=== PATIENT | female | born 1980 | race African-American/Black ===

== ENCOUNTER 2017-08-21 13:41 | Emergency (ER) | payer OTHER ==
[2017-08-21] MEDS ORDERED: METOCLOPRAMIDE 10 MG/2mL INJ ONE (14:37)
[2017-08-21] MEDS ORDERED: DIPHENHYDRAMINE 50 MG/ML VIAL ONE (14:38)
[2017-08-21] MEDS ORDERED: KETOROLAC 30 MG/ML INJ ONE (14:38)
[2017-08-21] MEDS ORDERED: NA CHLORIDE 0.9% 1,000 ML ONE (14:38)
--- NOTE | 2017-08-21 15:48 | EDPHYS ---
Physician Documentation [facility] Name: Rama Ruiz Age: 37 yrs Sex: Female : 1980 Arrival Date: 08/21/2017 Time: 13:44 Bed 13 Private MD: ED Physician Shantanu Mcnulty HPI: 08/21 15:17 This 37 yrs old Black Female presents to ER via EMS with complaints of Nausea. kb 15:17 The patient complains of pain to the top of head. The patient describes the headache as kb constant. Onset: The symptoms/episode began/occurred 2 hour(s) ago. Associated signs and symptoms: Pertinent positives: nausea, Photophobia vomiting. Severity of symptoms: At its worst the pain was moderate, in the emergency department the pain is unchanged. Headache History: The patient has had previous headaches and this one is similar to previous episodes. The symptoms are alleviated by nothing. the symptoms are aggravated by lights. The patient has experienced similar episodes in the past. The patient has not recently seen a physician. 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 - Social history:: Smoking status: Patient uses tobacco products, smokes one-half pack cigarettes per day. ROS: 15:17 Constitutional: Negative for fever, chills, and weight loss, ENT: Negative for injury, kb pain, and discharge, Neck: Negative for injury, pain, and swelling, Cardiovascular: Negative for chest pain, palpitations, and edema, Respiratory: Negative for shortness of breath, cough, wheezing, and pleuritic chest pain, Back: Negative for injury and pain, : Negative for injury, bleeding, discharge, and swelling, MS/Extremity: Negative for injury and deformity, Skin: Negative for injury, rash, and discoloration. 15:17 Abdomen/GI: Positive for nausea and vomiting. 15:17 Neuro: Positive for headache. Exam: 15:21 Constitutional: This is a well developed, well nourished patient who is awake, alert, kb and in no acute distress. Head/Face: Normocephalic, atraumatic. Chest/axilla: Normal chest wall appearance and motion. Nontender with no deformity. No lesions are appreciated. Cardiovascular: Regular rate and rhythm with a normal S1 and S2. No gallops, murmurs, or rubs. Normal PMI, no JVD. No pulse deficits. Respiratory: Lungs have equal breath sounds bilaterally, clear to auscultation and percussion. No rales, rhonchi or wheezes noted. No increased work of breathing, no retractions or nasal flaring. Abdomen/GI: Soft, non-tender, with normal bowel sounds. No distension or tympany. No guarding or rebound. No evidence of tenderness throughout. Back: No spinal tenderness. No costovertebral tenderness. Full range of motion. Skin: Warm, dry with normal turgor. Normal color with no rashes, no lesions, and no evidence of cellulitis. MS/ Extremity: Pulses equal, no cyanosis. Neurovascular intact. Full, normal range of motion. Neuro: Awake and alert, GCS 15, oriented to person, place, time, and situation. Cranial nerves II-XII grossly intact. Motor strength 5/5 in all extremities. Sensory grossly intact. Cerebellar exam normal. Normal gait. Vital Signs: 13:47 BP 156 / 110; Pulse 100; Resp 22 S; Pulse Ox 100% on R/A; Weight 97.52 kg (R); Height 5 jl7 ft. 5 in. (165.10 cm) (R); Pain 10/10; 14:50 BP 142 / 88; Pulse 90; Resp 16 S; Pulse Ox 98% on R/A; Pain 8/10; jtb 15:40 BP 116 / 76; Pulse 95; Resp 16 S; Pulse Ox 98% on R/A; Pain 5/10; jtb 13:47 Body Mass Index 35.78 (97.52 kg, 165.10 cm) jl7 Bharath Coma Score: 15:20 Eye Response: spontaneous(4). Verbal Response: oriented(5). Motor Response: obeys kb commands(6). Total: 15. MDM: 13:55 Patient medically screened. kb 15:20 Data reviewed: vital signs, nurses notes. Data interpreted: Pulse oximetry: on room air kb is 98 %. Interpretation: normal. 15:21 Counseling: I had a detailed discussion with the patient and/or guardian regarding: the kb historical points, exam findings, and any diagnostic results supporting the discharge/admit diagnosis, the need for outpatient follow up, a family practitioner, to return to the emergency department if symptoms worsen or persist or if there are any questions or concerns that arise at home. 15:21 Response to treatment: the patient's symptoms have markedly improved after treatment. kb 08/21 15:06 Order name: Urine Dipstick--Ancillary (enter results) 08/21 15:06 Order name: Urine --Ancillary (enter results) 08/21 13:59 Order name: IV Start; Complete Time: 14:16 kb 08/21 15:20 Order name: PO challenge; Complete Time: 15:44 kb Administered Medications: 14:30 Drug: NS 0.9% 1000 ml Route: IV; Rate: 1000 ml; Site: right antecubital; jl7 15:30 Follow up: IV Status: Completed infusion jl7 14:31 Drug: Benadryl 12.5 mg Route: IVP; Site: right antecubital; jl7 15:15 Follow up: Response: No adverse reaction; Pain is decreased jl7 14:33 Drug: Reglan 10 mg Route: IVP; Site: right antecubital; jl7 15:15 Follow up: Response: No adverse reaction; Pain is decreased jl7 14:35 Drug: TORadol 30 mg Route: IVP; Site: right antecubital; jl7 15:15 Follow up: Response: No adverse reaction; Pain is decreased jl7 Disposition: 08/22 10:47 Co-signature as Attending Physician, Shantanu Mcnulty MD I agree with the assessment and laura plan of care. Disposition: 08/21/17 15:47 Discharged to Home. Impression: Migraine. - Condition is Stable. - Discharge Instructions: Migraine Headache, [id number]. - Medication Reconciliation Form, Thank You Letter, Antibiotic Education, Prescription Opioid Use form. - Follow up: Emergency Department; When: As needed; Reason: Worsening of condition. Follow up: Private Physician; When: 2 - 3 days; Reason: Recheck today's complaints, Continuance of care, Re-evaluation by your physician. Signatures: Dispatcher [employer] Babita Aguirre, LENS CEMENTER-C FREDO-Shantanu Dudley MD MD cha Leal, Jahala, KRISTINA RN jl7
--- NOTE | 2017-08-21 15:48 | ER ---
Nurse's Notes [facility] Name: Rama Ruiz Age: 37 yrs Sex: Female : 1980 Arrival Date: 08/21/2017 Time: 13:44 Bed 13 Private MD: Diagnosis: Migraine Presentation: 08/21 13:44 Presenting complaint: EMS states: Pt c/o severe N/V and a headache since 2 hours ago. jl7 Transition of care: patient was not received from another setting of care. Onset of symptoms was August 21, 2017. Care prior to arrival: None. 13:44 Method Of Arrival: EMS: [facility] jl7 13:44 Acuity: GIORGIO 3 jl7 Triage Assessment: 13:51 General: Appears distressed, Behavior is cooperative, crying, Pt states "The headache jl7 started before the N/V.". Pain: Complains of pain in top of head Pain radiates to occipital area Pain currently is 10 out of 10 on a pain scale. Quality of pain is described as "Like someone's hammering my head." Pain began 2-3 days ago. Is intermittent. Neuro: Level of Consciousness is awake, alert, obeys commands. Cardiovascular: Patient's skin is warm and dry. Respiratory: Airway is patent Respiratory effort is even, unlabored, Respiratory pattern is symmetrical, tachypnea. GI: Reports nausea, vomiting, since 2 hours. 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 - Social history:: Smoking status: Patient uses tobacco products, smokes one-half pack cigarettes per day. Screenin:49 Abuse screen: Denies threats or abuse. Denies injuries from another. Nutritional jtb screening: No deficits noted. Tuberculosis screening: No symptoms or risk factors identified. Fall Risk None identified. Assessment: 13:49 General: Appears in no apparent distress. uncomfortable, Behavior is cooperative, jtb crying. Pain: Complains of pain in headache Pain does not radiate. Pain currently is 10 out of 10 on a pain scale. at worst was 10 out of 10 on a pain scale. Quality of pain is described as "It feels like somebody is punching me in my head." Pain began This morning Is continuous. Neuro: Level of Consciousness is awake, alert, obeys commands, Oriented to person, place, time, situation, Passementerie Worker are weak bilaterally Weakness in bilateral arm(s) foot/feet Speech is normal, Facial symmetry appears normal, Pupils are PERRLA. Cardiovascular: Heart tones S1 S2 present Patient's skin is warm and dry. Pulses are 3+ in right radial artery and left radial artery. Respiratory: Airway is patent Respiratory effort is even, unlabored, Respiratory pattern is regular, symmetrical, Breath sounds are clear bilaterally. GI: Abdomen is flat, Bowel sounds present X 4 quads. Abdomen is tender to palpation X 4 quads. Reports nausea. : No signs and/or symptoms were reported regarding the genitourinary system. EENT: No signs and/or symptoms were reported regarding the EENT system. Derm: Skin is intact, Skin is dry, Skin is normal, Skin temperature is warm. Musculoskeletal: Reports weakness in right hand, left hand, right foot, left foot, right arm, left arm, right leg and left leg since This morning.. 14:55 Reassessment: Patient is alert, oriented x 3, equal unlabored respirations, skin jtb warm/dry/pink. Pt is resting in bed with family at the bedside. reports decrease in pain to 8/10. Appears to be more comfortable and is no longer crying. Patient states feeling better. 15:40 Reassessment: Pt resting in bed w/ eyes closed. Respirations even and unlabored. No jtb signs of discomfort. Family is at the bedside. Reports decrease in pain to 5/10. Vital Signs: 13:47 BP 156 / 110; Pulse 100; Resp 22 S; Pulse Ox 100% on R/A; Weight 97.52 kg (R); Height 5 jl7 ft. 5 in. (165.10 cm) (R); Pain 10/10; 14:50 BP 142 / 88; Pulse 90; Resp 16 S; Pulse Ox 98% on R/A; Pain 8/10; jtb 15:40 BP 116 / 76; Pulse 95; Resp 16 S; Pulse Ox 98% on R/A; Pain 5/10; jtb 13:47 Body Mass Index 35.78 (97.52 kg, 165.10 cm) jl7 Savannah Coma Score: 15:20 Eye Response: spontaneous(4). Verbal Response: oriented(5). Motor Response: obeys kb commands(6). Total: 15. ED Course: 13:44 Patient arrived in ED. jl7 13:46 Triage completed. jl7 13:47 Arm band placed on right wrist. jl7 13:49 Patient has correct armband on for positive identification. Placed in gown. Bed in low jtb position. Call light in reach. Side rails up X2. Pulse ox on. NIBP on. 13:55 Babita Theodore FNP-C is PHCP. kb 13:55 Shantanu Mcnulty MD is Attending Physician. kb 14:00 Inserted saline lock: 22 gauge in right antecubital area, using aseptic technique. jl7 14:50 Adis Johns, RN is Primary Nurse. jl7 16:01 No provider procedures requiring assistance completed. IV discontinued, intact, jl7 bleeding controlled, No redness/swelling at site. Pressure dressing applied. Administered Medications: 14:30 Drug: NS 0.9% 1000 ml Route: IV; Rate: 1000 ml; Site: right antecubital; jl7 15:30 Follow up: IV Status: Completed infusion jl7 14:31 Drug: Benadryl 12.5 mg Route: IVP; Site: right antecubital; jl7 15:15 Follow up: Response: No adverse reaction; Pain is decreased jl7 14:33 Drug: Reglan 10 mg Route: IVP; Site: right antecubital; jl7 15:15 Follow up: Response: No adverse reaction; Pain is decreased jl7 14:35 Drug: TORadol 30 mg Route: IVP; Site: right antecubital; jl7 15:15 Follow up: Response: No adverse reaction; Pain is decreased jl7 Outcome: 15:47 Discharge ordered by . kb 16:00 Discharged to home ambulatory. jl7 16:00 Condition: stable 16:00 Discharge instructions given to patient, Instructed on discharge instructions, follow up and referral plans. Demonstrated understanding of instructions, follow-up care. 16:00 Attestation : I agree with everything documented by Cornel Mancilla, Student Nurse. jl7 16:08 Patient left the ED. jl7 Signatures: Babita Theodore, FREDO-C HARVEST WORKER FRUIT-Adis Hightower, RN RN jl7 Cornel Mancilla jtb Corrections: (The following items were deleted from the chart) 13:49 GI: Abdomen is flat, Reports nausea, jtb jtb
[2017-08-21 16:17] VITALS: O2SAT 98
[2017-08-21 16:18] VITALS: BP 116/76
[2017-08-21 17:11] LABS: Urine Blood TRACE (NEG); Urine Glucose NEGATIVE (NEG); Urine Protein 3+ (NEG); Urine pH 8.5 (5.0-7.0)
== END 2017-08-21 16:08 | disposition home or self-care (01) ==
LOC: ER 13:41
DX: G43.909 Migraine, unspecified, not intractable, without status migrainosus (principal); I10 Essential (primary) hypertension; F17.210 Nicotine dependence, cigarettes, uncomplicated
CPT/HCPCS: 81003; 81025; 96361; 96374; 96375; 99284; J2765; J7030

== ENCOUNTER 2017-10-02 09:57 | Emergency (ER) | payer OTHER ==
--- NOTE | 2017-10-02 12:33 | EDPHYS ---
Physician Documentation [facility] Name: Rama Ruiz Age: 37 yrs Sex: Female : 1980 Arrival Date: 10/02/2017 Time: 10:00 Bed 20 Private MD: None, None ED Physician Mohan Momin HPI: 10/02 10:32 This 37 yrs old Black Female presents to ER via Ambulatory with complaints of Cough. pm1 10:32 The patient or guardian reports cough, flu symptoms. Onset: The symptoms/episode pm1 began/occurred 3 day(s) ago. Severity of symptoms: in the emergency department the symptoms are actually worse. Modifying factors: The symptoms are alleviated by nothing, the symptoms are aggravated by nothing. Associated signs and symptoms: Pertinent positives: sore throat, Subjective fever, Pertinent negatives: chest pain, diarrhea, ear ache, vomiting. The patient has not recently seen a physician, and does not have an established primary care provider. 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 - Social history:: Smoking status: Patient uses tobacco products, smokes one-half pack cigarettes per day. ROS: 10:32 Constitutional: Negative for fever, chills, and weight loss, Eyes: Negative for injury, pm1 pain, redness, and discharge, Neck: Negative for injury, pain, and swelling, Cardiovascular: Negative for chest pain, palpitations, and edema, Abdomen/GI: Negative for abdominal pain, nausea, vomiting, diarrhea, and constipation. 10:32 Back: Negative for injury and pain, MS/Extremity: Negative for injury and deformity, Skin: Negative for injury, rash, and discoloration, Neuro: Negative for headache, weakness, numbness, tingling, and seizure. 10:32 ENT: Positive for rhinorrhea, sinus congestion, sore throat, Negative for drainage from ear(s), ear pain. 10:32 Respiratory: Positive for cough, Negative for shortness of breath, wheezing. Exam: 10:32 Constitutional: This is a well developed, well nourished patient who is awake, alert, pm1 and in no acute distress. Head/Face: Normocephalic, atraumatic. Eyes: Pupils equal round and reactive to light, extra-ocular motions intact. Lids and lashes normal. Conjunctiva and sclera are non-icteric and not injected. Cornea within normal limits. Periorbital areas with no swelling, redness, or edema. 10:32 Neck: Trachea midline, no thyromegaly or masses palpated, and no cervical lymphadenopathy. Supple, full range of motion without nuchal rigidity, or vertebral point tenderness. No Meningismus. Chest/axilla: Normal chest wall appearance and motion. Nontender with no deformity. No lesions are appreciated. Cardiovascular: Regular rate and rhythm with a normal S1 and S2. No gallops, murmurs, or rubs. Normal PMI, no JVD. No pulse deficits. Respiratory: Lungs have equal breath sounds bilaterally, clear to auscultation and percussion. No rales, rhonchi or wheezes noted. No increased work of breathing, no retractions or nasal flaring. Abdomen/GI: Soft, non-tender, with normal bowel sounds. No distension or tympany. No guarding or rebound. No evidence of tenderness throughout. Back: No spinal tenderness. No costovertebral tenderness. Full range of motion. Skin: Warm, dry with normal turgor. Normal color with no rashes, no lesions, and no evidence of cellulitis. MS/ Extremity: Pulses equal, no cyanosis. Neurovascular intact. Full, normal range of motion. 10:32 ENT: External ear(s): are unremarkable, Ear canal(s): are normal, TM's: are normal, Nose: is normal, no acute changes, Mouth: is normal, no acute changes, Posterior pharynx: Airway: normal, no evidence of obstruction, patent, Tonsils: are normal in appearance, no enlargement, no erythema, no exudate, no ulcerations, swelling, is not appreciated, erythema, that is mild, peritonsillar mass, is not appreciated, pooling of secretions, is not appreciated. 10:32 Neuro: Orientation: is normal, Motor: is normal, moves all fours, Gait: is steady, at a normal pace, without difficulty. Vital Signs: 10:10 BP 153 / 95; Pulse 101; Resp 19; Temp 97.8(TE); Pulse Ox 98% on R/A; Weight 97.52 kg; la1 Height 5 ft. 4 in. (162.56 cm); 11:55 BP 132 / 89; Pulse 83; Resp 16; Pulse Ox 98% on R/A; Pain 8/10; iw 10:10 Body Mass Index 36.90 (97.52 kg, 162.56 cm) la1 MDM: 10:13 Patient medically screened. pm1 10:37 Data reviewed: vital signs. Data interpreted: Pulse oximetry: on room air is 98 %. pm1 Interpretation: normal. 12:19 Counseling: I had a detailed discussion with the patient and/or guardian regarding: the pm1 historical points, exam findings, and any diagnostic results supporting the discharge/admit diagnosis, lab results, radiology results, the need for outpatient follow up, to return to the emergency department if symptoms worsen or persist or if there are any questions or concerns that arise at home. 10/02 10:18 Order name: Flu; Complete Time: 12:19 pm1 10/02 10:18 Order name: Strep; Complete Time: 12:19 pm1 10/02 10:18 Order name: Chest Pa And Lat (2 Views) XRAY pm1 10/02 10:50 Order name: Throat Culture EDMS Administered Medications: No medications were administered Disposition: 18:57 Co-signature as Attending Physician, Mohan Momin MD. Disposition: 10/02/17 12:32 Discharged to Home. Impression: Acute upper respiratory infection, unspecified. - Condition is Stable. - Discharge Instructions: Upper Respiratory Infection, Adult, Viral Infections. - Prescriptions for Guaifenesin AC 10- 100 mg/5 mL Oral Liquid - take 10 milliliter by ORAL route every 4 hours As needed; 240 milliliter. - Medication Reconciliation Form, Thank You Letter, Antibiotic Education, Prescription Opioid Use form. - Follow up: Emergency Department; When: As needed; Reason: Worsening of condition. Follow up: Private Physician; When: 2 - 3 days; Reason: Recheck today's complaints, Continuance of care, Re-evaluation by your physician. - Problem is new. - Symptoms have improved. Signatures: Dispatcher [employer] EDMS Marcel Mercado, COORDINATOR CARDIOPULMONARY SERVICES COORDINATOR CARDIOPULMONARY SERVICES Joseph Verma RN RN la1 Favio Greenberg NP BIOLOGY ADJUNCT INSTRUCTOR pm1 Mohan Momin, MD gs
--- NOTE | 2017-10-02 12:33 | ER ---
Nurse's Notes [facility] Name: Rama Ruiz Age: 37 yrs Sex: Female : 1980 Arrival Date: 10/02/2017 Time: 10:00 Bed 20 Private MD: None, None Diagnosis: Acute upper respiratory infection, unspecified Presentation: 10/02 10:09 Presenting complaint: Patient states: Body aches, productive cough, chills for 3-4 la1 days. Transition of care: patient was not received from another setting of care. Onset of symptoms was October 02, 2017. Initial Sepsis Screen: Does the patient meet any 2 criteria? No. Patient's initial sepsis screen is negative. Does the patient have a suspected source of infection? No. Patient's initial sepsis screen is negative. Care prior to arrival: None. 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 - Social history:: Smoking status: Patient uses tobacco products, smokes one-half pack cigarettes per day. Screenin:03 Abuse screen: Denies threats or abuse. Nutritional screening: No deficits noted. em Tuberculosis screening: No symptoms or risk factors identified. Fall Risk None identified. Assessment: 10:32 General: Appears in no apparent distress. uncomfortable, Behavior is calm, cooperative. em Pain: Pain currently is 10 out of 10 on a pain scale. Neuro: Level of Consciousness is awake, alert, obeys commands, Oriented to person, place, time, situation. 10:33 Cardiovascular: Capillary refill < 3 seconds Patient's skin is warm and dry. em Respiratory: Airway is patent Respiratory effort is even, unlabored, Respiratory pattern is regular, symmetrical. Respiratory: Reports shortness of breath at rest cough that is dry, pain with cough since 4 days ago Breath sounds are clear bilaterally. GI: Abdomen is round. : No signs and/or symptoms were reported regarding the genitourinary system. EENT: Throat is clear is reddened has enlarged tonsils bilaterally. Derm: Skin is intact, Skin is pink, warm \T\ dry. Musculoskeletal: Range of motion: intact in all extremities. 11:39 Reassessment: Patient appears in no apparent distress at this time. Patient and/or iw family updated on plan of care and expected duration. Pain level reassessed. Patient is alert, oriented x 3, equal unlabored respirations, skin warm/dry/pink. I agree with above assessment by Marcel Mercado LVN. 12:35 Reassessment: Patient appears in no apparent distress at this time. Patient and/or em family updated on plan of care and expected duration. Pain level reassessed. Patient is alert, oriented x 3, equal unlabored respirations, skin warm/dry/pink. Vital Signs: 10:10 BP 153 / 95; Pulse 101; Resp 19; Temp 97.8(TE); Pulse Ox 98% on R/A; Weight 97.52 kg; la1 Height 5 ft. 4 in. (162.56 cm); 11:55 BP 132 / 89; Pulse 83; Resp 16; Pulse Ox 98% on R/A; Pain 8/10; iw 10:10 Body Mass Index 36.90 (97.52 kg, 162.56 cm) la1 ED Course: 10:00 Patient arrived in ED. mr 10:00 None, None is Private Physician. mr 10:09 Triage completed. la1 10:10 Arm band placed on left wrist. la1 10:11 Favio Greenberg NP is PHCP. pm1 10:11 Mohan Momin MD is Attending Physician. pm1 10:23 Marcel Mercado LVN is Primary Nurse. em 10:51 Chest Pa And Lat (2 Views) XRAY In Process Unspecified. EDMS 11:03 No provider procedures requiring assistance completed. Patient did not have IV access em during this emergency room visit. 11:04 Patient has correct armband on for positive identification. Bed in low position. Call em light in reach. Side rails up X 1. Administered Medications: No medications were administered Outcome: 12:32 Discharge ordered by . pm1 12:43 Discharged to home ambulatory. em 12:43 Condition: good 12:43 Discharge instructions given to patient, Instructed on discharge instructions, follow up and referral plans. Demonstrated understanding of instructions, follow-up care, medications, Prescriptions given X 1. 12:44 Patient left the ED. em Signatures: Dispatcher [employer] Patria Rodriguez mr Rogelio, Marcel, THERMOSTATIC CONTROLS SUPERVISOR THERMOSTATIC CONTROLS SUPERVISOR Arelis Mc, Joseph Pettit RN, RN RN la1 Favio Greenberg, ELDA RECONDITIONER pm1
[2017-10-02 12:48] VITALS: TEMP 97.8; O2SAT 98
[2017-10-02 12:49] VITALS: BP 132/89
--- NOTE | 2017-10-02 15:28 | RAD REPORT ---
EXAM DESCRIPTION: RAD - Chest Pa And Lat (2 Views) - 10/02/2017 10:52 am CLINICAL HISTORY: Body aches, chills, productive cough Driller'S Assistant system malfunction precluded earlier written report. COMPARISON: Portable April 2015 TECHNIQUE: PA and lateral views of the chest were obtained. FINDINGS: The lungs are normal volume. No large mass or consolidation. There does appear to be some early interstitial and patchy alveolar opacification in the left base. The lateral margin of the left hemidiaphragm is partially obscured. Heart size is normal and central vasculature is within normal limits. No pleural effusion or pneumothorax seen. No acute bony finding noted. No aortic abnormal ity. IMPRESSION: Small left lung base pneumonia.
== END 2017-10-02 12:44 | disposition home or self-care (01) ==
LOC: ER 09:57
DX: J06.9 Acute upper respiratory infection, unspecified (principal); I10 Essential (primary) hypertension; F17.210 Nicotine dependence, cigarettes, uncomplicated
CPT/HCPCS: 71046; 87070; 87081; 87804; 99283

== ENCOUNTER 2018-04-03 11:56 | Emergency (ER) | payer OTHER ==
--- NOTE | 2018-04-03 14:40 | ER ---
Nurse's Notes [facility] Name: Rama Ruiz Age: 37 yrs Sex: Female : 1980 Arrival Date: 04/03/2018 Time: 11:56 Bed Waiting Private MD: Diagnosis: Presentation: 04/03 12:19 Presenting complaint: Patient states: " I got stung by a bee 2 days ago and it's really ph swollen and hurting. It's making me sick to my stomach." Area of swelling and redness noted to L mid back area, pt denies SOB. Transition of care: patient was not received from another setting of care. Onset: The symptoms/episode began/occurred acutely. Anaphylaxis evaluation, no signs or symptoms of anaphylaxis were noted. Onset of symptoms was April 03, 2018. Risk Assessment: Do you want to hurt yourself or someone else? Patient reports no desire to harm self or others. Care prior to arrival: None. 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 Assessment: 13:43 Reassessment: called from juwan, no answer. 14:38 Reassessment: Pt called again from ER juwan, no answer. Vital Signs: 12:22 BP 128 / 91; Pulse 91; Resp 18; Temp 97.2; Pulse Ox 98% on R/A; Weight 97.98 kg; Height ph 5 ft. 4 in. (162.56 cm); Pain 9/10; 12:22 Body Mass Index 37.08 (97.98 kg, 162.56 cm) ph ED Course: 11:56 Patient arrived in ED. as 12:22 Triage completed. ph 12:23 Arm band placed on Patient placed in waiting room, Patient notified of wait time. ph Administered Medications: No medications were administered Outcome: 14:38 Eloped from waiting room. ss 14:39 Patient left the ED. ss Signatures: Pushpa Bhatti Shelby, RN RN ss Bonita Cruz RN RN ph
[2018-04-03 15:15] VITALS: BP 128/91; TEMP 97.2; O2SAT 98
== END 2018-04-03 14:39 | disposition left against medical advice (07) ==
LOC: ER 11:56
DX: Z53.21 Procedure and treatment not carried out due to patient leaving prior to being seen by health care provider (principal)
CPT/HCPCS: 99281

== ENCOUNTER 2018-09-11 11:07 | Emergency (ER) | payer OTHER ==
--- OUTSIDE RECORDS SUMMARY | 2018-09-11 11:18 | XMS REPORT ---
:1980 [facility] Address [address] [place] [address] Dr. Asencio [address] [place] [id number] Care Team Providers Name Role Phone Unavailable Unavailable Unavailable Problems This patient has no known problems. Allergies, Adverse Reactions, Alerts This patient has no known allergies or adverse reactions. Medications This patient has no known medications.
[2018-09-11] MEDS ORDERED: DEXAMETHASONE 10 MG/ML VIAL ONE (11:54)
[2018-09-11] MEDS ORDERED: DIPHENHYDRAMINE 50 MG/ML VIAL ONE (11:55)
[2018-09-11] MEDS ORDERED: METOCLOPRAMIDE 10 MG/2mL INJ ONE (11:55)
[2018-09-11] MEDS ORDERED: KETOROLAC 30 MG/ML INJ ONE (13:43)
[2018-09-11 13:55] LABS: Urine Blood TRACE (NEG); Urine Glucose NEGATIVE (NEG); Urine Protein 1+ (NEG); Urine pH 5.5 (5.0-7.0)
--- NOTE | 2018-09-11 14:13 | ER ---
Nurse's Notes [facility] Name: Rama Ruiz Age: 38 yrs Sex: Female : 1980 Arrival Date: 09/11/2018 Time: 11:11 Bed 17 Private MD: None, None Diagnosis: Migraine Presentation: 09/11 11:18 Presenting complaint: Patient states: Woke up this morning with headache and nausea at ss approximately 0830 this morning. Pt reports she has had similar headaches in the past. Transition of care: patient was not received from another setting of care. Onset of symptoms was September 11, 2018. Risk Assessment: Do you want to hurt yourself or someone else? Patient reports no desire to harm self or others. Initial Sepsis Screen: Does the patient meet any 2 criteria? No. Patient's initial sepsis screen is negative. Does the patient have a suspected source of infection? No. Patient's initial sepsis screen is negative. Care prior to arrival: None. 11:18 Method Of Arrival: Ambulatory ss 11:18 Acuity: GIORGIO 3 ss Triage Assessment: 11:26 Headache History: The patient has had previous headaches and this one is similar to hj previous episodes. General: Appears in no apparent distress. uncomfortable, Behavior is calm, cooperative, appropriate for age. Pain: Complains of pain in head Pain currently is 10 out of 10 on a pain scale. Pain began 4 hours ago. Also complains of no other associated symptoms. Neuro: Level of Consciousness is awake, alert, obeys commands, Oriented to person, place, time, situation, Appropriate for age. 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 - Social history:: Smoking status: Patient/guardian denies using tobacco, the patient reports quitting approximately 1 years ago. - Ebola Screening: : Patient denies exposure to infectious person Patient denies travel to an Ebola-affected area in the 21 days before illness onset. Screenin:25 Abuse screen: Denies threats or abuse. Denies injuries from another. Nutritional hj screening: No deficits noted. Tuberculosis screening: No symptoms or risk factors identified. Fall Risk None identified. Assessment: 11:40 Reassessment: see triage for assessment;. hj Vital Signs: 11:20 BP 142 / 102; Pulse 88; Resp 15; Temp 97.4(TE); Pulse Ox 99% on R/A; Weight 88.9 kg; ss Height 5 ft. 3 in. (160.02 cm); Pain 10/10; 11:36 BP 124 / 72; Pulse 82; Resp 18; Pulse Ox 100% on R/A; hj 12:41 BP 140 / 73; Pulse 85; Resp 18; Pulse Ox 99% on R/A; hj 13:50 BP 132 / 68; Pulse 77; Resp 18; Pulse Ox 100% on R/A; hj 11:20 Body Mass Index 34.72 (88.90 kg, 160.02 cm) ED Course: 11:11 Patient arrived in ED. mr 11:12 None, None is Private Physician. mr 11:20 Triage completed. ss 11:20 Arm band placed on right wrist. ss 11:21 Aidan Jamison, KRISTINA is Primary Nurse. hj 11:26 Patient has correct armband on for positive identification. Placed in gown. Bed in low hj position. Call light in reach. Side rails up X 1. 11:33 Rod[facility] Baner[facility]. jr8 11:33 Shantanu Mcnulty MD is Attending Physician. jr8 11:38 Inserted saline lock: 22 gauge in right antecubital area, using aseptic technique. hj 14:41 No provider procedures requiring assistance completed. IV discontinued, intact, hj bleeding controlled, No redness/swelling at site. Pressure dressing applied. Administered Medications: 11:40 Drug: Reglan 10 mg Route: IVP; Site: right antecubital; hj 11:47 Follow up: Response: No adverse reaction; Nausea is decreased hj 11:40 Drug: Benadryl 25 mg Route: IVP; Site: right antecubital; hj 11:47 Follow up: Response: No adverse reaction hj 11:40 Drug: Decadron - Dexamethasone 10 mg Route: IVP; Site: right antecubital; hj 11:47 Follow up: Response: No adverse reaction 13:30 Drug: TORadol 30 mg Route: IVP; Site: right antecubital; 13:45 Follow up: Response: Pain is decreased Outcome: 14:12 Discharge ordered by MD. canales 14:41 Discharged to home ambulatory. 14:41 Condition: stable 14:41 Discharge instructions given to patient, Instructed on discharge instructions, follow up and referral plans. Demonstrated understanding of instructions, follow-up care. 14:42 Patient left the ED. Signatures: Nicky Constantino Shelby, RN RN Rodger Banerjee PA PA jr8 Joaquin, Henry, RN RN
--- NOTE | 2018-09-11 14:13 | EDPHYS ---
Physician Documentation [facility] Name: Rama Ruiz Age: 38 yrs Sex: Female : 1980 Arrival Date: 09/11/2018 Time: 11:11 Bed 17 Private MD: None, None ED Physician Shantanu Mcnulty HPI: 09/11 12:46 This 38 yrs old Black Female presents to ER via Ambulatory with complaints of Headache, jr8 Nausea. 12:46 The patient complains of pain to the top of head, forehead, right mandaeism and left jr8 mandaeism. The patient describes the headache as constant, throbbing. Onset: The symptoms/episode began/occurred gradually, 1 day(s) ago. Associated signs and symptoms: Pertinent positives: nausea, Photophobia. Severity of symptoms: At its worst the pain was moderate, in the emergency department the pain is unchanged. Headache History: The patient has had previous headaches and this one is similar to previous episodes. The symptoms are alleviated by nothing. the symptoms are aggravated by lights, movement, noise. The patient has experienced similar episodes in the past, a few times. The patient has not recently seen a physician. came to ED today because she normally can take OTC medications which relieve symptoms. Has not been able to get rid of it this time . 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 - Social history:: Smoking status: Patient/guardian denies using tobacco, the patient reports quitting approximately 1 years ago. - Ebola Screening: : Patient denies exposure to infectious person Patient denies travel to an Ebola-affected area in the 21 days before illness onset. ROS: 12:46 Eyes: Negative for injury, pain, redness, and discharge, ENT: Negative for injury, jr8 pain, and discharge, Neck: Negative for injury, pain, and swelling, Cardiovascular: Negative for chest pain, palpitations, and edema, Respiratory: Negative for shortness of breath, cough, wheezing, and pleuritic chest pain, Abdomen/GI: Negative for abdominal pain, nausea, vomiting, diarrhea, and constipation, Back: Negative for injury and pain, MS/Extremity: Negative for injury and deformity, Skin: Negative for injury, rash, and discoloration. 12:46 Neuro: Positive for headache, Negative for altered mental status, dizziness, gait disturbance, hearing loss, loss of consciousness, numbness, seizure activity, speech changes, syncope, near syncope, tingling, tinnitus, tremor, visual changes, weakness. Exam: 12:46 Eyes: Pupils equal round and reactive to light, extra-ocular motions intact. Lids and jr8 lashes normal. Conjunctiva and sclera are non-icteric and not injected. Cornea within normal limits. Periorbital areas with no swelling, redness, or edema. ENT: Nares patent. No nasal discharge, no septal abnormalities noted. Tympanic membranes are normal and external auditory canals are clear. Oropharynx with no redness, swelling, or masses, exudates, or evidence of obstruction, uvula midline. Mucous membranes moist. Neck: Trachea midline, no thyromegaly or masses palpated, and no cervical lymphadenopathy. Supple, full range of motion without nuchal rigidity, or vertebral point tenderness. No Meningismus. Cardiovascular: Regular rate and rhythm with a normal S1 and S2. No gallops, murmurs, or rubs. Normal PMI, no JVD. No pulse deficits. Respiratory: Lungs have equal breath sounds bilaterally, clear to auscultation and percussion. No rales, rhonchi or wheezes noted. No increased work of breathing, no retractions or nasal flaring. Abdomen/GI: Soft, non-tender, with normal bowel sounds. No distension or tympany. No guarding or rebound. No evidence of tenderness throughout. Back: No spinal tenderness. No costovertebral tenderness. Full range of motion. Skin: Warm, dry with normal turgor. Normal color with no rashes, no lesions, and no evidence of cellulitis. MS/ Extremity: Pulses equal, no cyanosis. Neurovascular intact. Full, normal range of motion. Neuro: Awake and alert, GCS 15, oriented to person, place, time, and situation. Cranial nerves II-XII grossly intact. Motor strength 5/5 in all extremities. Sensory grossly intact. Cerebellar exam normal. Normal gait. Vital Signs: 11:20 BP 142 / 102; Pulse 88; Resp 15; Temp 97.4(TE); Pulse Ox 99% on R/A; Weight 88.9 kg; ss Height 5 ft. 3 in. (160.02 cm); Pain 10/10; 11:36 BP 124 / 72; Pulse 82; Resp 18; Pulse Ox 100% on R/A; hj 12:41 BP 140 / 73; Pulse 85; Resp 18; Pulse Ox 99% on R/A; hj 13:50 BP 132 / 68; Pulse 77; Resp 18; Pulse Ox 100% on R/A; hj 11:20 Body Mass Index 34.72 (88.90 kg, 160.02 cm) ss MDM: 11:33 Patient medically screened. jr8 14:11 Data reviewed: vital signs, nurses notes, and as a result, I will discharge patient. jr8 Data interpreted: Pulse oximetry: on room air is 100 %. Interpretation: normal. Counseling: I had a detailed discussion with the patient and/or guardian regarding: the historical points, exam findings, and any diagnostic results supporting the discharge/admit diagnosis, the need for outpatient follow up, a family practitioner, to return to the emergency department if symptoms worsen or persist or if there are any questions or concerns that arise at home. Response to treatment: the patient's symptoms have markedly improved after treatment. ED course: Headache much better. No focal neurologic deficits noted before or after treatment. Will send home to f/u with PCP . 09/11 12:07 Order name: Urine Dipstick--Ancillary (enter results); Complete Time: 14:10 bd 09/11 12:07 Order name: Urine --Ancillary (enter results); Complete Time: 14:10 bd 09/11 11:37 Order name: IV; Complete Time: 11:46 jr8 Administered Medications: 11:40 Drug: Reglan 10 mg Route: IVP; Site: right antecubital; hj 11:47 Follow up: Response: No adverse reaction; Nausea is decreased hj 11:40 Drug: Benadryl 25 mg Route: IVP; Site: right antecubital; hj 11:47 Follow up: Response: No adverse reaction hj 11:40 Drug: Decadron - Dexamethasone 10 mg Route: IVP; Site: right antecubital; hj 11:47 Follow up: Response: No adverse reaction hj 13:30 Drug: TORadol 30 mg Route: IVP; Site: right antecubital; hj 13:45 Follow up: Response: Pain is decreased hj Disposition: 17:35 Co-signature as Attending Physician, Shantanu Mcnulty MD I agree with the assessment and laura plan of care. Disposition: 09/11/18 14:12 Discharged to Home. Impression: Migraine. - Condition is Stable. - Discharge Instructions: Migraine Headache. - Medication Reconciliation Form, Thank You Letter, Antibiotic Education, Prescription Opioid Use form. - Follow up: Private Physician; When: 2 - 3 days; Reason: Recheck today's complaints, Continuance of care, Re-evaluation by your physician. - Problem is new. - Symptoms have improved. Signatures: Dispatcher [employer] EDND Shantanu Mcnulty MD MD cha Smirch, Shelby, RN RN Rodger Banerjee PA PA jr8 Aidan Jamison RN RN Corrections: (The following items were deleted from the chart) 14:42 14:12 09/11/2018 14:12 Discharged to Home. Impression: Migraine. Condition is Stable. hj Forms are Medication Reconciliation Form, Thank You Letter, Antibiotic Education, Prescription Opioid Use. Follow up: Private Physician; When: 2 - 3 days; Reason: Recheck today's complaints, Continuance of care, Re-evaluation by your physician. Problem is new. Symptoms have improved. jr8
[2018-09-11 14:56] VITALS: TEMP 97.4
[2018-09-11 14:58] VITALS: BP 132/68; O2SAT 100
== END 2018-09-11 14:42 | disposition home or self-care (01) ==
LOC: ER 11:07
DX: G43.909 Migraine, unspecified, not intractable, without status migrainosus (principal); I10 Essential (primary) hypertension; F32.9 Major depressive disorder, single episode, unspecified
CPT/HCPCS: 81003; 81025; 96374; 96375; 99283; J1100; J2765

== ENCOUNTER 2018-12-14 14:18 | Emergency (ER) | payer OTHER ==
--- OUTSIDE RECORDS SUMMARY | 2018-12-14 14:21 | XMS REPORT ---
:1980 [facility] Address [address] [place] [address] Dr. Asencio [address] [place] [id number] Care Team Providers Name Role Phone Unavailable Unavailable Unavailable Problems This patient has no known problems. Allergies, Adverse Reactions, Alerts This patient has no known allergies or adverse reactions. Medications This patient has no known medications.
[2018-12-14] MEDS ORDERED: TETRACAINE HCL 0.5% 4ML OPTH ONE (16:20)
[2018-12-14] MEDS ORDERED: FLUORESCEIN SODIUM 1 MG/WRAP ONE (16:20)
--- NOTE | 2018-12-14 16:26 | ER ---
Nurse's Notes [facility] Name: Rama Ruiz Age: 38 yrs Sex: Female : 1980 Arrival Date: 12/14/2018 Time: 14:20 Bed 13 Private MD: Diagnosis: Other acute conjunctivitis Presentation: 12/14 15:12 Presenting complaint: Patient states: L eye pain, swelling and drainage x 1 day, also ph reports headache, denies fever, N/V. Transition of care: patient was not received from another setting of care. Onset of symptoms was December 14, 2018. Risk Assessment: Do you want to hurt yourself or someone else? Patient reports no desire to harm self or others. Initial Sepsis Screen:. Care prior to arrival: None. 15:12 Method Of Arrival: Ambulatory 15:12 Acuity: GIORGIO 4 ph 16:51 Initial Sepsis Screen: Does the patient meet any 2 criteria? No. Patient's initial iw sepsis screen is negative. Does the patient have a suspected source of infection? No. Patient's initial sepsis screen is negative. Historical: - Allergies: 15:13 No Known Allergies; ph - PMHx: 15:13 Asthma; Depression; Hypertension; Migraines; ph - PSHx: 15:13 Appendectomy; ; Cholecystectomy; ph - Immunization history:: Adult Immunizations up to date. - Social history:: Smoking status: Patient/guardian denies using tobacco. - Ebola Screening: : Patient negative for fever greater than or equal to 101.5 degrees Fahrenheit, and additional compatible Ebola Virus Disease symptoms Patient denies exposure to infectious person Patient denies travel to an Ebola-affected area in the 21 days before illness onset No symptoms or risks identified at this time. Screenin:10 Abuse screen: Denies threats or abuse. Denies injuries from another. Nutritional aj screening: No deficits noted. Tuberculosis screening: No symptoms or risk factors identified. Fall Risk None identified. Assessment: 16:09 General: Appears in no apparent distress. comfortable, Behavior is calm, cooperative, aj appropriate for age. Pain: Complains of pain in left eye. Neuro: Level of Consciousness is awake, alert, obeys commands, Oriented to person, place, time, situation, Appropriate for age. Respiratory: Airway is patent Respiratory effort is even, unlabored, Respiratory pattern is regular, symmetrical. EENT: Reports pain in left eye. Derm: Skin is intact, is healthy with good turgor, Skin is pink, warm \T\ dry. normal. 16:50 Reassessment: Patient appears in no apparent distress at this time. Patient and/or iw family updated on plan of care and expected duration. Pain level reassessed. Patient is alert, oriented x 3, equal unlabored respirations, skin warm/dry/pink. Vital Signs: 15:13 BP 113 / 73; Pulse 84; Resp 18; Temp 98.7; Pulse Ox 99% on R/A; Weight 88.45 kg; ph 16:50 BP 109 / 75; Pulse 74; Resp 16; Pulse Ox 100% on R/A; Pain 5/10; iw ED Course: 14:20 Patient arrived in ED. mr 15:13 Triage completed. ph 15:30 Tita Brown, KRISTINA is Primary Nurse. nelly 15:43 Ray Jones PA is PHCP. [facility] 15:43 Balwinder Trent MD is Attending Physician. [facility] 16:10 Patient has correct armband on for positive identification. aj 16:24 Chadd Damon MD is Referral Physician. [facility] 16:50 No provider procedures requiring assistance completed. Patient did not have IV access iw during this emergency room visit. 16:51 Arm band placed on. iw Administered Medications: 16:08 Drug: Tetracaine Drops 0.5 % 1 drops Route: Ophthalmic; Site: left eye; Outcome: 16:25 Discharge ordered by MD. [facility] 16:50 Discharged to home ambulatory. 16:50 Condition: good 16:50 Discharge instructions given to patient, Instructed on discharge instructions, follow up and referral plans. medication usage, Demonstrated understanding of instructions, follow-up care, medications, Prescriptions given X 1. 16:51 Patient left the ED. Signatures: Tita Brown RN RN aj Mickail, Joel, PA PA jmm Rivera, Mary Arelis Jurado RN RN iw Hall, Patricia, RN RN ph
--- NOTE | 2018-12-14 16:26 | EDPHYS ---
Physician Documentation [facility] Name: Rama Ruiz Age: 38 yrs Sex: Female : 1980 Arrival Date: 12/14/2018 Time: 14:20 Bed 13 Private MD: ED Physician Balwinder Trent HPI: 12/14 15:54 This 38 yrs old Black Female presents to ER via Ambulatory with complaints of Eye jmm Problem. 15:54 The patient is experiencing pain, redness. Onset: The symptoms/episode began/occurred jmm gradually, 1 day(s) ago. Duration: the symptoms are continuous. Aggravated by nothing. Alleviated by nothing. Associated signs and symptoms: Pertinent negatives: fever. This is a 38 year old with a history of asthma, depression, htn, migraines that presents to the ED with complaints of left eye redness with clear drainage. Denies fever, denies cough, denies blurred vision. . Historical: - Allergies: 15:13 No Known Allergies; ph - PMHx: 15:13 Asthma; Depression; Hypertension; Migraines; ph - PSHx: 15:13 Appendectomy; ; Cholecystectomy; ph - Immunization history:: Adult Immunizations up to date. - Social history:: Smoking status: Patient/guardian denies using tobacco. - Ebola Screening: : Patient negative for fever greater than or equal to 101.5 degrees Fahrenheit, and additional compatible Ebola Virus Disease symptoms Patient denies exposure to infectious person Patient denies travel to an Ebola-affected area in the 21 days before illness onset No symptoms or risks identified at this time. ROS: 15:54 Constitutional: Negative for fever, chills, and weight loss. jmm 15:54 ENT: Negative for injury, pain, and discharge, Cardiovascular: Negative for chest pain, palpitations, and edema, Respiratory: Negative for shortness of breath, cough, wheezing, and pleuritic chest pain, Abdomen/GI: Negative for abdominal pain, nausea, vomiting, diarrhea, and constipation, Neuro: Negative for headache, weakness, numbness, tingling, and seizure. 15:54 Eyes: Positive for discharge, pain, redness. 15:54 All other systems are negative. Exam: 15:54 Constitutional: This is a well developed, well nourished patient who is awake, alert, jmm and in no acute distress. Head/Face: atraumatic. 15:54 Chest/axilla: Normal chest wall appearance and motion. Cardiovascular: Regular rate and rhythm. No edema appreciated Respiratory: Normal respirations, no respiratory distress appreciated Abdomen/GI: Non distended, soft Back: Normal ROM Skin: General appearance color normal MS/ Extremity: Moves all extremities, no obvious deformities appreciated, no edema noted to the lower extremities Neuro: Awake and alert, normal gait Psych: Behavior is normal, Mood is normal, Patient is cooperative and pleasant 15:54 Eyes: Conjunctiva: injected, in the left eye, Corneas: no acute changes, abrasion, is not appreciated, foreign body, is not appreciated, a fluorescein strip employed to appreciate the findings, Intraocular pressure: right eye = 14mmHg. Vital Signs: 15:13 BP 113 / 73; Pulse 84; Resp 18; Temp 98.7; Pulse Ox 99% on R/A; Weight 88.45 kg; ph 16:50 BP 109 / 75; Pulse 74; Resp 16; Pulse Ox 100% on R/A; Pain 5/10; iw MDM: 15:54 Patient medically screened. [facility] 15:54 ED course: PE exam findings consistent with acute conjunctivitis. . [facility] 16:24 Data reviewed: vital signs, nurses notes. Counseling: I had a detailed discussion with [facility] the patient and/or guardian regarding: the historical points, exam findings, and any diagnostic results supporting the discharge/admit diagnosis, the need for outpatient follow up, to return to the emergency department if symptoms worsen or persist or if there are any questions or concerns that arise at home. 12/14 15:54 Order name: Eye Tray; Complete Time: 16:09 [facility] 12/14 15:54 Order name: Fluoresene Opth strip; Complete Time: 16:09 [facility] Administered Medications: 16:08 Drug: Tetracaine Drops 0.5 % 1 drops Route: Ophthalmic; Site: left eye; aj Disposition: 18:53 Co-signature as Attending Physician, Balwinder Trent MD I agree with the assessment and kdr plan of care. Disposition: 12/14/18 16:25 Discharged to Home. Impression: Other acute conjunctivitis. - Condition is Stable. - Discharge Instructions: Bacterial Conjunctivitis, Viral Conjunctivitis. - Prescriptions for Erythromycin 5 mg/gram (0.5 %) Ophthalmic Ointment - apply 1 ribbon by OPHTHALMIC route every 8 hours; 1 tube. - Medication Reconciliation Form, Thank You Letter, Antibiotic Education, Prescription Opioid Use form. - Follow up: Chadd Damon MD; When: 2 - 3 days; Reason: Recheck today's complaints, Continuance of care, Re-evaluation by your physician. Signatures: Tita Brown RN RN Balwinder Fisher MD MD kdr Mickail, Joel, PA PA jmm Williams, Irene, RN RN iw Hall, Patricia, RN RN ph Corrections: (The following items were deleted from the chart) 16:51 16:25 12/14/2018 16:25 Discharged to Home. Impression: Other acute conjunctivitis. iw Condition is Stable. Forms are Medication Reconciliation Form, Thank You Letter, Antibiotic Education, Prescription Opioid Use. Follow up: Chadd Damon; When: 2 - 3 days; Reason: Recheck today's complaints, Continuance of care, Re-evaluation by your physician. irving
[2018-12-14 16:56] VITALS: TEMP 98.7
[2018-12-14 16:57] VITALS: BP 109/75; O2SAT 100
== END 2018-12-14 16:51 | disposition home or self-care (01) ==
LOC: ER 14:18
DX: H10.32 Unspecified acute conjunctivitis, left eye (principal); I10 Essential (primary) hypertension; F32.9 Major depressive disorder, single episode, unspecified; J45.909 Unspecified asthma, uncomplicated
CPT/HCPCS: 99283

== ENCOUNTER 2019-11-01 08:46 | Emergency (ER) | payer OTHER ==
[2019-11-01] MEDS ORDERED: MORPHINE 4 MG/ML SYR ONE (09:47)
[2019-11-01] MEDS ORDERED: ONDANSETRON 4 MG/2 ML VIAL ONE (09:47)
--- OUTSIDE RECORDS SUMMARY | 2019-11-01 09:55 | XMS REPORT ---
:1980 Author Organization [facility] t Address [address] [place] [address] Care Team Providers Name Role Phone Mirna Álvarez Attending Clinician Problems This patient has no known problems. Allergies, Adverse Reactions, Alerts This patient has no known allergies or adverse reactions. Medications This patient has no known medications. Procedures This patient has no known procedures. Encounters Start End Encounter Admission Attending Care Care Encounter Source Date/Time Date/Time Type Type Clinicians Facility Department ID 2019-10-26 2019-10-26 Office KALEB Melton [id number] 08:44:44 15:39:55 Visit Loan rBadley DIRECTOR OF BUSINESS SERVICES [id number] [facility] [id number] MATERNAL [id number] & CHILD [address] [place] [address] Results This patient has no known results.
--- OUTSIDE RECORDS SUMMARY | 2019-11-01 09:56 | XMS REPORT | Summary of Care ---
:1980 Author Organization [facility] Address [address] [place] [id number] Care Team Providers Name Role Phone Roldan Cooper [facility] Insurance Hmo MD Conchita Primary Care Provider Reason for Referral (Routine) Status Reason Specialty Diagnoses / Referred By Referred To Procedures Contact Contact Pending Review Referring Psychiatry Diagnoses Current mild episode of major depressive disorder, unspecified whether recurrent Conchita, Provider Procedures CONSULT/REFERRAL PSYCHOLOGY MD Troy Request [address] [place] [address] Reason for Visit Reason Comments Hypertension Depression WEIGHT CHECK Refill Request Referral/consult Encounter Details Date Type Department Care Team Description 08/31/2019 Telemedicine Visit [facility] Conchita, Essential hypertension (Primary Dx); Pediatric and Adult MD Troy Current mild episode of major depressive disorder, unspecified whether recurrent; Primary Care- [address] Obesity (BM I 30.0-34.9); Yordy Harvey Tobacco use disorder [address] [place], [place] [id number] Allergies No Known Allergiesdocumented as of this encounter (statuses as of 09/12/2019) Medications Medication Sig Dispensed Refills Start Date End Date Status triamcinolone Apply to 30 g 1 03/07/2019 Activ e acetonide 0.1 % affected creamIndications: area(s) 2 Seborrheic (two) times dermatitis, daily. unspecified Miscellaneous I10 - 1 Kit 0 05/22/2019 Activ [employer] Dispense KitIndications: blood Essential pressure cuff hypertension (any brand), take BP at home BID FLUoxetine 10 mg Take 1 tablet 30 tablet 1 08/31/2019 Active tabletIndications: by mouth Current mild daily. episode of major depressive disorder, unspecified whether recurrent lisinopril-hydroch Take 1 tablet 90 tablet 3 08/31/2019 Active lorothiazide 20-25 by mouth mg per daily. tabletIndications: Essential hypertension lisinopril-hydroch Take 1 tablet 90 tablet 3 05/22/2019 Discontinued lorothiazide 20-25 by mouth 0 ( Reorder) mg per daily. tabletIndications: Essential hypertension Hospital, Clinic, or Other Ordered Dose Route Frequency Start Date End Date Status Facility Administered Medication medroxyPROGESTERone 150 mg IM [id number] 05/10/2019 0 Active (DEPO-PROVERA) injection 150 mgIndications: Dysmenorrhea, Initiation of Depo Provera documented as of this encounter (statuses as of 09/12/2019) Active Problems Problem Noted Date Obesity (BMI 30.0-34.9) 05/22/2019 BMI 37.0-37.9, adult 07/08/2017 Dysmenorrhea 07/08/2017 Contraceptive management 07/22/2015 Obese 07/22/2015 Well woman exam 07/22/2015 History of tubal ligation 07/09/2014 Depression 07/08/2014 Essential hypertension 08/14/2013 Overview: ICD10 Diagnosis Term Team Guide Utility Tobacco use disorder 08/14/2013 Asthma 08/15/2012 Overview: ICD10 Diagnosis Term Team Guide Utility documented as of this encounter (statuses as of 09/12/2019) Resolved Problems Problem Noted Date Resolved Date Screening examination for STD (sexually transmitted disease) 07/08/2017 08/17/2018 Acute pain of right shoulder 01/08/2016 07/07/2016 Acute foot pain, right 09/25/2014 07/22/2015 UTI (Urinary tract infection, site not specified) 07/09/2014 07/22/2014 Surveillance of previously prescribed contraceptive method 0 07/09/2014 07/22/2015 Overview: ICD10 Diagnosis Term Team Guide Utility Abdominal pain 07/08/2014 07/22/2014 Overview: ICD10 Diagnosis Term Team Guide Utility Yeast infection of the vagina 07/08/2014 07/22/2014 Screening for STD (sexually transmitted disease) 07/08/2014 07/22/2014 Encounter for routine gynecological examination 08/14/2013 09/25/2014 Overview: ICD10 Diagnosis Term Team Guide Utility Tubal ligation status 08/14/2013 07/08/2014 Morbid obesity 08/14/2013 07/08/2014 FHx: breast cancer 08/14/2013 07/08/2014 FHx: ovarian cancer 08/14/2013 07/08/2014 Lump or mass in breast 08/14/2013 07/08/2014 Overview: Medical records from [facility] 08/27/2013. Im pression: negative study. No mass or cyst is identified. Essential hypertension, benign 08/15/2012 4 documented as of this encounter (statuses as of 09/12/2019) Immunizations Name Administration Dates Next Due Influenza Virus Vaccine Quad IM 3+ YRS 04/12/2018, 6 TDAP (ADACEL) VACCINE 05/10/2019 Td 11/08/2007 documented as of this encounter Social History Tobacco Use Types Packs/Day Years Used Date Current Every Day Smoker Cigarettes 0.1 17 - 10/04/2017 Smokeless Tobacco: Never Used Tobacco Cessation: Ready to Quit: No; Co unseling Given: Yes Comments: 1-2 cigarettes Alcohol Use Drinks/Week oz/Week Comments Yes 0 Standard drinks or equivalent 0.0 Socially, 3-4 beers Sex Assigned at Date Recorded Not on file Job Start Date Occupation Industry Not on file Not on file Not on file Travel History Travel Start Travel End No recent travel history available. documented as of this encounter Last Filed Vital Signs Not on filedocumented in this encounter Patient Instructions Patient InstructionsTroy Arango MD - 08/31/2019 12:40 PM CDT Patient Education Prevention Guidelines,Women Ages 18 to 39 Screening tests and vaccines are an important part of managing your health. A screening test is doneto find possible disorders or diseases in people who don't have any symptoms. The goal is to find a disease early so lifestyle changes can be made and you can be watched more closely to reduce the riskof disease, or to detect it early enough to treat it most effectively. Screening tests are not considered diagnostic, but are used to determine if more testing is needed. Health counseling is essential, too. Below are guidelines for these, for women ages 18 to 39. Talk with your healthcare provider tomake sure youre up-to-date on what you need. Screening Who needs it How often Alcohol misuse All women in this age group At routine exams Blood pressure All women in this age group Yearly checkup if your blood pressure is normal Normal blood pressure is less than 120/80 mm Hg If your blood pressure reading is higher than normal, follow the advice of your healthcare provider Breast cancer All women in this age group should talk with their healthcare providers about the needfor clinical breast exams (CBE)1 Clinical breast exam every 3 years1 Cervical cancer Women ages 21 and older Women between ages 21 and 29 should have a Pap test every 3 years; women between ages 30 and 65 are advised to have a Pap test plus an HPV test every 5 years Chlamydia Sexually active women ages 25 and younger, and women at increased risk for infection (suchas having multiple sex partners) Every year if you're at risk or have symptoms Depression All women in this age group At routine exams Type 2 diabetes, prediabetes All women with no symptoms who are overweight or obese and have 1 or more other risk factors for diabetes At least every 3 years. Also, testing for diabetes during after the 24th week. Type 2 diabetes, prediabetes All women diagnosed with gestational diabetes Lifelong testing every 3 years Type 2 diabetes All women with prediabetes Every year Gonorrhea Sexually active women at increased risk for infection At routine exams Hepatitis C Anyone at increased risk At routine exams HIV All women should be tested at least once for HIV between the ages of 13 and 64 At routine exams.Those with risk factors for HIV should be tested at least annually. Obesity All women in this age group At routine exams Syphilis Women at increased risk for infection should talk with their healthcare provider At routineexams Tuberculosis Women at increased risk for infection should talk with their healthcare provider Ask your healthcare provider Vision All women in this age group At least 1 complete exam in your 20s, and 2 in your 30s Vaccine2 Who needs it How often Chickenpox (varicella) All women in this age group who have no record of this infection or vaccine 2doses; the second dose should be given 4 to 8 weeks after the first dose Hepatitis A Women at increased risk for infection should talk with their healthcare provider 2 dosesgiven at least 6 months apart Hepatitis B Women at increased risk for infection should talk with their healthcare provider 3 dosesover 6 months; second dose should be given 1 month after the first dose; the third dose should be given at least 2 months after the second dose and at least 4 months after the first dose Haemophilus influenzaeType B (HIB) Women at increased risk for infection should talk with their healthcare provider 1 to 3 doses Human papillomavirus (HPV) All women in this age group up to age 26 3 doses; the second dose should be given 1 to 2 months after the first dose and the third dose given 6 months after the first dose Influenza (flu) All women in this age group Once a year Measles, mumps, rubella (MMR) All women in this age group who have no record of these infections or vaccines 1 or 2 doses Meningococcal Women at increased risk for infection should talk with their healthcare provider 1 or more doses Pneumococcal conjugate vaccine (PCV13)and pneumococcal polysaccharidevaccine(PPSV23) Women at increased risk for infection should talk with their healthcare provider PCV13: 1 dose ages 19 to 65 (protects against 13 types of pneumococcal bacteria) PPSV23: 1 to2 doses through age 64, or 1 dose at 65 or older (protects against 23 types of pneumococcal bacteria) Tetanus/diphtheria/pertussis (Td/Tdap) booster All women in this age group Td every 10 years, or a one-time dose of Tdap instead of a Td booster after age 18, then Td every 10 years Counseling Who needs it How often BRCA gene mutation testing for breast and ovarian cancer susceptibility Women with increased risk for having gene mutation When your risk is known Breast cancer and chemoprevention Women at high risk for breast cancer When your risk is known Diet and exercise Women who are overweight or obese When diagnosed, and then at routine exams Domestic violence Women at the age in which they are able to have children At routine exams Sexually transmitted infection prevention Women who are sexually active At routine exams Skin cancer Prevention of skin cancer in fair-skinned adults At routine exams Use of tobacco and the health effects it can cause All women in this age group Every visit 1 According to the ACS, women ages 20 to 39 years should have a clinical breast exam (CBE) as part of their routine health exam every 3 years. Breast self-exams are an option for women starting in their 20s.But the USPSTF does not recommend CBE. OMG kyle reviewed this educational content on 03/06/201719993242-3532 [employer]. [address] [place] [address], [place] [address]. All rights reserved. This information is not intended as a substitute for professional medical care. Always follow your healthcare professional's instructions. documented in this encounter Progress Notes Troy Arango MD - 08/31/2019 12:40 PM CDT TELEMEDICINE CLINIC NOTE DATE OF SERVICE: 08/31/2019 VISIT TYPE: TELEMEDICINE This is a telemedicine visit, without video. Due to concern for COVID 19 spread, will conduct telemedicine visit today. Verbal consent obtained from Patient: Rama Ruiz for telehealth services provided below. Communication with patient was conducted via Telephone due to patient unable to obtain video call option. Location of Patient: Home Location of Provider: Home Office Phone call to patient. Name and identified. Cc: Chief Complaint Patient presents with Hypertension Depression WEIGHT CHECK Refill Request Referral/consult Rama Ruiz is a 38 year old female with PMH of HTN, asthma and as noted below presentingfor follow-up via televisit on phone and doxy.me Today, patient reports her BP is good, averaging 126/76 this morning, on lisinopril - HCTZ 20 -25mg PO qDay. Request refills. Patient reports she weight 187 lbs. She is on a diet for weight management. Patient reports depression stable, notes sometimes she feels down in the evenings, is open to pharmacotherapy and talking to a counselor. Patient still smokes about 2 sticks of Black & Milds daily for about 3 years. She previously smoked 1PPD on average for about 16 yrs. She continues to work on quiting. She defers on nicotine patch at this time. Allergies Rama has No Known Allergies. Medications Outpatient Medications Prior to Visit Medication Sig Dispense Refill Miscellaneous Medical Supply Kit I10 - Dispense blood pressure cuff (any brand), take BP at homeBID 1 Kit 0 lisinopril-hydrochlorothiazide 20-25 mg per tablet Take 1 tablet by mouth daily. 90 tablet 3 triamcinolone acetonide 0.1 % cream Apply to affected area(s) 2 (two) times daily. 30 g 1 Facility-Administered Medications Prior to Visit Medication Dose Route Frequency Provider Last Rate Last Dose medroxyPROGESTERone (DEPO-PROVERA) injection 150 mg 150 mg Intramuscular [id number] Amina Jurado, GOLD LAYER 150 mg at 08/03/19 0945 Histories Past Medical History: Diagnosis Date Asthma Last Asthma attack at 14 years old. Depression 07/08/2014 Ongoing per pt report Dysmenorrhea Dysmenorrhea 07/08/2017 Hypertension ongoing, on BP meds now Tobacco use disorder 08/14/2013 Past Surgical History: Procedure Laterality Date APPENDECTOMY 2010 SECTION 1997, 1998, 2003 CHOLECYSTECTOMY 2009 TUBAL LIGATION 2003 with . 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 Employer: [employer] Social Needs Financial resource strain: Not on file Food insecurity: Worry: Not on file Inability: Not on file Transportation needs: Medical: Not on file Non-medical: Not on file Tobacco Use Smoking status: Current Every Day Smoker Packs/day: 0.10 Years: 17.00 Pack years: 1.70 Types: Cigarettes Start date: 08/18/2003 Last attempt to quit: 10/04/2017 Years since quittin.9 Smokeless tobacco: Never Used Tobacco comment: 1-2 cigarettes Substance and Sexual Activity Alcohol use: Yes Alcohol/week: 0.0 standard drinks Comment: Socially, 3-4 beers Drug use: No Sexual activity: Yes Partners: Male control/protection: Surgical Comment: last sexual intercourse 08/11/2018 Lifestyle Physical activity: Days per week: Not on file Minutes per session: Not on file Stress: Not on file Relationships Social connections: Talks on phone: Not on file Gets together: Not on file Attends adventist service: Not on file Active member of club or organization: Not on file Attends meetings of clubs or organizations: Not on file Relationship status: Not on file Intimate partner violence: Fear of current or ex partner: Not on file Emotionally abused: Not on file Physically abused: Not on file Forced sexual activity: Not on file Other Topics Concern Service No Blood Transfusions No Caffeine Concern No Occupational Exposure No Hobby Hazards No Sleep Concern No Stress Concern No Weight Concern No Special Diet No Back Care No Exercise No Bike Helmet No Seat Belt Yes Self-Exams Yes Social History Narrative Denies domestic violence or abuse. Lives with . 1 dog. She lives with her . 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 Family History Problem Relation Age of Onset Ovarian Cancer Mother Breast Cancer Maternal Aunt Arthritis Maternal Uncle Diabetes Maternal Uncle Hypertension Maternal Uncle Heart Maternal Uncle heart attack Asthma Other cousin Mental retardation Other Arthritis Paternal Grandmother Cancer Sister Review of Systems Constitutional: Positive for weight gain and weight loss. Negative for unexpected weight change. Respiratory: Negative for chest tightness and shortness of breath. Cardiovascular: Negative for chest pain and palpitations. Genitourinary: Negative. Musculoskeletal: Negative for arthralgias. Psychiatric/Behavioral: Depression Endocrine: Positive for weight gain and weight loss. Vital Signs LMP (LMP Unknown) Physical Exam Constitutional: No distress. Cardiovascular: No CP Pulmonary/Chest: No SOB or exercise intolerance Musculoskeletal: She exhibits no edema. Skin: She is not diaphoretic. Psychiatric: She has a normal mood and affect. Thought content normal. No SI/HI/AH/ Nursing note reviewed. Assessment/Plan Essential hypertension - Stable and controlled. Advised to consider DASH diet plan, encouraged modification and weight management. Advised to continue keeping home BP log - Refilled: lisinopril-hydrochlorothiazide 20-25 mg qDay Current mild episode of major depressive disorder, unspecified whether recurrent - Stable. Not at risk for acute intervention. No SI/HI/VH/AH - CONSULT/REFERRAL PSYCHOLOGY - FLUoxetine 10 mg tablet; Take 1 tablet by mouth daily. Dispense: 30 tablet; Refill: 1 Obesity (BMI 30.0-34.9) - Current weight at home 187bls. Patient is on a diet for weight management. Encouraged daily exercise at least 30 mins Tobacco use disorder - Currently smokes 2 sticks of Black & Milds daily. Benefit of cessation and living-tobacco freediscussed > 10 mins Preventive Care: Medication reconciliation, patient education and anticipatory guidance completed. All questions and concerns addressed. AVS given, handout on Prevention Guidelines provided. Return in about 3 months (around 12/01/2019), or if symptoms worsen or fail to improve. This Telephone/Video Call visit involved counseling and coordination of care that comprised more than 50% of the visit time. I spent more than 25 minute(s) total time with the patient. Of that time,10 minute(s) was spent on history and ROS, and 10 minute(s) was spent counseling the patient regarding risks and benefits of treatment, treatment options and prevention. In addition 5 minute(s) was spent on coordination of care. Troy Arango MD 08/31/2019 2:47 PM documented in this encounter Plan of Treatment Date Type Specialty Care Team Description 10/26/2019 [facility] [address], [place] [address] 12/04/2019 Office Visit Family Medicine Troy Arango MD [address] [place] [address] [place] [phone] Health Maintenance Due Date Last Done Comments PAP SMEAR 07/08/2019 07/08/2014 (Previously completed), 07/08/2014, 06/23/2011, Additional history exists INFLUENZA VACCINE (#1) 2020 04/12/2018, 03/08/2016 Po stponed from 02/04/2019 (Refu sed) DTaP,Tdap,and Td Vaccines 05/10/2029 05/10/2019, 11/08/2007 (2 - Td) PNEUMOCOCCAL 0-64 YEARS Discontinued COMBINED SERIES VARICELLA VACCINES Discontinued documented as of this encounter Results Not on filedocumented in this encounter Visit Diagnoses Diagnosis Essential hypertension - Primary Unspecified essential hypertension Current mild episode of major depressive disorder, unspecified whether recurrent Obesity (BMI 30.0-34.9) Obesity, unspecified Tobacco use disorder documented in this encounter Insurance Payer Benefit Plan / Subscriber ID Effective Phone Address T ype Group Dates [employer] 2014-[address] Medicaid [facility] [place] [id number] [place] [address] documented as of this encounter Advance Directives Name Relationship Healthcare Agent Relationship Co mmunication Monica Davis Primary healthcare agent
--- OUTSIDE RECORDS SUMMARY | 2019-11-01 09:56 | XMS REPORT | Summary of Care ---
:1980 Author Organization [facility] Address [address] [place] [address] Care Team Providers Name Role Phone CooperRoldan FREDO Insurance Hmo MD Conchita Primary Care Provider Reason for Visit Reason Comments DEPO PROVERA Encounter Details Date Type Department Care Team Description 08/03/2019 Nurse Visit [facility] [place] Aries Melton, [facility] [address] [facility] [place] [address] Depo-Provera [place] Visit, [facility] Nurse contraceptive status [address] (Primary Dx) [place] [address] Allergies No Known Allergiesdocumented as of this encounter (statuses as of 08/03/2019) Medications Medication Sig Dispensed Refills Start Date End Date Status triamcinolone acetonide Apply to 30 g 1 03/07/2019 Active 0.1 % creamIndications: affected area(s) Seborrheic dermatitis, 2 (two) times unspecified daily. lisinopril-hydrochlorot Take 1 tablet by 90 tablet 3 9 Active hiazide 20-25 mg per mouth daily. tabletIndications: Essential hypertension Miscellaneous Medical I10 - Dispense 1 Kit 0 05/22/2019 Active Supply KitIndications: blood pressure Essential hypertension cuff (any brand), take BP at home BID Hospital, Clinic, or Other Ordered Dose Route Frequency Start Date End Date Status Facility Administered Medication medroxyPROGESTERone 150 mg IM [id number] 05/10/2019 0 Active (DEPO-PROVERA) injection 150 mgIndications: Dysmenorrhea, Initiation of Depo Provera documented as of this encounter (statuses as of 08/03/2019) Active Problems Problem Noted Date Obesity (BMI 30.0-34.9) 05/22/2019 BMI 37.0-37.9, adult 07/08/2017 Dysmenorrhea 07/08/2017 Contraceptive management 07/22/2015 Obese 07/22/2015 Well woman exam 07/22/2015 History of tubal ligation 07/09/2014 Depression 07/08/2014 Essential hypertension 08/14/2013 Overview: ICD10 Diagnosis 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 Utility Tobacco use disorder 08/14/2013 Asthma 08/15/2012 Overview: ICD10 Diagnosis Term Export 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 Utility documented as of this encounter (statuses as of 08/03/2019) Resolved Problems Problem Noted Date Resolved Date Screening examination for STD (sexually transmitted disease) 07/08/2017 08/17/2018 Acute pain of right shoulder 01/08/2016 07/07/2016 Acute foot pain, right 09/25/2014 07/22/2015 UTI (Urinary tract infection, site not specified) 07/09/2014 07/22/2014 Surveillance of previously prescribed contraceptive method 0 07/09/2014 07/22/2015 Overview: ICD10 Diagnosis Term Export 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 Utility Abdominal pain 07/08/2014 07/22/2014 Overview: ICD10 Diagnosis Term Export 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 Utility Yeast infection of the vagina 07/08/2014 07/22/2014 Screening for STD (sexually transmitted disease) 07/08/2014 07/22/2014 Encounter for routine gynecological examination 08/14/2013 09/25/2014 Overview: ICD10 Diagnosis Term Export 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 Utility Tubal ligation status 08/14/2013 07/08/2014 Morbid obesity 08/14/2013 07/08/2014 FHx: breast cancer 08/14/2013 07/08/2014 FHx: ovarian cancer 08/14/2013 07/08/2014 Lump or mass in breast 08/14/2013 07/08/2014 Overview: Medical records from [facility]- 08/27/2013. Im pression: negative study. No mass or cyst is identified. Essential hypertension, benign 08/15/2012 4 documented as of this encounter (statuses as of 08/03/2019) Immunizations Name Administration Dates Next Due Influenza Virus Vaccine Quad IM 3+ YRS 04/12/2018, 6 TDAP (ADACEL) VACCINE 05/10/2019 Td 11/08/2007 documented as of this encounter Social History Tobacco Use Types Packs/Day Years Used Date Current Every Day Smoker Cigarettes 0.1 17 - 10/04/2017 Smokeless Tobacco: Never Used Comments: 1-2 cigarettes Alcohol Use Drinks/Week oz/Week Comments Yes 0 Standard drinks or equivalent 0.0 Socially, 3-4 beers Sex Assigned at Date Recorded Not on file Job Start Date Occupation Industry Not on file Not on file Not on file Travel History Travel Start Travel End No recent travel history available. documented as of this encounter Last Filed Vital Signs Vital Sign Reading Time Taken Comments Blood Pressure 128/88 08/03/2019 9:36 AM WEDDING MAKEUP ARTIST Pulse 92 08/03/2019 9:35 AM WEDDING MAKEUP ARTIST Temperature 36.3 C (97.4 F) 08/03/2019 9:35 AM WEDDING MAKEUP ARTIST Respiratory Rate 16 08/03/2019 9:35 AM WEDDING MAKEUP ARTIST Oxygen Saturation - - Inhaled Oxygen Concentration - - Weight 89 kg (196 lb 5 oz) 08/03/2019 9:35 AM WEDDING MAKEUP ARTIST Height 162.6 cm (5' 4") 08/03/2019 9:35 AM WEDDING MAKEUP ARTIST Body Mass Index 33.7 08/03/2019 9:35 AM WEDDING MAKEUP ARTIST documented in this encounter Patient Instructions Patient InstructionsVicki Kong LVN - 08/03/2019 10:30 AM WEDDING MAKEUP ARTIST Medroxyprogesterone injection [Contraceptive] Brand Names: Depo-Provera, Depo-subQ Provera 104 What is this medicine? MEDROXYPROGESTERONE (me DROX ee proe EUGENIO te garima) contraceptive injections prevent . They provide effective control for 3 months. Depo-subQ Provera 104 is also used for treating pain related to endometriosis. How should I use this medicine? Depo-Provera Contraceptive injection is given into a muscle. Depo-subQ Provera 104 injection is given under the skin. These injections are given by a health behavioral health care coordinator. You must not be before getting an injection. The injection is usually given during the first 5 days after the start of a menstrual period or 6 weeks after delivery of a baby. Talk to your asset protection lead regarding the use of this medicine in children. Special care may be needed. These injections have been used in female children who have started having menstrual periods. What side effects may I notice from receiving this medicine? Side effects that you should report to your doctor or health behavioral health care coordinator as soon as possible: allergic reactions like skin rash, itching or hives, swelling of the face, lips, or tongue breast tenderness or discharge breathing problems changes in vision depression feeling faint or lightheaded, falls fever pain in the abdomen, chest, groin, or leg problems with balance, talking, walking unusually weak or tired yellowing of the eyes or skin Side effects that usually do not require medical attention (report to your doctor or health behavioral health care coordinator if they continue or are bothersome): acne fluid retention and swelling headache irregular periods, spotting, or absent periods temporary pain, itching, or skin reaction at site where injected weight gain What may interact with this medicine? Do not take this medicine with any of the following medications: bosentan This medicine may also interact with the following medications: aminoglutethimide antibiotics or medicines for infections, especially rifampin, rifabutin, rifapentine, and griseofulvin aprepitant barbiturate medicines such as phenobarbital or primidone bexarotene carbamazepine medicines for seizures like ethotoin, felbamate, oxcarbazepine, phenytoin, topiramate modafinil Baylee's wort What if I miss a dose? Try not to miss a dose. You must get an injection once every 3 months to maintain control. If you cannot keep an appointment, call and reschedule it. If you wait longer than 13 weeks between Depo-Provera contraceptive injections or longer than 14 weeks between Depo-subQ Provera 104 injections, you could get . Use another method for control if you miss your appointment. You may also need a test before receiving another injection. Where should I keep my medicine? This does not apply. The injection will be given to you by a health behavioral health care coordinator. What should I tell my health care provider before I take this medicine? They need to know if you have any of these conditions: frequently drink alcohol asthma blood vessel disease or a history of a blood clot in the lungs or legs bone disease such as osteoporosis breast cancer diabetes eating disorder (anorexia nervosa or bulimia) high blood pressure HIV infection or AIDS kidney disease liver disease mental depression migraine seizures (convulsions) stroke tobacco smoker vaginal bleeding an unusual or allergic reaction to medroxyprogesterone, other hormones, medicines, foods, dyes, or preservatives or trying to get breast-feeding What should I watch for while using this medicine? This drug does not protect you against HIV infection (AIDS) or other sexually transmitted diseases. Use of this product may cause you to lose calcium from your bones. Loss of calcium may cause weak bones (osteoporosis). Only use this product for more than 2 years if other forms of control are not right for you. The longer you use this product for control the more likely you will be at risk for weak bones. Ask your health behavioral health care coordinator how you can keep strong bones. You may have a change in bleeding pattern or irregular periods. Many females stop having periods while taking this drug. If you have received your injections on time, your chance of being is very low. If you think you may be , see your health behavioral health care coordinator as soon as possible. Tell your health behavioral health care coordinator if you want to get within the next year. The effect of this medicine may last a long time after you get your last injection. NOTE:This sheet is a summary. It may not cover all possible information. If you have questions aboutthis medicine, talk to your doctor, pharmacist, or health care provider. Copyright 2018 [employer] ING MAKEUP ARTIST documented in this encounter Progress Notes Vicki Kong LVN - 08/03/2019 10:30 AM CST39 year old female has been identified by and name. Verbal consent has been obtained by patientto have an injection of Depo Provera, as ordered by the provider. Date of last Depo Provera injection: 05/10/2019 Last WWE: 08/18/2019 Encounter Diagnosis: v25.49 The site was cleaned with an alcohol swab and given intramuscularly (IM) in the right gluteus. A band aid dressing was then applied to the injection site. The patient tolerated the procedure well . Advised patient on Calcium intake 500-1200 mg daily. ED warnings given. Patient to return to clinic in 08/23 for WWE and in 12 weeks for next Depo. Patient verbalized understanding. Vicki Meza LVN 08/03/2019 9:46 AM Patient stated she hurt her left shoulder at work and wanted to be seen. Resource list given to patient. documented in this encounter Plan of Treatment Date Type Specialty Care Team Description 08/08/2019 Office Visit Family Medicine Binta Tamayo PA [address] [place], [place] [address] 08/22/2019 Office Visit [facility] Dewey Melton, CNP [address] [place], [place] [address] 08/22/2019 Office Visit Family Medicine Troy Arango MD [address] [address] Health Maintenance Due Date Last Done Comments PAP SMEAR 08/18/2019 07/08/2014 (Previously Postponed from completed), 07/08/2014, 07/08/19 20 06/23/2011, Additional (Alternat alycia history exists Guidelines) INFLUENZA VACCINE (#1) 2020 04/12/2018, 03/08/2016 Po stponed from 02/04/2019 (Refu sed) DTaP,Tdap,and Td Vaccines 05/10/2029 05/10/2019, 11/08/2007 (2 - Td) PNEUMOCOCCAL 0-64 YEARS Discontinued COMBINED SERIES VARICELLA VACCINES Discontinued documented as of this encounter Results Not on filedocumented in this encounter Visit Diagnoses Diagnosis Depo-Provera contraceptive status - Prim rakel Surveillance of other previously prescri bed contraceptive method documented in this encounter Administered Medications Medication Order MAR Action Action Date Dose Rate Site medroxyPROGESTERone Given 08/03/2019 9:45 150 mg Right Upper Quad. (DEPO-PROVERA) injection 150 AM WEDDING MAKEUP ARTIST Gluteus mg 150 mg, Intramuscular, [id number], 4 doses, First dose on Phyllis 05/10/19 at 1115, Last dose on Phyllis 01/17/20 at 1115, Routine Given 05/10/2019 11:11 AM WEDDING MAKEUP ARTIST 150 mg Left Upper Quad. Gluteus documented in this encounter Insurance Payer Benefit Plan / Subscriber ID Effective Phone Address T ype Group Dates [employer] xxxxxxxxx 2014-Jamie [place] [id number] [place] [address] documented as of this encounter Advance Directives Name Relationship Healthcare Agent Relationship Co mmunication Monicadari Choi Sibling Primary healthcare agent
--- OUTSIDE RECORDS SUMMARY | 2019-11-01 09:57 | XMS REPORT | Summary of Care ---
:1980 Author Organization [facility] Address [address] [place] [address] Care Team Providers Name Role Phone Roldan Cooper MANAGER HOTEL Insurance Hmo MD Conchita Primary Care Provider Reason for Visit Reason Comments Refill Request Encounter Details Date Type Department Care Team Description 10/23/2019 Refill [facility] and Troy Chilel MD Refill Request [facility]- [address] [facility] , [place] [address] 205 [place] [address] [phone] Allergies No Known Allergiesdocumented as of this encounter (statuses as of 10/24/2019) Medications Medication Sig Dispensed Refills Start Date End Date Status triamcinolone Apply to 30 g 1 03/07/2019 Activ e acetonide 0.1 % affected creamIndications: area(s) 2 Seborrheic (two) times dermatitis, daily. unspecified FLUoxetine 10 mg Take 1 tablet 30 tablet 1 08/31/2019 Active tabletIndications: by mouth Current mild daily. episode of major depressive disorder, unspecified whether recurrent lisinopril-hydroch Take 1 tablet 90 tablet 3 08/31/2019 Active lorothiazide 20-25 by mouth mg per daily. tabletIndications: Essential hypertension Miscellaneous I10 - 1 Kit 0 10/24/2019 Activ e Medical Supply Dispense KitIndications: blood Essential pressure cuff hypertension (any brand), take BP at home BID Miscellaneous I10 - 1 Kit 0 05/22/2019 Disco ntinued Medical Supply Dispense 0 (Reor kash) KitIndications: blood Essential pressure cuff hypertension (any brand), take BP at home BID Hospital, Clinic, or Other Ordered Dose Route Frequency Start Date End Date Status Facility Administered Medication medroxyPROGESTERone 150 mg IM [id number] 05/10/2019 0 Active (DEPO-PROVERA) injection 150 mgIndications: Dysmenorrhea, Initiation of Depo Provera documented as of this encounter (statuses as of 10/24/2019) Active Problems Problem Noted Date Obesity (BMI 30.0-34.9) 05/22/2019 BMI 37.0-37.9, adult 07/08/2017 Dysmenorrhea 07/08/2017 Contraceptive management 07/22/2015 Obese 07/22/2015 Well woman exam 07/22/2015 History of tubal ligation 07/09/2014 Depression 07/08/2014 Essential hypertension 08/14/2013 Overview: ICD10 Diagnosis 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 Utility Tobacco use disorder 08/14/2013 Asthma 08/15/2012 Overview: ICD10 Diagnosis 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 Utility documented as of this encounter (statuses as of 10/24/2019) Resolved Problems Problem Noted Date Resolved Date Screening examination for STD (sexually transmitted disease) 07/08/2017 08/17/2018 Acute pain of right shoulder 01/08/2016 07/07/2016 Acute foot pain, right 09/25/2014 07/22/2015 UTI (Urinary tract infection, site not specified) 07/09/2014 07/22/2014 Surveillance of previously prescribed contraceptive method 0 07/09/2014 07/22/2015 Overview: ICD10 Diagnosis 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 Utility Abdominal pain 07/08/2014 07/22/2014 Overview: ICD10 Diagnosis 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 Utility Yeast infection of the vagina 07/08/2014 07/22/2014 Screening for STD (sexually transmitted disease) 07/08/2014 07/22/2014 Encounter for routine gynecological examination 08/14/2013 09/25/2014 Overview: ICD10 Diagnosis 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 Utility Tubal ligation status 08/14/2013 07/08/2014 Morbid obesity 08/14/2013 07/08/2014 FHx: breast cancer 08/14/2013 07/08/2014 FHx: ovarian cancer 08/14/2013 07/08/2014 Lump or mass in breast 08/14/2013 07/08/2014 Overview: Medical records from [facility]- 08/27/2013. Im pression: negative study. No mass or cyst is identified. Essential hypertension, benign 08/15/2012 4 documented as of this encounter (statuses as of 10/24/2019) Immunizations Name Administration Dates Next Due Influenza [...] Signs Not on filedocumented in this encounter Plan of Treatment Date Type Specialty Care Team Description 10/26/2019 [facility] [address] [place], [place] [address] [phone] 12/04/2019 Office Visit Family Medicine Troy Arango MD [address] [address] [phone] Health Maintenance Due Date Last Done Comments PAP SMEAR 07/08/2019 07/08/2014 (Previously completed), 07/08/2014, 06/23/2011, Additional history exists INFLUENZA VACCINE (Season 05/10/2020 04/12/2018, 03/08/2016 Postponed from Ended) 02/05/2020 (Refu sed) DTaP,Tdap,and Td Vaccines 05/10/2029 05/10/2019, 11/08/2007 (2 - Td) PNEUMOCOCCAL 0-64 YEARS Discontinued COMBINED SERIES VARICELLA VACCINES Discontinued documented as of this encounter Results Not on filedocumented in this encounter Visit Diagnoses Diagnosis Essential hypertension Unspecified essential hypertension documented in this encounter Insurance Payer Benefit Plan / Subscriber ID Effective Phone Address T e Group Dates [employer] xxxxxxxxx 2014-Jamie Chavez [address] [place] [id number] [place] [address] documented as of this encounter Advance Directives Name Relationship Healthcare Agent Relationship Co mmunication Monica Choi Sibling Primary healthcare agent
--- OUTSIDE RECORDS SUMMARY | 2019-11-01 09:57 | XMS REPORT | Summary of Care ---
:1980 Author Organization [facility] Address [address] [place] [address] Care Team Providers Name Role Phone Roldan Cooper [facility] Insurance Hmo MD Conchita Primary Care Provider Reason for Referral (Routine) Status Reason Specialty Diagnoses / Referred By Referred To Procedures Contact Contact New Request Referring Psychiatry Diagnoses Current mild episode of major depressive disorder, unspecified whether recurrent [place], Unknown, Provider Request Procedures CONSULT/REFERRAL PSYCHOLOGY MD Tryo Attending [address] [place] [address] Dr Richardson [address] [place] [address] Reason for Visit Reason Comments Hypertension Depression WEIGHT CHECK Refill Request Referral/consult Encounter Details Date Type Department Care Team Description 08/31/2019 Telemedicine Visit [facility] Conchita, Essential hypertension (Primary Dx); Pediatric and Adult MD Troy Current mild episode of major depressive disorder, unspecified whether recurrent; Primary Care- [address] [place] [address] Obesity (BM I 30.0-34.9); Yordy Harvey Tobacco use disorder [address] [place] [address] [address] , [address] [place], [place] [address] Allergies No Known Allergiesdocumented as of this encounter (statuses as of 10/04/2019) Medications Medication Sig Dispensed Refills Start Date End Date Status triamcinolone Apply to 30 g 1 03/07/2019 Activ e acetonide 0.1 % affected creamIndications: area(s) 2 Seborrheic (two) times dermatitis, daily. unspecified Miscellaneous I10 - 1 Kit 0 05/22/2019 [employer] Medical Supply Dispense KitIndications: blood Essential pressure [...] Facility Administered Medication medroxyPROGESTERone 150 mg IM [id number] 05/10/2019 0 Active (DEPO-PROVERA) injection 150 mgIndications: Dysmenorrhea, Initiation of Depo Provera documented as of this encounter (statuses as of 10/04/2019) Active Problems Problem Noted Date Obesity (BMI 30.0-34.9) 05/22/2019 BMI 37.0-37.9, adult 07/08/2017 Dysmenorrhea 07/08/2017 Contraceptive management 07/22/2015 Obese 07/22/2015 Well woman exam 07/22/2015 History of tubal ligation 07/09/2014 Depression 07/08/2014 Essential hypertension 08/14/2013 Overview: ICD10 Diagnosis Term Predatory Animal Trapper Utility Tobacco use disorder 08/14/2013 Asthma 08/15/2012 Overview: ICD10 Diagnosis Term Predatory Animal Trapper Utility documented as of this encounter (statuses as of 10/04/2019) Resolved Problems Problem Noted Date Resolved Date Screening examination for STD (sexually transmitted disease) 07/08/2017 08/17/2018 Acute pain of right shoulder 01/08/2016 07/07/2016 Acute foot pain, right 09/25/2014 07/22/2015 UTI (Urinary tract infection, site not specified) 07/09/2014 07/22/2014 Surveillance of previously prescribed contraceptive method 0 07/09/2014 07/22/2015 Overview: ICD10 Diagnosis Term Predatory Animal Trapper Utility Abdominal pain 07/08/2014 07/22/2014 Overview: ICD10 Diagnosis Term Predatory Animal Trapper Utility Yeast infection of the vagina 07/08/2014 07/22/2014 Screening for STD (sexually transmitted disease) 07/08/2014 07/22/2014 Encounter for routine gynecological examination 08/14/2013 09/25/2014 Overview: ICD10 Diagnosis Term Predatory Animal Trapper Utility Tubal ligation status 08/14/2013 07/08/2014 Morbid obesity 08/14/2013 07/08/2014 FHx: breast cancer 08/14/2013 07/08/2014 FHx: ovarian cancer 08/14/2013 07/08/2014 Lump or mass in breast 08/14/2013 07/08/2014 Overview: [facility] records from [facility] 08/27/2013. Im pression: negative study. No mass or cyst is identified. Essential hypertension, benign 08/15/2012 4 documented as of this encounter (statuses as of 10/04/2019) Immunizations Name Administration Dates Next Due Influenza [...] 20s.But the USPSTF does not recommend CBE. [employer] last reviewed this educational content on 03/06/201719994876-9994 [employer], [employer]. [address] [place] [address], [place] [address]. All rights reserved. This information is not [...] of Patient: Home Location of Provider: Home Phone call to patient. Name and identified. 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 No SI/HI/VH/ - CONSULT/REFERRAL PSYCHOLOGY - FLUoxetine 10 mg [...] symptoms worsen or fail to improve. This Telephone Call visit involved counseling and coordination of care that comprised more than 50% of the visit time. I spent 25 minute(s) total time with the patient. Of that time, 10 minute(s) was spent on history and ROS, and 10 minute(s) was spent counseling the patient regarding risks and benefits of treatment, treatment options and prevention. In addition 5 minute(s) was spent on coordination of care. Troy Arango MD 08/31/2019 2:47 PM documented in this encounter Plan of Treatment Date Type Specialty Care Team Description 10/26/2019 Office Visit [facility] Dewey Melton, CNP [address] [place], [place] [address] 12/04/2019 Office Visit Family Medicine Troy Arango MD [address] [place] [address] Dr Richardson [address] [place] [address] Health Maintenance Due Date Last [...] OF xxxxxxxxx 2014-Prese [address] [place] [id number] [place] [address] documented as of this encounter Advance Directives Name Relationship Healthcare Agent Relationship Co mmunication Monica Davis Primary healthcare agent
[2019-11-01 09:58] LABS: Absolute Lymphocytes (CBC) 1.6 K/uL (0.7-4.9); Hematocrit 41.7 % (36.0-45.0); Lymphocytes % 34.5 % (15.3-44.8); MPV 7.5 fL (7.6-11.3); RBC Red Blood Cell Count 4.47 M/uL (3.86-4.86)
--- OUTSIDE RECORDS SUMMARY | 2019-11-01 09:58 | XMS REPORT | Summary of Care ---
:1980 Author Organization [facility] Address [address] [place] [id number] Care Team Providers Name Role Phone CooperChuckyrikki YOO Insurance Hmo MD Conchita Primary Care Provider Reason for Visit Reason Comments Well Woman Exam Depo Encounter Details Date Type Department Care Team Description 10/26/2019 Office Visit [facility]- A[place], Loan Enc ounter for other contraceptive management (Primary Dx); [facility] Bradley, [facility] History of [facility]; [address] Well woman exam; [place], [place] DEVANTE A Obesity (BMI 30.0-34.9); [id number] [place] [address] Essential hypertension; [phone] Tobacco use disorder Allergies No Known Allergiesdocumented as of this encounter (statuses as of 10/26/2019) Medications Medication Sig Dispensed Refills Start Date End Date Status triamcinolone acetonide Apply to 30 g 1 03/07/2019 Active 0.1 % creamIndications: affected area(s) Seborrheic dermatitis, 2 (two) times unspecified daily. FLUoxetine 10 mg Take 1 tablet by 30 tablet 1 08/31/2019 Active tabletIndications: mouth daily. Current mild episode of major depressive disorder, unspecified whether recurrent lisinopril-hydrochlorot Take 1 tablet by 90 tablet 3 0 Active hiazide 20-25 mg per mouth daily. tabletIndications: Essential hypertension Miscellaneous Medical I10 - Dispense 1 Kit 0 10/24/2019 Active Supply KitIndications: blood pressure Essential hypertension cuff (any brand), take BP at home [facility], Clinic, or Other Ordered Dose Route Frequency Start Date End Date Status Facility Administered Medication medroxyPROGESTERone 150 mg IM [id number] 05/10/2019 0 Active (DEPO-PROVERA) injection 150 mgIndications: Dysmenorrhea, Initiation of Depo Provera documented as of this encounter (statuses as of 10/26/2019) Active Problems Problem Noted Date Obesity (BMI 30.0-34.9) 05/22/2019 BMI 37.0-37.9, adult 07/08/2017 Dysmenorrhea 07/08/2017 Contraceptive management 07/22/2015 Obese 07/22/2015 Well woman exam 07/22/2015 History of tubal ligation 07/09/2014 Depression 07/08/2014 Essential hypertension 08/14/2013 Overview: ICD10 Diagnosis Term Sign Language Interpreter Utility Tobacco use disorder 08/14/2013 Asthma 08/15/2012 Overview: ICD10 Diagnosis Term Sign Language Interpreter Utility documented as of this encounter (statuses as of 10/26/2019) Resolved Problems Problem Noted Date Resolved Date Screening examination for STD (sexually transmitted disease) 07/08/2017 08/17/2018 Acute pain of right shoulder 01/08/2016 07/07/2016 Acute foot pain, right 09/25/2014 07/22/2015 UTI (Urinary tract infection, site not specified) 07/09/2014 07/22/2014 Surveillance of previously prescribed contraceptive method 0 07/09/2014 07/22/2015 Overview: ICD10 Diagnosis Term Sign Language Interpreter Utility Abdominal pain 07/08/2014 07/22/2014 Overview: ICD10 Diagnosis Term Sign Language Interpreter Utility Yeast infection of the vagina 07/08/2014 07/22/2014 Screening for STD (sexually transmitted disease) 07/08/2014 07/22/2014 Encounter for routine gynecological examination 08/14/2013 09/25/2014 Overview: ICD10 Diagnosis Term Sign Language Interpreter Utility Tubal ligation status 08/14/2013 07/08/2014 Morbid obesity 08/14/2013 07/08/2014 FHx: breast cancer 08/14/2013 07/08/2014 FHx: ovarian cancer 08/14/2013 07/08/2014 Lump or mass in breast 08/14/2013 07/08/2014 Overview: Medical records from [facility]- 08/27/2013. Im pression: negative study. No mass or cyst is identified. Essential hypertension, benign 08/15/2012 4 documented as of this encounter (statuses as of 10/26/2019) Immunizations Name Administration Dates Next Due Influenza Virus Vaccine Quad IM 3+ YRS 04/12/2018, 6 TDAP (ADACEL) VACCINE 05/10/2019 Td 11/08/2007 documented as of this encounter Social History Tobacco Use Types Packs/Day Years Used Date Current Some Day Smoker Cigarettes 0.1 17 08/04 - 10/04/2017 Smokeless Tobacco: Never Used Tobacco Cessation: Ready to Quit: Yes; C ounseling Given: Yes Comments: 1-2 cigarettes Alcohol Use Drinks/Week oz/Week Comments Yes 0 Standard drinks or equivalent 0.0 Socially, 3-4 beers Sex Assigned at Date Recorded Not on file Job Start Date Occupation Industry Not on file Not on file Not on file Travel History Travel Start Travel End No recent travel history available. COVID-19 Exposure Response Date Recorded In the last month, have you been in contact with No / Unsure 10/26/2019 9:03 AM CDT someone who was confirmed or suspected to have Coronavirus / COVID-19? documented as of this encounter Last Filed Vital Signs Vital Sign Reading Time Taken Comments Blood Pressure 116/82 10/26/2019 9:04 AM CDT Pulse 96 10/26/2019 9:04 AM CDT Temperature 36.8 C (98.3 F) 10/26/2019 9:04 AM CDT Respiratory Rate 16 10/26/2019 9:04 AM CDT Oxygen Saturation - - Inhaled Oxygen Concentration - - Weight 88.7 kg (195 lb 9 oz) 10/26/2019 9:04 AM CDT Height 165.1 cm (5' 5") 10/26/2019 9:04 AM CDT Body Mass Index 32.54 10/26/2019 9:04 AM CDT documented in this encounter Patient Instructions Patient InstructionsMaura Arnold RN - 10/26/2019 9:45 AM CDT Patient Education 4 Steps for Eating Healthier Changing the way you eat can improve your health. It can lower your cholesterol and blood pressure, and help you stay at a healthy weight. Your diet doesnt have to be bland and boring to be healthy.Just watch your calories and follow these steps: Step 1. Eat fewer unhealthy fats Choose more fish and lean meats instead of fatty cuts of meat. Skip butter and lard, and use less margarine. Pass on foods that have palm, coconut, or hydrogenated oils. Eat fewer high-fat dairy foods like cheese, ice cream, and whole milk. Get a heart-healthy cookbook and try some low-fat recipes. Step 2.Go light on salt Keep the saltshaker off the table. Limit high-salt ingredients, such as soy sauce, bouillon, and garlic salt. Instead of adding salt when cooking, season your food with herbs and flavorings. Try lemon, garlic, and onion, or salt-free herb seasonings. Limit convenience foods, such as boxed or canned foods and restaurant food. Read food labels and choose lower-sodium options. Step 3. Limit sugar Pause before you add sugars to pancakes, cereal, coffee, or tea. This includes white and brown table sugar, syrup, honey, and molasses. Cut your usual amount by half. Use non-sugar sweeteners. Stevia, aspartame, and sucralose can satisfy a sweet tooth without adding calories. Swap out sugar-filled soda and other drinks. Buy sugar-free or low-calorie beverages. Remember water is always the best choice. Read labels and choose foods with less added sugar. Keep in mind that dairy foods and foods with fruit will have some natural sugar. Cut the sugar in recipes by 1/3 to 1/2. Boost the flavor with extracts like almond, vanilla, or orange. Or add spices such as cinnamon or nutmeg. Step 4. Eatmore fiber Eat fresh fruits and vegetables every day. Boost your diet with whole grains. Go for oats, whole-grain rice, and bran. Add beans and lentils to your meals. Drink more water to match your fiber increase to help prevent constipation. [employer] last reviewed this educational content on 11/04/201619998754-9361 [employer], [employer]. [address] [place] [address], [place] [address]. All rights reserved. This information is not intended as a substitute for professional medical care. Always follow your healthcare professional's instructions. Patient Education Prevention Guidelines,Women Ages 18 to [...] 20s.But the USPSTF does not recommend CBE. [employer] kyle reviewed this educational content on 03/06/201719990994-5501 [facility] [employer]. [address] [place] [address]. All rights reserved. This information is not intended as a substitute for professional medical care. Always follow your healthcare professional's instructions. Patient Education Control Methods control methods are used to help prevent .There are many different methods to choose from. Talk to your healthcare provider about which method is right for you.Be sure to ask your provider about the effectiveness of each method. Also ask about the benefits, risks, and side effects of each method. Hormones Some control methods work by releasing hormones such as progestin and estrogen. These methods include hormone implants, hormone shots, the vaginal ring, the patch,and control pills. They all work by stopping ovulation (release of the egg from the ovary). The implant is a small device that needs to be placed in the upper arm by a trained healthcare provider. It works for up to3 years.Hormone injections must be repeated every 3 months.The vaginal ring must be replaced monthly (it can be removed during the fourth week of each cycle). The patch must be replaced weekly (it is not worn during the fourth week of each cycle). control pills must be taken every day. All of these met hods are effective and can be stopped at any time. Intrauterine device (IUD) An IUD is a small, T-shaped device. It must be placed in the uterus by a trained healthcare provider.There are different types of IUDs available. They work by causing changes in the uterus that make it harder for sperm to reach the egg. Depending on the type of IUD you have, it may work for several years or longer. The IUD is a reversible control method. This means it can be removed at any time. Condom A condom is a sheath that forms a thin barrier between the penis and the vagina.It helps prevent by keeping sperm from entering the vagina. When latex condoms are used, they have the added benefit of protecting against most STIs (sexually transmitted infections).Condoms are used each time there is sexual intercourse and should be discarded after each use. Ask your healthcare provider about the different types of condoms available. These include both the male condom and female condom. Spermicide Spermicides come as foams, jellies, creams, suppositories, andtablets.They help prevent by killing sperm. When used alone they are not that reliable. They work best when combined with other control methods such as diaphragms and cervical caps. Sponge, diaphragm, and cervical cap All of these methods help prevent by covering the opening of the uterus (cervix). This prevents sperm from passing through. The sponge contains spermicide. It can be bought over the counter. The sponge must be left in place for at least 6 hours after the last time you have sex.However, it should not stay in place for morethan 24 hours. It should be discarded after it is used. Thediaphragmand cervical cap must be fitted and prescribed by your healthcare provider. Both areused with spermicide.The diaphragm must be left in place for at least 6 hours after sex. However, it should not stay in place for more than 24 hours.It can be washed and reused. The cervical cap must be left in place for at least 6 hours after sex. However, it should not stay in place for more than 48 hours. It can be washed and reused. Withdrawal method This is when the man pulls his penis out of the vagina just before ejaculation (coming). This lowers the amount of sperm entering the vagina. Be aware that fluids released just before ejaculationoften still contain some sperm, so this method is not as reliable as certain other methods. Rhythm method This method requires that you know when in your menstrual cycle you are likely to become . Then, you avoid sex during those days. This requires careful planning and good discipline. Your healthcare provider can explain more about how this works. Tubal ligation and vasectomy These are surgical methods to prevent . Tubal ligation is an option for women. The fallopian tubes are blocked or cut (ligated). This keeps the egg from passing into the uterus or sperm from reaching the egg. Vasectomy is an option for men. The tubes that normally carry sperm to the penis areeither closed or blocked. Both tubal ligation and vasectomy are permanent control methods. This means reversal is either not possible or unlikely to work.They are good choices for women and menwho know that they do not want to have children in the future. [employer] last reviewed this educational content on 04/06/201719993157-5483 [facility]. [address] [place] [address]. All rights reserved. This information is not intended as a substitute for professional medical care. Always follow your healthcare professional's instructions. Patient Education Understanding HPV (Human Papillomavirus) HPV (human papillomavirus) is a virus that causes warts. It can be hard to detect, so many people never even know they have it. Some types (strains) of HPV may cause warts on the hands, legs, or other parts of the body. These can spread from person to person. Other strains of HPV cause wartsin the genital area. A few of these strains can cause certain cancers: Cancers of the cervix, vagina, and vulva in women Cancers of the penis in men Cancers of the anus and back of the throat, including the base of the tongue and tonsils in both women and men . Treating genital forms of HPV now can help prevent serious health problems in the future. How was I infected? HPV is passed from person to person through contact with infected skin. Everyone with HPV has a different experience. Some people notice genital warts (condyloma) within a few months of exposure. In other people, warts take years to appear or may never appear. This makes it almost impossible to know when or by whom you were infected. How warts form HPV lives inside skin and mucous membrane (including in the mouth and vagina). The virus can make skin cells reproduce more often than they should. These extra skin cells build up into warts. 1. HPV invades the skin. 2. DNA from the virus enters skin cells. 3. HPV causes infected skin cells to multiply and form warts. 4. The virus sheds, allowing it to be passed to others. Mk last reviewed this educational content on 11/04/201819992725-6246 [facility]. [address] [place] [address]. All rights reserved. This information is not intended as a substitute for professional medical care. Always follow your healthcare professional's instructions. Patient Education What Are Sexually Transmitted Infections (STIs)? A sexually transmitted infection (STI) is an infection that is spread during sex. An STI can also becalled STD for sexually transmitted disease. You can become infected with an STI if you have sex with someone who has an STI. Any sex that involves the penis, vagina, anus, or mouth can spread these infections. Some STIs also spread through body fluids such as semen, vaginal fluid, or blood. Others spread through contact with infected skin. The most common STIs are chlamydia, genital warts , genital herpes, syphilis, HIV, gonorrhea, and trichomoniasis. Who is at risk? It doesnt matter if youre straight or carlos, male or female, young or old. Any person who has sex can get an STI. Your risk increases if: You have more than one partner. The more partners you have, the greater your risk. Your partner has other partners. If your partner is exposed to an STI, you could be, too. You or your partner have had sex with other people in the past. Either of you might be carrying an STI from an earlier partner. You have an STI. The STI may cause sores or other health problems that increase your risk for newinfections. Your risk will stay high unless you are treated for your current STI and change the behaviors that put you at risk. Prevent future problems Left untreated, certain STIs can lead to cancer or, rarely, . Some can harm unborn babies whosemothers are infected. Others can cause you to not be able to have children (sterility) or can affectchanges in behavior or your ability to think. You can prevent these problems with safer sex, regularcheckups, and early treatment. Always use a latex condom when you have sex. Get tested if youre at risk. And get treated early if you have an STI. Using a latex condom every time you have sex can reduce your risk of STIs. Getting checked The only sure way to know if you have an STI is to get checked by a healthcare provider. If you notice a change in how your body looks or feels, have it checked out. But keep in mind, STIs dont always show symptoms. So if youre at risk for STIs, get checked regularly. If you find you have an STI, have your partner get treatment. If not, his or her health is at risk. And left untreated, your partner could pass the STI back to you, or on to others. Common symptoms Be alert to any changes in your body and your partners body. Symptoms may appear in or near the vagina, penis, rectum, mouth, or throat. They may include: Unusual discharge Lumps, bumps, or rashes Sores that may be painful, itchy, or painless Itchy skin Burning with urination Pain in the pelvis, belly (abdomen), or rectum Bleeding from the rectum Even if you dont have symptoms You may have an STI even if you dont have symptoms. If you think you are at risk, get checked. Goto a clinic or to your healthcare provider. If your partner has an STI, you need to be tested even if you feel fine. Vaccines to prevent disease Vaccines are available to prevent hepatitis A and hepatitis B. These are 2 kinds of STIs. There is also a vaccine to prevent human papillomavirus (HPV). This is a virus that can be passed from person to person through sexual contact. Ask your healthcare provider whether any of these vaccines is right for you. [employer] last reviewed this educational content on 05/06/201819997004-2341 [facility]. [address] [place] [address]. All rights reserved. This information is not intended as a substitute for professional medical care. Always follow your healthcare professional's instructions. Patient Education Understanding HIV and AIDS It's important to know how HIV can get into your body and what happens once its there. Then youll be better prepared to protect yourself or others against this virus. A person with HIV can look and feel perfectly healthy. But that person can give HIV to others as soon as he or she is infected with the virus. Having unsafe or unprotected sex or sharing needles puts you at risk for HIV. Talk with your healthcare provider about ways to protect yourself or a loved one from getting HIV. How HIV infection progresses After HIV enters the body, it attacks the immune system in the stages below. A person with HIV can infect others once the virus gets into the blood. HIV with no symptoms. A person with HIV may have no symptoms for years. The only sign of infection may be a positive blood test for HIV 2 weeks to 3 months or later after HIV enters the body. HIV with symptoms. Some people develop an illness similar to mono (mononucleosis) 2 to 4 weeks after the virus enters the body. This is called acute retroviral syndrome. Symptoms may include swollen lymph glands, chills, fever, night sweats, weakness, weight loss, skin rashes, mouth ulcers, or sore t hroat. Symptoms may be mild or the person can feel quite sick. Even without treatment the symptoms almost always go away in a few days or up to 2 to 3 weeks. Then the person has no symptoms, often for years. But over time the immune system starts to get weaker and symptoms start appearing. People at this stage may have a yeast infection in the mouth (oral thrush), shingles, skin problems, pneumonia, diarrhea that keeps coming back, or weight loss. AIDS. AIDS is the most advanced stage of HIV infection, when the immune system is severely weakened.Certain rare diseases and cancers that normally would not occur, now can occur because the body can no longer fight them well enough. It is often these diseases that cause in people with AIDS. HIV may also directly attack the brain and nervous system. This causes seizures and loss of memory and body movement. It also affects many other parts of the body. This leads to problems such as anemia, low white blood cell count, diarrhea, belly pain, skin problems, and many others. How HIV enters the body HIV is carried in semen, vaginal fluid, blood, and breastmilk. During sex, HIV can enter the body. It gets in through the fragile tissue and linings, sores, or cuts in or around the vagina, penis, anus, and mouth. During drug use, tattooing, or body piercing, the virus can enter the blood through an infected needle. A mother who has HIV can infect her child during , childbirth, and . [employer] last reviewed this educational content on 11/04/201819990449-1490 [facility]. [address] [place] [address], [place] [address]. All rights reserved. This information is not intended as a substitute for professional medical care. Always follow your healthcare professional's instructions. Patient Education Clinical Breast Exam Many health organizations recommend a yearly clinical breast exam. This exam may be done by a historical records administrator, family healthcare provider, nurse practitioner, nurse engine installer, or specially trained nurse. Yearly breast exams help tomake surethat breast conditions are found early. Your healthcare providers role A healthcare professional knows the tests and follow-up care needed if a problem is found. Your clinical exam is also a great time to ask questions about breast self-exams. You can find out if yourechecking your breasts in the best way. Or you may want to ask how , breast implants, or breast reduction surgery affect the way you should check your breasts. Diagnostic tests If a clinical exam reveals a breast change, you may have other tests to find out more. These tests may include: Mammography. A low-dose X-ray of your breast tissue. Ultrasound. An imaging test that uses sound waves to create images of your breast. Biopsy. A small amount of breast tissue is removed by needle or by a cut (incision). The tissue is then checked under a microscope. Guidelines for having clinical breast exams The [employer] recommends that starting at age 29, you should have a clinical breast exam every 1 to 3 years. After age 40, have a clinical breast exam each year. If youre at higher risk for breast cancer, you may need exams more often. Risk factors for breast cancer may include: Being over 50 or postmenopausal Having a family history of breast cancer Having the BRCA1 or BRCA2 gene mutation or certain other gene mutations Having more menstrual periods due to starting menstruation early(before age 12) or having a late menopause (after age 55) Having no pregnancies Having a first after age 30 Being obese Having a history of radiation treatment to your chest area Exposure to KRYSTINA during your mother's Not being active Drinking too much alcohol Having dense breast tissue Taking hormone therapy after menopause Other health organizations have different recommendations. Talk with your healthcare provider about what is best for you. [employer] last reviewed this educational content on 01/04/201719997530-0168 [facility]. [address] [place] [address]. All rights reserved. This information is not intended as a substitute for professional medical care. Always follow your healthcare professional's instructions. Patient Education Breast Health: Breast Self-Awareness What is breast self-awareness? Breast self-awareness is knowing how your breasts normally look and feel. Your breasts change as yougo through different stages of your life. So its important to learn what is normal for your breasts. Knowing about your breasts helps you spot any changes in them right away. Tell your healthcare provider about any changes. Why is breast self-awareness important? Many experts now say that women should focus on breast self-awareness instead of doing a breast self-examination (BSE). These experts include the [employer] and the [employer]. Some experts even advise not teaching women to do a BSE. Thats because research hasnt shown a clear benefit to doing BSEs. Breast self-awareness is different than a BSE. It isnt about following a certain method and schedule. Its about knowing what's normal for your breasts. That way you can spot even small changes right away. If you see any changes, tell your healthcare provider. Changes to look for Call your healthcare provider if you find any changes in your breasts that worry you. These changes may be: A lump Nipple discharge other than breastmilk, especially if it's bloody Swelling A change in size or shape Skin changes, such as redness, thickening, or dimpling of the skin Swollen lymph nodes in the armpit Nipple problems, such as pain or redness If you find a lump Call your provider if you find lumpiness in one breast. Also call if you feel something different inthe tissue or feel a definite lump. Sometimes lumpiness may be due to menstrual changes. But there may be reason for concern. Your provider may want to see you right away if you have: Nipple discharge that is bloody Skin changes on your breast, such as dimpling or puckering Its okay to be upset if you find a lump. Be sure to call your provider right away. Remember that most breast lumps are benign. This means they are not cancer. Ch[employer]k last reviewed this educational content on 01/04/201719994257-1336 [employer], [employer]. [address] [place] [address]. All rights reserved. This information is not intended as a substitute for professional medical care. Always follow your healthcare professional's instructions. Patient Education Pap Test A speculum is used to open the vagina so cells can be taken from the cervix. Schedule your test for a time when you will not be having your menstrual period. If youre menstruating at the time of your appointment, call your healthcare provider to ask if you should reschedule. For 48 hours before the test Don't douche. Don' use vaginal medicines, creams, or spermicides. For 24 hours before the test Don't have sex. How the test is done 1. You lie on an exam table with your feet in stirrups (foot rests). This is the usual position for a pelvic exam (an exam of the reproductive organs). 2. Your healthcare provider uses a speculum (a metal or plastic instrument) to gently open the vagina. 3. Cells are taken from the cervix with a small spatula or rubber broom. A small brush may then be used to remove cells from inside the cervical canal. You may feel pressure or slight discomfort. Preserving the sample There are 2 ways to preserve the sample after it is taken: Traditional preservation.With this method, the sample is smeared directly onto a glass microscope slide. The sample is then sent to a lab to be analyzed. Liquid-based preservation.The sample is placed in a special preservative solution. At the lab, cervical cells are from blood and mucous cells and spread onto a slide. Screening for humanpapillomavirus (HPV)can also be done using the same sample. After the test Youre free to go! There is a slight chance of light bleeding or spotting. Your healthcare provider will tell you when to expect your test results. Getting your results Ask your healthcare provider how you will receive your results. You should always obtain and understand results of any testing you have done. These may be obtained by phone, mail, or through online access if available: Normal result.The cells in the sample appear healthy. Have your next Pap test as recommended byyour healthcare provider. Abnormal result.The lab saw something unusual in your sample. Talk with your healthcare provider about what the results mean. You may need to repeat the Pap test or have other tests to evaluate the problem. [employer] last reviewed this educational content on 06/06/201919991629-9317 [facility]. [address] [place] [id number]. All rights reserved. This information is not intended as a substitute for professional medical care. Always follow your healthcare professional's instructions. Patient Education Why Have a Pap Test? Early on, cervical changes don't cause symptoms. Often, the only way to know you have cervical changes is to do a Pap test. A Pap test can find these problems early, when they are easier to treat. Pap tests can also detect some infections of the cervix and vagina. What is a Pap test? A Pap test is a procedure that helps find changes in the cervix that may lead to cancer. The cervix is the part of the uterus that opens into the vagina. For this test, a small sample of cells is takenfrom the cervix. This is done in your healthcare providers office. The cells are then analyzed [facility]. A Pap test is a safe procedure. It takes just a few minutes and causes little or no discomfort. The HPV connection Human papillomavirus or HPV is a family of viruses that spread through skin contact. Certain types are almost always spread through sexual contact. Some HPV types cause genital warts (condyloma). But not all types of HPV cause visible symptoms. Certain types cause cell changes (dysplasia) in the cervix that can lead to cancer.In fact, HPV infection is the most important risk factor for cervical cancer. Healthcare providers can now test for HPV. Testing for HPV is often done with the Pap test.Thats why its important to have Pap tests as recommended by your healthcare provider. This helps ensure that any abnormal cells will be found and treated before they become cancerous. Who should have a Pap test and HPV test? Ask your healthcare provider when to start having Pap tests, whether you should have an HPV test done at the same time, and how often to have them. Follow these guidelines from the [employer] for cervical cancer screening: A first Pap testat age 21. And then every 3 years until age 29, HPV testing is not recommended during this time, though it may be done to follow-up on an abnormal Pap test. Starting at age 30, the preferred testing is a Pap test done with an HPV test every 5 years. Thisshould be done until age 65. Another option for women in this 30 to 65 age group is to have just thePap test done every 3 years. You may need a different screening schedule if you are at high risk for cervical cancer.Risk factors include having HIV, a weak immune system, or exposure to the medicine KRYSTINA while your mother was with you. Talk with your healthcare provider about the best schedule for you. If youre over65 and have had regular screenings for the last 10 years with no abnormal results in the last 20 years,you may stop cervical cancer screening. If you had a hysterectomy that included removing your cervix, you can stop screening unless the hysterectomy was done to treat cervical cancer or pre- cancer. If you still have your cervix after the hysterectomy, you should continue screening according to the above guidelines. Routine testing does not need to be done each year. However, if your test is abnormal, your provider will let you know how often to be tested. Women who have been vaccinated for HPV should still follow these guidelines. If you have had cervical cancer, talk to your healthcare provider about the screening plan that'sbest for you. Mk last reviewed this educational content on 02/04/201719994797-1813 [facility]. [address] [place] [address]. All rights reserved. This information is not intended as a substitute for professional medical care. Always follow your healthcare professional's instructions. documented in this encounter [employer] Loan Melton, SELVINP - 10/26/2019 9:45 AM CDT Chief complaint: Chief Complaint Patient presents with Well Woman Exam Depo HPI: the patient is here today for WWE and contraceptive management. She reports she is doing well with no issues or concerns today. She declines the need for STI testing today, reporting no new sexualpartners. She reports tubal ligation for control and reports she is on depo to help her cycles.she reports she is due for depo on today. Pt (denies) current or past physical, sexual or emotional abuse. Histories OB History Para Term AB Living 3 3 3 0 0 3 SAB TAB Ectopic Multiple Live Births 0 0 0 0 3 # Outcome Date GA Lbr Steven/2nd Weight Sex Delivery Anes PTL Lv 3 Term 2003 40w0d 8 lb 3 oz (3.714 kg) F SEC CARA 2 Term 1998 40w0d 8 lb 6 oz (3.799 kg) M SEC CARA 1 Term 1997 40w0d 7 lb 6 oz (3.345 kg) M SEC CARA Past Medical History: Diagnosis Date Asthma Last Asthma attack at 14 years old. Depression 07/08/2014 Ongoing per pt report, stopped taking medication Dysmenorrhea Dysmenorrhea 07/08/2017 Hypertension ongoing, on BP meds now Tobacco use disorder 08/14/2013 Family History Problem Relation Age of Onset Ovarian Cancer Mother Breast Cancer Maternal Aunt Arthritis Maternal Uncle Diabetes Maternal Uncle Hypertension Maternal Uncle Heart Maternal Uncle heart attack Asthma Other cousin Mental retardation Other Arthritis Paternal Grandmother Cancer Sister Family Status Relation Name Status Mo at age 39 ovarian cancer MAunt Alive MUnc OTHER Cousin Alive Fa (Not Specified) unknown PGMo (Not Specified) Sis Alive Past Surgical History: Procedure Laterality Date APPENDECTOMY 2010 SECTION 1997, 1998, 2003 CHOLECYSTECTOMY 2009 TUBAL LIGATION 2003 with . 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 Employer: [employer] Social Needs Financial resource strain: Not on file Food insecurity: Worry: Not on file Inability: Not on file Transportation needs: Medical: Not on file Non-medical: Not on file Tobacco Use Smoking status: Current Some Day Smoker Packs/day: 0.10 Years: 17.00 Pack years: 1.70 Types: Cigarettes Start date: 08/18/2003 Last attempt to quit: 10/04/2017 Years since quittin.0 Smokeless tobacco: Never Used Tobacco comment: 1-2 cigarettes Substance and Sexual Activity Alcohol use: Yes Alcohol/week: 0.0 standard drinks Comment: Socially, 3-4 beers Drug use: No Sexual activity: Yes Partners: Male control/protection: Surgical, Injection Comment: last sexual intercourse 10/19/2019 Lifestyle Physical activity: Days per week: Not on file Minutes per session: Not on file Stress: Not on file Relationships Social connections: Talks on phone: Not on file Gets together: Not on file Attends congregational service: Not on file Active member of [...] 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 Mormonism preference is Anabaptist. Social History Substance and Sexual Activity Sexual Activity Yes Partners: Male control/protection: Surgical, Injection Comment: last sexual intercourse 10/19/2019 Labs Labs are pending. Radiology No new radiology. Allergies Sherancia has No Known Allergies. Medications Rama has a current medication list which includes the following prescription(s): lisinopril-hydrochlorothiazide, miscellaneous medical supply, fluoxetine, and triamcinolone acetonide, and the following Facility-Administered Medications: medroxyprogesterone. Review of Systems Constitutional: Negative. HENT: Negative. Eyes: Negative. Respiratory: Negative. Breasts: Negative. Cardiovascular: Negative. Gastrointestinal: Negative. Genitourinary: Negative. Musculoskeletal: Negative. Skin: Negative. Neurological: Negative. Psychiatric/Behavioral: Negative. Endocrine: Endocrine negative BP 116/82 (BP Location: Right arm, Patient Position: Sitting, BP CUFF SIZE: Adult Medium) | Pulse 96 | Temp 36.8 C (98.3 F) (Oral) | Resp 16 | Ht 5' 5" (1.651 m) | Wt 195 lb 9 oz (88.7 kg) | LMP 06/06/2019 (Approximate) | BMI 32.54 kg/m Pregravid BMI: Could not be calculated Physical Exam Vitals reviewed. Constitutional: She is oriented to person, place, and time. She appears well- developed. Her body habitus is normal. Neck: No tenderness and no mass. No thyroid nodules and no thyromegaly palpated. No neck adenopathy. Cardiovascular: Regular rate and rhythm. No gallop, no friction rub and no murmur auscultated. No peripheral edema present. Pulmonary/Chest: Breath sounds clear to auscultation. Normal inspiratory effort. Abdominal: Abdomen is soft. No mass palpated. No tenderness present. There is no hepatosplenomegaly,splenomegaly or hepatomegaly. There is no rigidity. No hernia palpated or inspected. Neuro/Psychiatric: She has a normal mood and affect. She is oriented to person, place, and time. Skin: No lesion, no rash and no ulceration present. Lymphadenopathy: No neck adenopathy present. No axillary adenopathy present. No inguinal adenopathy present. Genitourinary Comments: Patria BOWLING present during exam Breast: Right breast exhibits no mass, no nipple discharge and no tenderness. Left breast exhibits no mass, no nipple discharge and no tenderness. Breasts are symmetrical. Normal left breast and normalright breast Rectal: Rectal exam with normal anal tone. No mass, no external hemorrhoid and no internal hemorrhoid palpated or inspected. External genitalia: Normal external genitalia appropriate for age. Normal hair distribution. No labial lesion. Urethral meatus: Normal urethral meatus size, location and no lesion. No prolapse present. Normal urethral meatus Urethra: Normal urethra. No urethral tenderness, no mass and no urethral scarring palpated. Bladder: Bladder has no fullness, no mass palpated and no tenderness. Normal bladder Vagina:Normal vagina. No lesion inspected. Normal estrogen effect. Normal support. No abnormal vaginal discharge found. Cervix: Normal cervix. No lesion. No tenderness and no discharge present. Uterus: Uterus is normal size, normal contour, normal position and non-tender. Normal uterus Adnexa: Right adnexa without tenderness, ovary enlargement or mass. Left adnexa without tenderness, ovary enlargement or mass. Normal left adnexa and normal right adnexa Anus/perineum: Normal perineum and normal anus. Assessment/Plan Return to clinic in 12 weeks. 01/2020 for depo Return to clinic in 1 year for WWE or sooner as needed Rubella/VZV: immune/pending BMI 32 Td: 2019 Pap Smear: today Gardasil: na Mammogram/Guaiac/Colonoscopy : na Encounter for other contraceptive management (primary encounter diagnosis) History of tubal ligation Comment: no mgmt today Plan: as needed mgmt Well woman exam Comment: routine Plan: PAP Smear-Liquid Based, HIGH RISK HPV-THIN PREP, PAP Smear-Liquid Based, HIGH RISK HPV-THIN PREP Obesity (BMI 30.0-34.9) Comment: see bmi Plan: BMI discussed, appropriate weight gain, sensible diet, and exercise, increased fiber and waterintake and protein low in fat. Encouraged exercise for 30 min everyday; begin regimen with caution to prevent injury. Encouraged to decrease BMI to <25. Essential hypertension Comment: reports managed by PCP Plan: Patient encouraged to make lifestyle modifications, limit salt intake, weight loss encouraged,exercise 30min/day 4-5 times a week. Healthy diet high in fruits, veggies, whole grains, low-fat dairy, moderate alcohol consumption Continue mgmt with PCP Tobacco use disorder Comment: reports she takes black and milds Plan: smoking cessation encouraged This visit did not involve counseling and coordination that comprised more than 50% of the visit time. JASMINA Schulz 10/26/2019 10:09 AM Vicki Kong LVN - 10/26/2019 9:45 AM CDT39 year old female has been identified by and name. Verbal consent has been obtained by patientto have an injection of Depo Provera, as ordered by the provider. Date of last Depo Provera injection: 08/03/2019 Last WWE: 10/26/2019 Encounter Diagnosis: v25.49 The site was cleaned with an alcohol swab and given intramuscularly (IM) in the left gluteus. A band aid dressing was then applied to the injection site. The patient tolerated the procedure well . Advised patient on Calcium intake 500-1200 mg daily. ED warnings given. Patient to return to clinic in 12 weeks for next Depo. Patient verbalized understanding. Vicki Meza LVN 10/26/2019 9:41 AM iVcki smith LVN - 10/26/2019 9:45 AM CDT39 year old presented to the clinic for WWE. 1) Previous BCM:BTL/depo 2) Desired BCM:BTL/depo 3) LMP: 06/06/2019 4) Last [place]:10/19/2019 5) Last Pap:07/08/2014 Results:negative 6) Tdap in last 10 years?05/10/2019 HPV? no 7) C/O none 8) Patient denies history of physical, emotional, or sexual abuse. Patient states she currently feels safe at home. documented in this encounter Plan of Treatment Date Type Specialty Care Team Description 12/11/2019 Office Visit Family Medicine Troy Arango MD [address] [place] [address] Dr Danielson [place], [place] [phone] 01/18/2020 Nurse Visit OB [facility]ell[facility] Visit, [facility] Nurse Name Type Priority Associated Diagnoses Date/Ti me PAP Smear-Liquid Based LAB Routine Well woman exam 9:33 AM CDT HIGH RISK HPV-THIN PREP LAB Routine Well woman exam 0 10/26/2019 9:33 AM CDT Name Type Priority Associated Diagnoses Order S chedule PAP Smear-Liquid Based LAB Routine Well woman exam Ex pected: 10/26/2019, Expires: 2020 HIGH RISK HPV-THIN PREP LAB Routine Well woman exam E xpected: 10/26/2019, Expires: 2020 Health Maintenance Due Date Last Done Comments INFLUENZA VACCINE (Season 05/10/2020 04/12/2018, 03/08/2016 Postponed from Ended) 02/05/2020 (Refu sed) PAP SMEAR 10/25/2024 10/26/2019, 07/08/2014 (Previously completed), 07/08/2014, Additional history exists DTaP,Tdap,and Td Vaccines 05/10/2029 05/10/2019, 11/08/2007 (2 - Td) PNEUMOCOCCAL 0-64 YEARS Discontinued COMBINED SERIES VARICELLA VACCINES Discontinued documented as of this encounter Procedures Procedure Name Priority Date/Time Associated Diagnosis Comme nts POCT Routine 10/26/2019 3:39 Encounter for other Re sults for this TEST PM CDT contraceptive procedure are in management the results section. documented in this encounter Results POCT TEST (10/26/2019 3:39 PM CDT) Pathologist Sig nature POCT PREG Negative On board controls acceptable Yes with C Line POCT PREG LOT # POCT PREG TEST DATE Specimen Urine - URINE, CLEAN CATCH documented in this encounter Visit Diagnoses Diagnosis Encounter for other contraceptive manage ment - Primary History of tubal ligation Tubal ligation status Well woman exam Routine general medical examination at a health care facility Obesity (BMI 30.0-34.9) Obesity, unspecified Essential hypertension Unspecified essential hypertension Tobacco use disorder documented in this encounter Administered Medications Medication Order MAR Action Action Date Dose Rate Site medroxyPROGESTERone Given 10/26/2019 9:40 150 mg Left Upper Quad. (DEPO-PROVERA) injection 150 AM CDT Gluteus mg 150 mg, Intramuscular, [id number], 4 doses, First dose on Phyllis 05/10/19 at 1115, Last dose on Phyllis 01/17/20 at 1115, Routine Given 08/03/2019 9:45 AM HEEL PACKER 150 mg Righ t Upper Quad. Gluteus Given 05/10/2019 11:11 AM HEEL PACKER 150 mg Left Upper Quad. Gluteus documented in this encounter Insurance Payer Benefit Plan / Subscriber ID Effective Phone Address T ype Group Dates [employer] [address] [place] [id number] [place] [address] documented as of this encounter Advance Directives Name Relationship Healthcare Agent Relationship Co mmunication Monica Choi Sibling Primary healthcare agent
--- OUTSIDE RECORDS SUMMARY | 2019-11-01 09:58 | XMS REPORT | Summary of Care ---
:1980 Author Organization [facility] Address [address] [place] [address] Care Team Providers Name Role Phone CooperChuckyrikki YOO Insurance Hmo MD Conchita Primary Care Provider Reason for Visit Reason Comments Well Woman Exam Depo Encounter Details Date Type Department Care Team Description 10/26/2019 Office Visit [facility]- A[place]ipe, Loan Enc ounter for other contraceptive management (Primary Dx); Yordy Bradley, [facility] History of tubal ligation; [address] Well woman exam; [place], [place] DEV[place]TE A Obesity (BMI 30.0-34.9); [address] [place] [address] Essential hypertension; [phone] Tobacco use disorder Allergies No Known Allergiesdocumented [...] Facility Administered Medication medroxyPROGESTERone 150 mg IM [id number] 05/10/2019 0 Active (DEPO-PROVERA) injection 150 mgIndications: Dysmenorrhea, Initiation of Depo Provera documented as of this encounter (statuses as of 10/26/2019) Active Problems Problem Noted Date Obesity (BMI 30.0-34.9) 05/22/2019 BMI 37.0-37.9, adult 07/08/2017 Dysmenorrhea 07/08/2017 Contraceptive management 07/22/2015 Obese 07/22/2015 Well woman exam 07/22/2015 History of tubal ligation 07/09/2014 Depression 07/08/2014 Essential hypertension 08/14/2013 Overview: ICD10 Diagnosis Term Director Internal Control Utility Tobacco use disorder 08/14/2013 Asthma 08/15/2012 Overview: ICD10 Diagnosis Term Director Internal Control Utility documented as of this encounter (statuses as of 10/26/2019) Resolved Problems Problem Noted Date Resolved Date Screening examination for STD (sexually transmitted disease) 07/08/2017 08/17/2018 Acute pain of right shoulder 01/08/2016 07/07/2016 Acute foot pain, right 09/25/2014 07/22/2015 UTI (Urinary tract infection, site not specified) 07/09/2014 07/22/2014 Surveillance of previously prescribed contraceptive method 0 07/09/2014 07/22/2015 Overview: ICD10 Diagnosis Term Director Internal Control Utility Abdominal pain 07/08/2014 07/22/2014 Overview: ICD10 Diagnosis Term Director Internal Control Utility Yeast infection of the vagina 07/08/2014 07/22/2014 Screening for STD (sexually transmitted disease) 07/08/2014 07/22/2014 Encounter for routine gynecological examination 08/14/2013 09/25/2014 Overview: ICD10 Diagnosis Term Director Internal Control Utility Tubal ligation status 08/14/2013 07/08/2014 Morbid obesity 08/14/2013 07/08/2014 FHx: breast cancer 08/14/2013 07/08/2014 FHx: ovarian cancer 08/14/2013 07/08/2014 Lump or mass in breast 08/14/2013 07/08/2014 Overview: Medical records from [facility]- 08/27/2013. Im pression: negative study. No mass [...] your fiber increase to help prevent constipation. Solar [employer] last reviewed this educational content on 11/04/201619997924-2078 The [employer], [employer]. [address] [place] [address], [place] [address]. All rights reserved. This information is not [...] 20s.But the USPSTF does not recommend CBE. Solar Titan kyle reviewed this educational content on 03/06/201719999125-2489 The [employer]. [address] [place] [address]. All rights reserved. This information is not [...] want to have children in the future. upurskillTim last reviewed this educational content on 04/06/201719993078-7300 The [employer]. [address] [place] [address]. All rights reserved. This information is not [...] Mk last reviewed this educational content on 11/04/201819997113-5817 The [employer]. [address] [place] [address]. All rights reserved. This information is not [...] of these vaccines is right for you. [employer] last reviewed this educational content on 05/06/201819997703-7837 The [employer]. [address] [place] [address]. All rights reserved. This information is not [...] her child during , childbirth, and . Solar Titan last reviewed this educational content on 11/04/201819992872-1980 The [employer]. [address] [place] [address], [place] [address]. All rights reserved. This information is not intended as a substitute for professional medical care. Always follow your healthcare professional's instructions. Patient Education Clinical Breast Exam Many health organizations recommend a yearly clinical breast exam. This exam may be done by a band splitter, family healthcare provider, nurse practitioner, nurse clamp operator, or specially trained nurse. Yearly breast exams [...] Guidelines for having clinical breast exams The [employer] [place] [employer]st[employer]ians and Gynecologists recommends that [...] provider about what is best for you. [employer] last reviewed this educational content on 01/04/201719993158-3346 The [employer]. [address] [place] [address]. All rights reserved. This information is not [...] breast self-examination (BSE). These experts include the [employer] and the [employer] of Obstetricians and Gynecologists. Some experts [...] benign. This means they are not cancer. Solar [employer] last reviewed this educational content on 01/04/201719992591-4065 The [employer], [employer]. [address] [place] [address]. All rights reserved. This information is not [...] have other tests to evaluate the problem. [employer] last reviewed this educational content on 06/06/201919997555-5774 The [employer]. [address] [place] [address]. All rights reserved. This information is not [...] have them. Follow these guidelines from the [employer] for cervical cancer screening: A [...] Mk last reviewed this educational content on 02/04/201719996888-0658 The [employer]. [address] [place] [address]. All rights reserved. 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 Cheondoism preference is Adventism. Social History Substance and Sexual Activity Sexual [...] understanding. Vicki Meza LVN 10/26/2019 9:41 AM Vicki smith LVN - 10/26/2019 9:45 AM CDT39 year old presented to the clinic for WWE. 1) Previous BCM:BTL/depo 2) Desired BCM:BTL/depo 3) LMP: 06/06/2019 4) Last [place]:10/19/2019 5) Last Pap:07/08/2014 Results:negative 6) Tdap in last 10 years?05/10/2019 HPV? no 7) C/O none 8) Patient denies history of physical, emotional, or sexual abuse. Patient states she currently feels safe at home. documented in this encounter Plan of Treatment Date Type Specialty Care Team Description 12/11/2019 Office Visit Family Medicine Troy Arango MD [address] [place] [address] Dr Danielson [place], [place] [address] [phone] 01/18/2020 Nurse Visit OB Satellites Visit, [facility] Nurse Name Type Priority Associated Diagnoses [...] filedocumented in this encounter Visit Diagnoses Diagnosis Encounter [...] AM CDT Gluteus mg 150 mg, Intramuscular, [id number], 4 doses, First dose on Phyllis 05/10/19 at 1115, Last dose on Phyllis 01/17/20 at 1115, Routine Given 08/03/2019 9:45 AM CENTRAL LAB TECHNICIAN 150 mg Righ t Upper Quad. Gluteus Given 05/10/2019 11:11 AM CENTRAL LAB TECHNICIAN 150 mg Left Upper Quad. Gluteus documented in this encounter Insurance Payer Benefit Plan / Subscriber ID Effective Phone Address T ype Group Dates [employer] xxxxxxxxx 2014-[address] [place] [id number] [place] [address] documented as of this encounter Advance Directives Name Relationship Healthcare Agent Relationship Co mmunication Monica Choi Sibling Primary healthcare agent
--- OUTSIDE RECORDS SUMMARY | 2019-11-01 09:58 | XMS REPORT | Summary of Care ---
:1980 Author Organization [facility] Address [address] [place] [address] Care Team Providers Name Role Phone CooperChuckyrikki YOO Insurance Hmo MD Conchita Primary Care Provider Reason for Visit Reason Comments Well Woman Exam Depo Encounter Details Date Type Department Care Team Description 10/26/2019 Office Visit [facility]- A[place], Loan Enc ounter for other contraceptive management (Primary Dx); Yordy Bradley, [facility] History of tubal ligation; [address] Well woman exam; [place], [place] A Obesity (BMI 30.0-34.9); [address] [place] [address] Essential hypertension; [phone] Tobacco use disorder Allergies No Known Allergiesdocumented [...] Facility Administered Medication medroxyPROGESTERone 150 mg IM [id number] 05/10/2019 0 Active (DEPO-PROVERA) injection 150 mgIndications: Dysmenorrhea, Initiation of Depo Provera documented as of this encounter (statuses as of 10/26/2019) Active Problems Problem Noted Date Obesity (BMI 30.0-34.9) 05/22/2019 BMI 37.0-37.9, adult 07/08/2017 Dysmenorrhea 07/08/2017 Contraceptive management 07/22/2015 Obese 07/22/2015 Well woman exam 07/22/2015 History of tubal ligation 07/09/2014 Depression 07/08/2014 Essential hypertension 08/14/2013 Overview: ICD10 Diagnosis Term Executive Assistant To General Counsel Utility Tobacco use disorder 08/14/2013 Asthma 08/15/2012 Overview: ICD10 Diagnosis Term Executive Assistant To General Counsel Utility documented as of this encounter (statuses as of 10/26/2019) Resolved Problems Problem Noted Date Resolved Date Screening examination for STD (sexually transmitted disease) 07/08/2017 08/17/2018 Acute pain of right shoulder 01/08/2016 07/07/2016 Acute foot pain, right 09/25/2014 07/22/2015 UTI (Urinary tract infection, site not specified) 07/09/2014 07/22/2014 Surveillance of previously prescribed contraceptive method 0 07/09/2014 07/22/2015 Overview: ICD10 Diagnosis Term Executive Assistant To General Counsel Utility Abdominal pain 07/08/2014 07/22/2014 Overview: ICD10 Diagnosis Term Executive Assistant To General Counsel Utility Yeast infection of the vagina 07/08/2014 07/22/2014 Screening for STD (sexually transmitted disease) 07/08/2014 07/22/2014 Encounter for routine gynecological examination 08/14/2013 09/25/2014 Overview: ICD10 Diagnosis Term Executive Assistant To General Counsel Utility Tubal ligation status 08/14/2013 07/08/2014 Morbid obesity 08/14/2013 07/08/2014 FHx: breast cancer 08/14/2013 07/08/2014 FHx: ovarian cancer 08/14/2013 07/08/2014 Lump or mass in breast 08/14/2013 07/08/2014 Overview: [facility] records from [facility]- 08/27/2013. Im pression: negative study. No mass [...] your fiber increase to help prevent constipation. RxEye last reviewed this educational content on 11/04/201619999562-2029 The Surefire [employer], Money Dash[employer]. [address] [place] [address], [place] [address]. All rights reserved. This information is not [...] 20s.But the USPSTF does not recommend CBE. RxEye kyle reviewed this educational content on 03/06/201719994881-6162 The Renters[employer]. [address] [place] [address]. All rights reserved. This information is not [...] want to have children in the future. Stratos GenomicsTim last reviewed this educational content on 04/06/201719992764-4840 The [employer]. [address] [place] [address]. All rights reserved. This information is not [...] Mk last reviewed this educational content on 11/04/201819992772-5128 The [employer]. [address] [place] [address]. All rights reserved. This information is not [...] of these vaccines is right for you. RxEye last reviewed this educational content on 05/06/201819993366-1054 The [employer]. [address] [place] [address]. All rights reserved. This information is not [...] her child during , childbirth, and . RxEye last reviewed this educational content on 11/04/201819998070-4178 The [employer]. [address] [place] [address], [place] [address]. All rights reserved. This information is not intended as a substitute for professional medical care. Always follow your healthcare professional's instructions. Patient Education Clinical Breast Exam Many health organizations recommend a yearly clinical breast exam. This exam may be done by a fisher pot, family healthcare provider, nurse practitioner, nurse live in housekeeper nanny, or specially trained nurse. Yearly breast exams [...] Guidelines for having clinical breast exams The [employer]st[employer]ians and Gynecologists recommends that [...] provider about what is best for you. RxEye last reviewed this educational content on 01/04/201719990095-9210 The [employer]. [address] [place] [address]. All rights reserved. This information is not [...] breast self-examination (BSE). These experts include the [employer] and the [place] Congress of Obstetricians and Gynecologists. Some experts [...] benign. This means they are not cancer. RxEye last reviewed this educational content on 01/04/201719999152-3358 The [employer], [employer]. [address] [place] [address]. All rights reserved. This information is not [...] have other tests to evaluate the problem. RxEye last reviewed this educational content on 06/06/201919997365-9169 The [employer]. [address] [place] [address]. All rights reserved. This information is not [...] have them. Follow these guidelines from the [employer] for cervical cancer screening: A [...] Mk last reviewed this educational content on 02/04/201719992329-0412 The [employer]. [address] [place] [address]. All rights reserved. 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 Rastafarian preference is Faith. Social History Substance and Sexual Activity Sexual [...] Desired BCM:BTL/depo 3) LMP: 06/06/2019 4) Last [place]:10/19/2019 5) Last Pap:07/08/2014 Results:negative 6) Tdap in last 10 years?05/10/2019 HPV? no 7) C/O none 8) Patient denies history of physical, emotional, or sexual abuse. Patient states she currently feels safe at home. documented in this encounter Plan of Treatment Date Type Specialty Care Team Description 12/11/2019 Office Visit Family Medicine Troy Arango MD [address] [place] [address] Dr Danielson [place], [place] [address] [phone] 01/18/2020 Nurse Visit OB Satellites Visit, [facility] Nurse Name Type Priority Associated Diagnoses [...] AM CDT Gluteus mg 150 mg, Intramuscular, [id number], 4 doses, First dose on Phyllis 05/10/19 at 1115, Last dose on Phyllis 01/17/20 at 1115, Routine Given 08/03/2019 9:45 AM CHAINSTITCH ZIPPER SETTER 150 mg Righ t Upper Quad. Gluteus Given 05/10/2019 11:11 AM CHAINSTITCH ZIPPER SETTER 150 mg Left Upper Quad. Gluteus documented in this encounter Insurance Payer Benefit Plan / Subscriber ID Effective Phone Address T ype Group Dates [employer] xxxxxxxxx 2014-[address] [place] [address] [place] [address] documented as of this encounter Advance Directives Name Relationship Healthcare Agent Relationship Co mmunication Monica Choi Sibling Primary healthcare agent
[2019-11-01 10:44] LABS: Urine Blood 1+ (NEG); Urine Glucose NEGATIVE (NEG); Urine Protein 2+ (NEG); Urine Specific Gravity >1.030 (1.005-1.030); Urine pH 5.5 (5.0-7.0)
--- NOTE | 2019-11-01 10:44 | RAD REPORT ---
EXAM DESCRIPTION: CT - Abdomen Pelvis W Contrast - 11/01/2019 10:10 am CLINICAL HISTORY: Abdominal pain COMPARISON: 2008 TECHNIQUE: Computed axial tomography of the abdomen pelvis was obtained. 100 cc Isovue-300 was admin istered intravenously. Oral contrast was not requested which limits evaluation of bowel. All CT scans are performed using dose optimization technique as appropriate and may include automated exposure control or mA/KV adjustment according to patient size. FINDINGS: The liver, spleen, pancreas, adrenal and kidneys appear unremarkable. There is no evidence of diverticulitis. Small amount of free fluid. Cholecystectomy The superior vertebral endplate of L2 is sclerotic containing lucencies. IMPRESSION: The superior vertebral endplate of L2 is sclerotic containing lucencies. This may be deg enerative in nature. An infectious/inflammatory process can also have this appearance and should be c orrelated clinically and with appropriate lab values
[2019-11-01 10:54] LABS: Albumin 3.4 g/dL (3.4-5.0); Bilirubin Direct 0.1 mg/dL (0-0.2); Bilirubin Total 0.5 mg/dL (0.2-1.0); Potassium 3.4 mmol/L (3.5-5.1); Protein, Total 7.8 g/dL (6.4-8.2)
[2019-11-01] MEDS ORDERED: DICYCLOMINE HCL 10 MG CAP ONE (12:37)
[2019-11-01 12:51] VITALS: TEMP 98.3
[2019-11-01 13:00] VITALS: BP 121/73; O2SAT 99
--- NOTE | 2019-11-05 15:45 | EDPHYS ---
Physician Documentation [facility] Name: Rama Ruiz Age: 39 yrs Sex: Female : 1980 Arrival Date: 11/01/2019 Time: 08:49 Bed 7 Private MD: ED Physician Balwinder Trent HPI: 10/31 10:10 This 39 yrs old Black Female presents to ER via Ambulatory with complaints of Abdominal jr8 Pain. 10:10 The patient presents with abdominal pain in the left upper quadrant, in the left lower jr8 quadrant. Onset: The symptoms/episode began/occurred acutely, today. The symptoms do not radiate. Associated signs and symptoms: Pertinent positives: nausea. The symptoms are described as crampy. Modifying factors: The symptoms are alleviated by nothing, the symptoms are aggravated by nothing. Severity of pain: At its worst the pain was moderate in the emergency department the pain is unchanged. The patient has not experienced similar symptoms in the past. The patient has not recently seen a physician. CHIEF OPTOMETRY SERVICE: 08:53 LMP N/A - Depo-provera hb Historical: - Allergies: 08:53 No Known Allergies; hb - Home Meds: 08:53 lisinopril-hydrochlorothiazide Oral 1 tab once daily [Active]; Wellbutrin Oral [Active];hb - PMHx: 08:53 Asthma; Depression; Hypertension; Migraines; hb - PSHx: 08:53 Appendectomy; ; Cholecystectomy; hb - Immunization history:: Adult Immunizations up to date. - Social history:: Smoking status: Patient denies any tobacco usage or history of. ROS: 10:10 Eyes: Negative for injury, pain, redness, and discharge, ENT: Negative for injury, jr8 pain, and discharge, Neck: Negative for injury, pain, and swelling, Cardiovascular: Negative for chest pain, palpitations, and edema, Respiratory: Negative for shortness of breath, cough, wheezing, and pleuritic chest pain, Back: Negative for injury and pain, MS/Extremity: Negative for injury and deformity, Skin: Negative for injury, rash, and discoloration, Neuro: Negative for headache, weakness, numbness, tingling, and seizure. 10:10 Abdomen/GI: Positive for abdominal pain, nausea, diarrhea, Negative for vomiting, abdominal distension, anorexia, dysphagia, hematemesis, black/tarry stool, rectal pain, rectal bleeding, bowel incontinence, flatulence. Exam: 10:10 Eyes: Pupils equal round and reactive to light, extra-ocular motions intact. Lids and jr8 lashes normal. Conjunctiva and sclera are non-icteric and not injected. Cornea within normal limits. Periorbital areas with no swelling, redness, or edema. ENT: Nares patent. No nasal discharge, no septal abnormalities noted. Tympanic membranes are normal and external auditory canals are clear. Oropharynx with no redness, swelling, or masses, exudates, or evidence of obstruction, uvula midline. Mucous membranes moist. Neck: Trachea midline, no thyromegaly or masses palpated, and no cervical lymphadenopathy. Supple, full range of motion without nuchal rigidity, or vertebral point tenderness. No Meningismus. Cardiovascular: Regular rate and rhythm with a normal S1 and S2. No gallops, murmurs, or rubs. Normal PMI, no JVD. No pulse deficits. Respiratory: Lungs have equal breath sounds bilaterally, clear to auscultation and percussion. No rales, rhonchi or wheezes noted. No increased work of breathing, no retractions or nasal flaring. Back: No spinal tenderness. No costovertebral tenderness. Full range of motion. Skin: Warm, dry with normal turgor. Normal color with no rashes, no lesions, and no evidence of cellulitis. MS/ Extremity: Pulses equal, no cyanosis. Neurovascular intact. Full, normal range of motion. Neuro: Awake and alert, GCS 15, oriented to person, place, time, and situation. Cranial nerves II-XII grossly intact. Motor strength 5/5 in all extremities. Sensory grossly intact. Cerebellar exam normal. Normal gait. 10:10 Abdomen/GI: Inspection: abdomen appears normal, Bowel sounds: active, all quadrants, Palpation: soft, in all quadrants, moderate abdominal tenderness, in the left upper quadrant and left lower quadrant, mass, is not appreciated, rebound tenderness, is not appreciated, voluntary guarding, is not appreciated, involuntary guarding, is not appreciated, no appreciated organomegaly, Indicators: McBurney's point is not tender, Briggs's sign is negative, Rovsing's sign is negative, Liver: tenderness, is not appreciated. Vital Signs: 08:51 BP 136 / 88; Pulse 108; Resp 16; Temp 98.3; Pulse Ox 100% on R/A; Weight 88.9 kg; hb Height 5 ft. 4 in. (162.56 cm); Pain 9/10; 09:50 BP 125 / 89; Pulse 79; Resp 20; Pulse Ox 99% ; sv 10:53 BP 117 / 75; Pulse 55; Resp 18; Pulse Ox 100% ; sv 11:31 BP 121 / 73; Pulse 59; Resp 16; Pulse Ox 99% ; sv 08:51 Body Mass Index 33.64 (88.90 kg, 162.56 cm) hb MDM: 09:26 Patient medically screened. jr8 11:32 Data reviewed: vital signs, nurses notes, lab test result(s), radiologic studies, CT jr8 scan. Data interpreted: Pulse oximetry: on room air is 99 %. Interpretation: normal. Counseling: I had a detailed discussion with the patient and/or guardian regarding: the historical points, exam findings, and any diagnostic results supporting the discharge/admit diagnosis, lab results, radiology results, the need for outpatient follow up, a family practitioner, to return to the emergency department if symptoms worsen or persist or if there are any questions or concerns that arise at home. ED course: No elevation in WBC. Abdominal CT without acute findings in bowel or other solid organs. Patient is not tender to the Lumbar vertebrae. Less likely to be inflammatory or infectious. VS stable and doing better. Will d/c home to f/u with FM. 10/31 09:37 Order name: Basic Metabolic Panel; Complete Time: 11:28 rust 10/31 09:37 Order name: CBC with Diff; Complete Time: 10:20 10/31 09:37 Order name: Hepatic Function; Complete Time: 11:28 10/31 09:37 Order name: Lipase; Complete Time: 11:28 rust 10/31 09:42 Order name: Urine Dipstick--Ancillary (enter results); Complete Time: 10:50 10/31 09:42 Order name: Urine --Ancillary (enter results); Complete Time: 10:50 10/31 09:37 Order name: IV Saline Lock; Complete Time: 09:56 rust 10/31 09:37 Order name: Labs collected and sent; Complete Time: 09:56 rust 10/31 09:37 Order name: Urine Test (obtain specimen); Complete Time: 09:56 rust 10/31 09:37 Order name: CT Abd/Pelvis - IV Contrast Only; Complete Time: 10:50 rust 10/31 10:15 Order name: CREATININE WHOLE BLOOD; Complete Time: 10:20 [facility] 10/31 09:37 Order name: Urine Dipstick-Ancillary (obtain specimen); Complete Time: 09:56 rust Administered Medications: 09:47 Drug: Zofran (Ondansetron) 4 mg Route: IVP; Site: right antecubital; sv 10:00 Follow up: Response: No adverse reaction; Marked relief of symptoms sv 09:49 Drug: morphine 4 mg {Note: rass2.} Route: IVP; Site: right antecubital; sv 10:00 Follow up: Response: No adverse reaction; Marked relief of symptoms; RASS: Drowsy (-1) sv 12:36 Drug: Bentyl 20 mg Route: PO; sv 12:36 Follow up: Response: Medication administered at discharge. sv Disposition: 11/01/19 11:42 Discharged to Home. Impression: Abdominal and pelvic pain. - Condition is Stable. - Discharge Instructions: Abdominal Pain, Adult. - Prescriptions for Bentyl 20 mg Oral Tablet - take 1 tablet by ORAL route every 6 hours As needed; 20 tablet. Zofran 4 mg Oral Tablet - take 1 tablet by ORAL route every 12 hours As needed; 20 tablet. - Medication Reconciliation Form, Thank You Letter, Antibiotic Education, Prescription Opioid Use form. - Follow up: Private Physician; When: 2 - 3 days; Reason: Recheck today's complaints, Continuance of care, Re-evaluation by your physician. - Problem is new. - Symptoms have improved. Addendum: 11/03/2019 07:51 Co-signature as Attending Physician, Balwinder Trent MD I agree with the assessment and k dr plan of care. Signatures: Dispatcher [employer] [facility] Isamar Mcmahan RN RN sv Rittger, Kevin, MD MD kdr Roszak, Josh, PA PA jr8 Demi Case RN RN Corrections: (The following items were deleted from the chart) 10/31 12:37 11:42 11/01/2019 11:42 Discharged to Home. Impression: Abdominal and pelvic pain. sv Condition is Stable. Forms are Medication Reconciliation Form, Thank You Letter, Antibiotic Education, Prescription Opioid Use. Follow up: Private Physician; When: 2 - 3 days; Reason: Recheck today's complaints, Continuance of care, Re-evaluation by your physician. Problem is new. Symptoms have improved. jr8
--- NOTE | 2019-11-05 15:45 | ER ---
Nurse's Notes [facility] Name: Rama Ruiz Age: 39 yrs Sex: Female : 1980 Arrival Date: 11/01/2019 Time: 08:49 Bed 7 Private MD: Diagnosis: Abdominal and pelvic pain Presentation: 10/31 08:51 Chief complaint: Diffuse abdominal pain x 2 days, diarrhea yesterday. Coronavirus hb screen: Proceed with normal triage. Ebola Screen: No symptoms or risks identified at this time. Initial Sepsis Screen: Does the patient meet any 2 criteria? HR > 90 bpm. Does the patient have a suspected source of infection? No. Patient's initial sepsis screen is negative. Risk Assessment: Do you want to hurt yourself or someone else? Patient reports no desire to harm self or others. Onset of symptoms was October 31, 2019. 08:51 Method Of Arrival: Ambulatory hb 08:51 Acuity: GIORGIO 3 hb SALES ARCHITECT: 08:53 LMP N/A - Depo-provera hb Historical: - Allergies: 08:53 No Known Allergies; hb - Home Meds: 08:53 lisinopril-hydrochlorothiazide Oral 1 tab once daily [Active]; Wellbutrin Oral [Active];hb - PMHx: 08:53 Asthma; Depression; Hypertension; Migraines; hb - PSHx: 08:53 Appendectomy; ; Cholecystectomy; hb - Immunization history:: Adult Immunizations up to date. - Social history:: Smoking status: Patient denies any tobacco usage or history of. Screenin:45 Abuse screen: Denies threats or abuse. Denies injuries from another. Nutritional sv screening: No deficits noted. Tuberculosis screening: No symptoms or risk factors identified. Fall Risk None identified. Assessment: 09:40 General: Appears in no apparent distress. uncomfortable, well developed, Behavior is sv calm, cooperative, appropriate for age. Pain: Complains of pain in abdomen Pain currently is 9 out of 10 on a pain scale. Quality of pain is described as unable to describe Pain began 1 day ago. Is continuous, Noted to be moaning. Neuro: Level of Consciousness is awake, alert, obeys commands, Oriented to person, place, time, situation, Moves all extremities. Full function Gait is steady, Speech is normal. Respiratory: Airway is patent Respiratory effort is even, unlabored, Respiratory pattern is regular, symmetrical. GI: Abdomen is flat, Abd is soft X 4 quads Abdomen is tender to palpation X 4 quads. Reports diarrhea, intolerance of food, nausea. Derm: Skin is pink, warm \T\ dry. Musculoskeletal: Range of motion: intact in all extremities. 11:00 Reassessment: Patient appears in no apparent distress at this time. No changes from sv previously documented assessment. Patient and/or family updated on plan of care and expected duration. Pain level reassessed. Patient is alert, oriented x 3, equal unlabored respirations, skin warm/dry/pink. 12:37 Reassessment: Patient appears in no apparent distress at this time. No changes from sv previously documented assessment. Patient and/or family updated on plan of care and expected duration. Pain level reassessed. Patient is alert, oriented x 3, equal unlabored respirations, skin warm/dry/pink. Vital Signs: 08:51 BP 136 / 88; Pulse 108; Resp 16; Temp 98.3; Pulse Ox 100% on R/A; Weight 88.9 kg; hb Height 5 ft. 4 in. (162.56 cm); Pain 9/10; 09:50 BP 125 / 89; Pulse 79; Resp 20; Pulse Ox 99% ; sv 10:53 BP 117 / 75; Pulse 55; Resp 18; Pulse Ox 100% ; sv 11:31 BP 121 / 73; Pulse 59; Resp 16; Pulse Ox 99% ; sv 08:51 Body Mass Index 33.64 (88.90 kg, 162.56 cm) hb ED Course: 08:49 Patient arrived in ED. mr 08:53 Triage completed. hb 08:53 Arm band placed on. hb 08:58 Rodger Banerjee PA is PHCP. jr8 08:58 Balwinder Trent MD is Attending Physician. jr8 09:36 Isamar Mcmahan RN is Primary Nurse. sv 09:45 Patient has correct armband on for positive identification. Bed in low position. Call sv light in reach. Pulse ox on. NIBP on. Door closed. Warm blanket given. Head of bed elevated. 09:45 Inserted saline lock: 20 gauge in right antecubital area, using aseptic technique. sv Blood collected. Flushed right antecubital with 5 ml normal saline. 10:11 CT Abd/Pelvis - IV Contrast Only In Process Unspecified. EDMS 12:37 No provider procedures requiring assistance completed. IV discontinued, intact, sv bleeding controlled, No redness/swelling at site. Pressure dressing applied. Administered Medications: 09:47 Drug: Zofran (Ondansetron) 4 mg Route: IVP; Site: right antecubital; sv 10:00 Follow up: Response: No adverse reaction; Marked relief of symptoms sv 09:49 Drug: morphine 4 mg {Note: rass2.} Route: IVP; Site: right antecubital; sv 10:00 Follow up: Response: No adverse reaction; Marked relief of symptoms; RASS: Drowsy (-1) sv 12:36 Drug: Bentyl 20 mg Route: PO; sv 12:36 Follow up: Response: Medication administered at discharge. sv Outcome: 11:42 Discharge ordered by MD. canales 12:37 Discharged to home ambulatory. sv 12:37 Condition: stable 12:37 Discharge instructions given to patient, Instructed on discharge instructions, follow up and referral plans. medication usage, Demonstrated understanding of instructions, follow-up care, medications, Prescriptions given X 2. 12:37 Patient left the ED. sv Signatures: Dispatcher [employer] EDMS Isamar Mcmahan RN RN sv Rivera, Mary mr Rodger Banerjee PA PA jr8 Baxter, Heather, RN RN
== END 2019-11-01 12:37 | disposition home or self-care (01) ==
LOC: ER 08:46
DX: R10.2 Pelvic and perineal pain (principal); I10 Essential (primary) hypertension; F32.9 Major depressive disorder, single episode, unspecified
CPT/HCPCS: 85025; 80048; 36415; 81025; 82565; 80076; 81003; 83690; 74177; 96375; 96374; 99284; Q9967; J2405

== ENCOUNTER 2020-07-15 11:16 | Emergency (ER) | payer OTHER ==
[2020-07-15] MEDS ORDERED: HYDROCODONE/APAP 10/325 TAB ONE (12:57)
--- NOTE | 2020-07-15 13:02 | RAD REPORT ---
EXAM DESCRIPTION: RAD - Shoulder Left 2 View - 07/15/2020 12:54 pm CLINICAL HISTORY: PAIN COMPARISON: No comparisons TECHNIQUE: Internal and external rotation views of the left shoulder were obtained. FINDINGS: There is no fracture or dislocation. AC joint is normal in appearance. Acromial humeral tyra int space is normal. Calcifications are present in the soft tissues adjacent to the superolateral hum eral head. This is a typical calcific tendinitis presentation. 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 No ribcage or upper chest abnormality seen. IMPRESSION: Calcific tendinitis findings are evident adjacent to the humeral head. Exam is otherwise unremarkable.
--- NOTE | 2020-07-15 13:05 | EDPHYS ---
Physician Documentation [facility] Name: Rama Ruiz Age: 40 yrs Sex: Female : 1980 Arrival Date: 07/15/2020 Time: 11:18 Bed 14 Private MD: ED Physician Shantanu Mcnulty HPI: 07/15 12:33 This 40 yrs old Black Female presents to ER via Ambulatory with complaints of Shoulder pm1 Pain. 12:33 The patient or guardian complains of pain, that is acute. left shoulder. Context: The pm1 problem was sustained at home, resulted from believes sleeping on it wrong, The patient reports no obvious deformity. Decreased ROM due to pain. 12:33 Onset: The symptoms/episode began/occurred 1 week(s) ago. Modifying factors: the pm1 symptoms are alleviated by remaining still, The symptoms are aggravated by movement of arm, raising it. Associated signs and symptoms: Pertinent negatives: chest pain, neck pain, Numbness in left arm tingling, Weakness in left arm. Severity of symptoms: in the emergency department the symptoms are unchanged. Treatment prior to arrival includes: over the counter medications, NSAIDS. The patient has not experienced similar symptoms in the past. The patient has not recently seen a physician. Historical: - Allergies: 11:25 No Known Allergies; hb - Home Meds: 11:25 lisinopril-hydrochlorothiazide Oral 1 tab once daily [Active]; Wellbutrin Oral [Active];hb - PMHx: 11:25 Asthma; Depression; Hypertension; Migraines; hb - PSHx: 11:25 Appendectomy; ; Cholecystectomy; hb - Immunization history:: Adult Immunizations up to date. - Social history:: Smoking status: Patient/guardian denies using tobacco, the patient reports quitting approximately 4 years ago. ROS: 12:33 Constitutional: Negative for fever, chills, and weight loss, Neck: Negative for injury, pm1 pain, and swelling, Cardiovascular: Negative for chest pain, palpitations, and edema, Respiratory: Negative for shortness of breath, cough, wheezing, and pleuritic chest pain, Abdomen/GI: Negative for abdominal pain, nausea, vomiting, diarrhea, and constipation. 12:33 Skin: Negative for injury, rash, and discoloration, Neuro: Negative for headache, weakness, numbness, tingling, and seizure. 12:33 MS/extremity: Positive for pain, of the left shoulder, Negative for deformity. Exam: 12:33 Constitutional: This is a well developed, well nourished patient who is awake, alert, pm1 and in no acute distress. Head/Face: Normocephalic, atraumatic. Neck: Trachea midline, no thyromegaly or masses palpated, and no cervical lymphadenopathy. Supple, full range of motion without nuchal rigidity, or vertebral point tenderness. No Meningismus. 12:33 Back: No spinal tenderness. No costovertebral tenderness. Full range of motion. Skin: Warm, dry with normal turgor. Normal color with no rashes, no lesions, and no evidence of cellulitis. 12:33 Cardiovascular: Exam negative for acute changes, Rate: normal, Rhythm: regular, Pulses: no pulse deficits are appreciated. 12:33 Respiratory: Exam negative for acute changes, respiratory distress, shortness of breath. 12:33 Musculoskeletal/extremity: Extremities: grossly normal except: noted in the left shoulder: tenderness, pain with moving left arm back and raising above shoulder level, Circulation is intact in all extremities. Pulses: noted to be 2+ in the left radial artery, the left hand Sensation intact. 12:33 Neuro: Exam negative for acute changes, Orientation: is normal, Mentation: is normal, Motor: is normal, moves all fours, Sensation: is normal, no obvious gross deficits. Vital Signs: 11:23 BP 130 / 86; Pulse 74; Resp 16; Temp 97.8; Pulse Ox 100% on R/A; Weight 9.53 kg; Height hb 5 ft. 5 in. (165.10 cm); Pain 10/10; 12:11 BP 101 / 73; Pulse 86; Resp 14; Pulse Ox 100% on R/A; vg1 13:47 BP 135 / 84; Pulse 83; Resp 14; Pulse Ox 98% on R/A; vg1 11:23 Body Mass Index 3.49 (9.53 kg, 165.10 cm) hb MDM: 12:04 Patient medically screened. pm1 12:38 Data reviewed: vital signs. pm1 13:03 Counseling: I had a detailed discussion with the patient and/or guardian regarding: the pm1 historical points, exam findings, and any diagnostic results supporting the discharge/admit diagnosis, radiology results, the need for outpatient follow up, for definitive care, a orthopedic surgeon, to return to the emergency department if symptoms worsen or persist or if there are any questions or concerns that arise at home. 07/15 12:23 Order name: Shoulder Left (2 View) XRAY; Complete Time: 13:02 pm1 07/15 12:23 Order name: Sling; Complete Time: 13:42 pm1 Administered Medications: 12:49 Drug: [place] 10 mg-325 mg 1 tabs Route: PO; vg1 13:42 Follow up: Response: Pain is decreased vg1 Disposition: 07/16 07:53 Co-signature as Attending Physician, Shantanu Mcnulty MD I agree with the assessment and laura plan of care. Disposition: 07/15/20 13:04 Discharged to Home. Impression: Calcific tendinitis of left shoulder. - Condition is Stable. - Discharge Instructions: Calcific Tendinitis. - Prescriptions for Tylenol- Codeine #3 300-30 mg Oral Tablet - take 2 tablets by ORAL route every 6 hours As needed; 20 tablet. - Medication Reconciliation Form, Thank You Letter, Antibiotic Education, Prescription Opioid Use form. - Follow up: Emergency Department; When: As needed; Reason: Worsening of condition. Follow up: Private Physician; When: 2 - 3 days; Reason: Recheck today's complaints, Continuance of care, Re-evaluation by your physician. - Problem is new. - Symptoms have improved. Signatures: Dispatcher [employer] Shantanu Purcell MD MD cha Marinas, Patrick, PRODUCTION COORDINATOR PRODUCTION COORDINATOR pm1 Demi Case RN RN Daniela Meza RN RN vg1 Corrections: (The following items were deleted from the chart) 07/15 13:47 13:04 07/15/2020 13:04 Discharged to Home. Impression: Calcific tendinitis of left vg1 shoulder. Condition is Stable. Forms are Medication Reconciliation Form, Thank You Letter, Antibiotic Education, Prescription Opioid Use. Follow up: Emergency Department; When: As needed; Reason: Worsening of condition. Follow up: Private Physician; When: 2 - 3 days; Reason: Recheck today's complaints, Continuance of care, Re-evaluation by your physician. Problem is new. Symptoms have improved. pm1
--- NOTE | 2020-07-15 13:05 | ER ---
Nurse's Notes [facility] Name: Rama Ruiz Age: 40 yrs Sex: Female : 1980 Arrival Date: 07/15/2020 Time: 11:18 Bed 14 [facility] MD: Diagnosis: Calcific tendinitis of left shoulder Presentation: 07/15 11:23 Chief complaint: Left shoulder pain x 1 week. Denies injury. Coronavirus screen: At this time, the client does not indicate any symptoms associated with coronavirus-19. Ebola Screen: No symptoms or risks identified at this time. Initial Sepsis Screen: Does the patient meet any 2 criteria? No. Patient's initial sepsis screen is negative. Does the patient have a suspected source of infection? No. Patient's initial sepsis screen is negative. Risk Assessment: Do you want to hurt yourself or someone else? Patient reports no desire to harm self or others. Onset of symptoms was June 25, 2020. 11:23 Method Of Arrival: Ambulatory hb 11:23 Acuity: GIORGIO 4 hb Historical: - Allergies: 11:25 No Known Allergies; hb - Home Meds: 11:25 lisinopril-hydrochlorothiazide Oral 1 tab once daily [Active]; Wellbutrin Oral [Active];hb - PMHx: 11:25 Asthma; Depression; Hypertension; Migraines; hb - PSHx: 11:25 Appendectomy; ; Cholecystectomy; hb - Immunization history:: Adult Immunizations up to date. - Social history:: Smoking status: Patient/guardian denies using tobacco, the patient reports quitting approximately 4 years ago. Screenin:11 Abuse screen: Denies threats or abuse. Nutritional screening: No deficits noted. vg1 Tuberculosis screening: No symptoms or risk factors identified. Fall Risk No fall in past 12 months (0 pts). No secondary diagnosis (0 pts). No IV (0 pts). Ambulatory Aid- None/Bed Rest/Nurse Assist (0 pts). Gait- Normal/Bed Rest/Wheelchair (0 pts) Mental Status- Oriented to own ability (0 pts). Total Bird Fall Scale indicates No Risk (0-24 pts). Assessment: 12:03 General: Appears in no apparent distress. comfortable, Behavior is calm, cooperative. vg1 Pain: Complains of pain in Left Shoulder Pain currently is 10 out of 10 on a pain scale. Pain began about a week ago. Patient states she thinks she may have slept wrong on that side. Neuro: Level of Consciousness is awake, alert, obeys commands, Oriented to person, place, time, situation. Cardiovascular: Patient's skin is warm and dry. Respiratory: Airway is patent Respiratory effort is even, unlabored. GI: No signs and/or symptoms were reported involving the gastrointestinal system. : No signs and/or symptoms were reported regarding the genitourinary system. EENT: No signs and/or symptoms were reported regarding the EENT system. Derm: Skin is intact, is healthy with good turgor. Musculoskeletal: Circulation, motion, and sensation intact. Range of motion: limited in left shoulder. 13:32 Reassessment: Patient up for d/c. Awaiting for providers disposition. vg1 Vital Signs: 11:23 BP 130 / 86; Pulse 74; Resp 16; Temp 97.8; Pulse Ox 100% on R/A; Weight 9.53 kg; Height hb 5 ft. 5 in. (165.10 cm); Pain 10/10; 12:11 BP 101 / 73; Pulse 86; Resp 14; Pulse Ox 100% on R/A; vg1 13:47 BP 135 / 84; Pulse 83; Resp 14; Pulse Ox 98% on R/A; vg1 11:23 Body Mass Index 3.49 (9.53 kg, 165.10 cm) hb ED Course: 11:18 Patient arrived in ED. as 11:25 Triage completed. hb 11:25 Arm band placed on. hb 12:02 Daniela Meza RN is Primary Nurse. vg1 12:03 Favio Greenberg NP is PHCP. pm1 12:03 Shantanu Mcnulty MD is Attending Physician. pm1 12:12 Patient has correct armband on for positive identification. Bed in low position. Call vg1 light in reach. 12:45 Xray at bedside. vg1 12:53 Shoulder Left (2 View) XRAY In Process Unspecified. EDMS 13:47 No provider procedures requiring assistance completed. Patient did not have IV access vg1 during this emergency room visit. Administered Medications: 12:49 Drug: [place] 10 mg-325 mg 1 tabs Route: PO; vg1 13:42 Follow up: Response: Pain is decreased vg1 Outcome: 13:04 Discharge ordered by . pm1 13:47 Discharged to home ambulatory. vg1 13:47 Condition: stable 13:47 Discharge instructions given to patient, Instructed on discharge instructions, follow up and referral plans. medication usage, Demonstrated understanding of instructions, follow-up care, medications, Prescriptions given X 1. 13:47 Patient left the ED. vg1 Signatures: Dispatcher [employer] EDMS Pushpa Bhatti Patrick, ELDA DRY ROOM ATTENDANT pm1 Demi Case, RN RN Daniela Tanner RN RN vg1
[2020-07-15 13:56] VITALS: TEMP 97.8
[2020-07-15 13:59] VITALS: BP 135/84; O2SAT 98
--- OUTSIDE RECORDS SUMMARY | 2020-07-16 07:46 | XMS REPORT | Continuity of Care Document ---
:1980 Author Organization [facility] t Address [address] [place] [address] Care Team Providers Name Role Phone Conchita PASCUAL Attending Clinician Doctor Unassigned, Name Attending Clinician Unavailable Visit, Nurse Attending Clinician Unavailable Darian PASCUAL, A Attending Clinician Problems This patient has no known problems. Allergies, Adverse Reactions, Alerts This patient has no known allergies or adverse reactions. Medications This patient has no known medications. Procedures This patient has no known procedures. Encounters Start End Encounter Admission Attending Care Care Encounter Source Date/Time Date/Time Type Type Clinicians Facility Department ID 2020-03-12 2020-03-12 Telemedici Conchita [facility] [id number] 07:53:25 08:13:25 ne Visit Troy Scales [id number] [place] [id number] Profthiago [phone] nal [address] [place] [address] 2020-02-20 2020-02-20 Orders Doctor JAMES [id number] 00:00:00 00:00:00 Only Unassigned, ANN-MARIE [id number] [place] [facility] [id number] 009 2020-01-18 2020-01-18 Nurse Visit, [facility] [id number] 08:30:30 08:45:30 Visit [facility]-Perfectoch[facility] INFORMATION CLERK CASHIER [id number] Nurse [facility] [id number] MATERNAL [phone] & CHILD [address] [place] [address] STEVEN 2020-01-02 2020-01-[address] [facility] [id number] 00:00:00 00:00:00 Vianney Vidal [place] [id number] [place] [id number] Professio [phone] nal [address] [facility] 2019-12-21 2019-12-21 Orders Doctor JAMES [id number] 00:00:00 00:00:00 Only Unassigned, ANN-MARIE [id number] [place] [facility] [id number] [facility] 2019-12-17 2019-12-17 Patient [facility] [id number] 00:00:00 00:00:00 Secure Msg Troy Scales [id number] [place] [id number] Professio [phone] [facility] 2019-12-13 2019-12-13 Telephone [facility] [id number] 00:00:00 00:00:00 Troy Scales [id number] [place] [id number] Professio [phone] [facility] 2019-12-11 2019-12-11 Office [facility] [id number] 12:37:24 13:47:45 Visit Troy Scales [id number] [place] [id number] Professio [phone] [address] Results This patient has no known results.
== END 2020-07-15 13:47 | disposition home or self-care (01) ==
LOC: ER 11:16
DX: M75.32 Calcific tendinitis of left shoulder (principal); I10 Essential (primary) hypertension; F41.8 Other specified anxiety disorders
CPT/HCPCS: 99283

== ENCOUNTER 2021-11-10 07:03 | Emergency (ER) | payer OTHER ==
--- OUTSIDE RECORDS SUMMARY | 2021-11-10 07:07 | XMS REPORT | Continuity of Care Document ---
:1980 Author Organization [facility] t Address 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 Primary Care Physician Unavailable ANTHONY, Young Attending Clinician Unavailable Geronimo FREEDMAN C Attending Clinician Conchita PASCUAL Attending Clinician Doctor Unassigned, Name Attending Clinician Unavailable Visit, Nurse Attending Clinician Unavailable Young Farmer MD Attending Clinician Payers Payer Name Policy Type Policy Number Effective Date Expiration Date S ource Problems Condition Condition Condition Status Onset Resolution Last Treating Co mments Source Name Details Category Date Date Treatment Clinician Date Well woman Well woman Disease Active U nicko exam exam 3-25 ity of 00:00: [address] History of History of Disease Active U nivers tubal tubal 3-25 ity of ligation ligation 00:00: [address] Branch Corns Corns Disease Active Univers 9-08 ity of 00:: [address] Branch Itching Itching Disease Active Univers 9-08 ity of 00:: [address] Branch Knee Knee Disease Active Univers locking, locking, 9-08 ity of left left 00:00: [address] Branch Chronic Chronic Disease Active Univers pain of pain of 9-08 ity of left knee left knee 00:00: [address] Branch Obesity Obesity Disease Active 2018-06 Univers (BMI (BMI 2-17 ity of 30.0-34.9) 30.0-34.9) 00:[place] [facility] BMI BMI Disease Active Univers 37.0-37.9, 37.0-37.9, 2-02 it y of adult adult 00:00: [place] 00 Medical Branch Dysmenorrh Dysmenorrh Disease Active U nivers ea ea 2-02 ity of 00:00: [place] [facility] Obese Obese Disease Active Univers 2-16 ity of 00:00: [place] [facility] Depression Depression Disease Active U nivers 2-02 ity of 00:00: [place] [facility] Essential Essential Disease Active Overview: Univers hypertensi hypertensi 3-11 Formattin ity of on on 00:00: g of this note Medical might be Branch different from the original. 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 Allergies, Adverse Reactions, Alerts Allergy Allergy Status Severity Reaction(s) Onset Inactive Treating Comm ents Source Name Type Date Date Clinician NO KNOWN Drug Active Univers ALLERGIE Class ity of S [facility] Social History Social Habit Start Date Stop Date Quantity Comments Source Exposure to Not sure [facility] SARS-CoV-2 (event) [facility] History [facility] o f Alcohol Frequency [facility] Branch History [facility] o f Alcohol Std Drinks [facility] History [facility] o f Alcohol Binge [facility] Branch Alcohol intake 2021-08-28 2021-08-28 0 /d University of 00:00:00 00:00:00 [facility] Cigarettes smoked 2019-10-26 2019-10-26 Univers ity of current (pack per 00:00:00 00:00:00 [facility] [place] [facility] ) - Reported Branch Cigarette 2019-10-26 2019-10-26 University of pack-years 00:00:00 00:00:00 [facility] Tobacco use and 2019-10-26 2019-10-26 Never used Universit y of exposure 00:00:00 00:00:00 [facility] Tobacco Comment 2018-08-17 2018-08-17 1-2 cigarettes Unive rsity of 00:00:00 00:00:00 [facility] History of tobacco 2003-08-18 2017-10-04 Cigarette Smoker University of use 00:00:00 00:00:00 [facility] Alcohol Comment 2014-12-09 2014-12-09 Socially, 3-4 Univer sity of 00:00:00 00:00:00 beers [facility] Sex Ass[birth year] At [birth year] Universit y of 00:00:00 00:00:00 [facility] Smoking Status Start Date Stop Date Source Current some day smoker 2019-10-26 00:00:00 Univ ersity of [facility] Medications Ordered Filled Start Stop Current Ordering Indication Dosage Frequency Signature Comments Components Source Medication Medication Date Date Medication? Clinician (SIG) Name Name medroxyPROG 2022- Yes [id number] 150mg Univers ESTERone 08-28-24 ity of (DEPO-PROVE 14:00: 14:59 [facility]) 00 :00 Medical injection Branch 150 mg medroxyPROG 2022- Yes [id number] 150mg 150 mg, Univers ESTERone -31 07-24 Intramuscu ity of (DEPO-PROVE 14:00: 14:59 [facility]) 00 :00 [id number], Medical injection 4 doses, Branch 150 mg First dose on Tue08/28/21 at 0900, Last dose on Tue05/07/22 at 0900, Routine SERTraline Yes [id number] 50mg Take 1 U nivers (ZOLOFT) 50 3-02 tablet by ity of mg tablet 00:00: mouth 00 daily. Medical Branch methocarbam Yes [id number] 750mg Take 1 Univers oL 750 mg 3-02 tablet by ity o f tablet 00:00: mouth 2 00 (two) Medical times Branch daily as needed for Pain (scale 4-6). lisinopriL- Yes [id number] 1{tbl} Take 1 Univers hydrochloro 3-02 tablet by ity of thiazide 00:00: mouth [place] 20-25 mg 00 daily. Medical per tablet Branch triamcinolo Yes Apply to U nivers ne 02-10 affected ity of acetonide 00:00: area(s) 2 [place] as 0.1 % cream 00 (two) Medical times Branch daily. Miscellaneo Yes [id number] I10 - U [employer] 5-20 Dispense ity o f Supply Kit 00:00: blood [place] [address] pressure Medical cuff (any Branch brand), take BP at home BID Immunizations Ordered Filled Immunization Date Status Comments Sour e Immunization Name Name TDAP (ADACEL) 2019-05-10 Completed University of VACCINE 00:00:00 [facility] Influenza Virus 2018-04-12 Completed Universit y of Vaccine Quad IM 3+ 00:00:00 [facility] Branch Influenza Virus 2016-03-08 Completed Universit y of Vaccine Quad IM 3+ 00:00:00 [facility] Branch Td 2007-11-08 Completed [facility] 00:00:00 [facility] Vital Signs Vital Name Observation Time Observation Value Comments Source Systolic blood 2021-08-28 13:13:00 137 mm[Hg] Univer sity of pressure [facility] Diastolic blood 2021-08-28 13:13:00 87 mm[Hg] Unive rsity of [facility] Heart rate 2021-08-28 13:13:00 92 /min [facility] Body temperature 2021-08-28 13:13:00 36.11 [facility] Respiratory rate 2021-08-28 13:13:00 16 /min [facility] Body height 2021-08-28 13:13:00 165.1 cm [facility] Body weight 2021-08-28 13:13:00 96.815 kg [facility] BMI 2021-08-28 13:13:00 35.52 kg/m2 [facility] Procedures This patient has no known procedures. 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 [id number] ity of REGIONAL [id number] Stiven as MATERNAL [phone] Med ical & CHILD [address] [place] [address] 2020-03-12 2020-03-12 Telemedici [facility] [id number] 07:53:25 08:13:25 ne Visit Troy Scales [id number] [place] [id number] Professio [phone] 2020-02-20 2020-02-20 Orders Doctor JAMES [id number] 00:00:00 00:00:00 Only Unassigned, ANN-MARIE [id number] [place] [facility] [phone] [id number] 2020-01-18 2020-01-18 Nurse Visit, [facility] [id number] 08:30:30 08:45:[address] [facility] EXAMINING CHAIR ASSEMBLER [id number] Nurse [facility] [id number] MATERNAL [phone] & CHILD [address] [place] [address] 2020-01-02 2020-01-02 Telephone [facility] [id number] 00:00:00 00:00:00 Vianney Scales 350.1.13.10 [place] 4.2.7.2.686 Professdavid [phone] [facility] [address] [facility] 2019-12-21 2019-12-21 Orders Doctor JAMES [id number] 00:00:00 00:00:00 Only Unassigned, ANN-MARIE [id number] [place] [facility] 4.2.7.2.686 [phone] 009 2019-12-17 2019-12-17 Patient [facility] [id number] 00:00:00 00:00:00 Secure Msg Troy Scales [id number] [place] [id number] Professio [phone] 2019-12-13 2019-12-13 [place] [id number] 00:00:00 00:00:00 Troy Scales 350.1.13.10 [place] [id number] Professio [phone] [address] 2019-12-11 2019-12-11 [place] [id number] 12:37:24 13:47:45 Visit Troy Yordy 350.1.13.10 [place] 4.2.7.2.686 Professio [phone] [address] Results This patient has no known results.
[2021-11-10] MEDS ORDERED: HYDROCODONE/APAP 10/325 TAB ONE (07:55)
--- NOTE | 2021-11-10 08:02 | EDPHYS ---
Physician Documentation [facility] Name: Rama Ruiz Age: 41 yrs Sex: Female : 1980 Arrival Date: 11/10/2021 Time: 07:07 Bed 13 Private MD: ED Physician Zane Rivers HPI: 11/10 07:39 This 41 yrs old Black Female presents to ER via Ambulatory with complaints of Shoulder rn Pain. 07:39 The patient or guardian complains of pain, that is acute. left shoulder. rn 07:39 Onset: The symptoms/episode began/occurred yesterday. Modifying factors: the symptoms rn are alleviated by remaining still, The symptoms are aggravated by movement, rotation of arm. Associated signs and symptoms: Pertinent negatives: tingling, Weakness in left arm. Severity of symptoms: At their worst the symptoms were moderate, in the emergency department the symptoms are unchanged. The patient has not experienced similar symptoms in the past. The patient has not recently seen a physician. 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 Did not have direct trauma or fall. Did not hear pop. Did not feel tear. NO neck pain. No chest pain. NO weakness. Has had problems with left shoulder in past. . Historical: - Allergies: 07:18 No Known Allergies; iw - Home Meds: 08:04 lisinopril-hydrochlorothiazide Oral 1 tab once daily [Active]; Wellbutrin Oral [Active];6 - PMHx: 07:18 Asthma; Depression; Hypertension; Migraines; iw - Immunization history:: Adult Immunizations up to date. - Family history:: not pertinent. - Social history:: Smoking status: Patient/guardian denies using. - Hospitalizations: : No recent hospitalization is reported. ROS: 07:39 Constitutional: Negative for fever, chills, and weight loss, Cardiovascular: Negative rn for chest pain, palpitations, and edema, Respiratory: Negative for shortness of breath, cough, wheezing, and pleuritic chest pain, MS/Extremity: + left shoulder pain Neuro: Negative for headache, weakness, numbness, tingling, and seizure. Exam: 07:39 Constitutional: This is a well developed, well nourished patient who is awake, alert, rn crying, left arm held in passive flexion Cardiovascular: Regular rate and rhythm. No pulse deficits. MS/ Extremity: Pulses equal, no cyanosis. Neurovascular intact. Left arm held in passive flexion, mild tenderness with palpation left anterior shoulder. No swelling. Vital Signs: 07:17 BP 146 / 110; Pulse 96; Resp 16; Pulse Ox 98% on R/A; Weight 88.9 kg; Height 5 ft. 4 iw in. (162.56 cm); 07:17 Body Mass Index 33.64 (88.90 kg, 162.56 cm) iw MDM: 07:08 Patient medically screened. rn 08:00 Differential diagnosis: Anterior dislocation without fracture, DJD, tendonitis. rn Differential diagnosis: strain, ligament injury. Data reviewed: vital signs, nurses notes. Counseling: I had a detailed discussion with the patient and/or guardian regarding: the historical points, exam findings, and any diagnostic results supporting the discharge/admit diagnosis, radiology results, the need for outpatient follow up, to return to the emergency department if symptoms worsen or persist or if there are any questions or concerns that arise at home. Special discussion: I discussed with the patient/guardian in detail that at this point there is no indication for admission to the hospital. It is understood, however, that if the symptoms persist or worsen the patient needs to return immediately for re-evaluation. Further emergent ED testing is not indicated at this point in time. I discussed with the patient/guardian in detail the need to arrange with the PCP or specialist further outpatient testing, MRI, Based on the history and exam findings, there is no indication for further emergent testing or inpatient evaluation. I discussed with the patient/guardian the need to see the orthopedic surgeon for further evaluation of the symptoms. 11/10 07:23 Order name: XRAY Shoulder LEFT 2 view; Complete Time: 08:28 rn 11/10 08:02 Order name: Sling; Complete Time: 08:06 rn Administered Medications: 07:51 Drug: [place] (HYDROcodone-acetaminophen) 10 mg-325 mg 1 tabs Route: PO; jh6 Disposition Summary: 11/10/21 08:01 Discharge Ordered Location: Home rn Problem: new rn Symptoms: have improved rn Condition: Stable rn Diagnosis - Strain of muscle(s) and tendon(s) of the rotator cuff of left shoulder rn - Calcific tendinitis of left shoulder rn Followup: rn - With: Private Physician - When: As needed - Reason: Recheck today's complaints, Re-evaluation by your physician Discharge Instructions: - Discharge Summary Sheet rn - Rotator Cuff Tendinitis rn - Calcific Tendinitis rn - How to Use a Sling rn Forms: - Medication Reconciliation Form rn - Thank You Letter rn - Antibiotic purchasing internship - Prescription Opioid Use rn - Work release form [facility] Signatures: Dispatcher [employer] Arelis Epps RN Zane Potter MD MD rn Hastedt, Jennifer, RN RN [facility]
--- NOTE | 2021-11-10 08:02 | ER ---
Nurse's Notes [facility] Name: Rama Ruiz Age: 41 yrs Sex: Female : 1980 Arrival Date: 11/10/2021 Time: 07:07 Bed 13 Private MD: Diagnosis: Strain of muscle(s) and tendon(s) of the rotator cuff of left shoulder;Calcific tendinitis of left shoulder Presentation: 11/10 07:17 Chief complaint: Patient states: was at work yesterday and she reached to [facility] something and thinks she pulled something in her left shoulder. Coronavirus screen: At this time, the client does not indicate any symptoms associated with coronavirus-19. Ebola Screen: Patient negative for fever greater than or equal to 101.5 degrees Fahrenheit, and additional compatible Ebola Virus Disease symptoms Patient denies exposure to infectious person. Patient denies travel to an Ebola-affected area in the 21 days before illness onset. No symptoms or risks identified at this time. Initial Sepsis Screen: Does the patient meet any 2 criteria? No. Patient's initial sepsis screen is negative. Does the patient have a suspected source of infection? No. Patient's initial sepsis screen is negative. Risk Assessment: Do you want to hurt yourself or someone else? Patient reports no desire to harm self or others. Onset of symptoms was October 09, 2021. 07:17 Method Of Arrival: Ambulatory 07:17 Acuity: GIORGIO 4 Historical: - Allergies: 07:18 No Known Allergies; - Home Meds: 08:04 lisinopril-hydrochlorothiazide Oral 1 tab once daily [Active]; Wellbutrin Oral [Active];jh6 - PMHx: 07:18 Asthma; Depression; Hypertension; Migraines; iw - Immunization history:: Adult Immunizations up to date. - Family history:: not pertinent. - Social history:: Smoking status: Patient/guardian denies using. - Hospitalizations: : No recent hospitalization is reported. Screenin:20 Abuse screen: Denies threats or abuse. [facility] 07:20 Nutritional screening: No deficits noted. Tuberculosis screening: No symptoms or risk [facility] factors identified. Fall Risk None identified. Assessment: 07:20 General: Appears uncomfortable, Behavior is cooperative. Pain: Complains of pain in 6 anterior aspect of left shoulder, posterior aspect of left shoulder and left axilla Pain currently is 10 out of 10 on a pain scale. Quality of pain is described as burning, sharp, shooting, Pain began. Vital Signs: 07:17 BP 146 / 110; Pulse 96; Resp 16; Pulse Ox 98% on R/A; Weight 88.9 kg; Height 5 ft. 4 iw in. (162.56 cm); 07:17 Body Mass Index 33.64 (88.90 kg, 162.56 cm) ED Course: 07:07 Patient arrived in ED. as 07:08 Zane Rivers MD is Attending Physician. rn 07:18 Triage completed. iw 07:22 Arm band placed on. iw 07:25 Bed in low position. Call light in reach. 6 07:51 Magui Gomez, RN is Primary Nurse. jh6 07:52 XRAY Shoulder LEFT 2 view In Process Unspecified. EDMS 08:40 Dressings: shoulder imoblizer given to pt with instructions to follow up/. 6 08:41 Patient did not have IV access during this emergency room visit. 6 08:41 No provider procedures requiring assistance completed. 6 Administered Medications: 07:51 Drug: Combs (HYDROcodone-acetaminophen) 10 mg-325 mg 1 tabs Route: PO; [facility] Outcome: 08:01 Discharge ordered by . rn 08:41 Discharged to home ambulatory. jh6 08:41 Condition: good 08:41 Discharge instructions given to patient, Instructed on discharge instructions, follow up and referral plans. Demonstrated understanding of instructions, follow-up care. 08:42 Patient left the ED. [facility] Signatures: Dispatcher [employer] EDMS Pushpa Bhatti as Arelis Jurado RN RN Zane Rivers MD MD rn Hastedt, Jennifer, RN RN [facility] Corrections: (The following items were deleted from the chart) 08:04 07:10 General: Appears uncomfortable, Behavior is cooperative, [place] [id number] 08:04 07:10 Pain: Complains of pain in anterior aspect of left shoulder, posterior aspect of jh6 left shoulder and left axilla Pain currently is 10 out of 10 on a pain scale. Quality of pain is described as burning, sharp, shooting, Pain began [facility]
--- NOTE | 2021-11-10 08:26 | RAD REPORT ---
EXAM DESCRIPTION: RAD - Shoulder Left 2 View - 11/10/2021 7:51 am CLINICAL HISTORY: PAIN COMPARISON: Shoulder Left 2 View dated 07/15/2020 TECHNIQUE: Internal and external rotation views of the left shoulder were obtained. FINDINGS: There is no fracture or dislocation. AC joint is normal in appearance. Acromial humeral tyra int space is normal. Soft tissue calcifications are present along the superolateral humeral head fernando lar prior study. No additional calcifications. No suspicious finding in the upper chest. IMPRESSION: Calcific tendinitis/ tendinosis changes similar to the 2020 study. No acute left shoulder finding.
[2021-11-10 08:48] VITALS: BP 146/110; O2SAT 98
== END 2021-11-10 08:42 | disposition home or self-care (01) ==
LOC: ER 07:03
DX: S46.012A Strain of muscle(s) and tendon(s) of the rotator cuff of left shoulder, initial encounter (principal); M75.32 Calcific tendinitis of left shoulder; I10 Essential (primary) hypertension; F32.A Depression, unspecified
CPT/HCPCS: 99283

== ENCOUNTER 2024-08-26 14:36 | Emergency (ER) | payer OTHER ==
--- OUTSIDE RECORDS SUMMARY | 2024-08-26 14:44 | XMS REPORT | Continuity of Care Document ---
Author Name Unknown Address [address] [facility] [address] [place] [address] [facility] [place] Address [address] [facility] [place] [address] Care Team Providers Care Pesticide Applicator Name Role Phone No , Pcp Primary Care Physician Unavailab MIRANDA Givens Attending Clinician Unavailable EDUARDO MELTON Attending Clinician Unavail able ALVIN WEBB Attending Clinician Unavaila SAMANTA Fatima Attending Clinician Daniella vaSamanta Barroso MD Attending Clinician Doctor Unassigned, [place] Attending Clinician U navailSUZANNA Red Attending Clinician UnavailSUZANNA Dillon Attending Clinician UnavailSuzanna Dillon MD Attending Clinician [phone] DAYNA JACKSON Attending Clinician Unav ailable DAYNA JACKSON Attending Clinician Unav ailable [facility] Attending [facility]ician Unava ilable Eduardo Álvarez Attending Clinician + HARRISON ZAMUDIO Attending Clinician UnavailHARRISON Raymond Attending Clinician Unavailab Walton PULL OVER, Harrison Attending Clinician [phone] Lorena Swain MD Attending Clinician [phone] Cassius RIBERAP, Miranda Attending Clinician [phone] OBI-DAVID, LORENA Attending Clinician Unavailab keily ROJAS-DAVIDLORENA Gil Attending Clinician Unavailab GIBSON Pham Attending Clinician Unavailable GIBSON SANDHU Attending Clinician Unavailable GENIA RAMIREZ Attending Clinician Unavailable JAMESPAULO JUDDIA Attending Clinician Unavailable Geina Cline Attending Clinician [phone] ERIC FIORE Attending Clinician Unavailable ERIC FIORE Attending Clinician Unavailable ISRAEL CARR Attending Clinician Unavailable DELMA RAYMOND Attending Clinician Unavailable DELMA RAYMOND Attending Clinician Unavailable CAYLA LAL Attending Clinician Unavailab keily Marley MD, Sarahy Cunningham Attending Clinician + Cayla Lal MD Attending Clinician [phone] Doctor Unassigned, [place] Attending Clinician U Gibson Soto DO Attending Clinician [phone] MEHDI PONCE Attending Clinician Unavailable Mehdi Butler Attending Clinician [phone] Unknown, Attending Attending Clinician Unavailab Anabela Chaudhari MD Attending Clinician [phone] ANABELA ZEPEDA Attending Clinician Unavailable Vtc-Lab Attending Clinician Unavailable Eric Meyer MD Attending Clinician [phone] Sarbjit PASCUAL, Samanta Aaron Attending Clinician TOBIN GARCIA Attending Clinician Unavailable TOBIN GARCIA Attending Clinician Unavailable CASSANDRA ORDONEZ Attending Clinician Unavailable Cassandra Ordonez MD Attending Clinician [phone] Visit, Oscar Nurse Attending Clinician Unava ilable [facility]kinsibrad [facility] C Attending Clinician + Pob, [facility] Main Attending Clinician Unavailmyrna kilpatrick [facility] Attending Clini khris Unavailable Darian PASCUAL, Vianney Vidal Attending Clinician [phone] Destiny Pappas PTA Attending Clinician Unavail able Chanel Lentz MD Attending Clinician [phone] CHANEL LENZT Attending Clinician Unavailmyrna Hernandez DECK ENGINE OPERATOR, Nancy Melendrez Attending Clinician Unavail able ERIC MEYER Attending Clinician Unavailable Jeremy PT, Radha Rich Attending Clinician Unavail able Otilio Monroe PT, Mirtha Attending Clinician Un available PERCY PRADO Attending Clinician Unavail able Joseph PT, Skylar Rios Attending Clinician Unavailab keily 2, [facility] Attending Clinician Unavailable Destiny Bryan Attending Clinician TRE GARCIA Attending Clinician Unavailable VIANNEY FARMER Attending Clinician Unava ilable Percy Prado DO Attending Clinician [phone] Murtaza Benz Attending Clinician MURTAZA JONES Attending Clinician UnavailBINTA Lyons Attending Clinician Unavailable Cornel Brito MD Attending Clinician [phone] Binta Bradford Attending Clinician [phone] SAMANTA SCHAFFER Admitting Clinician Daniella Samanta Bowles MD Admitting Clinician OBEnrique-LORENA HERNANDEZ Admitting Clinician Unavailab GIBSON Pham Admitting Clinician Unavailab CASSANDRA Trent Admitting Clinician Unavailable EDUARDO MELTON Admitting Clinician Unavail able ERIC MEYER Admitting Clinician Unavailable Payers Payer Name Policy Type Policy Number Effective Date Expirati on Date Source [employer] [facility] [employer] [id number] 2020 00:00:00 [place] [id number] 2020 00:00:00 Problems Condition Name Condition Details Condition Category Status Onset Date Resolution Date Last Treatment Date Treating Clinician Comments Source Venous insufficie ncy Venous insufficie ncy Disease Active 2023-06 00:00: 00 [facility] Venous insufficie ncy Venous insufficie ncy Disease Active 12-29 00:00: 00 [facility] Varicose veins of both lower extremitie s with pain Varicose veins of both lower extremitie s with pain Disease Active 2024-0 6-03 00:00: 00 [facility] DONN positive DONN positive Disease Active 0 5-06 00:00: 00 [facility] [place] Current mild episode of major depressive disorder, unspecifie d whether recurrent Current mild episode of major depressive disorder, unspecifie d whether recurrent Disease Active 0 8-12 00:00: 00 [facility] Decreased range of motion of left shoulder Decreased range of motion of left shoulder Disease Active 0 8-12 00:00: 00 [facility] Decreased range of motion of left shoulder Decreased range of motion of left shoulder Disease Active 0 8-12 00:00: 00 [facility] Chronic left shoulder pain Chronic left shoulder pain Disease Active 0 7-25 00:00: 00 [facility] Bursitis of left shoulder Bursitis of left shoulder Disease Active 0 6-30 00:00: 00 [facility] Rotator cuff tendinitis , left Rotator cuff tendinitis , left Disease Active 0 6-08 00:00[facility] tendinitis of left shoulder Calcific tendinitis of left shoulder Disease Active 0 6-08 00:00: [facility] Hospital discharge follow-up Disease Active 0 6-08 00:00: 00 [facility] Pain management contract signed Pain management contract signed Disease Active 0 6-08 00:00: 00 [facility] Well woman exam Well woman exam Disease Active 0 3-25 00:00: [facility] History of tubal ligation History of tubal ligation Disease Active 0 3-25 00:00: 00 [facility] Corns Corns Disease Active 0 9-08 00:00: 00 [facility] Itching Itching Disease Active 0 9-08 00:00: 00 [facility] Knee locking, left Knee locking, left Disease Active 0 9-08 00:00: 00 [facility] Chronic pain of left knee Chronic pain of left knee Disease Active 0 9- 00:00: 00 [facility] Dysmenorrh ea Dysmenorrh ea Disease Active 2 00:00: 00 [facility] Acute pain of left shoulder Acute pain of left shoulder Disease Active 01-07 00:00: 00 [facility] Acute pain of left shoulder Acute pain of left shoulder Disease Active 01-07 00:00: 00 [facility] Depression Depression Disease Active 07-08 00:00: 00 [facility] Nicotine dependence with current use Nicotine dependence with current use Disease Active 08-14 00:00: 00 [facility] Nicotine dependence with current use Nicotine dependence with current use Disease Active 08-14 00:00: 00 [facility] Essential hypertensi on Essential hypertensi on Disease Active 08-14 00:00: 00 Overview: Formattin g of this note might be different from the original. ICD10 Diagnosis Term Developmental Education Instructor Utility [facility] Tobacco use disorder Tobacco use disorder Disease Active 08-14 00:00: 00 [facility] Asthma Asthma Disease Active 08-15 00:00: 00 Overview: Formattin g of this note might be different from the original. ICD10 Diagnosis Term Developmental Education Instructor Utility [facility] Obesity (BMI 30.0-34.9) Obesity (BMI 30.0-34.9) Disease Resolve d 2018-06 2 00:00: 00 2023-11-01 00:00:00 2023-11-01 10:10:36 [facility] BMI 37.0-37.9, adult BMI 37.0-37.9, adult Disease Resolve d 2 00:00: 00 2022-08-30 00:00:00 2022-08-30 13:39:43 [facility] Obese Obese Disease Resolve d 216 00:00: 00 2022-08-30 00:00:00 2022-08-30 13:39:34 [facility] Periumbili sarai abdominal pain Periumbili sarai abdominal pain Disease Resolve d 12-10 00:00: 00 2021-02-11 00:00:00 2021-02-11 13:31:10 [facility] Need for influenza vaccinatio n Need for influenza vaccinatio n Disease Resolve d 2019-06 00:00: 00 2020-12-28 00:00:00 2020-12-28 20:23:33 [facility] Well woman exam Well woman exam Disease Resolve d 07-22 00:00: 00 2020-12-28 00:00:00 2020-12-28 20:23:35 [facility] History of tubal ligation History of tubal ligation Disease Resolve d 07-09 00:00: 00 2020-12-28 00:00:00 2020-12-28 20:23:38 [facility] Screening examinatio n for STD (sexually transmitte d disease) Screening examinatio n for STD (sexually transmitte d disease) Disease Resolve d 07-08 00:00: 00 2018-08-17 00:00:00 2018-08-17 14:08:04 [facility] Acute foot pain, right Acute foot pain, right Disease Resolve d 09-25 00:00: 00 2015-07-22 00:00:00 2015-07-22 07:45:08 [facility] Surveillan ce of previously prescribed contracept alycia method Surveillan ce of previously prescribed contracept alycia method Disease Resolve d 07-09 00:00: 00 2015-07-22 00:00:00 2021-12-20 00:34:20 [facility] Encounter for routine gynecologi sarai examinatio n Encounter for routine gynecologi sarai examinatio n Disease Resolve d 3-11 00:00: 00 2014-09-25 00:00:00 2021-12-20 00:29:18 [facility] UTI (Urinary tract infection, site not specified) UTI (Urinary tract infection, site not specified) Disease Resolve d 2- 00:00: 00 2014-07-22 00:00:00 2014-07-22 22:26:25 [facility] Abdominal pain Abdominal pain Disease Resolve d 07-08 00:00: 00 2014-07-22 00:00:00 2021-12-20 00:34:19 [facility] Yeast infection of the vagina Yeast infection of the vagina Disease Resolve d 07-08 00:00: 00 2014-07-22 00:00:00 2014-07-22 22:26:27 [facility] Screening for STD (sexually transmitte d disease) Screening for STD (sexually transmitte d disease) Disease Resolve d 07-08 00:00: 00 2014-07-22 00:00:00 2014-07-22 22:26:33 [facility] Tubal ligation status Tubal ligation status Disease Resolve d 08-14 00:00: 00 2014-07-08 00:00:00 2014-07-08 15:30:26 [facility] Morbid obesity Morbid obesity Disease Resolve d 08-14 00:00: 00 2014-07-08 00:00:00 2014-07-08 15:30:30 [facility] FHx: breast cancer FHx: breast cancer Disease Resolve d 08-14 00:00: 00 2014-07-08 00:00:00 2014-07-08 15:30:34 [facility] FHx: ovarian cancer FHx: ovarian cancer Disease Resolve d 08-14 00:00: 00 2014-07-08 00:00:00 2014-07-08 15:30:36 [facility] Lump or mass in breast Lump or mass in breast Disease Resolve d 08-14 00:00: 00 2014-07-08 00:00:00 2021-12-20 00:29:18 [facility] Essential hypertensi on, benign Essential hypertensi on, benign Disease Resolve d 08-15 00:00: 00 2013-08-14 00:00:00 2013-08-14 15:19:50 [facility] Allergies, Adverse Reactions, Alerts Allergy Name Allergy Type Status Severity Reaction(s) Onset Date Inactive Date Treating Clinician Comments Source NO KNOWN ALLERGIE S Drug Class Active [facility] Social History Social Habit Start Date Stop Date Quantity Comments Source Gender identity [facility] History SDOH Alcohol Frequency [facility] History SDOH Alcohol Std Drinks [facility] History SDOH Alcohol Binge [facility] History of tobacco use Cigarette Smoker [facility] Sexual orientation [facility] Alcoholic beverage intake 2024-08-06 00:00:00 2024-08-06 00:00:00 0 /d [facility] History of Social function 2023-11-07 00:00:00 2023-11-07 00:00:00 [facility] Cigarettes smoked current (pack per day) - Reported 2023-10-12 00:00:00 2023-10-12 00:00:00 [facility] Cigarette pack-years 2023-10-12 00:00:00 2023-10-12 00:00:00 [facility] Tobacco use and exposure 2023-10-12 00:00:00 2023-10-12 00:00:00 Smokeless tobacco non-user [facility] Alcohol intake 2023-08-22 00:00:00 2023-08-22 00:00:00 0 /d [facility] Exposure to SARS-CoV-2 (event) 2022-10-11 00:00:00 2022-10-21 10:50:00 Not sure [facility] Tobacco Comment 2022-04-09 00:00:00 2022-04-09 00:00:00 1-2 cigarettes [facility] Alcohol Comment 2014-12-09 00:00:00 2014-12-09 00:00:00 Socially, 3-4 beers [facility] Sex assigned at 1980 00:00:00 1980 00:00:00 [facility] Smoking Status Start Date Stop Date Source Smokes tobacco daily 2023-10-12 00:00:00 [facility] Occasional tobacco smoker 2022-08-30 00:00:00 [facility] Medications Ordered Medication Name Filled Medication Name Start Date Stop Date Current Medication? Ordering Clinician Indication Dosage Frequency Signature (SIG) Comments Components Source apixaban 5 mg tablet 2-13 00:00: 00 09-18 04:59 :00 Yes [id number] 5mg Take 1 tablet by mouth in the morning and 1 tablet in the evening. Do all this for 60 days. Indication s: formation of blood clots in the leg veins [facility] apixaban 5 mg tablet 2-06 00:00: 00 09-11 04:59 :00 Yes [id number] 5mg Take 1 tablet by mouth in the morning and 1 tablet in the evening. Do all this for 60 days. Indication s: formation of blood clots in the leg veins [facility] apixaban 5 mg tablet 1-30 00:00: 00 07-13 05:59 :00 Yes [id number] 10mg Take 2 tablets by mouth in the morning and 2 tablets in the evening. Do all this for 7 days. Indication s: formation of blood clots in the leg veins [facility] HYDROcodone -acetaminop hen (NORCO 5) tablet 1 tablet 06-18 20:45: 00 06-18 20:38 :00 No 1{tbl} 1 tablet, Oral, ONCE, 1 dose, On Tue06/18/24 at 1445, Routine, PACU [facility] lactated ringers IV infusion 500 mL 06-18 20:45: 00 06-18 23:06 :45 No 500mL at 50 mL/hr, 500 mL, IV Infusion, CONTINUOUS , Starting on Tue06/18/24 at 1445, Until Tue06/18/24 at 1706, Routine, PACU [facility] HYDROmorphO ne (DILAUDID) injection 0.2 mg 06-18 20:32: 14 06-18 23:06 :45 No .2mg 0.2 mg, Slow IV Push, Q5MIN PRN, 10 doses, Starting on Tue06/18/24 at 1432, Until Tue06/18/24 at 1706, Routine, Pain (scale 7-10), PACU, Is this medication approved by a Faculty level provider? Yes, membership coordinator approving Restricted medication : ENZO JORGE [facility] FENTanyl (PF) (SUBLIMAZE) injection 25 mcg 06-18 20:32: 14 06-18 23:06 :45 No 25ug 25 mcg, Slow IV Push, Q5MIN PRN, 4 doses, Starting on Tue06/18/24 at 1432, Until Tue06/18/24 at 1706, Routine, Pain Scale 4-6, PACU [facility] lidocaine-e pinephrine (XYLOCAINE WITH EPINEPHRINE ) 1 %-1:100,000 injection 06-18 19:11: 00 06-18 20:07 :14 No PRN, Starting on Tue06/18/24 at 1311, Until Tue06/18/24 at 1407, Routine, Intra-op [facility] sodium chloride 0.9 % irrigation solution 06-18 18:37: 00 06-18 23:06 :45 No PRN, Starting on Tue06/18/24 at 1237, Until Tue06/18/24 at 1706, Intra-op [facility] sodium bicarbonate 1 mEq/mL (8.4 %) injection 06-18 18:37: 00 06-18 20:07 :14 No PRN, Starting on Tue06/18/24 at 1237, Until Tue06/18/24 at 1407, Routine, Intra-op [facility] acetaminoph en (TYLENOL EXTRA STRENGTH) 500 mg tablet 06-18 00:00: 00 Yes [id number] 500mg Take 1 tablet by mouth every 6 (six) hours as needed for Pain. [facility] ibuprofen 400 mg tablet 06-18 00:00: 00 Yes [id number] 400mg Take 1 tablet by mouth every 6 (six) hours as needed for Pain (scale 1-3) or Pain (scale 4-6). [facility] naproxen 500 mg tablet 2023-06 00:00: 00 Yes [id number] 500mg Take 1 tablet by mouth 2 (two) times daily with meals as needed for Pain (scale 4-6). [facility] diclofenac dodium 1 % gel 12-18 00:00: 00 Yes [id number] Take 2-4 grams three times a day as needed for pain [facility] naproxen 500 mg tablet 12-18 00:00: 00 12-26 04:59 :00 No [id number] 500mg Take 1 tablet by mouth in the morning and 1 tablet in the evening. Take with meals. Do all this for 7 days. [facility] traMADoL 50 mg tablet 12-18 00:00: 00 12-26 04:59 :00 No [id number] 50mg Take 1 tablet by mouth every 6 (six) hours as needed for Pain (scale 7-10) for up to 7 days. Indication s: chronic pain [facility] acetaminoph en (TYLENOL) tablet 650 mg 12-14 08:30: 00 12-14 08:26 :00 No 650mg 650 mg, Oral, ONCE, 1 dose, On Phyllis 12/15/23 at 0330, DOMINIQUE [facility] hyoscyamine sulfate (LEVSIN/SL) sublingual tablet 0.25 mg 12-14 08:30: 00 12-14 07:28 :00 No .25mg 0.25 mg, Sublingual , ONCE NOW, 1 dose, On Phyllis 12/15/23 at 0330, Routine [facility] famotidine (PEPCID (PF)) injection 20 mg 12-14 08:30: 00 12-14 07:26 :00 No 20mg 20 mg, Slow IV Push, ONCE NOW, 1 dose, On Phyllis 12/15/23 at 0330, DOMINIQUE [facility] NaCl 0.9% (NS) bolus infusion 1,000 mL 12-14 08:15: 00 12-14 08:11 :00 No 1000mL at 999 mL/hr, 1,000 mL, IV Piggyback, ONCE, 1 dose, On Phyllis 12/15/23 at 0315, STAT [facility] haloperidol lactate (HALDOL) injection 2.5 mg 12-14 07:30: 00 2024- 07-11 07:40 :00 No 2.5mg 2.5 mg, Intravenou s, ONCE, 1 dose, On Phyllis 12/15/23 at 0230, STAT [facility] famotidine (PEPCID) 20 mg tablet 12-14 00:00: 00 06-18 00:00 :00 No [id number] 20mg Take 1 tablet by mouth in the morning and 1 tablet in the evening. [facility] ondansetron 8 mg disintegrat ing tablet 12-14 00:00: 00 06-18 00:00 :00 No [id number] 8mg Take 1 tablet by mouth every 8 (eight) hours as needed for Nausea and Vomiting (N/V). [facility] hyoscyamine sulfate (LEVSIN/SL) 0.125 mg sublingual tablet 12-14 00:00: 00 06-18 00:00 :00 [id number] 2 tablets under the tongue every 6 (six) hours as needed (Abdominal pain or cramping). [facility] Oral Electrolyte s (PEDIALYTE ADVANCED CARE) solution 12-14 00:00: 00 06-18 00:00 :00 No [id number] 500mL Take 500 mL by mouth every 6 (six) hours. [facility] ketoconazol e 2 % shampoo 12-07 00:00: 00 Yes [id number] Apply to area(s) 2 (two) times per week. Leave on 5-10 minutes, then rinse. [facility] fluconazole 200 mg tablet 12-06 00:00: 00 06-18 00:00 :00 No [id number] Take 200 mg once monthly for 3 months. [facility] lisinopril- hydroCHLORO thiazide 20-25 MG tablet 11-06 11:45: 32 Yes 1{tbl} Take 1 tablet by mouth every morning. [facility] medroxyPROG ESTERone (DEPO-PROVE RA) syringe 150 mg 10-31 15:30: 00 12-25 15:29 :00 No [id number] 150mg 150 mg, Intramuscu lar, [id number], 5 doses, First dose on Tue11/01/23 at 1030, Last dose on Tue10/02/24 at 1030, Routine [facility] fluconazole (Diflucan) 200 MG tablet 10-18 00:00: 00 Yes 1{tbl} Take 1 tablet by mouth every morning. [facility] ketoconazol e 2 % shampoo 10-18 00:00: 00 06-18 00:00 :00 No [id number] Apply to area(s) once daily as needed for Itching. [facility] fluconazole 200 mg tablet 10-18 00:00: 00 06-18 00:00 :00 No [id number] 200mg Take 1 tablet by mouth in the morning. [facility] lisinopriL- hydrochloro thiazide 20-25 mg per tablet 09-25 00:00: 00 Yes [id number] 1{tbl} Take 1 tablet by mouth in the morning. [facility] iopamidol (ISOVUE 370-500 mL) injection 85 mL 08-07 17:34: 00 08-07 17:45 :00 No [id number] 85mL 85 mL, Intravenou s, ONCE, 1 dose, On Tue08/08/23 at 1145, Routine [facility] FENTanyl PF (SUBLIMAZE (PF)) injection 75 mcg 08-07 17:15: 00 08-07 16:21 :00 No 75ug 75 mcg, Slow IV Push, ONCE, 1 dose, On Tue08/08/23 at 1115, STAT [facility] NaCl 0.9% (NS) bolus infusion 1,000 mL 08-07 17:00: 00 08-07 18:14 :00 No 1000mL at 999 mL/hr, 1,000 mL, IV Infusion, ONCE, 1 dose, On Tue08/08/23 at 1100, DOMINIQUE [facility] maalox:diph enhydrAMINE :lidocaine 2 % viscous 1:1:1 (FIRST-MOUT HWWATTON BLM) oral suspension 15 mL 3-04 16:15: 00 08-07 16:21 :00 No 15mL 15 mL, Oral, ONCE, 1 dose, On Tue08/08/23 at 1015, DOMINIQUE [facility] metoclopram portia HCl (REGLAN) injection 10 mg 3-04 16:15: 00 08-07 16:22 :00 No 10mg 10 mg, Slow IV Push, ONCE, 1 dose, On Tue08/08/23 at 1015[facility] tablet 3- 00:00: 00 10-09 00:00 :00 No [id number] 1g Take 1 tablet by mouth before meals and at bedtime. [facility] famotidine 20 mg tablet 3- 00:00: 00 10-09 00:00 :00 No [id number] 20mg Take 1 tablet by mouth in the morning and 1 tablet in the evening. [facility] ondansetron 4 mg disintegrat ing tablet 08-07 00:00: 00 10-09 00:00 :00 No [id number] 4mg Take 1 tablet by mouth every 4 (four) hours as needed for Nausea and Vomiting (N/V). [facility] medroxyPROG ESTERone (DEPO-PROVE RA) syringe 150 mg -14 16:15: 00 07-20 15:25 :00 No [id number] 150mg [facility] [facility] 25 mg capsule 2-05 00:00: 00 10-09 04:59 :00 No [id number] 25mg Take 1 capsule by mouth in the morning and 1 capsule at noon and 1 capsule in the evening. Do all this for 90 days. [facility] predniSONE 50 mg tablet 2-05 00:00: 00 07-17 05:59 :00 No [id number] 50mg Take 1 tablet by mouth in the morning for 5 days. [facility] SERTraline 25 mg tablet 2022-06 0-03 00:00: 00 10-09 00:00 :00 No [id number] 25mg Take 1 tablet by mouth in the morning. [facility] Diclofenac Sodium (VOLTAREN) 1 % gel 2022-06 0- 00:00: 00 10-09 00:00 :00 No [id number] Apply to area(s) 4 (four) times daily. Apply 4 g qid [facility] methocarbam oL 750 mg tablet 2022-06 0- 00:00: 00 07-11 00:00 :00 No [id number] 750mg Take 1 tablet by mouth 4 (four) times daily. [facility] hydrOXYzine 25 mg tablet 01-28 00:00: 00 10-09 00:00 :00 No [id number] 25mg Take 1 tablet by mouth every 8 (eight) hours as needed for Anxiety. [facility] SERTraline 100 mg tablet 01-28 00:00: 03-08 00:00 :00 No [id number] 100mg Take 1 tablet by mouth in the morning. [facility] medroxyPROG ESTERone (DEPO-PROVE RA) syringe 150 mg 10-21 17:00: 00 04-19 15:41 :00 No [id number] 150mg 150 mg, Intramuscu lar, [id number], 3 doses, First dose on Phyllis 10/21/22 at 1200, Last dose on Tue04/07/23 at 1200, Routine [facility] lisinopriL- hydrochloro thiazide 20-25 mg per tablet 2- 00:00: 00 09-24 00:00 :00 No [id number] 1{tbl} Take 1 tablet by mouth in the morning. [facility] sumatriptan 100 mg tablet 2021-06 1- 00:00: 00 03-08 00:00 :00 No [id number] 100mg Take 1 tablet by mouth as needed for Migraine. [facility] lisinopriL- hydrochloro thiazide 20-25 mg per tablet 9-19 00:00: 00 07-29 00:00 :00 No [id number] 1{tbl} Take 1 tablet by mouth in the morning. [facility] nicotine 14 mg/24 hr patch 8-12 00:00: 00 03-08 00:00 :00 No [id number] 1{patch } Apply 1 Patch to area(s) every 24 (twenty-fo ur) hours. Apply 21mg patch daily x 6 weeks; then apply 14mf patch daily x 2 weeks; then apply 7mg patch daily x 2 weeks. Stop smoking on initiation of therapy [facility] nicotine 7 mg/24 hr patch 8-12 00:00: 00 03-08 00:00 :00 No [id number] 1{patch } Apply 1 Patch to area(s) every 24 (twenty-fo ur) hours. Apply 21mg patch daily x 6 weeks; then apply 14mf patch daily x 2 weeks; then apply 7mg patch daily x 2 weeks. Stop smoking on initiation of therapy [facility] nicotine 21 mg/24 hr patch 8-12 00:00: 00 01-24 00:00 :00 No [id number] 1{patch } Apply 1 Patch to area(s) in the morning. Apply 21mg patch daily x 6 weeks; then apply 14mf patch daily x 2 weeks; then apply 7mg patch daily x 2 weeks. Stop smoking on initiation of therapy [facility] SERTRALINE 50 mg tablet 7- 00:00: 00 01-28 00:00 :00 No [id number] 50mg TAKE 1 TABLET BY MOUTH DAILY [facility] lidocaine 5 % ointment 7- 00:00: 00 03-08 00:00 :00 No [id number] Apply 2g to affected areas BID PRN [facility] amitriptyli ne 25 mg tablet 6-30 00:00: 00 03-08 00:00 :00 No [id number] 25mg Take 1 tablet by mouth at bedtime. [facility] methocarbam oL 750 mg tablet 11-11 00:00: 00 03-08 00:00 :00 No [id number] 750mg Take 1 tablet by mouth 4 (four) times daily. [facility] ibuprofen 600 mg tablet 11-11 00:00: 00 03-08 00:00 :00 No [id number] 600mg Take 1 tablet by mouth every 6 (six) hours as needed for Pain (scale 4-6). [facility] Diclofenac Sodium (VOLTAREN) 1 % gel 11-11 00:00: 00 03-08 00:00 :00 No [id number] Apply to area(s) 4 (four) times daily. Apply 4 g qid [facility] acetaminoph en-codeine (TYLENOL-CO DEINE #3) 300-30 mg tablet 11-11 00:00: 00 03-08 00:00 :00 No [id number] 1{tbl} Take 1 tablet by mouth every 6 (six) hours as needed for Pain (scale 7-10). Indication s: acute pain [facility] medroxyPROG ESTERone (DEPO-PROVE RA) injection 150 mg 08-28 14:00: 00 07-30 14:59 :00 No [id number] 150mg [facility] SERTraline (ZOLOFT) 50 mg tablet 08-05 00:00: 00 Yes [id number] 50mg Take 1 tablet by mouth daily. [facility] lisinopriL- hydrochloro thiazide 20-25 mg per tablet 08-05 00:00: 00 02-21 00:00 :00 No [id number] 1{tbl} Take 1 tablet by mouth daily. [facility] triamcinolo ne acetonide 0.1 % cream 9-07 00:00: 00 03-08 00:00 :00 No Apply to affected area(s) 2 (two) times daily. [facility] [employer] [facility] [employer] [facility] 10-23 00:00: 00 Yes [id number] I10 - Dispense blood pressure cuff (any brand), take BP at home BID [facility] [employer] [facility] Kit 10-23 00:00: 00 03-08 00:00 :00 No [id number] I10 - Dispense blood pressure cuff (any brand), take BP at home BID [facility] Immunizations Ordered Immunization Name Filled Immunization Name Date Status Comments Source TD, NOS 2024-02-27 15:00:00 Completed [facility] Influenza Virus Vaccine Quad IM 3+ YRS 2024-02-27 15:00:00 Completed [facility] TDAP (ADACEL) VACCINE 2024-02-27 15:00:00 Completed [facility] SARS-COV-2 COVID-19 PFIZER VACCINE 2024-02-27 15:00:00 Completed [facility] SARS-COV-2 COVID-19 PFIZER ALEXI-SUCROSE VACCINE (GILES TOP) 2024-02-27 15:00:00 Completed [facility] HPV9 2024-02-27 15:00:00 Completed [facility] Influenza Virus Vaccine Quad IM 3+ YRS 2024-02-20 00:00:00 Completed [facility] SARS-COV-2 COVID-19 PFIZER VACCINE 2024-02-20 00:00:00 Completed [facility] SARS-COV-2 COVID-19 PFIZER ALEXI-SUCROSE VACCINE (GILES TOP) 2024-02-20 00:00:00 Completed [facility] HPV9 2024-02-20 00:00:00 Completed [facility] TD, NOS 2023-11-15 11:53:38 Completed [facility] Influenza Virus Vaccine Quad IM 3+ YRS 2023-11-15 11:53:38 Completed [facility] TDAP (ADACEL) VACCINE 2023-11-15 11:53:38 Completed [facility] SARS-COV-2 COVID-19 PFIZER VACCINE 2023-11-15 11:53:38 Completed [facility] SARS-COV-2 COVID-19 PFIZER ALEXI-SUCROSE VACCINE (GILES TOP) 2023-11-15 11:53:38 Completed [facility] HPV9 2023-11-15 11:53:38 Completed [facility] TD, NOS 2023-11-08 13:00:00 Completed [facility] TDAP (ADACEL) VACCINE 2023-11-08 13:00:00 Completed [facility] Influenza Virus Vaccine Quad IM 3+ YRS 2023-11-08 13:00:00 Completed [facility] SARS-COV-2 COVID-19 PFIZER VACCINE 2023-11-08 13:00:00 Completed [facility] SARS-COV-2 COVID-19 PFIZER ALEXI-SUCROSE VACCINE (GILES TOP) 2023-11-08 13:00:00 Completed [facility] HPV9 2023-11-08 13:00:00 Completed [facility] TD, NOS 2023-11-02 15:51:12 Completed [facility] Influenza Virus Vaccine Quad IM 3+ YRS 2023-11-02 15:51:12 Completed [facility] TDAP (ADACEL) VACCINE 2023-11-02 15:51:12 Completed [facility] SARS-COV-2 COVID-19 PFIZER VACCINE 2023-11-02 15:51:12 Completed [facility] SARS-COV-2 COVID-19 PFIZER ALEXI-SUCROSE VACCINE (GILES TOP) 2023-11-02 15:51:12 Completed [facility] HPV9 2023-11-02 15:51:12 Completed [facility] TD, NOS 2023-11-02 15:40:00 Completed [facility] TDAP (ADACEL) VACCINE 2023-11-02 15:40:00 Completed [facility] Influenza Virus Vaccine Quad IM 3+ YRS 2023-11-02 15:40:00 Completed [facility] SARS-COV-2 COVID-19 PFIZER VACCINE 2023-11-02 15:40:00 Completed [facility] SARS-COV-2 COVID-19 PFIZER ALEXI-SUCROSE VACCINE (GILES TOP) 2023-11-02 15:40:00 Completed [facility] HPV9 2023-11-02 15:40:00 Completed [facility] TD, NOS 2023-11-01 10:30:00 Completed [facility] TDAP (ADACEL) VACCINE 2023-11-01 10:30:00 Completed [facility] Influenza Virus Vaccine Quad IM 3+ YRS 2023-11-01 10:30:00 Completed [facility] SARS-COV-2 COVID-19 PFIZER VACCINE 2023-11-01 10:30:00 Completed [facility] SARS-COV-2 COVID-19 PFIZER ALEXI-SUCROSE VACCINE (GILES TOP) 2023-11-01 10:30:00 Completed [facility] HPV9 2023-11-01 10:30:00 Completed [facility] TD, NOS 2023-10-24 00:00:00 Completed [facility] Influenza Virus Vaccine Quad IM 3+ YRS 2023-10-24 00:00:00 Completed [facility] TDAP (ADACEL) VACCINE 2023-10-24 00:00:00 Completed [facility] SARS-COV-2 COVID-19 PFIZER VACCINE 2023-10-24 00:00:00 Completed [facility] SARS-COV-2 COVID-19 PFIZER ALEXI-SUCROSE VACCINE (GILES TOP) 2023-10-24 00:00:00 Completed [facility] HPV9 2023-10-24 00:00:00 Completed [facility] TD, NOS 2023-10-19 11:00:00 Completed [facility] TDAP (ADACEL) VACCINE 2023-10-19 11:00:00 Completed [facility] Influenza Virus Vaccine Quad IM 3+ YRS 2023-10-19 11:00:00 Completed [facility] SARS-COV-2 COVID-19 PFIZER VACCINE 2023-10-19 11:00:00 Completed [facility] SARS-COV-2 COVID-19 PFIZER ALEXI-SUCROSE VACCINE (GILES TOP) 2023-10-19 11:00:00 Completed [facility] HPV9 2023-10-19 11:00:00 Completed [facility] TD, NOS 2023-10-19 00:00:00 Completed [facility] TDAP (ADACEL) VACCINE 2023-10-19 00:00:00 Completed [facility] Influenza Virus Vaccine Quad IM 3+ YRS 2023-10-19 00:00:00 Completed [facility] SARS-COV-2 COVID-19 PFIZER VACCINE 2023-10-19 00:00:00 Completed [facility] SARS-COV-2 COVID-19 PFIZER ALEXI-SUCROSE VACCINE (GILES TOP) 2023-10-19 00:00:00 Completed [facility] HPV9 2023-10-19 00:00:00 Completed [facility] TD, NOS 2023-10-12 12:00:00 Completed [facility] Influenza Virus Vaccine Quad IM 3+ YRS 2023-10-12 12:00:00 Completed [facility] TDAP (ADACEL) VACCINE 2023-10-12 12:00:00 Completed [facility] SARS-COV-2 COVID-19 PFIZER VACCINE 2023-10-12 12:00:00 Completed [facility] SARS-COV-2 COVID-19 PFIZER ALEXI-SUCROSE VACCINE (GILES TOP) 2023-10-12 12:00:00 Completed [facility] HPV9 2023-10-12 12:00:00 Completed [facility] TD, NOS 2023-10-12 11:00:00 Completed [facility] TDAP (ADACEL) VACCINE 2023-10-12 11:00:00 Completed [facility] Influenza Virus Vaccine Quad IM 3+ YRS 2023-10-12 11:00:00 Completed [facility] SARS-COV-2 COVID-19 PFIZER VACCINE 2023-10-12 11:00:00 Completed [facility] SARS-COV-2 COVID-19 PFIZER ALEXI-SUCROSE VACCINE (GILES TOP) 2023-10-12 11:00:00 Completed [facility] HPV9 2023-10-12 11:00:00 Completed [facility] TD, NOS 2023-10-10 09:20:00 Completed [facility] TDAP (ADACEL) VACCINE 2023-10-10 09:20:00 Completed [facility] Influenza Virus Vaccine Quad IM 3+ YRS 2023-10-10 09:20:00 Completed [facility] SARS-COV-2 COVID-19 PFIZER VACCINE 2023-10-10 09:20:00 Completed [facility] SARS-COV-2 COVID-19 PFIZER ALEXI-SUCROSE VACCINE (GILES TOP) 2023-10-10 09:20:00 Completed [facility] HPV9 2023-10-10 09:20:00 Completed [facility] TD, NOS 2023-09-25 00:00:00 Completed [facility] Influenza Virus Vaccine Quad IM 3+ YRS 2023-09-25 00:00:00 Completed [facility] TDAP (ADACEL) VACCINE 2023-09-25 00:00:00 Completed [facility] SARS-COV-2 COVID-19 PFIZER VACCINE 2023-09-25 00:00:00 Completed [facility] SARS-COV-2 COVID-19 PFIZER ALEXI-SUCROSE VACCINE (GILES TOP) 2023-09-25 00:00:00 Completed [facility] HPV9 2023-09-25 00:00:00 Completed [facility] TD, NOS 2023-08-22 15:15:00 Completed [facility] TDAP (ADACEL) VACCINE 2023-08-22 15:15:00 Completed [facility] Influenza Virus Vaccine Quad IM 3+ YRS 2023-08-22 15:15:00 Completed [facility] SARS-COV-2 COVID-19 PFIZER VACCINE 2023-08-22 15:15:00 Completed [facility] SARS-COV-2 COVID-19 PFIZER ALEXI-SUCROSE VACCINE (GILES TOP) 2023-08-22 15:15:00 Completed [facility] HPV9 2023-08-22 15:15:00 Completed [facility] TD, NOS 2023-08-15 13:30:00 Completed [facility] TDAP (ADACEL) VACCINE 2023-08-15 13:30:00 Completed [facility] Influenza Virus Vaccine Quad IM 3+ YRS 2023-08-15 13:30:00 Completed [facility] SARS-COV-2 COVID-19 PFIZER VACCINE 2023-08-15 13:30:00 Completed [facility] SARS-COV-2 COVID-19 PFIZER ALEXI-SUCROSE VACCINE (GILES TOP) 2023-08-15 13:30:00 Completed [facility] HPV9 2023-08-15 13:30:00 Completed [facility] TD, NOS 2023-08-08 09:37:00 Completed [facility] Influenza Virus Vaccine Quad IM 3+ YRS 2023-08-08 09:37:00 Completed [facility] TDAP (ADACEL) VACCINE 2023-08-08 09:37:00 Completed [facility] SARS-COV-2 COVID-19 PFIZER VACCINE 2023-08-08 09:37:00 Completed [facility] SARS-COV-2 COVID-19 PFIZER ALEXI-SUCROSE VACCINE (GILES TOP) 2023-08-08 09:37:00 Completed [facility] HPV9 2023-08-08 09:37:00 Completed [facility] TD, NOS 2023-07-27 00:00:00 Completed [facility] Influenza Virus Vaccine Quad IM 3+ YRS 2023-07-27 00:00:00 Completed [facility] TDAP (ADACEL) VACCINE 2023-07-27 00:00:00 Completed [facility] SARS-COV-2 COVID-19 PFIZER VACCINE 2023-07-27 00:00:00 Completed [facility] SARS-COV-2 COVID-19 PFIZER ALEXI-SUCROSE VACCINE (GILES TOP) 2023-07-27 00:00:00 Completed [facility] HPV9 2023-07-27 00:00:00 Completed [facility] TD, NOS 2023-07-21 00:00:00 Completed [facility] Influenza Virus Vaccine Quad IM 3+ YRS 2023-07-21 00:00:00 Completed [facility] TDAP (ADACEL) VACCINE 2023-07-21 00:00:00 Completed [facility] SARS-COV-2 COVID-19 PFIZER VACCINE 2023-07-21 00:00:00 Completed [facility] SARS-COV-2 COVID-19 PFIZER ALEXI-SUCROSE VACCINE (GILES TOP) 2023-07-21 00:00:00 Completed [facility] HPV9 2023-07-21 00:00:00 Completed [facility] TD, NOS 2023-07-20 09:30:00 Completed [facility] Influenza Virus Vaccine Quad IM 3+ YRS 2023-07-20 09:30:00 Completed [facility] TDAP (ADACEL) VACCINE 2023-07-20 09:30:00 Completed [facility] SARS-COV-2 COVID-19 PFIZER VACCINE 2023-07-20 09:30:00 Completed [facility] SARS-COV-2 COVID-19 PFIZER ALEXI-SUCROSE VACCINE (GILES TOP) 2023-07-20 09:30:00 Completed [facility] HPV9 2023-07-20 09:30:00 Completed [facility] TD, NOS 2023-07-20 00:00:00 Completed [facility] Influenza Virus Vaccine Quad IM 3+ YRS 2023-07-20 00:00:00 Completed [facility] TDAP (ADACEL) VACCINE 2023-07-20 00:00:00 Completed [facility] SARS-COV-2 COVID-19 PFIZER VACCINE 2023-07-20 00:00:00 Completed [facility] SARS-COV-2 COVID-19 PFIZER ALEXI-SUCROSE VACCINE (GILES TOP) 2023-07-20 00:00:00 Completed [facility] HPV9 2023-07-20 00:00:00 Completed [facility] TD, NOS 2023-07-20 00:00:00 Completed [facility] Influenza Virus Vaccine Quad IM 3+ YRS 2023-07-20 00:00:00 Completed [facility] TDAP (ADACEL) VACCINE 2023-07-20 00:00:00 Completed [facility] SARS-COV-2 COVID-19 PFIZER VACCINE 2023-07-20 00:00:00 Completed [facility] SARS-COV-2 COVID-19 PFIZER ALEXI-SUCROSE VACCINE (GILES TOP) 2023-07-20 00:00:00 Completed [facility] HPV9 2023-07-20 00:00:00 Completed [facility] TD, NOS 2023-07-20 00:00:00 Completed [facility] Influenza Virus Vaccine Quad IM 3+ YRS 2023-07-20 00:00:00 Completed [facility] TDAP (ADACEL) VACCINE 2023-07-20 00:00:00 Completed [facility] SARS-COV-2 COVID-19 PFIZER VACCINE 2023-07-20 00:00:00 Completed [facility] SARS-COV-2 COVID-19 PFIZER ALEXI-SUCROSE VACCINE (GILES TOP) 2023-07-20 00:00:00 Completed [facility] HPV9 2023-07-20 00:00:00 Completed [facility] TD, NOS 2023-07-19 00:00:00 Completed [facility] Influenza Virus Vaccine Quad IM 3+ YRS 2023-07-19 00:00:00 Completed [facility] TDAP (ADACEL) VACCINE 2023-07-19 00:00:00 Completed [facility] SARS-COV-2 COVID-19 PFIZER VACCINE 2023-07-19 00:00:00 Completed [facility] SARS-COV-2 COVID-19 PFIZER ALEXI-SUCROSE VACCINE (GILES TOP) 2023-07-19 00:00:00 Completed [facility] HPV9 2023-07-19 00:00:00 Completed [facility] TD, NOS 2023-07-18 00:00:00 Completed [facility] Influenza Virus Vaccine Quad IM 3+ YRS 2023-07-18 00:00:00 Completed [facility] TDAP (ADACEL) VACCINE 2023-07-18 00:00:00 Completed [facility] SARS-COV-2 COVID-19 PFIZER VACCINE 2023-07-18 00:00:00 Completed [facility] SARS-COV-2 COVID-19 PFIZER ALEXI-SUCROSE VACCINE (GILES TOP) 2023-07-18 00:00:00 Completed [facility] HPV9 2023-07-18 00:00:00 Completed [facility] TD, NOS 2023-07-13 10:00:00 Completed [facility] Influenza Virus Vaccine Quad IM 3+ YRS 2023-07-13 10:00:00 Completed [facility] TDAP (ADACEL) VACCINE 2023-07-13 10:00:00 Completed [facility] SARS-COV-2 COVID-19 PFIZER VACCINE 2023-07-13 10:00:00 Completed [facility] SARS-COV-2 COVID-19 PFIZER ALEXI-SUCROSE VACCINE (GILES TOP) 2023-07-13 10:00:00 Completed [facility] HPV9 2023-07-13 10:00:00 Completed [facility] TD, NOS 2023-07-13 09:47:08 Completed [facility] Influenza Virus Vaccine Quad IM 3+ YRS 2023-07-13 09:47:08 Completed [facility] TDAP (ADACEL) VACCINE 2023-07-13 09:47:08 Completed [facility] SARS-COV-2 COVID-19 PFIZER VACCINE 2023-07-13 09:47:08 Completed [facility] SARS-COV-2 COVID-19 PFIZER ALEXI-SUCROSE VACCINE (GILES TOP) 2023-07-13 09:47:08 Completed [facility] HPV9 2023-07-13 09:47:08 Completed [facility] TD, NOS 2023-07-13 09:46:30 Completed [facility] Influenza Virus Vaccine Quad IM 3+ YRS 2023-07-13 09:46:30 Completed [facility] TDAP (ADACEL) VACCINE 2023-07-13 09:46:30 Completed [facility] SARS-COV-2 COVID-19 PFIZER VACCINE 2023-07-13 09:46:30 Completed [facility] SARS-COV-2 COVID-19 PFIZER ALEXI-SUCROSE VACCINE (GILES TOP) 2023-07-13 09:46:30 Completed [facility] HPV9 2023-07-13 09:46:30 Completed [facility] TD, NOS 2023-07-13 08:34:13 Completed [facility] Influenza Virus Vaccine Quad IM 3+ YRS 2023-07-13 08:34:13 Completed [facility] TDAP (ADACEL) VACCINE 2023-07-13 08:34:13 Completed [facility] SARS-COV-2 COVID-19 PFIZER VACCINE 2023-07-13 08:34:13 Completed [facility] SARS-COV-2 COVID-19 PFIZER ALEXI-SUCROSE VACCINE (GILES TOP) 2023-07-13 08:34:13 Completed [facility] HPV9 2023-07-13 08:34:13 Completed [facility] TD, NOS 2023-07-13 00:00:00 Completed [facility] [place] Influenza Virus Vaccine Quad IM 3+ YRS 2023-07-13 00:00:00 Completed [facility] TDAP (ADACEL) VACCINE 2023-07-13 00:00:00 Completed [facility] SARS-COV-2 COVID-19 PFIZER VACCINE 2023-07-13 00:00:00 Completed [facility] SARS-COV-2 COVID-19 PFIZER ALEXI-SUCROSE VACCINE (GILES TOP) 2023-07-13 00:00:00 Completed [facility] HPV9 2023-07-13 00:00:00 Completed [facility] TD, NOS 2023-07-12 00:00:00 Completed [facility] [place] Influenza Virus Vaccine Quad IM 3+ YRS 2023-07-12 00:00:00 Completed [facility] TDAP (ADACEL) VACCINE 2023-07-12 00:00:00 Completed [facility] SARS-COV-2 COVID-19 PFIZER VACCINE 2023-07-12 00:00:00 Completed [facility] SARS-COV-2 COVID-19 PFIZER ALEXI-SUCROSE VACCINE (GILES TOP) 2023-07-12 00:00:00 Completed [facility] HPV9 2023-07-12 00:00:00 Completed [facility] TD, NOS 2023-07-11 09:40:00 Completed [facility] TDAP (ADACEL) VACCINE 2023-07-11 09:40:00 Completed [facility] [place] Influenza Virus Vaccine Quad IM 3+ YRS 2023-07-11 09:40:00 Completed [facility] SARS-COV-2 COVID-19 PFIZER VACCINE 2023-07-11 09:40:00 Completed [facility] SARS-COV-2 COVID-19 PFIZER ALEXI-SUCROSE VACCINE (GILES TOP) 2023-07-11 09:40:00 Completed [facility] HPV9 2023-07-11 09:40:00 Completed [facility] TD, NOS 2023-07-11 00:00:00 Completed [facility] [place] Influenza Virus Vaccine Quad IM 3+ YRS 2023-07-11 00:00:00 Completed [facility] TDAP (ADACEL) VACCINE 2023-07-11 00:00:00 Completed [facility] SARS-COV-2 COVID-19 PFIZER VACCINE 2023-07-11 00:00:00 Completed [facility] SARS-COV-2 COVID-19 PFIZER ALEXI-SUCROSE VACCINE (GILES TOP) 2023-07-11 00:00:00 Completed [facility] HPV9 2023-07-11 00:00:00 Completed [facility] TD, NOS 2023-07-11 00:00:00 Completed [facility] Influenza Virus Vaccine Quad IM 3+ YRS 2023-07-11 00:00:00 Completed [facility] TDAP (ADACEL) VACCINE 2023-07-11 00:00:00 Completed [facility] SARS-COV-2 COVID-19 PFIZER VACCINE 2023-07-11 00:00:00 Completed [facility] SARS-COV-2 COVID-19 PFIZER ALEXI-SUCROSE VACCINE (GILES TOP) 2023-07-11 00:00:00 Completed [facility] HPV9 2023-07-11 00:00:00 Completed [facility] TD, NOS 2023-07-11 00:00:00 Completed [facility] Influenza Virus Vaccine Quad IM 3+ YRS 2023-07-11 00:00:00 Completed [facility] TDAP (ADACEL) VACCINE 2023-07-11 00:00:00 Completed [facility] SARS-COV-2 COVID-19 PFIZER VACCINE 2023-07-11 00:00:00 Completed [facility] SARS-COV-2 COVID-19 PFIZER ALEXI-SUCROSE VACCINE (GILES TOP) 2023-07-11 00:00:00 Completed [facility] HPV9 2023-07-11 00:00:00 Completed [facility] TD, NOS 2023-07-11 00:00:00 Completed [facility] [place] Influenza Virus Vaccine Quad IM 3+ YRS 2023-07-11 00:00:00 Completed [facility] TDAP (ADACEL) VACCINE 2023-07-11 00:00:00 Completed [facility] SARS-COV-2 COVID-19 PFIZER VACCINE 2023-07-11 00:00:00 Completed [facility] SARS-COV-2 COVID-19 PFIZER ALEXI-SUCROSE VACCINE (GILES TOP) 2023-07-11 00:00:00 Completed [facility] HPV9 2023-07-11 00:00:00 Completed [facility] TD, NOS 2023-04-19 10:00:00 Completed [facility] Influenza Virus Vaccine Quad IM 3+ YRS 2023-04-19 10:00:00 Completed [facility] TDAP (ADACEL) VACCINE 2023-04-19 10:00:00 Completed [facility] SARS-COV-2 COVID-19 PFIZER VACCINE 2023-04-19 10:00:00 Completed [facility] SARS-COV-2 COVID-19 PFIZER ALEXI-SUCROSE VACCINE (GILES TOP) 2023-04-19 10:00:00 Completed [facility] HPV9 2023-04-19 10:00:00 Completed [facility] TD, NOS 2023-03-22 00:00:00 Completed [facility] Influenza Virus Vaccine Quad IM 3+ YRS 2023-03-22 00:00:00 Completed [facility] TDAP (ADACEL) VACCINE 2023-03-22 00:00:00 Completed [facility] SARS-COV-2 COVID-19 PFIZER VACCINE 2023-03-22 00:00:00 Completed [facility] SARS-COV-2 COVID-19 PFIZER ALEXI-SUCROSE VACCINE (GILES TOP) 2023-03-22 00:00:00 Completed [facility] HPV9 2023-03-22 00:00:00 Completed [facility] TD, NOS 2023-03-15 00:00:00 Completed [facility] TDAP (ADACEL) VACCINE 2023-03-15 00:00:00 Completed [facility] SARS-COV-2 COVID-19 PFIZER VACCINE 2023-03-15 00:00:00 Completed [facility] SARS-COV-2 COVID-19 PFIZER ALEXI-SUCROSE VACCINE (GILES TOP) 2023-03-15 00:00:00 Completed [facility] HPV9 2023-03-15 00:00:00 Completed [facility] Influenza Virus Vaccine Quad IM 3+ YRS 2023-03-15 00:00:00 Completed [facility] TD, NOS 2023-03-14 00:00:00 Completed [facility] Influenza Virus Vaccine Quad IM 3+ YRS 2023-03-14 00:00:00 Completed [facility] TDAP (ADACEL) VACCINE 2023-03-14 00:00:00 Completed [facility] SARS-COV-2 COVID-19 PFIZER VACCINE 2023-03-14 00:00:00 Completed [facility] SARS-COV-2 COVID-19 PFIZER ALEXI-SUCROSE VACCINE (GILES TOP) 2023-03-14 00:00:00 Completed [facility] HPV9 2023-03-14 00:00:00 Completed [facility] TD, NOS 2023-03-08 09:00:00 Completed [facility] TDAP (ADACEL) VACCINE 2023-03-08 09:00:00 Completed [facility] SARS-COV-2 COVID-19 PFIZER VACCINE 2023-03-08 09:00:00 Completed [facility] SARS-COV-2 COVID-19 PFIZER ALEXI-SUCROSE VACCINE (GILES TOP) 2023-03-08 09:00:00 Completed [facility] HPV9 2023-03-08 09:00:00 Completed [facility] Influenza Virus Vaccine Quad IM 3+ YRS 2023-03-08 09:00:00 Completed [facility] TD, NOS 2023-03-01 10:00:00 Completed [facility] Influenza Virus Vaccine Quad IM 3+ YRS 2023-03-01 10:00:00 Completed [facility] TDAP (ADACEL) VACCINE 2023-03-01 10:00:00 Completed [facility] SARS-COV-2 COVID-19 PFIZER VACCINE 2023-03-01 10:00:00 Completed [facility] SARS-COV-2 COVID-19 PFIZER ALEIX-SUCROSE VACCINE (GILES TOP) 2023-03-01 10:00:00 Completed [facility] HPV9 2023-03-01 10:00:00 Completed [facility] HPV9 2023-03-01 00:00:00 Completed HPV9 2023-01-24 00:00:00 Completed [facility] HPV9 2023-01-24 00:00:00 Completed [facility] SARS-COV-2 COVID-19 PFIZER VACCINE 2022-03-08 00:00:00 Completed [facility] SARS-COV-2 COVID-19 PFIZER VACCINE 2022-03-08 00:00:00 Completed [facility] SARS-COV-2 COVID-19 PFIZER VACCINE 2022-03-08 00:00:00 Completed [facility] SARS-COV-2 COVID-19 PFIZER VACCINE 2022-03-08 00:00:00 Completed [facility] SARS-COV-2 COVID-19 PFIZER VACCINE 2022-03-08 00:00:00 Completed [facility] SARS-COV-2 COVID-19 PFIZER ALEXI-SUCROSE VACCINE (GILES TOP) 2022-03-08 00:00:00 Completed [facility] SARS-COV-2 COVID-19 PFIZER VACCINE 2022-03-08 00:00:00 Completed [facility] SARS-COV-2 COVID-19 PFIZER ALEXI-SUCROSE VACCINE (GILES TOP) 2022-03-08 00:00:00 Completed [facility] SARS-COV-2 COVID-19 PFIZER VACCINE 2022-03-08 00:00:00 Completed [facility] SARS-COV-2 COVID-19 PFIZER ALEXI-SUCROSE VACCINE (GILES TOP) 2022-03-08 00:00:00 Completed [facility] SARS-COV-2 COVID-19 PFIZER VACCINE 2022-03-08 00:00:00 Completed [facility] SARS-COV-2 COVID-19 PFIZER ALEXI-SUCROSE VACCINE (GILES TOP) 2022-03-08 00:00:00 Completed [facility] SARS-COV-2 COVID-19 PFIZER VACCINE 2022-03-08 00:00:00 Completed [facility] SARS-COV-2 COVID-19 PFIZER ALEXI-SUCROSE VACCINE (GILES TOP) 2022-03-08 00:00:00 Completed [facility] SARS-COV-2 COVID-19 PFIZER VACCINE 2022-03-08 00:00:00 Completed [facility] SARS-COV-2 COVID-19 PFIZER ALEXI-SUCROSE VACCINE (GILES TOP) 2022-03-08 00:00:00 Completed [facility] SARS-COV-2 COVID-19 PFIZER VACCINE 2022-02-11 00:00:00 Completed [facility] SARS-COV-2 COVID-19 PFIZER VACCINE 2022-02-11 00:00:00 Completed [facility] SARS-COV-2 COVID-19 PFIZER VACCINE 2022-02-11 00:00:00 Completed [facility] SARS-COV-2 COVID-19 PFIZER VACCINE 2022-02-11 00:00:00 Completed [facility] SARS-COV-2 COVID-19 PFIZER VACCINE 2022-02-11 00:00:00 Completed [facility] SARS-COV-2 COVID-19 PFIZER ALEXI-SUCROSE VACCINE (GILES TOP) 2022-02-11 00:00:00 Completed [facility] SARS-COV-2 COVID-19 PFIZER VACCINE 2022-02-11 00:00:00 Completed [facility] SARS-COV-2 COVID-19 PFIZER ALEXI-SUCROSE VACCINE (GILES TOP) 2022-02-11 00:00:00 Completed [facility] SARS-COV-2 COVID-19 PFIZER VACCINE 2022-02-11 00:00:00 Completed [facility] SARS-COV-2 COVID-19 PFIZER ALEXI-SUCROSE VACCINE (GILES TOP) 2022-02-11 00:00:00 Completed [facility] SARS-COV-2 COVID-19 PFIZER VACCINE 2022-02-11 00:00:00 Completed [facility] SARS-COV-2 COVID-19 PFIZER ALEXI-SUCROSE VACCINE (GILES TOP) 2022-02-11 00:00:00 Completed [facility] SARS-COV-2 COVID-19 PFIZER VACCINE 2022-02-11 00:00:00 Completed [facility] SARS-COV-2 COVID-19 PFIZER ALEXI-SUCROSE VACCINE (GILES TOP) 2022-02-11 00:00:00 Completed [facility] SARS-COV-2 COVID-19 PFIZER VACCINE 2022-02-11 00:00:00 Completed [facility] SARS-COV-2 COVID-19 PFIZER ALEXI-SUCROSE VACCINE (GILES TOP) 2022-02-11 00:00:00 Completed [facility] TD, NOS 2021-12-14 00:00:00 Completed [facility] Influenza Virus Vaccine Quad IM 3+ YRS 2021-12-14 00:00:00 Completed [facility] TDAP (ADACEL) VACCINE 2021-12-14 00:00:00 Completed [facility] TD, NOS 2021-12-07 00:00:00 Completed [facility] Influenza Virus Vaccine Quad IM 3+ YRS 2021-12-07 00:00:00 Completed [facility] TDAP (ADACEL) VACCINE 2021-12-07 00:00:00 Completed [facility] TDAP (ADACEL) VACCINE 2019-05-10 00:00:00 Completed [facility] TDAP (ADACEL) VACCINE 2019-05-10 00:00:00 Completed [facility] TDAP (ADACEL) VACCINE 2019-05-10 00:00:00 Completed [facility] TDAP (ADACEL) VACCINE 2019-05-10 00:00:00 Completed [facility] TDAP (ADACEL) VACCINE 2019-05-10 00:00:00 Completed [facility] TDAP (ADACEL) VACCINE 2019-05-10 00:00:00 Completed [facility] TDAP (ADACEL) VACCINE 2019-05-10 00:00:00 Completed [facility] TDAP (ADACEL) VACCINE 2019-05-10 00:00:00 Completed [facility] TDAP (ADACEL) VACCINE 2019-05-10 00:00:00 Completed [facility] TDAP (ADACEL) VACCINE 2019-05-10 00:00:00 Completed [facility] TDAP (ADACEL) VACCINE 2019-05-10 00:00:00 Completed [facility] TDAP (ADACEL) VACCINE 2019-05-10 00:00:00 Completed [facility] TDAP (ADACEL) VACCINE 2019-05-10 00:00:00 Completed [facility] TDAP (ADACEL) VACCINE 2019-05-10 00:00:00 Completed [facility] TDAP (ADACEL) VACCINE 2019-05-10 00:00:00 Completed [facility] TDAP (ADACEL) VACCINE 2019-05-10 00:00:00 Completed [facility] TDAP (ADACEL) VACCINE 2019-05-10 00:00:00 Completed [facility] TDAP (ADACEL) VACCINE 2019-05-10 00:00:00 Completed [facility] TDAP (ADACEL) VACCINE 2019-05-10 00:00:00 Completed [facility] TDAP (ADACEL) VACCINE 2019-05-10 00:00:00 Completed [facility] Influenza Virus Vaccine Quad IM 3+ YRS 2018-04-12 00:00:00 Completed [facility] Influenza Virus Vaccine Quad IM 3+ YRS 2018-04-12 00:00:00 Completed [facility] Influenza Virus Vaccine Quad IM 3+ YRS 2018-04-12 00:00:00 Completed [facility] Influenza Virus Vaccine Quad IM 3+ YRS 2018-04-12 00:00:00 Completed [facility] Influenza Virus Vaccine Quad IM 3+ YRS 2018-04-12 00:00:00 Completed [facility] Influenza Virus Vaccine Quad IM 3+ YRS 2018-04-12 00:00:00 Completed [facility] Influenza Virus Vaccine Quad IM 3+ YRS 2018-04-12 00:00:00 Completed [facility] Influenza Virus Vaccine Quad IM 3+ YRS 2018-04-12 00:00:00 Completed [facility] Influenza Virus Vaccine Quad IM 3+ YRS 2018-04-12 00:00:00 Completed [facility] Influenza Virus Vaccine Quad IM 3+ YRS 2018-04-12 00:00:00 Completed [facility] Influenza Virus Vaccine Quad IM 3+ YRS 2018-04-12 00:00:00 Completed [facility] Influenza Virus Vaccine Quad IM 3+ YRS 2018-04-12 00:00:00 Completed [facility] Influenza Virus Vaccine Quad IM 3+ YRS 2018-04-12 00:00:00 Completed [facility] Influenza Virus Vaccine Quad IM 3+ YRS 2018-04-12 00:00:00 Completed [facility] Influenza Virus Vaccine Quad IM 3+ YRS 2018-04-12 00:00:00 Completed [facility] Influenza Virus Vaccine Quad IM 3+ YRS 2018-04-12 00:00:00 Completed [facility] Influenza Virus Vaccine Quad IM 3+ YRS 2018-04-12 00:00:00 Completed [facility] Influenza Virus Vaccine Quad IM 3+ YRS 2018-04-12 00:00:00 Completed [facility] Influenza Virus Vaccine Quad IM 3+ YRS 2018-04-12 00:00:00 Completed [facility] Influenza Virus Vaccine Quad IM 3+ YRS 2018-04-12 00:00:00 Completed [facility] Influenza Virus Vaccine Quad IM 3+ YRS 2016-03-08 00:00:00 Completed [facility] Influenza Virus Vaccine Quad IM 3+ YRS 2016-03-08 00:00:00 Completed [facility] Influenza Virus Vaccine Quad IM 3+ YRS 2016-03-08 00:00:00 Completed [facility] Influenza Virus Vaccine Quad IM 3+ YRS 2016-03-08 00:00:00 Completed [facility] Influenza Virus Vaccine Quad IM 3+ YRS 2016-03-08 00:00:00 Completed [facility] Influenza Virus Vaccine Quad IM 3+ YRS 2016-03-08 00:00:00 Completed [facility] Influenza Virus Vaccine Quad IM 3+ YRS 2016-03-08 00:00:00 Completed [facility] Influenza Virus Vaccine Quad IM 3+ YRS 2016-03-08 00:00:00 Completed [facility] Influenza Virus Vaccine Quad IM 3+ YRS 2016-03-08 00:00:00 Completed [facility] Influenza Virus Vaccine Quad IM 3+ YRS 2016-03-08 00:00:00 Completed [facility] Influenza Virus Vaccine Quad IM 3+ YRS 2016-03-08 00:00:00 Completed [facility] Influenza Virus Vaccine Quad IM 3+ YRS 2016-03-08 00:00:00 Completed [facility] Influenza Virus Vaccine Quad IM 3+ YRS 2016-03-08 00:00:00 Completed [facility] Influenza Virus Vaccine Quad IM 3+ YRS 2016-03-08 00:00:00 Completed [facility] Influenza Virus Vaccine Quad IM 3+ YRS 2016-03-08 00:00:00 Completed [facility] Influenza Virus Vaccine Quad IM 3+ YRS 2016-03-08 00:00:00 Completed [facility] Influenza Virus Vaccine Quad IM 3+ YRS 2016-03-08 00:00:00 Completed [facility] Influenza Virus Vaccine Quad IM 3+ YRS 2016-03-08 00:00:00 Completed [facility] Influenza Virus Vaccine Quad IM 3+ YRS 2016-03-08 00:00:00 Completed [facility] Influenza Virus Vaccine Quad IM 3+ YRS 2016-03-08 00:00:00 Completed [facility] Td 2007-11-08 00:00:00 Completed [facility] Td 2007-11-08 00:00:00 Completed [facility] Td 2007-11-08 00:00:00 Completed [facility] Td 2007-11-08 00:00:00 Completed [facility] Td 2007-11-08 00:00:00 Completed [facility] Td 2007-11-08 00:00:00 Completed [facility] Td 2007-11-08 00:00:00 Completed [facility] Td 2007-11-08 00:00:00 Completed [facility] Td 2007-11-08 00:00:00 Completed [facility] Td 2007-11-08 00:00:00 Completed [facility] Td 2007-11-08 00:00:00 Completed [facility] TD, NOS 2007-11-08 00:00:00 Completed [facility] TD, NOS 2007-11-08 00:00:00 Completed [facility] TD, NOS 2007-11-08 00:00:00 Completed [facility] TD, NOS 2007-11-08 00:00:00 Completed [facility] TD, NOS 2007-11-08 00:00:00 Completed [facility] TD, NOS 2007-11-08 00:00:00 Completed [facility] TD, NOS 2007-11-08 00:00:00 Completed [facility] TD, NOS 2007-11-08 00:00:00 Completed [facility] TD, NOS 2007-11-08 00:00:00 Completed [facility] Vital Signs Vital Name Observation Time Observation Value Comments S ource Systolic blood pressure 2024-08-06 19:49:00 124 mm[Hg] [place] [facility] Diastolic blood pressure 2024-08-06 19:49:00 88 mm[Hg] [place] [facility] Heart rate 2024-08-06 19:49:00 94 /min [facility] Body height 2024-08-06 19:49:00 162.6 cm [facility] Body weight 2024-08-06 19:49:00 97.07 kg [facility] BMI 2024-08-06 19:49:00 36.73 kg/m2 [facility] Oxygen saturation in Arterial blood by Pulse oximetry 2024-08-06 19:49:00 98 /min [facility] Systolic blood pressure 2024-07-20 16:53:00 124 mm[Hg] [facility] Diastolic blood pressure 2024-07-20 16:53:00 81 mm[Hg] [facility] Heart rate 2024-07-20 16:51:00 115 /min [facility] Body temperature 2024-07-20 16:51:00 36.5 Kar[place] [facility] Body height 2024-07-20 16:51:00 165.1 cm [facility] Body weight 2024-07-20 16:51:00 94.008 kg [facility] BMI 2024-07-20 16:51:00 34.49 kg/m2 [facility] Oxygen saturation in Arterial blood by Pulse oximetry 2024-07-20 16:51:00 99 /min [facility] Systolic blood pressure 2024-06-18 20:50:00 127 mm[Hg] [facility] Diastolic blood pressure 2024-06-18 20:50:00 79 mm[Hg] [facility] Heart rate 2024-06-18 20:50:00 90 /min [facility] Oxygen saturation in Arterial blood by Pulse oximetry 2024-06-18 20:50:00 100 /min [facility] Respiratory rate 2024-06-18 20:45:00 21 /min [facility] Body temperature 2024-06-18 19:45:00 36.17 Karuna [facility] Body height 2024-05-22 21:00:00 165.1 cm [facility] Body weight 2024-05-22 21:00:00 93.441 kg [facility] BMI 2024-05-22 21:00:00 34.28 kg/m2 [facility] Systolic blood pressure 2024-06-18 16:56:00 129 mm[Hg] [facility] Diastolic blood pressure 2024-06-18 16:56:00 89 mm[Hg] [facility] Heart rate 2024-06-18 16:56:00 94 /min [facility] Body temperature 2024-06-18 16:56:00 37.39 Karuna [facility] Respiratory rate 2024-06-18 16:56:00 16 /min [facility] Oxygen saturation in Arterial blood by Pulse oximetry 2024-06-18 16:56:00 100 /min [facility] Body height 2024-05-22 21:00:00 165.1 cm [facility] Body weight 2024-05-22 21:00:00 93.441 kg [facility] BMI 2024-05-22 21:00:00 34.28 kg/m2 [facility] Systolic blood pressure 2024-05-23 13:33:00 116 mm[Hg] [facility] Diastolic blood pressure 2024-05-23 13:33:00 94 mm[Hg] [facility] Heart rate 2024-05-23 13:28:00 97 /min [facility] Body temperature 2024-05-23 13:28:00 36.61 Karuna [facility] Respiratory rate 2024-05-23 13:28:00 18 /min [facility] Body height 2024-05-23 13:28:00 165.1 cm [facility] Body weight 2024-05-23 13:28:00 93.611 kg [facility] BMI 2024-05-23 13:28:00 34.34 kg/m2 [facility] Systolic blood pressure 2024-05-07 21:40:00 118 mm[Hg] [facility] Diastolic blood pressure 2024-05-07 21:40:00 85 mm[Hg] [facility] Heart rate 2024-05-07 21:40:00 109 /min [facility] Body temperature 2024-05-07 21:40:00 36.17 Karuna [facility] Respiratory rate 2024-05-07 21:40:00 20 /min [facility] Body weight 2024-05-07 21:40:00 91.627 kg [facility] BMI 2024-05-07 21:40:00 33.61 kg/m2 [facility] Oxygen saturation in Arterial blood by Pulse oximetry 2024-05-07 21:40:00 99 /min [facility] Systolic blood pressure 2024-03-27 14:43:00 98 mm[Hg] [facility] Diastolic blood pressure 2024-03-27 14:43:00 72 mm[Hg] [facility] Heart rate 2024-03-27 14:43:00 93 /min [facility] Body temperature 2024-03-27 14:43:00 36.28 Karuna [facility] Body height 2024-03-27 14:43:00 165.1 cm [facility] Body weight 2024-03-27 14:43:00 91.899 kg [facility] BMI 2024-03-27 14:43:00 33.71 kg/m2 [facility] Oxygen saturation in Arterial blood by Pulse oximetry 2024-03-27 14:43:00 100 /min [facility] Systolic blood pressure 2024-02-27 19:12:00 119 mm[Hg] [facility] Diastolic blood pressure 2024-02-27 19:12:00 76 mm[Hg] [facility] Heart rate 2024-02-27 19:12:00 115 /min [facility] Body temperature 2024-02-27 19:12:00 35.89 Karuna [facility] Respiratory rate 2024-02-27 19:12:00 18 /min [facility] Body height 2024-02-27 19:12:00 162.6 cm [facility] Body weight 2024-02-27 19:12:00 90.992 kg [facility] BMI 2024-02-27 19:12:00 34.43 kg/m2 [facility] Body temperature 2024-01-13 13:25:00 35.89 Karuna [facility] Body height 2024-01-13 13:25:00 162.6 cm [facility] Body weight 2024-01-13 13:25:00 94.121 kg [facility] BMI 2024-01-13 13:25:00 35.62 kg/m2 [facility] Systolic blood pressure 2023-12-19 20:01:00 113 mm[Hg] [facility] Diastolic blood pressure 2023-12-19 20:01:00 73 mm[Hg] [facility] Heart rate 2023-12-19 20:01:00 109 /min [facility] Body temperature 2023-12-19 20:01:00 36.72 Karuna [facility] Respiratory rate 2023-12-19 20:01:00 18 /min [facility] Body height 2023-12-19 20:01:00 162.6 cm [facility] Body weight 2023-12-19 20:01:00 92.08 kg [facility] BMI 2023-12-19 20:01:00 34.84 kg/m2 [facility] Oxygen saturation in Arterial blood by Pulse oximetry 2023-12-19 20:01:00 97 /min [facility] Systolic blood pressure 2023-12-15 08:00:00 124 mm[Hg] [facility] Diastolic blood pressure 2023-12-15 08:00:00 82 mm[Hg] [facility] Heart rate 2023-12-15 08:00:00 84 /min [facility] Body temperature 2023-12-15 08:00:00 36.83 Karuna [facility] Respiratory rate 2023-12-15 08:00:00 18 /min [facility] Oxygen saturation in Arterial blood by Pulse oximetry 2023-12-15 08:00:00 99 /min [facility] Body height 2023-12-15 07:04:00 162.6 cm [facility] Body weight 2023-12-15 07:04:00 93.441 kg [facility] BMI 2023-12-15 07:04:00 35.36 kg/m2 [facility] Systolic blood pressure 2023-11-08 17:49:00 112 mm[Hg] [facility] Diastolic blood pressure 2023-11-08 17:49:00 79 mm[Hg] [facility] Heart rate 2023-11-08 17:49:00 89 /min [facility] Body temperature 2023-11-08 17:49:00 36.22 Karuna [facility] Respiratory rate 2023-11-08 17:49:00 18 /min [facility] Body height 2023-11-08 17:49:00 165.1 cm [facility] Body weight 2023-11-08 17:49:00 95.119 kg [facility] BMI 2023-11-08 17:49:00 34.90 kg/m2 [facility] Oxygen saturation in Arterial blood by Pulse oximetry 2023-11-08 17:49:00 97 /min [facility] Systolic blood pressure 2023-11-02 20:37:00 121 mm[Hg] [facility] Diastolic blood pressure 2023-11-02 20:37:00 84 mm[Hg] [facility] Heart rate 2023-11-02 20:37:00 94 /min [facility] Body temperature 2023-11-02 20:37:00 36.94 Karuna [facility] Respiratory rate 2023-11-02 20:37:00 20 /min [facility] Body height 2023-11-02 20:37:00 165.1 cm [facility] Body weight 2023-11-02 20:37:00 94.303 kg [facility] BMI 2023-11-02 20:37:00 34.60 kg/m2 [facility] Oxygen saturation in Arterial blood by Pulse oximetry 2023-11-02 20:37:00 98 /min [facility] Systolic blood pressure 2023-11-01 14:47:00 137 mm[Hg] [facility] Diastolic blood pressure 2023-11-01 14:47:00 85 mm[Hg] [facility] Heart rate 2023-11-01 14:47:00 84 /min [facility] Body temperature 2023-11-01 14:47:00 35.94 Karuna [facility] Respiratory rate 2023-11-01 14:47:00 18 /min [facility] Body height 2023-11-01 14:47:00 162.6 cm [facility] Body weight 2023-11-01 14:47:00 94.394 kg [facility] BMI 2023-11-01 14:47:00 35.72 kg/m2 [facility] Body height 2023-10-19 15:32:00 162.6 cm [facility] Systolic blood pressure 2023-10-12 15:57:00 124 mm[Hg] [facility] Diastolic blood pressure 2023-10-12 15:57:00 87 mm[Hg] [facility] Heart rate 2023-10-12 15:57:00 101 /min [facility] Respiratory rate 2023-10-12 15:57:00 18 /min [facility] Body height 2023-10-12 15:57:00 165.1 cm [facility] Body weight 2023-10-12 15:57:00 93.214 kg [facility] BMI 2023-10-12 15:57:00 34.20 kg/m2 [facility] Oxygen saturation in Arterial blood by Pulse oximetry 2023-10-12 15:57:00 99 /min [facility] Systolic blood pressure 2023-10-10 14:11:00 130 mm[Hg] [facility] Diastolic blood pressure 2023-10-10 14:11:00 87 mm[Hg] [facility] Heart rate 2023-10-10 14:11:00 89 /min [facility] Body temperature 2023-10-10 14:11:00 36.11 Karuna [facility] Respiratory rate 2023-10-10 14:11:00 18 /min [facility] Body height 2023-10-10 14:11:00 165.1 cm [facility] Body weight 2023-10-10 14:11:00 93.169 kg [facility] BMI 2023-10-10 14:11:00 34.18 kg/m2 [facility] Oxygen saturation in Arterial blood by Pulse oximetry 2023-10-10 14:11:00 96 /min [facility] Systolic blood pressure 2023-08-22 19:50:00 107 mm[Hg] [facility] Diastolic blood pressure 2023-08-22 19:50:00 69 mm[Hg] [facility] Heart rate 2023-08-22 19:50:00 89 /min [facility] Body temperature 2023-08-22 19:50:00 35.61 Karuna [facility] Respiratory rate 2023-08-22 19:50:00 12 /min [facility] Body height 2023-08-22 19:50:00 165.1 cm [facility] Body weight 2023-08-22 19:50:00 93.35 kg [facility] BMI 2023-08-22 19:50:00 34.25 kg/m2 [facility] Oxygen saturation in Arterial blood by Pulse oximetry 2023-08-22 19:50:00 99 /min [facility] Systolic blood pressure 2023-08-15 18:19:00 121 mm[Hg] [facility] Diastolic blood pressure 2023-08-15 18:19:00 80 mm[Hg] [facility] Heart rate 2023-08-15 18:19:00 92 /min [facility] Respiratory rate 2023-08-15 18:19:00 18 /min [facility] Body height 2023-08-15 18:19:00 165.1 cm [facility] Body weight 2023-08-15 18:19:00 93.35 kg [facility] BMI 2023-08-15 18:19:00 34.25 kg/m2 [facility] Oxygen saturation in Arterial blood by Pulse oximetry 2023-08-15 18:19:00 96 /min [facility] Systolic blood pressure 2023-08-08 18:16:00 120 mm[Hg] [facility] Diastolic blood pressure 2023-08-08 18:16:00 90 mm[Hg] [facility] Heart rate 2023-08-08 18:16:00 91 /min [facility] Respiratory rate 2023-08-08 18:16:00 18 /min [facility] Oxygen saturation in Arterial blood by Pulse oximetry 2023-08-08 18:16:00 100 /min [facility] Body temperature 2023-08-08 15:36:00 37.39 Karuna [facility] Body height 2023-08-08 15:36:00 165.1 cm [facility] Body weight 2023-08-08 15:36:00 92.987 kg [facility] BMI 2023-08-08 15:36:00 34.11 kg/m2 [facility] Systolic blood pressure 2023-07-20 15:16:00 129 mm[Hg] [facility] Diastolic blood pressure 2023-07-20 15:16:00 93 mm[Hg] [facility] Body temperature 2023-07-20 15:16:00 36.5 Karuna [facility] Respiratory rate 2023-07-20 15:16:00 18 /min [facility] Body weight 2023-07-20 15:16:00 92.08 kg [facility] BMI 2023-07-20 15:16:00 33.78 kg/m2 [facility] Systolic blood pressure 2023-07-11 15:29:00 111 mm[Hg] [facility] Diastolic blood pressure 2023-07-11 15:29:00 78 mm[Hg] [facility] Heart rate 2023-07-11 15:29:00 84 /min [facility] Body temperature 2023-07-11 15:29:00 36.5 Karuna [facility] Respiratory rate 2023-07-11 15:29:00 18 /min [facility] Body height 2023-07-11 15:29:00 165.1 cm [facility] Body weight 2023-07-11 15:29:00 91.354 kg [facility] BMI 2023-07-11 15:29:00 33.51 kg/m2 [facility] Oxygen saturation in Arterial blood by Pulse oximetry 2023-07-11 15:29:00 100 /min [facility] Systolic blood pressure 2023-04-19 15:24:00 114 mm[Hg] [facility] Diastolic blood pressure 2023-04-19 15:24:00 78 mm[Hg] [facility] Heart rate 2023-04-19 15:24:00 82 /min [facility] Body temperature 2023-04-19 15:24:00 35.5 Karuna [facility] Respiratory rate 2023-04-19 15:24:00 18 /min [facility] Body height 2023-04-19 15:24:00 165.1 cm [facility] Body weight 2023-04-19 15:24:00 91.808 kg [facility] BMI 2023-04-19 15:24:00 33.68 kg/m2 [facility] Systolic blood pressure 2023-03-08 13:58:00 121 mm[Hg] [facility] Diastolic blood pressure 2023-03-08 13:58:00 85 mm[Hg] [facility] Heart rate 2023-03-08 13:58:00 78 /min [facility] Body temperature 2023-03-08 13:58:00 36.44 Karuna [facility] Respiratory rate 2023-03-08 13:58:00 18 /min [facility] Body height 2023-03-08 13:58:00 165.1 cm [facility] Body weight 2023-03-08 13:58:00 89.858 kg [facility] BMI 2023-03-08 13:58:00 32.97 kg/m2 [facility] Body temperature 2023-03-01 14:25:00 36.11 Karuna [facility] Systolic blood pressure 2023-01-28 14:53:00 114 mm[Hg] [facility] Diastolic blood pressure 2023-01-28 14:53:00 80 mm[Hg] [facility] Heart rate 2023-01-28 14:53:00 83 /min [facility] Body temperature 2023-01-28 14:53:00 36.17 Karuna [facility] Body height 2023-01-28 14:53:00 165.1 cm [facility] Body weight 2023-01-28 14:53:00 89.721 kg [facility] BMI 2023-01-28 14:53:00 32.92 kg/m2 [facility] Oxygen saturation in Arterial blood by Pulse oximetry 2023-01-28 14:53:00 100 /min [facility] Systolic blood pressure 2023-01-24 14:39:00 136 mm[Hg] [facility] Diastolic blood pressure 2023-01-24 14:39:00 89 mm[Hg] [facility] Heart rate 2023-01-24 14:39:00 97 /min [facility] Body temperature 2023-01-24 14:39:00 36.28 Karuna [facility] Respiratory rate 2023-01-24 14:39:00 18 /min [facility] Body height 2023-01-24 14:39:00 165.1 cm [facility] Body weight 2023-01-24 14:39:00 90.946 kg [facility] BMI 2023-01-24 14:39:00 33.36 kg/m2 [facility] Systolic blood pressure 2022-10-21 15:51:00 123 mm[Hg] [facility] Diastolic blood pressure 2022-10-21 15:51:00 83 mm[Hg] [facility] Heart rate 2022-10-21 15:51:00 86 /min [facility] Body temperature 2022-10-21 15:51:00 35.28 Karuna [facility] Respiratory rate 2022-10-21 15:51:00 18 /min [facility] Body height 2022-10-21 15:51:00 165.1 cm [facility] Body weight 2022-10-21 15:51:00 91.763 kg [facility] BMI 2022-10-21 15:51:00 33.66 kg/m2 [facility] Systolic blood pressure 2022-08-30 17:56:00 116 mm[Hg] [facility] Diastolic blood pressure 2022-08-30 17:56:00 88 mm[Hg] [facility] Heart rate 2022-08-30 17:56:00 95 /min [facility] Body temperature 2022-08-30 17:56:00 36.22 Karuna [facility] Respiratory rate 2022-08-30 17:56:00 18 /min [facility] Body height 2022-08-30 17:56:00 162.6 cm [facility] Body weight 2022-08-30 17:56:00 91.491 kg [facility] BMI 2022-08-30 17:56:00 34.62 kg/m2 [facility] Systolic blood pressure 2022-04-09 20:26:00 114 mm[Hg] [facility] Diastolic blood pressure 2022-04-09 20:26:00 80 mm[Hg] [facility] Heart rate 2022-04-09 20:26:00 85 /min [facility] Respiratory rate 2022-04-09 20:26:00 18 /min [facility] Body weight 2022-04-09 20:26:00 93.895 kg [facility] BMI 2022-04-09 20:26:00 35.53 kg/m2 [facility] Oxygen saturation in Arterial blood by Pulse oximetry 2022-04-09 20:26:00 98 /min [facility] Procedures Procedure Date / Time Performed Performing Clinician Source VENOUS REFLUX DUPLEX BILATERAL - BY VASCULAR LAB 2024-07-24 20:00:00 Samanta Schaffer [facility] DUPLEX VENOUS LEGS BILATERAL - BY VASCULAR LAB 2024-06-29 15:07:00 Lola Siddiqi [facility] [address] - [place] ENDOVEN ABLTJ INCMPTNT VEIN XTR RF 2ND+ VEINS 2024-06-18 18:05:00 Samanta Schaffer [facility] [address] - [place] ENDOVEN ABLTJ INCMPTNT VEIN XTR RF 1ST VEIN 2024-06-18 18:05:00 Samanta Schaffer [facility] POCT TEST 2024-06-18 16:45:00 Shad Fatima [facility] POCT TEST 2024-06-18 16:45:00 Shad Fatima [facility] POCT TEST 2024-02-27 19:32:00 Vinnie Melton [facility] MR KNEE RIGHT WO CONTRAST 2024-01-04 16:45:12 Lorena Chiang [facility] COMP. METABOLIC PANEL (20528) 2023-12-15 07:24:00 Segundo Delma [facility] CBC WITH DIFF 2023-12-15 07:24:00 Delma Raymond [facility] URINALYSIS 2023-12-15 07:24:00 Segundo [facility] XR KNEE 3 VW RIGHT 2023-11-02 21:04:06 Mehdi Ponce [facility] CT ABDOMEN PELVIS W CONTRAST 2023-08-08 17:39:10 Cassandra Ordonez [facility] LIPASE 2023-08-08 16:18:00 Cassandra Ordonez [facility] COMP. METABOLIC PANEL (55281) 2023-08-08 16:18:00 Cassandra Ordonez [facility] CBC WITH DIFF 2023-08-08 16:18:00 Cassandra Ordonez [facility] URINALYSIS 2023-08-08 16:17:00 Cassandra Ordonez [facility] POCT TEST 2023-08-08 16:17:00 Elizabeth Ordonez [facility] CONSENT/REFUSAL FOR DIAGNOSIS AND TREATMENT 2023-08-08 15:31:04 Doctor Unassigned, [place] [facility] GARDASIL 9 (HPV 9V) VACCINE 2023-07-20 15:16:02 Eduardo Melton [facility] XR LUMBAR SPINE 3 VW 2023-07-13 16:16[facility] BIL[facility] 2023-07-13 16:16:07 Obi-Merlene gil [facility] DUPLEX VENOUS LEGS BILATERAL - BY VASCULAR LAB 2023-07-13 15:47:08 Lorena Swain [facility] INSURANCE CORRESPONDENCE 2023-07-11 06:01:00 Doc tor Unassigned, [place] [facility] MEDICATION CORRESPONDENCE 2023-03-14 05:01:00 Do ctor Unassigned, [place] [facility] GARDASIL 9 (HPV 9V) VACCINE 2023-03-01 14:26:13 Eduardo Melton [facility] GARDASIL 9 (HPV 9V) VACCINE 2023-01-24 14:51:12 Eduardo Melton [facility] ASSIGNMENT OF BENEFITS 2023-01-24 14:23:58 Docto r Unassigned, [place] [facility] POCT TEST 2022-10-21 16:37:00 Vinnie eMlton [facility] PATIENT FINANCIAL POLICY 2022-08-30 17:32:33 Doctor Unassigned, [place] [facility] SHOULDER, 2 VIEWS 2015-01-02 17:36:00 Samantha Cooper [facility] CONSENT/REFUSAL FOR DIAGNOSIS AND TREATMENT 2015-01-02 05:01:00 Doctor Unassigned, [place] [facility] ANKLE, MIN. 3 VIEWS 2014-10-07 20:07:00 Panchbhavi, Vi nod [facility] Encounters Start Date/Time End Date/Time Encounter Type Admission Type Attending Clinicians Care Facility Care Department Encounter ID Source 2021-04-07 01:12:41 Emergency [facility] [id number] [facility] 2024-08-21 08:30:00 2024-08-21 08:02:06 Outpatient R ALVIN WEBB [facility] [id number] [facility] 2024-08-06 14:45:00 2024-08-06 14:45:00 Office Visit Samanta Schaffer [facility] [id number] [facility] 2024-08-06 14:45:00 2024-08-06 14:08:13 Outpatient R SAMANTA SCHAFFER [facility] [id number] [facility] 2024-07-03 00:00:00 2024-08-04 18:15:53 Patient Secure Msg Samanta Schaffer [facility] [id number] [id number] [facility] 2024-07-24 12:12:33 2024-07-24 23:59:00 Outpatient R SAMANTA SCHAFFER [facility] [id number] [facility] 2024-07-24 12:12:33 2024-07-24 23:59:00 Hospital Encounter Samanta Schaffer [facility] [id number] [id number] [id number] [id number] [facility] 2014-10-07 00:00:00 2024-07-21 04:29:14 Orders Only Doctor Unassigned, [place] Doctor Unassigned, [place] [facility] ([facility]) [id number] [id number] [facility] 2015-01-02 00:00:00 2024-07-21 04:26:44 Orders Only Doctor Unassigned, [place] Doctor Unassigned, [place] [facility] ([facility] [id number] [id number] [id number] [facility] 2024-07-20 11:15:00 2024-07-20 11:33:58 Outpatient R TERESA SUZANNA MOORE SUZANNA [facility] [id number] [facility] 2024-07-20 11:15:00 2024-07-20 11:33:58 Office Visit Teresa Suzanna [facility] [id number] [id number] [id number] [facility] 2024-07-19 00:00:00 2024-07-19 15:37:58 Telephone Samanta Schaffer [facility] [id number] [id number] 4.2.7.2.686 [id number] [facility] 2024-07-19 00:00:00 2024-07-19 15:28:11 Case Management Samanta Schaffer [facility] [id number] [id number] [id number] [id number] [facility] 2024-07-02 00:00:00 2024-07-06 09:12:29 Telephone Samanta Schaffer [facility] [id number] [id number] [id number] [id number] [facility] [facility] 2024-07-05 00:00:00 2024-07-05 14:07:56 Telephone Samanta Schaffer [facility] MEDICAL OFFICE BUILDING 1.2.840.114 350.1.13.10 4.2.7.2.686 [id number] [facility] 2024-07-05 00:00:00 2024-07-05 11:37:27 Patient Outreach Samanta Schaffer [facility] 1.2.840.114 350.1.13.10 4.2.7.2.686 [id number] [facility] 2024-07-05 00:00:00 2024-07-05 10:52:46 Telephone Samanta Schaffer [facility] OFFICE [facility] 1.2.840.114 350.1.13.10 4.2.7.2.686 [id number] [facility] 2024-06-29 07:52:00 2024-06-29 23:59:00 Outpatient R SAMANTA SCHAFFER [facility] [id number] [facility] 2024-06-29 07:52:00 2024-06-29 23:59:00 Hospital Encounter Samanta Schaffer [facility] 1.2.840.114 350.1.13.10 4.2.7.2.686 [id number] [facility] 2024-06-29 09:03:00 2024-06-29 09:03:00 Emergency X AUFDERHEPORTIA , DAYNA AUSANTIERDAYNA BALDWIN [facility] ERT [id number] [facility] 2024-06-18 10:42:00 2024-06-18 15:02:00 Outpatient R SAMANTA SCHAFFER [facility] [id number] [facility] 2024-06-18 10:42:00 2024-06-18 15:02:00 Hospital Encounter Samanta Schaffer [facility] 1.2.840.114 350.1.13.10 4.2.7.2.686 [id number] [facility] 2024-06-18 11:50:00 2024-06-18 13:23:00 Surgery Samanta Schaffer [facility] 1.2840.114 350.1.13.10 4.2.7.2.686 [id number] [facility] 2024-05-23 08:00:00 2024-05-23 08:00:00 [facility]ton C [facility] TABLE CUT OFF SAW OPERATOR [facility] MATERNAL & CHILD HEALTH [facility] 1.2840.114 350.1.13.10 4.2.7.2.686 [id number] [facility] 2024-05-23 08:00:00 2024-05-23 07:42:49 Outpatient R EDUARDO MELTON [facility] [id number] [facility] 2024-05-16 00:00:00 2024-05-16 14:47:03 Telephone Samanta Schaffer [facility] BUILDING 1.2840.114 350.1.13.10 4.2.7.2.686 [id number] [facility] 2024-05-07 16:30:00 2024-05-07 16:32:55 Outpatient R SAMANTA SCHAFFER [facility] [id number] [facility] 2024-05-07 16:30:00 2024-05-07 16:32:55 Office Visit Samanta Schaffer [facility] PROFESSIO NAL BUILDING 1.2840.114 350.1.13.10 4.2.7.2.686 [id number] [facility] 2024-04-25 00:00:00 2024-04-27 12:07:52 Telephone Samanta Schaffer [facility] PROFESSIO NAL BUILDING 1.2840.114 350.1.13.10 4.2.7.2.686 [id number] [facility] 2024-03-27 09:30:00 2024-03-27 10:05:31 Outpatient R HARRISON ZAMUDIO OGADENAGNES [facility] [id number] [facility] 2024-03-27 09:30:00 2024-03-27 10:05:31 Office Visit RobbHarrison crawley [facility] BUILDING 1.2.840.114 350.1.13.10 4.2.7.2.686 [id number] [facility] 2024-03-19 00:00:00 2024-03-20 08:05:08 Patient Secure Msg Casperi-David [facility] 1.2.840.114 350.1.13.10 4.2.7.2.686 [id number] [id number] [facility] 2024-03-16 00:00:00 2024-03-19 14:43:09 Patient Secure Msg Casperi-David [facility] 1.2.840.114 350.1.13.10 4.2.7.2.686 [id number] [id number] [facility] 2024-02-27 15:00:00 2024-02-27 15:00:00 Nurse Visit Visit, Oscar Nurse Eduardo Melton C Visit, Oscar Nurse [facility] TABLE CUT OFF SAW OPERATOR [facility] MATERNAL & CHILD HEALTH [facility] 1.2.840.114 350.1.13.10 4.2.7.2.686 [id number] [facility] 2024-02-27 15:00:00 2024-02-27 14:24:21 Outpatient R EDUARDO MELTON [facility] [id number] [facility] 2024-02-20 00:00:00 2024-02-20 14:05:37 Telephone Miranda Hammonds [facility] TABLE CUT OFF SAW OPERATOR [facility] 1.2.840.114 350.1.13.10 4.2.7.2.686 [id number] [facility] 2024-02-09 09:00:00 2024-02-09 09:00:00 Outpatient R OBI-DAVID , LORENA OBI-DAVID , LORENA [facility] [id number] [facility] 2024-02-07 14:00:00 2024-02-07 14:00:00 Outpatient R EDUARDO MELTON [facility] [id number] [facility] 2024-02-01 09:30:00 2024-02-01 09:30:00 Outpatient R ALVIN WEBB [facility] [id number] [facility] 2024-01-13 10:00:00 2024-01-13 10:00:00 Office Visit Genia Ramirez [facility] 1.2.840.114 350.1.13.10 4.2.7.2.686 [id number] [facility] 2024-01-13 10:00:00 2024-01-13 08:49:37 Outpatient R GENIA RAMIREZ BRIA [facility] [id number] [facility] 2024-01-11 11:00:00 2024-01-11 11:00:00 Outpatient ERIC RIBEIRO PETER [facility] [id number] [facility] 2024-01-09 10:40:00 2024-01-09 10:40:00 Outpatient GENIA HAIR BRIA [facility] [id number] [facility] 2024-01-06 15:40:00 2024-01-06 15:40:00 Outpatient R GENIA RAMIREZ BRIA [facility] [id number] [facility] 2024-01-04 10:06:50 2024-01-04 23:59:00 Outpatient R OBI-DAVID , LORENA OBI-DAVID , LORENA [facility] [id number] [facility] 2024-01-04 10:06:50 2024-01-04 10:06:50 Hospital Encounter Obi-Sarmad [facility] 1..114 350.1.13.10 4.2.7.2.686 [id number] [facility] 2023-12-30 07:45:00 2023-12-30 14:03:54 Telephonic Encounter [facility]EL [facility] 1..114 350.1.13.58 9.2.7.2.686 [id number] [facility] 2023-12-30 13:40:00 2023-12-30 13:40:00 Outpatient R GENIA RAMIREZ BRIA [facility] [id number] [facility] 2023-12-27 00:00:00 2023-12-27 00:00:00 Outpatient R OBI-DAVID , LORENA OBI-DAVID , LORENA [facility] [id number] [facility] 2023-12-23 07:45:00 2023-12-23 07:45:00 Outpatient ISRAEL CARR [facility] [id number] [facility] 2023-12-19 14:40:00 2023-12-19 15:25:07 Outpatient R OBI-DAVID , LORENA OBI-DAVID , LORENA [facility] [id number] [facility] 2023-12-19 14:40:00 2023-12-19 15:25:07 Office Visit Obi-David Lorena [facility] PROFESSIO [facility] BUILDING 1.84.114 350.1.13.10 4.2.7.2.686 [id number] [facility] 2023-12-15 02:07:00 2023-12-15 03:33:00 Emergency X DELMA RAYMOND [facility] [id number] [facility] 2023-12-15 02:07:00 2023-12-15 03:33:00 Emergency Delma Raymond [facility] 1.840.114 350.1.13.10 4.2.7.2.686 [id number] [facility] 2023-12-07 14:45:00 2023-12-07 15:09:36 Outpatient CAYLA BROUSSARD [facility] [id number] [facility] 2023-12-07 14:45:00 2023-12-07 15:09:36 Office Visit Sarahy Marley Brandon [facility] 1.840.114 350.1.13.10 4.2.7.2.686 [id number] [facility] 2023-12-05 09:00:00 2023-12-06 07:54:[address] [facility] [id number] [facility] 2023-12-05 08:30:00 2023-12-06 07:54:[address] [facility] [id number] [facility] 2023-12-05 08:00:00 2023-12-06 07:54:[address] [facility] [id number] [facility] 2023-10-25 00:00:00 2023-11-26 18:19:39 Patient Secure Msg Doctor Unassigned, [place] [facility] 1.840.114 350.1.13.10 4.2.7.2.686 [id number] [facility] 2023-11-15 11:53:38 2023-11-15 23:59:00 Outpatient GIBSON SCHWARTZ SHIWAN [facility] [id number] [facility] 2023-11-15 11:53:38 2023-11-15 23:59:00 Hospital Encounter Gibson Sandhu [facility] 1.2840.114 350.1.13.10 4.2.7.2.686 [id number] [facility] 2023-11-08 13:00:00 2023-11-08 13:41:45 [facility] [id number] [facility] 2023-11-08 13:00:00 2023-11-08 13:41:45 Office Visit Coco Gibson [facility] PROFESSIO NAL BUILDING 1.2.114 350.1.13.10 4.2.7.2.686 [id number] [facility] 2023-11-07 10:00:00 2023-11-08 07:42:31 Office Visit ISRAEL CARR [facility] 1.2114 350.1.13.58 9.2.7.2.686 [id number] [facility] 2023-11-02 15:51:12 2023-11-02 23:59:00 Outpatient R ANILA PONCEVillaBinh [facility] [id number] [facility] 2023-11-02 15:51:12 2023-11-02 23:59:00 [facility] BUILD[facility] 1.2.114 350.1.13.10 4.2.7.2.686 [id number] [facility] 2023-11-02 15:40:00 2023-11-02 16:11:03 Urgent Care Anila Poncevillabinh Unknown, [facility]ending [facility] MED[facility] OFF[facility] BUILD[facility] 1.2.114 350.1.13.10 4.2.7.2.686 [id number] [facility] 2023-11-01 10:30:00 2023-11-01 10:31:40 Outpatient R MIRANDA HAMMONDS [facility] [id number] [facility] 2023-11-01 10:30:00 2023-11-01 10:31:40 Office Visit Miranda Hammonds [facility] TABLE CUT OFF SAW OPERATOR [facility] MATERNAL & CHILD HEALTH [facility] 1.2.840.114 350.1.13.10 4.2.7.2.686 [id number] [facility] 2023-10-27 07:00:00 2023-10-27 07:00:00 Outpatient EDUARDO DE LA PAZ [facility] [id number] [facility] 2023-10-24 00:00:00 2023-10-24 14:21:06 Telephone [facility] 1.2.840.114 350.1.13.10 4.2.7.2.686 [id number] [id number] [facility] 2023-10-19 00:00:00 2023-10-21 00:18:42 Patient Secure Msg [facility] 1.2.840.114 350.1.13.10 4.2.7.2.686 [id number] 044 [id number] [facility] 2023-10-19 11:00:00 2023-10-19 11:00:00 Office Visit Sarahy Marley Lindy Skye [facility] 1..840.114 350.1.13.10 4.2.7.2.686 [id number] [facility] 2023-10-19 11:00:00 2023-10-19 10:54:23 Outpatient ANABELA BENZ [facility] [id number] [facility] 2023-10-12 12:00:00 2023-10-12 12:15:00 Data Officer Visit Vtc-Lab Eric Fiore [facility] 1..114 350.1.13.10 4.2.7.2.686 [id number] [facility] 2023-10-12 11:00:00 2023-10-12 11:59:40 Outpatient R ERIC FIORE PETER [facility] [id number] [facility] 2023-10-12 11:00:00 2023-10-12 11:59:40 Office Visit Eric Fiore [facility] 1.114 350.1.13.10 4.2.7.2.686 [id number] [facility] 2023-10-10 09:20:00 2023-10-10 09:42:45 Outpatient R OBI-LORENA HERNANDEZ OBI-DAVID [facility] [id number] [facility] 2023-10-10 09:20:00 2023-10-10 09:42:[address] [facility] BUILDING 1.2.840.114 350.1.13.10 4.2.7.2.686 [id number] [facility] 2023-09-25 00:00:00 2023-09-25 00:00:00 [facility] BU[facility] 1..840.114 350.1.13.10 4.2.7.2.686 [id number] [facility] 2023-08-22 15:15:00 2023-08-22 15:30:33 Outpatient R SAMANTA SCHAFFER [facility] [id number] [facility] 2023-08-22 15:15:00 2023-08-22 15:30:33 Office Visit Samanta Schaffer Agnieszka [facility] 1.2.840.114 350.1.13.10 4.2.7.2.686 [id number] [facility] 2023-08-15 13:30:00 2023-08-15 14:35:56 Outpatient R TOBIN GARCIA MITCHELL [facility] [id number] [facility] 2023-08-15 13:30:00 2023-08-15 14:35:56 Office Visit Tobin Garcia [facility] 1.2.840.114 350.1.13.10 4.2.7.2.686 [id number] [facility] 2023-08-08 09:37:00 2023-08-08 12:16:00 Emergency X CASSANDRA ORDONEZ [facility] ERT [id number] [facility] 2023-08-08 09:37:00 2023-08-08 12:16:00 Emergency OrdonezRomeoCassandra [facility] 1..840.114 350.1.13.10 4.2.7.2.686 [id number] [facility] 2023-08-03 09:15:00 2023-08-03 09:15:00 Outpatient R [facility] [id number] [facility] 2023-07-27 00:00:00 2023-07-27 00:00:00 Telephone [employer] 1.2.840.114 350.1.13.10 4.2.7.2.686 [id number] [id number] [facility] 2023-07-21 00:00:00 2023-07-21 00:00:00 Telephone ObBlackArrowDavid [facility] 1.2840.114 350.1.13.10 4.2.7.2.686 [id number] [id number] [facility] 2023-07-20 09:30:00 2023-07-20 09:30:00 Nurse Visit Visit, Ang-Rmchp Nurse Eduardo Melton [facility] TABLE CUT OFF SAW OPERATOR [facility] MATERNAL & CHILD HEALTH [facility] 1.2840.114 350.1.13.10 4.2.7.2.686 [id number] [facility] 2023-07-20 09:30:00 2023-07-20 09:22:48 Outpatient R EDUARDO MELTON [facility] [id number] [facility] 2023-07-20 00:00:00 2023-07-20 00:00:00 [facility] 1.20.114 350.1.13.10 4.2.7.2.686 [id number] [id number] [facility] 2023-07-20 00:00:00 2023-07-20 00:00:00 [facility] 1.20.114 350.1.13.10 4.2.7.2.686 [id number] [id number] [facility] 2023-07-20 00:00:00 2023-07-20 00:00:00 Patient Secure Msg Doctor Unassigned, [place] [facility] 1.2840.114 350.1.13.10 4.2.7.2.686 [id number] [facility] 2023-07-19 00:00:00 2023-07-19 00:00:00 Telephone [facility] 1.2840.114 350.1.13.10 4.2.7.2.686 [id number] [id number] [facility] 2023-07-18 00:00:00 2023-07-18 00:00:[address] [facility] 1.2.840.114 350.1.13.10 4.2.7.2.686 [id number] [id number] [facility] 2023-07-13 09:47:08 2023-07-13 23:59:00 Hospital Encounter Wiliam [facility] 1.2.840.114 350.1.13.10 4.2.7.2.686 [id number] [facility] 2023-07-13 10:00:00 2023-07-13 10:15:00 Data Officer Visit Pob, Adc Lab Main [facility] BUILDING 1.2.840.114 350.1.13.10 4.2.7.2.686 [id number] [facility] 2023-07-13 09:46:30 2023-07-13 09:46:30 Hospital Encounter Wiliam [facility] 1.2.840.114 350.1.13.10 4.2.7.2.686 [id number] [facility] 2023-07-13 08:34:13 2023-07-13 09:45:00 Outpatient R DONTA-DAVID LORENA [facility] [id number] [facility] 2023-07-13 08:34:13 2023-07-13 09:45:00 Hospital Encounter [facility]iliam [facility] 1.2.840.114 350.1.13.10 4.2.7.2.686 [id number] [facility] 2023-07-13 00:00:00 2023-07-13 00:00:00 Telephone [facility] PROFESSIO NAL BUILDING 1.2.840.114 350.1.13.10 4.2.7.2.686 [id number] [id number] [facility] 2023-07-12 00:00:00 2023-07-12 00:00:[address] [facility] BUILDING 1.2.840.114 350.1.13.10 4.2.7.2.686 [id number] [id number] [facility] 2023-07-11 09:40:00 2023-07-11 09:51:00 Outpatient R [facility] WILIAM [facility] [id number] [facility] 2023-07-11 09:40:00 2023-07-11 09:51:[address] [facility] BUILDING 1.2.840.114 350.1.13.10 4.2.7.2.686 [id number] 044 [id number] [facility] 2023-07-11 00:00:00 2023-07-11 00:00:[address] [facility] BUILDING 1.2.840.114 350.1.13.10 4.2.7.2.686 [id number] [id number] [facility] 2023-07-11 00:00:00 2023-07-11 00:00:[address] [facility] BUILDING 1.2.840.114 350.1.13.10 4.2.7.2.686 [id number] 044 [id number] [facility] 2023-07-11 00:00:00 2023-07-11 00:00:00 Telephone Lorena Swain [facility] 1.2.840.114 350.1.13.10 4.2.7.2.686 [id number] [id number] [facility] 2023-07-11 00:00:00 2023-07-11 00:00:00 Orders Only Doctor Unassigned, [place] [facility] 1.2840.114 350.1.13.10 4.2.7.2.686 [id number] [facility] 2023-04-19 10:00:00 2023-04-19 10:00:00 Nurse Visit Visit, Ang-Rmchp Eduardo Edmonds [facility] TABLE CUT OFF SAW OPERATOR [facility] 1.840.114 350.1.13.10 4.2.7.2.686 [id number] [facility] 2023-04-19 10:00:00 2023-04-19 09:40:53 Outpatient R EDUARDO MELTON [facility] [id number] [facility] 2023-03-22 00:00:00 2023-03-22 00:00:00 Telephone Harrison Zamudio [facility] 1.2.840.114 350.1.13.10 4.2.7.2.686 [id number] [id number] [facility] 2023-03-15 00:00:00 2023-03-15 00:00:00 Telephone Harrison Zamudio [facility] 1.2.840.114 350.1.13.10 4.2.7.2.686 [id number] [id number] [facility] 2023-03-14 14:30:00 2023-03-14 14:30:00 Outpatient R ROBBHARRISON SUEROROSANGELA JOSEFeliBinh [facility] [id number] [facility] 2023-03-14 00:00:00 2023-03-14 00:00:00 Orders Only Doctor Unassigned, [place] [facility] 1..840.114 350.1.13.10 4.2.7.2.686 [id number] [facility] 2023-03-08 09:00:00 2023-03-08 09:21:57 Outpatient R ROBBJOSEGINO AGUEROROSANGELAAMLIA [facility] [id number] [facility] 2023-03-08 09:00:00 2023-03-08 09:21:57 Office Visit Obi-Lorena Hernandez Ogechukwu [facility] 1..840.114 350.1.13.10 4.2.7.2.686 [id number] [facility] 2023-03-01 10:00:00 2023-03-01 10:15:00 Nurse Visit Nurse, [place] Rmchp Rgv Cprit Obgyn Eduardo Melton [facility] TABLE CUT OFF SAW OPERATOR [facility] 1..840.114 350.1.13.10 4.2.7.2.686 [id number] [facility] 2023-03-01 10:00:00 2023-03-01 10:00:00 Outpatient R EDUARDO MELTON [facility] [id number] [facility] 2023-01-28 10:00:00 2023-01-28 10:28:39 Outpatient R ROBB RAYMUNDOGINO RAMIREZROSANGELAMALIA [facility] [id number] [facility] 2023-01-28 10:00:00 2023-01-28 10:28:39 Office Visit Harrison Zamudio [facility] 1..114 350.1.13.10 4.2.7.2.686 [id number] [facility] 2023-01-24 10:00:00 2023-01-24 10:15:00 [facility] TABLE CUT OFF SAW OPERATOR [facility] 1.84.114 350.1.13.10 4.2.7.2.686 [id number] [facility] 2023-01-24 10:00:00 2023-01-24 10:00:00 Outpatient R EDUARDO MELTON [facility] [id number] [facility] 2023-01-24 00:00:00 2023-01-24 00:00:00 Orders Only Doctor Unassigned, [place] [facility] 1.84.114 350.1.13.10 4.2.7.2.686 [id number] [facility] 2023-01-21 10:00:00 2023-01-21 10:00:00 Outpatient R [facility] [id number] [facility] and [facility] 2022-10-21 10:30:00 2022-10-21 11:21:05 Outpatient R EDUARDO MELTON [facility] [id number] [facility] 2022-10-21 10:30:00 2022-10-21 11:21:05 Office Visit Eduardo Melton [facility] TABLE CUT OFF SAW OPERATOR [facility] CHILD [facility] 1..114 350.1.13.10 4.2.7.2.686 [id number] [facility] 2022-09-24 11:30:00 2022-09-24 11:30:00 Outpatient R HARRISON ZAMUDIO OGECHUKWU [facility] [id number] [facility] 2022-09-07 07:36:07 2022-09-07 23:59:00 Outpatient R EDUARDO MELTON [facility] RAD [id number] [facility] 2022-09-07 07:36:07 2022-09-07 23:59:00 Hospital Encounter Eduardo Melton [facility] 1.114 350.1.13.10 4.2.7.2.686 [id number] [facility] 2022-08-30 13:15:00 2022-08-30 13:58:50 Outpatient R EDUARDO MELTON [facility] [id number] [facility] 2022-08-30 13:15:00 2022-08-30 13:58:50 Office Visit Eduardo Melton [facility] TABLE CUT OFF SAW OPERATOR [facility] 1..114 350..13.10 4.2.7.2.686 [id number] [facility] 2022-08-30 13:15:00 2022-08-30 13:15:00 Outpatient R EDUARDO MELTON [facility] [id number] [facility] 2022-08-30 13:15:00 2022-08-30 13:15:00 Outpatient R EDUARDO MELTON [facility] [id number] [facility] 2022-08-30 00:00:00 2022-08-30 00:00:00 Orders Only Doctor Unassigned, [place] [facility] .114 350.1.13.10 4.2.7.2.686 [id number] [facility] 2022-08-10 00:00:00 2022-08-10 00:00:00 Refill Harrison Zamudio [facility] 1.2.840.114 350.1.13.10 4.2.7.2.686 [id number] [facility] 2022-07-29 00:00:00 2022-07-29 00:00:00 Refill Robb, Ginoadenagnes [facility] PROFESSIO NAL [facility]ILDING 1.2.840.114 350.1.13.10 4.2.7.2.686 [id number] [facility] 2022-04-09 15:30:00 2022-04-09 15:46:43 Outpatient R HARRISON ZAMUDIO OGECHMALIA [facility] [id number] [facility] 2022-04-09 15:30:00 2022-04-09 15:46:43 Office Visit Robb, Josemalia [facility] 1.2.840.114 350.1.13.10 4.2.7.2.686 [id number] [id number] [facility] 2022-02-21 00:00:00 2022-02-21 00:00:00 Refill Harrison Zamudio [facility] 1.2.840.114 350.1.13.10 4.2.7.2.686 [id number] [facility] 2022-02-11 00:00:00 2022-02-11 00:00:00 Refill Vianney Farmer [facility] 1.2.840.114 350.1.13.10 4.2.7.2.686 [id number] [facility] 2022-02-05 14:30:00 2022-02-05 15:15:00 Ancillary Visit Destiny Pappas Craig L [facility] 1.2.840.114 350.1.13.10 4.2.7.2.686 [id number] [facility] 2022-02-05 14:30:00 2022-02-05 14:30:00 Outpatient R CHANEL LENTZ [facility] [id number] [facility] 2022-02-02 14:30:00 2022-02-02 14:30:00 Outpatient R CHANLE LENTZ [facility] [id number] [facility] 2022-01-29 13:45:00 2022-01-29 14:30:00 Ancillary Visit Destiny Pappas Craig L [facility] 1.2.840.114 350.1.13.10 4.2.7.2.686 [id number] [facility] 2022-01-21 11:00:00 2022-01-21 11:45:00 Ancillary Visit Nancy Hernandez Craig L [facility] 1.2.840.114 350.1.13.10 4.2.7.2.686 [id number] [facility] 2022-01-15 08:20:00 2022-01-15 16:50:04 Outpatient ERIC LANCE [facility] [id number] [facility] 2022-01-15 08:20:00 2022-01-15 08:20:00 Outpatient ERIC LANCE [facility] [id number] [facility] 2022-01-13 11:00:00 2022-01-13 11:33:04 Ancillary Visit Radha Luna Craig L [facility] 1.2.840.114 350.1.13.10 4.2.7.2.686 [id number] [facility] 2022-01-08 10:15:00 2022-01-08 11:00:00 Ancillary Visit Mirtha Moura Craig L [facility] PROFESSIO NAL [facility]ILD[facility] 1..840.114 350.1.13.10 4.2.7.2.686 [id number] [facility] 2022-01-01 10:15:00 2022-01-01 10:15:00 Outpatient CHANEL WELCH [facility] [id number] [facility] 2022-01-01 00:00:00 2022-01-01 00:00:00 Case Management Otilio Mirtha Monroe [facility] N[facility]ILD[facility] 1..840.114 350.1.13.10 4.2.7.2.686 [id number] [facility] 2021-12-29 00:00:00 2021-12-29 00:00:00 Refill Harrison Zamudio [facility] 1..840.114 350.1.13.10 4.2.7.2.686 [id number] [facility] 2021-12-23 15:00:00 2021-12-23 15:00:00 Outpatient PERCY ELLISON [facility] [id number] [facility] 2021-12-23 13:30:00 2021-12-23 13:30:00 Outpatient HARRISON JOHNSON OGECHUKWU [facility] [id number] [facility] 2021-12-21 10:15:00 2021-12-21 10:29:07 Outpatient R CHANEL LENTZ [facility] [id number] [facility] 2021-12-21 10:15:00 2021-12-21 10:29:07 Ancillary Visit Skylar Ruiz Craig L [facility] N[facility]ILD[facility] 1..840.114 350.1.13.10 4.2.7.2.686 [id number] [facility] 2021-12-21 10:15:00 2021-12-21 10:15:00 Outpatient R CHANEL LENTZ [facility] [id number] [facility] 2021-12-16 13:45:00 2021-12-16 13:45:00 Outpatient R CHANEL LENTZ [facility] [id number] [facility] 2021-12-14 00:00:00 2021-12-14 00:00:00 Patient Secure Msg Doctor Unassigned, [place] [facility] 1.840.114 350.1.13.10 4.2.7.2.686 [id number] [facility] 2021-12-08 11:30:00 2021-12-08 11:32:51 Office Visit Harrison Zamudio [facility] 1.840.114 350.1.13.10 4.2.7.2.686 [id number] [facility] 2021-12-08 11:30:00 2021-12-08 11:32:51 Outpatient R HARRISON ZAMUDIO OGECHUKWU [facility] [id number] [facility] 2021-12-08 11:30:00 2021-12-08 11:30:00 Outpatient R HARRISON ZAMUDIO OGECHUKWU [facility] [id number] [facility] 2021-12-08 11:30:00 2021-12-08 11:30:00 Outpatient R HARRISON ZAMUDIO OGECHUKWU [facility] [id number] [facility] 2021-12-07 00:00:00 2021-12-07 00:00:00 Patient Secure Msg Doctor Unassigned, [place] [facility] 1..840.114 350.1.13.10 4.2.7.2.686 [id number] [facility] 2021-12-03 13:00:00 2021-12-03 14:27:24 Telemedici ne Visit JudieflavioEric [facility] 1.2.840.114 350.1.13.10 4.2.7.2.686 [id number] [facility] 2021-12-03 13:00:00 2021-12-03 14:27:24 Outpatient R JUDIEFLAVIOERIC [facility] [id number] [facility] 2021-12-03 13:00:00 2021-12-03 13:00:00 Outpatient R JUDIEFLAVIOERIC [facility] [id number] [facility] 2021-12-03 00:00:00 2021-12-03 00:00:00 Telephone Eric Meyer [facility] 1.2.840.114 350.1.13.10 4.2.7.2.686 [id number] [facility] 2021-12-03 00:00:00 2021-12-03 00:00:00 Telephone FarmerVianney yarbrough Young [facility] 1.2.840.114 350.1.13.10 4.2.7.2.686 [id number] 044 [id number] [facility] 2021-12-01 00:00:00 2021-12-01 00:00:00 Telephone Holly Farmerzabecarmen Vidal [facility] 1.2.840.114 350.1.13.10 4.2.7.2.686 [id number] [facility] 2021-11-27 10:00:00 2021-11-27 10:00:00 Outpatient R [facility] [id number] [facility] 2021-11-26 00:00:00 2021-11-26 00:00:00 Patient Secure Msg Eric Meyer [facility] 1.2.840.114 350.1.13.10 4.2.7.2.686 [id number] [facility] 2021-11-25 10:45:54 2021-11-25 23:59:00 Outpatient R ERIC MEYER [facility] [id number] [facility] 2021-11-25 10:45:54 2021-11-25 23:59:00 Hospital Encounter Eric Meyer [facility] 1.2.840.114 350.1.13.10 4.2.7.2.686 [id number] [facility] 2021-11-25 10:45:54 2021-11-25 23:59:00 Outpatient R ERIC MEYER [facility] [id number] [facility] 2021-11-25 00:00:00 2021-11-25 00:00:00 Orders Only Doctor Unassigned, [place] [facility] 1.2.840.114 350.1.13.10 4.2.7.2.686 [id number] [facility] 2021-11-11 14:45:00 2021-11-11 15:00:00 Data Officer Visit 2, [facility] 1.2.840.114 350.1.13.10 4.2.7.2.686 [id number] [facility] 2021-11-11 13:40:00 2021-11-11 14:18:54 Outpatient R ERIC MEYER [facility] [id number] [facility] 2021-11-11 13:40:00 2021-11-11 14:18:54 Office Visit Eric Meyer [facility] 1.2.840.114 350.1.13.10 4.2.7.2.686 [id number] [facility] 2021-11-11 00:00:00 2021-11-11 00:00:00 Orders Only Doctor Unassigned, [place] [facility] 1.20.114 350.1.13.10 4.2.7.2.686 [id number] [facility] 2021-08-28 08:15:00 2021-08-28 09:00:47 Outpatient R EDUARDO MELTON [facility] [id number] [facility] 2021-08-28 08:15:00 2021-08-28 09:00:47 Office Visit Eduardo Melton [facility] TABLE 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 SAW OPERATOR [facility] MATERNAL & CHILD HEALTH [facility] 1.84.114 350.1.13.10 4.2.7.2.686 [id number] [facility] 2021-08-07 09:35:49 2021-08-07 23:59:00 Hospital Encounter RobbHarrison [facility] 1..114 350.1.13.10 4.2.7.2.686 [id number] [facility] 2021-08-07 09:35:49 2021-08-07 23:59:00 Outpatient R HARRISON ZAMUDIO OGECHUKWU [facility] [id number] [facility] 2021-08-07 08:30:00 2021-08-07 09:40:42 Data Officer Visit 2, [facility] Harrison Zamudio [facility] 1.284.114 350.1.13.10 4.2.7.2.686 [id number] [facility] 2021-08-06 10:40:00 2021-08-06 10:40:00 Outpatient R ERIC MEYER [facility] [id number] [facility] 2021-08-05 13:30:00 2021-08-05 13:53:23 Office Visit Harrison Zamudio [facility] 1.2.840.114 350.1.13.10 4.2.7.2.686 [id number] [facility] 2021-08-05 13:30:00 2021-08-05 13:53:23 Outpatient R HARRISON ZAMUDIO OGECHUKWU [facility] [id number] [facility] 2021-08-05 00:00:00 2021-08-05 00:00:00 Orders Only Doctor Unassigned, [place] [facility] 1.2.840.114 350.1.13.10 4.2.7.2.686 [id number] [facility] 2021-03-03 00:00:00 2021-03-03 00:00:00 Telephone Vianney Farmer [facility] 1.2.840.114 350.1.13.10 4.2.7.2.686 [id number] [facility] 2021-02-27 13:36:00 2021-02-27 15:19:00 Emergency Destiny Tomas [facility] 1.2.840.114 350.1.13.10 4.2.7.2.686 [id number] [facility] 2021-02-27 13:00:00 2021-02-27 13:00:00 Outpatient R TRE GARCIA [facility] [id number] [facility] 2021-02-26 12:53:18 2021-02-26 23:59:00 Hospital Encounter Vianney Farmer [facility] 1.2.840.114 350.1.13.10 4.2.7.2.686 [id number] [facility] 2021-02-26 00:00:00 2021-02-26 00:00:00 Outpatient VIANNEY BOND [facility] [id number] [facility] 2021-02-19 00:00:00 2021-02-19 00:00:00 Outpatient MARIEL BONDBETH [facility] [id number] [facility] 2021-02-10 10:25:36 2021-02-10 10:40:36 Data Officer Visit 2, [facility] Vianney Farmer [facility] 1.2.840.114 350.1.13.10 4.2.7.2.686 [id number] [facility] 2021-02-10 10:25:36 2021-02-10 10:40:36 Data Officer Visit 2, [facility] Vianney Farmer [facility] 1.2.840.114 350.1.13.10 4.2.7.2.686 [id number] [facility] 2021-02-10 10:40:00 2021-02-10 10:40:00 Outpatient R VIANNEY FARMER [facility] [id number] [facility] 2021-02-10 09:28:49 2021-02-10 10:24:08 Office Visit Vianney Farmer [facility] 1.2.840.114 350.1.13.10 4.2.7.2.686 [id number] [facility] 2020-12-22 14:20:00 2020-12-22 14:40:00 Office Visit Holly Farmerzaevelyn Vidal [facility] nal Building 1.2.840.114 350.1.13.10 4.2.7.2.686 [id number] [facility] 2020-12-22 14:20:00 2020-12-22 14:20:00 Outpatient R FARMERVIANNEY YARBROUGH [facility] [id number] [facility] 2020-09-12 00:00:00 2020-09-12 00:00:00 Refill Eric Meyer [facility] 1.2.840.114 350.1.13.10 4.2.7.2.686 [id number] [facility] 2020-09-10 07:48:49 2020-09-10 08:08:49 Telemedici ne Visit Eric Meyer [facility] 1.2.840.114 350.1.13.10 4.2.7.2.686 [id number] [facility] 2020-09-10 08:00:00 2020-09-10 08:00:00 Outpatient R ERIC MEYER [facility] [id number] [facility] 2020-09-05 00:00:00 2020-09-05 00:00:00 Telephone Eric Meyer [facility] 1..840.114 350.1.13.10 4.2.7.2.686 [id number] [facility] 2020-08-25 00:00:00 2020-08-25 00:00:00 Patient Outreach Percy Prado [facility] 1.2840.114 350.1.13.10 4.2.7.2.686 [id number] [facility] 2020-08-04 00:00:00 2020-08-04 00:00:00 Telephone Eric Meyer [facility] 1.2.840.114 350.1.13.10 4.2.7.2.686 [id number] 044 [id number] [facility] 2020-07-30 12:47:25 2020-07-30 13:32:59 Office Visit Murtaza Jones [facility] 1.2.840.114 350.1.13.10 4.2.7.2.686 [id number] [facility] 2020-07-30 13:00:00 2020-07-30 13:00:00 Outpatient R MO JONESTANY [facility] [id number] [facility] 2020-07-21 13:00:00 2020-07-21 13:00:00 Outpatient R MURTAZA JONES [facility] [id number] [facility] 2020-07-17 00:00:00 2020-07-17 00:00:00 Telephone JudiedavidbasilEric raya [facility] 1.2.840.114 350.1.13.10 4.2.7.2.686 [id number] [facility] 2020-04-11 13:30:00 2020-04-11 13:30:00 Outpatient R [facility] [id number] [facility] 2020-03-12 09:00:00 2020-03-12 09:00:00 Outpatient R JUDIEFLAVIO ERIC [facility] [id number] [facility] 2020-03-12 07:53:25 2020-03-12 08:13:25 Telemedici ne Visit Eric Meyer [facility] Building 1.2.840.114 350.1.13.10 4.2.7.2.686 [id number] 2020-03-12 07:53:25 2020-03-12 08:13:25 Telemedici ne Visit Eric Meyer [facility] Building 1.2.840.114 350.1.13.10 4.2.7.2.686 [id number] [facility] 2020-02-20 00:00:00 2020-02-20 00:00:00 Orders Only Doctor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
[2024-08-26 15:07] LABS: Absolute Basophils 0.1 K/uL (0-0.5); Absolute Eosinophils 0.1 K/uL (0-0.5); Absolute Monocytes 0.9 K/uL (0.1-1.3); Absolute Neutrophil 4.1 K/uL (1.8-8.0); Eosinophils % 1.2 % (0-4.4); Hematocrit 40.5 % (36.0-45.0); Hemoglobin 13.8 g/dL (12.0-15.0); Lymphocytes % 36.5 % (15.3-44.8); MCHC 34.2 g/dL (32.0-36.0); MCV 90.6 fL (80-100); MPV 7.3 fL (7.6-11.3); Monocytes % 11.4 % (3.3-12.3); Neutrophils % 49.9 % (41.7-73.7); Nucleated Red Blood Cells % 0.1 % (0-0); Platelets 289 thou/uL (152-406); RBC Red Blood Cell Count 4.47 M/uL (3.86-4.86); Red Cell Distribution Width 14.5 % (12.1-15.2)
[2024-08-26] MEDS ORDERED: ONDANSETRON 4 MG/2 ML VIAL ONE (15:15)
[2024-08-26] MEDS ORDERED: dexAMETHasone 10 MG/ML VIAL ONE (15:15)
[2024-08-26] MEDS ORDERED: MORPHINE 4 MG/ML SYR ONE (15:16)
[2024-08-26] MEDS ORDERED: NA CHLORIDE 0.9% 1,000 ML ONE (15:16)
[2024-08-26 15:27] LABS: ALT/SGPT 27 U/L (13-56); AST/SGOT 16 U/L (15-37); Albumin 3.1 g/dL (3.4-5.0); Albumin/Globulin Ratio 0.7 (1.1-1.8); Alkaline Phosphatase 75 U/L (45-117); Anion Gap 7.5 mEq/L (5.0-15.0); BUN Blood Urea Nitrogen 15 mg/dL (7-18); Bicarbonate 27 mEq/L (21-32); Bilirubin Total 0.3 mg/dL (0.2-1.0); Globulin 4.3 g/dL (2.3-3.5); Glomerular Filtration Rate 92 ml/min (=/>90); Glucose Level 128 mg/dL (74-106); Potassium 3.5 mEq/L (3.5-5.1); Protein, Total 7.4 g/dL (6.4-8.2); Sodium Level 137 mEq/L (136-145)
[2024-08-26 15:35] LABS: Troponin High Sensitivity < 3.0 pg/mL (<58.9)
--- NOTE | 2024-08-26 16:06 | RAD REPORT ---
EXAMINATION: TWO VIEW CHEST XR CLINICAL INDICATION: Female, 44 years old. [facility] MAIN SOB Bed Name: 18 TECHNIQUE: 2 view radiographs of the chest were performed. COMPARISON: 10/02/2017 FINDINGS: Suboptimal inspiratory effort somewhat limits evaluation. Hazy perihilar and basal opacities with int erstitial prominence. No pneumothorax or sizable effusion. The heart is normal in size. Mediastinal contours are unremarkable. IMPRESSION: Findings suggesting central congestion or early edema. Suboptimal inspiratory effort somewhat limits evaluation.
--- NOTE | 2024-08-26 16:56 | EDPHYS ---
Physician Documentation [facility] Name: Rama Ruiz Age: 44 yrs Sex: Female : 1980 Arrival Date: 08/26/2024 Time: 14:36 Bed 18 Private MD: ED Physician Angelique Rogers HPI: 08/26 17:08 This 44 yrs old Black Female presents to ER via Ambulatory with complaints of Breathing dr5 Difficulty, Back Pain. 17:08 Onset: The symptoms/episode began/occurred acutely. 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 Patient denies fever, abdominal pain, chest pain.. 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 - Infectious Disease History:: Denies. - Social history:: Smoking status: Patient reports the use of cigarette tobacco products, unknown amount. ROS: 17:08 Constitutional: as per hpi dr5 Exam: 17:08 Constitutional: This is a well developed, well nourished patient who is awake, alert, dr5 and in no acute distress. Head/Face: Normocephalic, atraumatic. Eyes: Pupils equal round and reactive to light, extra-ocular motions intact. Lids and lashes normal. Conjunctiva and sclera are non-icteric and not injected. Cornea within normal limits. Periorbital areas with no swelling, redness, or edema. Chest/axilla: Normal chest wall appearance and motion. Nontender with no deformity. No lesions are appreciated. Cardiovascular: Regular rate and rhythm with a normal S1 and S2. Normal PMI, no JVD. No pulse deficits. Respiratory: Lungs have equal breath sounds bilaterally, clear to auscultation. No rales, rhonchi or wheezes noted. No increased work of breathing, no retractions or nasal flaring. Back: No spinal tenderness. No costovertebral tenderness. Full range of motion. Skin: Warm, dry with normal turgor. Normal color with no rashes, no lesions, and no evidence of cellulitis. Neuro: Awake and alert, GCS 15, oriented to person, place, time, and situation. Cranial nerves II-XII grossly intact. Motor strength 5/5 in all extremities. Sensory grossly intact. Cerebellar exam normal. Normal gait. Vital Signs: 14:54 BP 138 / 104; Pulse 105; Resp 20; Pulse Ox 100% on R/A; kj2 14:54 Weight 95.25 kg; Height 5 ft. 5 in. ; Pain 10/10; kj2 16:00 BP 117 / 82; Pulse 84; Resp 20; Pulse Ox 100% on R/A; kj2 16:00 Temp 98.3; kj2 17:04 BP 90 / 80; Pulse 82; Resp 20; Temp 98.2; Pulse Ox 98% ; kj2 14:54 Body Mass Index 34.95 (95.25 kg, 165.1 cm) kj2 14:54 Pain Scale: Adult kj2 MDM: 14:55 Medical Screening Exam initiated dr5 17:08 Differential diagnosis: Anemia asthma, Bronchitis pneumonia. Antibiotic administration: dr5 Not indicated. Data reviewed: vital signs, nurses notes, lab test result(s), radiologic studies. I considered the following discharge prescriptions or medication management in the emergency department Medications were administered in the Emergency Department. See MAR. Care significantly affected by the following chronic conditions: HTN, Asthma, Depression, Migraines. Care significantly affected by the following Social Determinants of Health: Poor access to healthcare and/or lack of insurance, Poor access to transportation, Problems related to employment. Counseling: I had a detailed discussion with the patient and/or guardian regarding the historical points, exam findings, and any diagnostic results supporting the discharge/admit diagnosis, the presence of at least one elevated blood pressure reading (>120/80) during this emergency department visit, lab results, radiology results, the need for outpatient follow up, for definitive care, a family practitioner, to return to the emergency department if symptoms worsen or persist or if there are any questions or concerns that arise at home. ED course: Pt is feeling much better and denies any pain at this time. Will give patient steroid pack, pain medication and muscle x-rays. Increase hydration and alternate Tylenol Motrin as needed for pain. Strict ER precautions given. 08/26 14:55 Order name: CBC with Diff; Complete Time: 15:09 dr5 08/26 14:55 Order name: CMP; Complete Time: 15:47 dr5 08/26 14:55 Order name: Troponin High Sensitivity; Complete Time: 15:47 dr5 08/26 14:55 Order name: Chest Pa And Lat (2 Views) XRAY; Complete Time: 16:13 dr5 Administered Medications: 15:23 Drug: Decadron - Dexamethasone IVP 10 mg IVP once Route: IVP; Site: right antecubital; kj2 17:09 Follow up: Response: No adverse reaction kj2 15:24 Drug: NS 0.9% IV 1000 ml IV at 1000 ml once; to be given as a bolus over 60 minutes kj2 Route: IV; Rate: 1000 ml; Site: right antecubital; 17:10 Follow up: Response: No adverse reaction kj2 15:24 Drug: morphine IVP or IV 4 mg IVP once over 4 mins Route: IVP; Infused Over: 4 mins; kj2 Site: right antecubital; 17:10 Follow up: Response: No adverse reaction kj2 15:24 Drug: Ondansetron IVP 4 mg IVP once; over 2 minutes Route: IVP; Site: right antecubital;kj2 17:09 Follow up: Response: No adverse reaction kj2 Disposition Summary: 08/26/24 16:55 Discharge Ordered Notes: Location: Home dr5 Condition: Stable dr5 Diagnosis - Strain of muscle, fascia and tendon of lower back dr5 Followup: dr5 - With: Emergency Department - When: As needed - Reason: Worsening of condition Followup: dr5 - With: Private Physician - When: 1 - 2 days - Reason: Recheck today's complaints, Continuance of care, Re-evaluation by your physician Discharge Instructions: - Discharge Summary Sheet dr5 - Acute Back Pain, Adult dr5 Forms: - Medication Reconciliation Form dr5 - Patient Portal Instructions dr5 - Leadership Thank You Letter dr5 Prescriptions: - Cyclobenzaprine 10 mg Oral Tablet - take 1 tablet ORAL route every 8 hours As needed; 30 tablet; Refills: 0, dr5 Product Selection Permitted - Tramadol 50 mg Oral Tablet - take 1 tablet ORAL route every 8 hours as needed; 12 tablet; Refills: 0, dr5 Product Selection Permitted - Medrol (Jorge) 4 mg Oral Tablets, Dose Pack - take 1 tablet ORAL route as directed - follow package instructions; 1 packet; dr5 Refills: 0, Product Selection Permitted Signatures: Dispatcher [employer] EDKathleen Chance, RN RN kj2 Oli Torres, AIRPLANE ELECTRICAL REPAIRER-C AIRPLANE ELECTRICAL REPAIRER-Cdr5 Corrections: (The following items were deleted from the chart) 14:55 14:55 Chest Pa And Lat (2 Views)+RAD.RAD.BRZ ordered. EDMS EDMS 14:55 14:55 CBC+H.LAB.BRZ ordered. EDMS EDMS 14: 14:55 COMPREHENSIVE METABOLIC PANEL+C.LAB.BRZ ordered. EDMS EDMS 14:55 14:55 Troponin High Sensitivity+C.LAB.BRZ ordered. EDMS EDMS
--- NOTE | 2024-08-26 16:56 | ER ---
Nurse's Notes [facility] Name: Rama Ruiz Age: 44 yrs Sex: Female : 1980 Arrival Date: 08/26/2024 Time: 14:36 Bed 18 Private MD: Diagnosis: Strain of muscle, fascia and tendon of lower back Presentation: 08/26 14:54 Chief complaint: Patient states: back pain. Coronavirus screen: Client denies travel kj2 out of the [place] in the last 14 days. Ebola Screen: No symptoms or risks identified at this time. Initial Sepsis Screen: Does the patient meet any 2 criteria? No. Patient's initial sepsis screen is negative. Does the patient have a suspected source of infection? No. Patient's initial sepsis screen is negative. Risk Assessment: Do you want to hurt yourself or someone else? Patient reports no desire to harm self or others. Onset of symptoms was August 26, 2024. 14:54 Method Of Arrival: Ambulatory kj2 14:54 Acuity: GIORGIO 3 kj2 Triage Assessment: 15:00 General: see nurse assessment. Respiratory: Airway is patent Respiratory effort is kj2 unlabored, 15:00 General: Appears uncomfortable, Behavior is cooperative. Respiratory: Reports shortness kj2 of breath on exertion Onset: The symptoms/episode began/occurred today. 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 - Infectious Disease History:: Denies. - Social history:: Smoking status: Patient reports the use of cigarette tobacco products, unknown amount. Screenin:04 [facility] ED Fall Risk Assessment (Adult) History of falling in the last 3 months, kj2 including since admission No falls in past 3 months (0 pts) Confusion or Disorientation No (0 pts) Intoxicated or Sedated No (0 pts) Impaired Gait No (0 pts) Mobility Assist Device Used No (0 pt) Altered Elimination No (0 pt) Score/Fall Risk Level 0 - 2 = Low Risk Maintained a safe environment, Hourly rounding (assess needs \T\ fall precautionary measures) done. Abuse screen: Denies threats or abuse. Denies injuries from another. Nutritional screening: No deficits noted. Tuberculosis screening: No symptoms or risk factors identified. Assessment: 15:00 General: see triage assessment. Pain: Complains of pain in back Pain currently is 10 kj2 out of 10 on a pain scale. Neuro: Level of Consciousness is awake, alert. Cardiovascular: Patient's skin is warm and dry. Respiratory: Airway is patent Respiratory effort is even, unlabored. GI: No signs and/or symptoms were reported involving the gastrointestinal system. : No signs and/or symptoms were reported regarding the genitourinary system. 15:00 Cardiovascular: Rhythm is sinus rhythm. Respiratory: Breath sounds are clear kj2 bilaterally. 15:53 Reassessment: Patient appears in no apparent distress at this time. Patient and/or kj2 family updated on plan of care and expected duration. Pain level reassessed. Patient is alert, oriented x 3, equal unlabored respirations, skin warm/dry/pink. 17:04 Reassessment: Patient appears in no apparent distress at this time. Patient and/or kj2 family updated on plan of care and expected duration. Pain level reassessed. Patient is alert, oriented x 3, equal unlabored respirations, skin warm/dry/pink. Vital Signs: 14:54 BP 138 / 104; Pulse 105; Resp 20; Pulse Ox 100% on R/A; kj2 14:54 Weight 95.25 kg; Height 5 ft. 5 in. ; Pain 10/10; kj2 16:00 BP 117 / 82; Pulse 84; Resp 20; Pulse Ox 100% on R/A; kj2 16:00 Temp 98.3; kj2 17:04 BP 90 / 80; Pulse 82; Resp 20; Temp 98.2; Pulse Ox 98% ; kj2 14:54 Body Mass Index 34.95 (95.25 kg, 165.1 cm) kj2 14:54 Pain Scale: Adult kj2 ED Course: 14:36 Patient arrived in ED. mr 14:38 Oli Torres FNP-C [facility] dr5 14:38 Aneglique Rogers MD is Attending Physician. dr5 14:53 Kathleen Nielson RN is Primary Nurse. kj2 14:58 Triage completed. kj2 15:00 Inserted saline lock: 22 gauge in right antecubital area, using aseptic technique. kj2 Blood collected. Flushed with 10 mL NS. 15:00 Arm band placed on Patient placed in an exam room, on a stretcher. kj2 15:04 Patient has correct armband on for positive identification. Bed in low position. Call kj2 light in reach. Provided Education on: call light. 15:09 Chest Pa And Lat (2 Views) XRAY In Process Unspecified. EDMS 17:06 No provider procedures requiring assistance completed. IV discontinued, intact, kj2 bleeding controlled, No redness/swelling at site. Pressure dressing applied. Administered Medications: 15:23 Drug: Decadron - Dexamethasone IVP 10 mg IVP once Route: IVP; Site: right antecubital; kj2 17:09 Follow up: Response: No adverse reaction kj2 15:24 Drug: NS 0.9% IV 1000 ml IV at 1000 ml once; to be given as a bolus over 60 minutes kj2 Route: IV; Rate: 1000 ml; Site: right antecubital; 17:10 Follow up: Response: No adverse reaction kj2 15:24 Drug: morphine IVP or IV 4 mg IVP once over 4 mins Route: IVP; Infused Over: 4 mins; kj2 Site: right antecubital; 17:10 Follow up: Response: No adverse reaction kj2 15:24 Drug: Ondansetron IVP 4 mg IVP once; over 2 minutes Route: IVP; Site: right antecubital;kj2 17:09 Follow up: Response: No adverse reaction kj2 Medication: 15:24 VIS not applicable for this client. kj2 Outcome: 16:55 Discharge ordered by . gian 17:08 Discharged to home ambulatory, kj2 17:08 Condition: stable 17:08 Discharge instructions given to patient, Instructed on discharge instructions, follow up and referral plans. Demonstrated understanding of instructions, follow-up care, 17:17 Patient left the ED. kj2 Signatures: Dispatcher [employer] EDNY Nicky Constantino, Reg Reg Kathleen Vines, RN RN kj2 Oli Torres, METALWORKING SPECIALIST-C METALWORKING SPECIALIST-Cdr5
[2024-08-26 17:43] VITALS: BP 90/80; TEMP 98.2; O2SAT 98
== END 2024-08-26 17:17 | disposition home or self-care (01) ==
LOC: ER 14:36
DX: S39.012A Strain of muscle, fascia and tendon of lower back, initial encounter (principal); I10 Essential (primary) hypertension; Z72.0 Tobacco use
CPT/HCPCS: 85025; 36415; 84484; 80053; 71046; 96375; 96374; 99284; J1100; J2405; J7030

== ENCOUNTER 2024-09-01 15:39 | Inpatient (IN) | payer OTHER ==
--- OUTSIDE RECORDS SUMMARY | 2024-09-01 15:47 | XMS REPORT | Continuity of Care Document ---
Author Name Unknown Address [address] [facility] [address] [place] [address] [facility] Address [address] [facility]. 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 Name Role Phone No , Pcp Primary Care Physician Unavailab MIRANDA Givens Attending Clinician Unavailable EDUARDO MELTON Attending Clinician Unavail able OBI-DAVID, LORENA Attending Clinician Unavailab keily OBI-DAVID LORENA Attending Clinician Unavailab ALVIN Fierro Attending Clinician UnavailSAMANTA Ledezma Attending Clinician Daniella Samanta Bowles MD Attending Clinician Doctor Unassigned, [place] Attending Clinician U navailSUZANNA Red Attending Clinician UnavailSUZANNA Dillon Attending Clinician UnavailSuzanna Dillon MD Attending Clinician [phone] DAYNA JACKSON Attending Clinician Unav ailable DAYNA JACKSON Attending Clinician Unav ailable Visit, Emperatrizjose Nurse Attending Clinician Unava ilable Eduardo Álvarez Attending Clinician + HARRISNO ZAMUDIO Attending Clinician Unavailab HARRISON Walton Attending Clinician Unavailab Harrison Walton NP Attending Clinician [phone] Wiliam PASCUAL, Lorena Attending Clinician [phone] Cassius Miranda PALENCIA Attending Clinician [phone] GIBSON SANDHU Attending Clinician Unavailable GIBSON SANDHU Attending Clinician Unavailable GENIA RAMIREZ Attending Clinician Unavailable JAMES, GENIA Attending Clinician Unavailable Genia Cline Attending Clinician [phone] ERIC FIORE Attending Clinician Unavailable ERIC FIORE Attending Clinician Unavailable ISRAEL CARR Attending Clinician Unavailable DELMA RAYMOND Attending Clinician Unavailable DELMA RAYMOND Attending Clinician Unavailable CAYLA LAL Attending Clinician Unavailab keily Marley MD, Sarahy Cunningham Attending Clinician + Cayla Lal MD Attending Clinician [phone] Doctor Unassigned, [place] Attending Clinician U andresailGibson Luna DO Attending Clinician [phone] MEHDI PONCE Attending Clinician Unavailable Mehdi Butler Attending Clinician [phone] Unknown, Attending Attending Clinician Unavailab Anabela Chaudhari MD Attending Clinician [phone] ANABELA ZEPEDA Attending Clinician Unavailable Vtc-Lab Attending Clinician Unavailable Eric Meyer MD Attending Clinician [phone] Sarbjit PASCUAL, Samanta Aaron Attending Clinician TOBIN GARCIA Attending Clinician Unavailable TOBIN GARCIA Attending Clinician Unavailable CASSANDRA ORDONEZ Attending Clinician Unavailable Cassandra Ordonez MD Attending Clinician [phone] Visit, Oscar Nurse Attending Clinician Unava ilable Geronimo CNP, Eduardo C Attending Clinician + Pob, Adc Lab Main Attending Clinician Unavailmyrna kilpatrick [facility] Attending Clini khris Unavailable Darian PASCUAL, Vianney Vidal Attending Clinician [phone] Destiny Pappas PTA Attending Clinician Unavail able Chanel Lentz MD Attending Clinician [phone] CHANEL LENTZ Attending Clinician Unavailmyrna Hernandez TURRET LATHE TENDER, Nancy Melendrez Attending Clinician Unavail able ERIC [...] Unava ilable Percy Prado DO Attending Clinician Murtaza Benz Attending Clinician [phone] MURTAZA JONES Attending Clinician UnavailBINTA Lyons Attending Clinician Unavailable Cornel Brito MD Attending Clinician Binta Bradford Attending Clinician [phone] SAMANTA SCHAFFER Admitting Clinician Daniella Samanta Bowles MD Admitting Clinician OBI-LORENA HERNANDEZ Admitting Clinician Unavailab GIBSON Pham Admitting Clinician Unavailab CASSANDRA Trent Admitting Clinician Unavailable EDUARDO MELTON Admitting Clinician Unavail able ERIC MEYER Admitting Clinician Unavailable Payers Payer Name Policy Type Policy Number Effective Date Expirati on Date Source [employer] [facility] [employer] [id number] 2020 00:00:00 [place] [id number] 2020 00:00:00 Problems Condition Name Condition Details Condition Category Status Onset Date Resolution Date Last Treatment Date Treating Clinician Comments Source Venous insufficie ncy Venous insufficie ncy Disease Active 2023-06 00:00: 00 [facility] Venous insufficie ncy Venous insufficie ncy Disease Active 12-29 00:00: 00 [facility] Varicose veins of both lower extremitie s with pain Varicose veins of both lower extremitie s with pain Disease Active 2024-0 6-03 00:00: 00 [facility] DONN positive DONN positive Disease Active 0 5-06 00:00: 00 [facility] Current mild episode of major depressive disorder, unspecifie d whether recurrent Current mild episode of major depressive disorder, unspecifie d whether recurrent Disease Active 0 8-12 00:00: 00 [facility] Decreased range of motion of left shoulder Decreased range of motion of left shoulder Disease Active 0 8-12 00:00: 00 [facility] Decreased range of motion of left shoulder Decreased range of motion of left shoulder Disease Active 0 8-12 00:00: 00 [facility] Chronic left shoulder pain Chronic left shoulder pain Disease Active 0 7-25 00:00: 00 [facility] Bursitis of left shoulder Bursitis of left shoulder Disease Active 0 6-30 00:00: 00 [facility] Rotator cuff tendinitis , left Rotator cuff tendinitis , left Disease Active 0 6-08 00:00: 00 [facility] Calcific tendinitis of left shoulder Calcific tendinitis of left shoulder Disease Active 0 6-08 00:00: 00 [facility] Hospital discharge follow-up Hospital discharge follow-up Disease Active 0 6-08 00:00: 00 [facility] Pain management contract signed Pain management contract signed Disease Active 0 6-08 00:00: 00 [facility] Well woman exam Well woman exam Disease Active 0 3-25 00:00: 00 [facility] History of tubal ligation History of tubal ligation Disease Active 0 3-25 00:00: 00 [facility] Corns Corns Disease Active 0 9-08 00:00: 00 [facility] Itching Itching Disease Active 0 9-08 00:00: 00 [facility] Knee locking, left Knee locking, left Disease Active 0 9-08 00:00: 00 [facility] Chronic pain of left knee Chronic pain of left knee Disease Active 0 - 00:00: 00 [facility] Dysmenorrh ea Dysmenorrh ea Disease Active 2 00:00: 00 [facility] Acute pain of left shoulder Acute pain of left shoulder Disease Active 01-07 00:00: 00 [facility] Acute pain of left shoulder Acute pain of left shoulder Disease Active 01-07 00:00: 00 [facility] Depression Depression Disease Active 07-08 00:00: 00 [facility] Nicotine dependence with current use Nicotine dependence with current use Disease Active 08-14 00:00: 00 [facility] Nicotine dependence with current use Nicotine dependence with current use Disease Active 08-14 00:00: 00 [facility] Essential hypertensi on Essential hypertensi on Disease Active 08-14 00:00: 00 Overview: Formattin g of this note might be different from the original. ICD10 Diagnosis Term Medical Pathologist Utility [facility] Tobacco use disorder Tobacco use disorder Disease Active 08-14 00:00: 00 [facility] Asthma Asthma Disease Active 08-15 00:00: 00 Overview: Formattin g of this note might be different from the original. ICD10 Diagnosis Term Medical Pathologist Utility [facility] Obesity (BMI 30.0-34.9) Obesity (BMI 30.0-34.9) Disease Resolve d 2018-06 2 00:00: 00 2023-11-01 00:00:00 2023-11-01 10:10:36 [facility] BMI 37.0-37.9, adult BMI 37.0-37.9, adult Disease Resolve d 2 00:00: 00 2022-08-30 00:00:00 2022-08-30 13:39:43 [facility] Obese Obese Disease Resolve d 216 00:00: 00 2022-08-30 00:00:00 2022-08-30 13:39:34 [facility] Periumbili sarai abdominal pain Periumbili sarai abdominal pain Disease Resolve d 12-10 00:00: 00 2021-02-11 00:00:00 2021-02-11 13:31:10 [facility] Need for influenza vaccinatio n Need for influenza vaccinatio n Disease Resolve d 2019-06 00:00: 00 2020-12-28 00:00:00 2020-12-28 20:23:33 [facility] Well woman exam Well woman exam Disease Resolve d 07-22 00:00: 00 2020-12-28 00:00:00 2020-12-28 20:23:35 [facility] History of tubal ligation History of tubal ligation Disease Resolve d 07-09 00:00: 00 2020-12-28 00:00:00 2020-12-28 20:23:38 [facility] Screening examinatio n for STD (sexually transmitte d disease) Screening examinatio n for STD (sexually transmitte d disease) Disease Resolve d 07-08 00:00: 00 2018-08-17 00:00:00 2018-08-17 14:08:04 [facility] Acute foot pain, right Acute foot pain, right Disease Resolve d 09-25 00:00: 00 2015-07-22 00:00:00 2015-07-22 07:45:08 [facility] Surveillan ce of previously prescribed contracept alycia method Surveillan ce of previously prescribed contracept alycia method Disease Resolve d 07-09 00:00: 00 2015-07-22 00:00:00 2021-12-20 00:34:20 [facility] Encounter for routine gynecologi sarai examinatio n Encounter for routine gynecologi sarai examinatio n Disease Resolve d 3-11 00:00: 00 2014-09-25 00:00:00 2021-12-20 00:29:18 [facility] UTI (Urinary tract infection, site not specified) UTI (Urinary tract infection, site not specified) Disease Resolve d 2- 00:00: 00 2014-07-22 00:00:00 2014-07-22 22:26:25 [facility] Abdominal pain Abdominal pain Disease Resolve d 07-08 00:00: 00 2014-07-22 00:00:00 2021-12-20 00:34:19 [facility] Yeast infection of the vagina Yeast infection of the vagina Disease Resolve d 07-08 00:00: 00 2014-07-22 00:00:00 2014-07-22 22:26:27 [facility] Screening for STD (sexually transmitte d disease) Screening for STD (sexually transmitte d disease) Disease Resolve d 07-08 00:00: 00 2014-07-22 00:00:00 2014-07-22 22:26:33 [facility] Tubal ligation status Tubal ligation status Disease Resolve d 08-14 00:00: 00 2014-07-08 00:00:00 2014-07-08 15:30:26 [facility] Morbid obesity Morbid obesity Disease Resolve d 08-14 00:00: 00 2014-07-08 00:00:00 2014-07-08 15:30:30 [facility] FHx: breast cancer FHx: breast cancer Disease Resolve d 08-14 00:00: 00 2014-07-08 00:00:00 2014-07-08 15:30:34 [facility] FHx: ovarian cancer FHx: ovarian cancer Disease Resolve d 08-14 00:00: 00 2014-07-08 00:00:00 2014-07-08 15:30:36 [facility] Lump or mass in breast Lump or mass in breast Disease Resolve d 08-14 00:00: 00 2014-07-08 00:00:00 2021-12-20 00:29:18 [facility] Essential hypertensi on, benign Essential hypertensi on, benign Disease Resolve d 08-15 00:00: 00 2013-08-14 00:00:00 2013-08-14 15:19:50 [facility] Allergies, Adverse Reactions, Alerts Allergy Name Allergy Type Status Severity Reaction(s) Onset Date Inactive Date Treating Clinician Comments Source NO KNOWN ALLERGIE S Drug Class Active [facility] Social History Social Habit Start Date Stop Date Quantity Comments Source Gender identity [facility] History SDOH Alcohol Frequency [facility] History SDOH Alcohol Std Drinks [facility] History SDOH Alcohol Binge [facility] History of tobacco use Cigarette Smoker [facility] Sexual orientation [facility] Alcoholic beverage intake 2024-08-06 00:00:00 2024-08-06 00:00:00 0 /d [facility] History of Social function 2023-11-07 00:00:00 2023-11-07 00:00:00 [facility] Cigarettes smoked current (pack per day) - Reported 2023-10-12 00:00:00 2023-10-12 00:00:00 [facility] Cigarette pack-years 2023-10-12 00:00:00 2023-10-12 00:00:00 [facility] Tobacco use and exposure 2023-10-12 00:00:00 2023-10-12 00:00:00 Smokeless tobacco non-user [facility] Alcohol intake 2023-08-22 00:00:00 2023-08-22 00:00:00 0 /d [facility] Exposure to SARS-CoV-2 (event) 2022-10-11 00:00:00 2022-10-21 10:50:00 Not sure [facility] Tobacco Comment 2022-04-09 00:00:00 2022-04-09 00:00:00 1-2 cigarettes [facility] Alcohol Comment 2014-12-09 00:00:00 2014-12-09 00:00:00 Socially, 3-4 beers [facility] Sex assigned at 1980 00:00:00 1980 00:00:00 [facility] Smoking Status Start Date Stop Date Source Smokes tobacco daily 2023-10-12 00:00:00 [facility] Occasional tobacco smoker 2022-08-30 00:00:00 [facility] Medications Ordered Medication Name Filled Medication Name [...] of blood clots in the leg veins [facility] apixaban 5 mg tablet 2-06 00:00: 00 09-11 04:59 :00 Yes [id number] 5mg Take 1 tablet by mouth in the morning and 1 tablet in the evening. Do all this for 60 days. Indication s: formation of blood clots in the leg veins [facility] apixaban 5 mg tablet 1-30 00:00: 00 07-13 05:59 :00 Yes [id number] 10mg Take 2 tablets by mouth in the morning and 2 tablets in the evening. Do all this for 7 days. Indication s: formation of blood clots in the leg veins [facility] HYDROcodone -acetaminop hen (NORCO 5) tablet 1 tablet 06-18 20:45: 00 06-18 20:38 :00 No 1{tbl} 1 tablet, Oral, ONCE, 1 dose, On Tue06/18/24 at 1445, Routine, PACU [facility] lactated ringers IV infusion 500 mL 06-18 20:45: 00 06-18 23:06 :45 No 500mL at 50 mL/hr, 500 mL, IV Infusion, CONTINUOUS , Starting on Tue06/18/24 at 1445, Until Tue06/18/24 at 1706, Routine, PACU [facility] HYDROmorphO ne (DILAUDID) injection 0.2 mg 06-18 20:32: 14 06-18 23:06 :45 No .2mg 0.2 mg, Slow IV Push, Q5MIN PRN, 10 doses, Starting on Tue06/18/24 at 1432, Until Tue06/18/24 at 1706, Routine, Pain (scale 7-10), PACU, Is this medication approved by a Faculty level provider? Yes, train crew member approving Restricted medication : ENZO JORGE [facility] FENTanyl (PF) (SUBLIMAZE) injection 25 mcg 06-18 20:32: 14 06-18 23:06 :45 No 25ug 25 mcg, Slow IV Push, Q5MIN PRN, 4 doses, Starting on Tue06/18/24 at 1432, Until Tue06/18/24 at 1706, Routine, Pain Scale 4-6, PACU [facility] lidocaine-e pinephrine (XYLOCAINE WITH EPINEPHRINE ) 1 %-1:100,000 injection 06-18 19:11: 00 06-18 20:07 :14 No PRN, Starting on Tue06/18/24 at 1311, Until Tue06/18/24 at 1407, Routine, Intra-op [facility] sodium chloride 0.9 % irrigation solution 06-18 18:37: 00 06-18 23:06 :45 No PRN, Starting on Tue06/18/24 at 1237, Until Tue06/18/24 at 1706, Intra-op [facility] sodium bicarbonate 1 mEq/mL (8.4 %) injection 06-18 18:37: 00 06-18 20:07 :14 No PRN, Starting on Tue06/18/24 at 1237, Until Tue06/18/24 at 1407, Routine, Intra-op [facility] acetaminoph en (TYLENOL EXTRA STRENGTH) 500 mg tablet 06-18 00:00: 00 Yes [id number] 500mg Take 1 tablet by mouth every 6 (six) hours as needed for Pain. [facility] ibuprofen 400 mg tablet 06-18 00:00: 00 Yes [id number] 400mg Take 1 tablet by mouth every 6 (six) hours as needed for Pain (scale 1-3) or Pain (scale 4-6). [facility] naproxen 500 mg tablet 2023-06 00:00: 00 Yes [id number] 500mg Take 1 tablet by mouth 2 (two) times daily with meals as needed for Pain (scale 4-6). [facility] diclofenac dodium 1 % gel - 00:00: 00 Yes [id number] Take 2-4 grams three times a day as needed for pain [facility] naproxen 500 mg tablet 12-18 00:00: 00 12-26 04:59 :00 No [id number] 500mg Take 1 tablet by mouth in the morning and 1 tablet in the evening. Take with meals. Do all this for 7 days. [facility] traMADoL 50 mg tablet 12-18 00:00: 00 12-26 04:59 :00 No [id number] 50mg Take 1 tablet by mouth every 6 (six) hours as needed for Pain (scale 7-10) for up to 7 days. Indication s: chronic pain [facility] acetaminoph en (TYLENOL) tablet 650 mg 12-14 08:30: 00 12-14 08:26 :00 No 650mg 650 mg, Oral, ONCE, 1 dose, On Phyllis 12/15/23 at 0330, DOMINIQUE [facility] hyoscyamine sulfate (LEVSIN/SL) sublingual tablet 0.25 mg 12-14 08:30: 00 12-14 07:28 :00 No .25mg 0.25 mg, Sublingual , ONCE NOW, 1 dose, On Tue12/15/23 at 0330, Routine [facility] famotidine (PEPCID (PF)) injection 20 mg 12-14 08:30: 00 12-14 07:26 :00 No 20mg 20 mg, Slow IV Push, ONCE NOW, 1 dose, On Tue12/15/23 at 0330, DOMINIQUE [facility] NaCl 0.9% (NS) bolus infusion 1,000 mL 12-14 08:15: 00 12-14 08:11 :00 No 1000mL at 999 mL/hr, 1,000 mL, IV Piggyback, ONCE, 1 dose, On Phyllis 12/15/23 at 0315, STAT [facility] haloperidol lactate (HALDOL) injection 2.5 mg 12-14 07:30: 00 12-14 07:40 :00 No 2.5mg 2.5 mg, Intravenou s, ONCE, 1 dose, On Phyllis 12/15/23 at 0230, STAT [facility] famotidine (PEPCID) 20 mg tablet 12-14 00:00: 00 06-18 00:00 :00 No [id number] 20mg Take 1 tablet by mouth in the morning and 1 tablet in the evening. [facility] ondansetron 8 mg disintegrat ing tablet 12-14 00:00: 00 06-18 00:00 :00 No [id number] 8mg Take 1 tablet by mouth every 8 (eight) hours as needed for Nausea and Vomiting (N/V). [facility] hyoscyamine sulfate (LEVSIN/SL) 0.125 mg sublingual tablet 12-14 00:00: 00 06-18 00:00 :00 [id number] 2 tablets under the tongue every 6 (six) hours as needed (Abdominal pain or cramping). [facility] Oral Electrolyte s (PEDIALYTE ADVANCED CARE) solution 12-14 00:00: 00 06-18 00:00 :00 No [id number] 500mL Take 500 mL by mouth every 6 (six) hours. [facility] ketoconazol e 2 % shampoo 12-07 00:00: 00 Yes [id number] Apply to area(s) 2 (two) times per week. Leave on 5-10 minutes, then rinse. [facility] fluconazole 200 mg tablet 12-06 00:00: 00 06-18 00:00 :00 No [id number] Take 200 mg once monthly for 3 months. [facility] lisinopril- hydroCHLORO thiazide 20-25 MG tablet 11-06 11:45: 32 Yes 1{tbl} Take 1 tablet by mouth every morning. [facility] medroxyPROG ESTERone (DEPO-PROVE RA) syringe 150 mg 10-31 15:30: 00 12-25 15:29 :00 No [id number] 150mg 150 mg, Intramuscu lar, [id number], 5 doses, First dose on Tue11/01/23 at 1030, Last dose on Tue10/02/24 at 1030, Routine [facility] fluconazole (Diflucan) 200 MG tablet 10-18 00:00: 00 Yes 1{tbl} Take 1 tablet by mouth every morning. [facility] ketoconazol e 2 % shampoo 10-18 00:00: 00 06-18 00:00 :00 No [id number] Apply to area(s) once daily as needed for Itching. [facility] fluconazole 200 mg tablet 10-18 00:00: 00 06-18 00:00 :00 No [id number] 200mg Take 1 tablet by mouth in the morning. [facility] lisinopriL- hydrochloro thiazide 20-25 mg per tablet 09-25 00:00: 00 Yes [id number] 1{tbl} Take 1 tablet by mouth in the morning. [facility] iopamidol (ISOVUE 370-500 mL) injection 85 mL 08-07 17:34: 00 08-07 17:45 :00 No [id number] 85mL 85 mL, Intravenou s, ONCE, 1 dose, On Tue08/08/23 at 1145, Routine [facility] FENTanyl PF (SUBLIMAZE (PF)) injection 75 mcg 08-07 17:15: 00 08-07 16:21 :00 No 75ug 75 mcg, Slow IV Push, ONCE, 1 dose, On Tue08/08/23 at 1115, STAT [facility] NaCl 0.9% (NS) bolus infusion 1,000 mL 08-07 17:00: 00 08-07 18:14 :00 No 1000mL at 999 mL/hr, 1,000 mL, IV Infusion, ONCE, 1 dose, On Tue08/08/23 at 1100, DOMINIQUE [facility] maalox:diph enhydrAMINE :lidocaine 2 % viscous 1:1:1 ([facility]) oral suspension 15 mL 3-04 16:15: 00 08-07 16:21 :00 No 15mL 15 mL, Oral, ONCE, 1 dose, On Tue08/08/23 at 1015, DOMINIQUE [facility] metoclopram portia HCl (REGLAN) injection 10 mg 3-04 16:15: 00 08-07 16:22 :00 No 10mg 10 mg, Slow IV Push, ONCE, 1 dose, On Tue08/08/23 at 1015, [facility] sucralfate 1 gram tablet 3 00:00: 00 10-09 00:00 :00 No [id number] 1g Take 1 tablet by mouth before meals and at bedtime. [facility] famotidine 20 mg tablet 08-07 00:00: 00 10-09 00:00 :00 No [id number] 20mg Take 1 tablet by mouth in the morning and 1 tablet in the evening. [facility] ondansetron 4 mg disintegrat ing tablet 08-07 00:00: 00 10-09 00:00 :00 No [id number] 4mg Take 1 tablet by mouth every 4 (four) hours as needed for Nausea and Vomiting (N/V). [facility] medroxyPROG ESTERone (DEPO-PROVE RA) syringe 150 mg - 16:15: 00 07-20 15:25 :00 No [id number] 150mg [facility] pregabalin 25 mg capsule 2-05 00:00: 00 10-09 04:59 :00 No [id number] 25mg Take 1 capsule by mouth in the morning and 1 capsule at noon and 1 capsule in the evening. Do all this for 90 days. [facility] predniSONE 50 mg tablet 2-05 00:00: 00 07-17 05:59 :00 No [id number] 50mg Take 1 tablet by mouth in the morning for 5 days. [facility] SERTraline 25 mg tablet 2022-06 0- 00:00: 00 10-09 00:00 :00 No [id number] 25mg Take 1 tablet by mouth in the morning. [facility] Diclofenac Sodium (VOLTAREN) 1 % gel 2022-06 0- 00:00: 00 10-09 00:00 :00 No [id number] Apply to area(s) 4 (four) times daily. Apply 4 g qid [facility] methocarbam oL 750 mg tablet 2022-06 0- 00:00: 00 07-11 00:00 :00 No [id number] 750mg Take 1 tablet by mouth 4 (four) times daily. [facility] hydrOXYzine 25 mg tablet - 00:00: 00 10-09 00:00 :00 No [id number] 25mg Take 1 tablet by mouth every 8 (eight) hours as needed for Anxiety. [facility] SERTraline 100 mg tablet 01-28 00:00: 03-08 00:00 :00 No [id number] 100mg Take 1 tablet by mouth in the morning. [facility] medroxyPROG ESTERone (DEPO-PROVE RA) syringe 150 mg 10-21 17:00: 00 04-19 15:41 :00 No [id number] 150mg 150 mg, Intramuscu lar, [id number], 3 doses, First dose on Phyllis 10/21/22 at 1200, Last dose on Phyllis 04/07/23 at 1200, Routine [facility] lisinopriL- hydrochloro thiazide 20-25 mg per tablet 2- 00:00: 00 09-24 00:00 :00 No [id number] 1{tbl} Take 1 tablet by mouth in the morning. [facility] sumatriptan 100 mg tablet 2021-06- 00:00: 00 03-08 00:00 :00 No [id number] 100mg Take 1 tablet by mouth as needed for Migraine. [facility] lisinopriL- hydrochloro thiazide 20-25 mg per tablet 9-19 00:00: 00 07-29 00:00 :00 No [id number] 1{tbl} Take 1 tablet by mouth in the morning. [facility] nicotine 14 mg/24 hr patch 8-12 00:00: 00 03-08 00:00 :00 No [id number] 1{patch } Apply 1 Patch to area(s) every 24 (twenty-fo ur) hours. Apply 21mg patch daily x 6 weeks; then apply 14mf patch daily x 2 weeks; then apply 7mg patch daily x 2 weeks. Stop smoking on initiation of therapy [facility] nicotine 7 mg/24 hr patch 8-12 00:00: 00 03-08 00:00 :00 No [id number] 1{patch } Apply 1 Patch to area(s) every 24 (twenty-fo ur) hours. Apply 21mg patch daily x 6 weeks; then apply 14mf patch daily x 2 weeks; then apply 7mg patch daily x 2 weeks. Stop smoking on initiation of therapy [facility] nicotine 21 mg/24 hr patch 8-12 00:00: 00 01-24 00:00 :00 No [id number] 1{patch } Apply 1 Patch to area(s) in the morning. Apply 21mg patch daily x 6 weeks; then apply 14mf patch daily x 2 weeks; then apply 7mg patch daily x 2 weeks. Stop smoking on initiation of therapy [facility] SERTRALINE 50 mg tablet 7- 00:00: 00 01-28 00:00 :00 No [id number] 50mg TAKE 1 TABLET BY MOUTH DAILY [facility] lidocaine 5 % ointment 7- 00:00: 00 03-08 00:00 :00 No [id number] Apply 2g to affected areas BID PRN [facility] amitriptyli ne 25 mg tablet 6-30 00:00: 00 03-08 00:00 :00 No [id number] 25mg Take 1 tablet by mouth at bedtime. [facility] methocarbam oL 750 mg tablet 11-11 00:00: 00 03-08 00:00 :00 No [id number] 750mg Take 1 tablet by mouth 4 (four) times daily. [facility] ibuprofen 600 mg tablet 11-11 00:00: 00 03-08 00:00 :00 No [id number] 600mg Take 1 tablet by mouth every 6 (six) hours as needed for Pain (scale 4-6). [facility] Diclofenac Sodium (VOLTAREN) 1 % gel 11-11 00:00: 00 03-08 00:00 :00 No [id number] Apply to area(s) 4 (four) times daily. Apply 4 g qid [facility] acetaminoph en-codeine (TYLENOL-CO DEINE #3) 300-30 mg tablet 11-11 00:00: 00 03-08 00:00 :00 No [id number] 1{tbl} Take 1 tablet by mouth every 6 (six) hours as needed for Pain (scale 7-10). Indication s: acute pain [facility] medroxyPROG ESTERone (DEPO-PROVE RA) injection 150 mg 25 14:00: 00 07-30 14:59 :00 No [id number] 150mg [facility] SERTraline (ZOLOFT) 50 mg tablet 08-05 00:00: 00 Yes [id number] 50mg Take 1 tablet by mouth daily. [facility] lisinopriL- hydrochloro thiazide 20-25 mg per tablet 08-05 00:00: 00 02-21 00:00 :00 No [id number] 1{tbl} Take 1 tablet by mouth daily. [facility] triamcinolo ne acetonide 0.1 % cream 07 00:00: 00 03-08 00:00 :00 No Apply to affected area(s) 2 (two) times daily. [facility] [facility] [employer] Kit 10-23 00:00: 00 Yes [id number] I10 - Dispense blood pressure cuff (any brand), take BP at home BID [facility] [facility] Kit 10-23 00:00: 00 03-08 00:00 :00 No [id number] I10 - Dispense blood pressure cuff (any brand), take BP at home BID [facility] Immunizations Ordered Immunization Name Filled Immunization Name Date Status Comments Source TD, NOS 2024-02-27 15:00:00 Completed [facility] Influenza Virus Vaccine Quad IM 3+ YRS 2024-02-27 15:00:00 Completed [facility] TDAP (ADACEL) VACCINE 2024-02-27 15:00:00 Completed [facility] SARS-COV-2 COVID-19 PFIZER VACCINE 2024-02-27 15:00:00 Completed [facility] SARS-COV-2 COVID-19 PFIZER ALEXI-SUCROSE VACCINE (GILES TOP) 2024-02-27 15:00:00 Completed [facility] HPV9 2024-02-27 15:00:00 Completed [facility] Influenza Virus Vaccine Quad IM 3+ YRS 2024-02-20 00:00:00 Completed [facility] SARS-COV-2 COVID-19 PFIZER VACCINE 2024-02-20 00:00:00 Completed [facility] SARS-COV-2 COVID-19 PFIZER ALEXI-SUCROSE VACCINE (GILES TOP) 2024-02-20 00:00:00 Completed [facility] HPV9 2024-02-20 00:00:00 Completed [facility] TD, NOS 2023-11-15 11:53:38 Completed [facility] Influenza Virus Vaccine Quad IM 3+ YRS 2023-11-15 11:53:38 Completed [facility] TDAP (ADACEL) VACCINE 2023-11-15 11:53:38 Completed [facility] SARS-COV-2 COVID-19 PFIZER VACCINE 2023-11-15 11:53:38 Completed [facility] SARS-COV-2 COVID-19 PFIZER ALEXI-SUCROSE VACCINE (GILES TOP) 2023-11-15 11:53:38 Completed [facility] HPV9 2023-11-15 11:53:38 Completed [facility] TD, NOS 2023-11-08 13:00:00 Completed [facility] TDAP (ADACEL) VACCINE 2023-11-08 13:00:00 Completed [facility] Influenza Virus Vaccine Quad IM 3+ YRS 2023-11-08 13:00:00 Completed [facility] SARS-COV-2 COVID-19 PFIZER VACCINE 2023-11-08 13:00:00 Completed [facility] SARS-COV-2 COVID-19 PFIZER ALEXI-SUCROSE VACCINE (GILES TOP) 2023-11-08 13:00:00 Completed [facility] HPV9 2023-11-08 13:00:00 Completed [facility] TD, NOS 2023-11-02 15:51:12 Completed [facility] Influenza Virus Vaccine Quad IM 3+ YRS 2023-11-02 15:51:12 Completed [facility] TDAP (ADACEL) VACCINE 2023-11-02 15:51:12 Completed [facility] SARS-COV-2 COVID-19 PFIZER VACCINE 2023-11-02 15:51:12 Completed [facility] SARS-COV-2 COVID-19 PFIZER ALEXI-SUCROSE VACCINE (GILES TOP) 2023-11-02 15:51:12 Completed [facility] HPV9 2023-11-02 15:51:12 Completed [facility] TD, NOS 2023-11-02 15:40:00 Completed [facility] TDAP (ADACEL) VACCINE 2023-11-02 15:40:00 Completed [facility] Influenza Virus Vaccine Quad IM 3+ YRS 2023-11-02 15:40:00 Completed [facility] SARS-COV-2 COVID-19 PFIZER VACCINE 2023-11-02 15:40:00 Completed [facility] SARS-COV-2 COVID-19 PFIZER ALEXI-SUCROSE VACCINE (GILES TOP) 2023-11-02 15:40:00 Completed [facility] HPV9 2023-11-02 15:40:00 Completed [facility] TD, NOS 2023-11-01 10:30:00 Completed [facility] TDAP (ADACEL) VACCINE 2023-11-01 10:30:00 Completed [facility] Influenza Virus Vaccine Quad IM 3+ YRS 2023-11-01 10:30:00 Completed [facility] SARS-COV-2 COVID-19 PFIZER VACCINE 2023-11-01 10:30:00 Completed [facility] SARS-COV-2 COVID-19 PFIZER ALEXI-SUCROSE VACCINE (GILES TOP) 2023-11-01 10:30:00 Completed [facility] HPV9 2023-11-01 10:30:00 Completed [facility] TD, NOS 2023-10-24 00:00:00 Completed [facility] Influenza Virus Vaccine Quad IM 3+ YRS 2023-10-24 00:00:00 Completed [facility] TDAP (ADACEL) VACCINE 2023-10-24 00:00:00 Completed [facility] SARS-COV-2 COVID-19 PFIZER VACCINE 2023-10-24 00:00:00 Completed [facility] SARS-COV-2 COVID-19 PFIZER ALEXI-SUCROSE VACCINE (GILES TOP) 2023-10-24 00:00:00 Completed [facility] HPV9 2023-10-24 00:00:00 Completed [facility] TD, NOS 2023-10-19 11:00:00 Completed [facility] TDAP (ADACEL) VACCINE 2023-10-19 11:00:00 Completed [facility] Influenza Virus Vaccine Quad IM 3+ YRS 2023-10-19 11:00:00 Completed [facility] SARS-COV-2 COVID-19 PFIZER VACCINE 2023-10-19 11:00:00 Completed [facility] SARS-COV-2 COVID-19 PFIZER ALEXI-SUCROSE VACCINE (GILES TOP) 2023-10-19 11:00:00 Completed [facility] HPV9 2023-10-19 11:00:00 Completed [facility] TD, NOS 2023-10-19 00:00:00 Completed [facility] TDAP (ADACEL) VACCINE 2023-10-19 00:00:00 Completed [facility] Influenza Virus Vaccine Quad IM 3+ YRS 2023-10-19 00:00:00 Completed [facility] SARS-COV-2 COVID-19 PFIZER VACCINE 2023-10-19 00:00:00 Completed [facility] SARS-COV-2 COVID-19 PFIZER ALEXI-SUCROSE VACCINE (GILES TOP) 2023-10-19 00:00:00 Completed [facility] HPV9 2023-10-19 00:00:00 Completed [facility] TD, NOS 2023-10-12 12:00:00 Completed [facility] Influenza Virus Vaccine Quad IM 3+ YRS 2023-10-12 12:00:00 Completed [facility] TDAP (ADACEL) VACCINE 2023-10-12 12:00:00 Completed [facility] SARS-COV-2 COVID-19 PFIZER VACCINE 2023-10-12 12:00:00 Completed [facility] SARS-COV-2 COVID-19 PFIZER ALEXI-SUCROSE VACCINE (GILES TOP) 2023-10-12 12:00:00 Completed [facility] HPV9 2023-10-12 12:00:00 Completed [facility] TD, NOS 2023-10-12 11:00:00 Completed [facility] TDAP (ADACEL) VACCINE 2023-10-12 11:00:00 Completed [facility] Influenza Virus Vaccine Quad IM 3+ YRS 2023-10-12 11:00:00 Completed [facility] SARS-COV-2 COVID-19 PFIZER VACCINE 2023-10-12 11:00:00 Completed [facility] SARS-COV-2 COVID-19 PFIZER ALEXI-SUCROSE VACCINE (GILES TOP) 2023-10-12 11:00:00 Completed [facility] HPV9 2023-10-12 11:00:00 Completed [facility] TD, NOS 2023-10-10 09:20:00 Completed [facility] TDAP (ADACEL) VACCINE 2023-10-10 09:20:00 Completed [facility] Influenza Virus Vaccine Quad IM 3+ YRS 2023-10-10 09:20:00 Completed [facility] SARS-COV-2 COVID-19 PFIZER VACCINE 2023-10-10 09:20:00 Completed [facility] SARS-COV-2 COVID-19 PFIZER ALEXI-SUCROSE VACCINE (GILES TOP) 2023-10-10 09:20:00 Completed [facility] HPV9 2023-10-10 09:20:00 Completed [facility] TD, NOS 2023-09-25 00:00:00 Completed [facility] Influenza Virus Vaccine Quad IM 3+ YRS 2023-09-25 00:00:00 Completed [facility] TDAP (ADACEL) VACCINE 2023-09-25 00:00:00 Completed [facility] SARS-COV-2 COVID-19 PFIZER VACCINE 2023-09-25 00:00:00 Completed [facility] SARS-COV-2 COVID-19 PFIZER ALEXI-SUCROSE VACCINE (GILES TOP) 2023-09-25 00:00:00 Completed [facility] HPV9 2023-09-25 00:00:00 Completed [facility] TD, NOS 2023-08-22 15:15:00 Completed [facility] TDAP (ADACEL) VACCINE 2023-08-22 15:15:00 Completed [facility] Influenza Virus Vaccine Quad IM 3+ YRS 2023-08-22 15:15:00 Completed [facility] SARS-COV-2 COVID-19 PFIZER VACCINE 2023-08-22 15:15:00 Completed [facility] SARS-COV-2 COVID-19 PFIZER ALEXI-SUCROSE VACCINE (GILES TOP) 2023-08-22 15:15:00 Completed [facility] HPV9 2023-08-22 15:15:00 Completed [facility] TD, NOS 2023-08-15 13:30:00 Completed [facility] TDAP (ADACEL) VACCINE 2023-08-15 13:30:00 Completed [facility] Influenza Virus Vaccine Quad IM 3+ YRS 2023-08-15 13:30:00 Completed [facility] SARS-COV-2 COVID-19 PFIZER VACCINE 2023-08-15 13:30:00 Completed [facility] SARS-COV-2 COVID-19 PFIZER ALEXI-SUCROSE VACCINE (GILES TOP) 2023-08-15 13:30:00 Completed [facility] HPV9 2023-08-15 13:30:00 Completed [facility] TD, NOS 2023-08-08 09:37:00 Completed [facility] Influenza Virus Vaccine Quad IM 3+ YRS 2023-08-08 09:37:00 Completed [facility] TDAP (ADACEL) VACCINE 2023-08-08 09:37:00 Completed [facility] SARS-COV-2 COVID-19 PFIZER VACCINE 2023-08-08 09:37:00 Completed [facility] SARS-COV-2 COVID-19 PFIZER ALEXI-SUCROSE VACCINE (GILES TOP) 2023-08-08 09:37:00 Completed [facility] HPV9 2023-08-08 09:37:00 Completed [facility] TD, NOS 2023-07-27 00:00:00 Completed [facility] Influenza Virus Vaccine Quad IM 3+ YRS 2023-07-27 00:00:00 Completed [facility] TDAP (ADACEL) VACCINE 2023-07-27 00:00:00 Completed [facility] SARS-COV-2 COVID-19 PFIZER VACCINE 2023-07-27 00:00:00 Completed [facility] SARS-COV-2 COVID-19 PFIZER ALEXI-SUCROSE VACCINE (GILES TOP) 2023-07-27 00:00:00 Completed [facility] HPV9 2023-07-27 00:00:00 Completed [facility] TD, NOS 2023-07-21 00:00:00 Completed [facility] Influenza Virus Vaccine Quad IM 3+ YRS 2023-07-21 00:00:00 Completed [facility] TDAP (ADACEL) VACCINE 2023-07-21 00:00:00 Completed [facility] SARS-COV-2 COVID-19 PFIZER VACCINE 2023-07-21 00:00:00 Completed [facility] SARS-COV-2 COVID-19 PFIZER ALEXI-SUCROSE VACCINE (GILES TOP) 2023-07-21 00:00:00 Completed [facility] HPV9 2023-07-21 00:00:00 Completed [facility] TD, NOS 2023-07-20 09:30:00 Completed [facility] Influenza Virus Vaccine Quad IM 3+ YRS 2023-07-20 09:30:00 Completed [facility] TDAP (ADACEL) VACCINE 2023-07-20 09:30:00 Completed [facility] SARS-COV-2 COVID-19 PFIZER VACCINE 2023-07-20 09:30:00 Completed [facility] SARS-COV-2 COVID-19 PFIZER ALEXI-SUCROSE VACCINE (GILES TOP) 2023-07-20 09:30:00 Completed [facility] HPV9 2023-07-20 09:30:00 Completed [facility] TD, NOS 2023-07-20 00:00:00 Completed [facility] Influenza Virus Vaccine Quad IM 3+ YRS 2023-07-20 00:00:00 Completed [facility] TDAP (ADACEL) VACCINE 2023-07-20 00:00:00 Completed [facility] SARS-COV-2 COVID-19 PFIZER VACCINE 2023-07-20 00:00:00 Completed [facility] SARS-COV-2 COVID-19 PFIZER ALEXI-SUCROSE VACCINE (GILES TOP) 2023-07-20 00:00:00 Completed [facility] HPV9 2023-07-20 00:00:00 Completed [facility] TD, NOS 2023-07-20 00:00:00 Completed [facility] Influenza Virus Vaccine Quad IM 3+ YRS 2023-07-20 00:00:00 Completed [facility] TDAP (ADACEL) VACCINE 2023-07-20 00:00:00 Completed [facility] SARS-COV-2 COVID-19 PFIZER VACCINE 2023-07-20 00:00:00 Completed [facility] SARS-COV-2 COVID-19 PFIZER ALEXI-SUCROSE VACCINE (GILES TOP) 2023-07-20 00:00:00 Completed [facility] HPV9 2023-07-20 00:00:00 Completed [facility] TD, NOS 2023-07-20 00:00:00 Completed [facility] Influenza Virus Vaccine Quad IM 3+ YRS 2023-07-20 00:00:00 Completed [facility] TDAP (ADACEL) VACCINE 2023-07-20 00:00:00 Completed [facility] SARS-COV-2 COVID-19 PFIZER VACCINE 2023-07-20 00:00:00 Completed [facility] SARS-COV-2 COVID-19 PFIZER ALEXI-SUCROSE VACCINE (GILES TOP) 2023-07-20 00:00:00 Completed [facility] HPV9 2023-07-20 00:00:00 Completed [facility] TD, NOS 2023-07-19 00:00:00 Completed [facility] Influenza Virus Vaccine Quad IM 3+ YRS 2023-07-19 00:00:00 Completed [facility] TDAP (ADACEL) VACCINE 2023-07-19 00:00:00 Completed [facility] SARS-COV-2 COVID-19 PFIZER VACCINE 2023-07-19 00:00:00 Completed [facility] SARS-COV-2 COVID-19 PFIZER ALEXI-SUCROSE VACCINE (GILES TOP) 2023-07-19 00:00:00 Completed [facility] HPV9 2023-07-19 00:00:00 Completed [facility] TD, NOS 2023-07-18 00:00:00 Completed [facility] Influenza Virus Vaccine Quad IM 3+ YRS 2023-07-18 00:00:00 Completed [facility] TDAP (ADACEL) VACCINE 2023-07-18 00:00:00 Completed [facility] SARS-COV-2 COVID-19 PFIZER VACCINE 2023-07-18 00:00:00 Completed [facility] SARS-COV-2 COVID-19 PFIZER ALEXI-SUCROSE VACCINE (GILES TOP) 2023-07-18 00:00:00 Completed [facility] HPV9 2023-07-18 00:00:00 Completed [facility] TD, NOS 2023-07-13 10:00:00 Completed [facility] Influenza Virus Vaccine Quad IM 3+ YRS 2023-07-13 10:00:00 Completed [facility] TDAP (ADACEL) VACCINE 2023-07-13 10:00:00 Completed [facility] SARS-COV-2 COVID-19 PFIZER VACCINE 2023-07-13 10:00:00 Completed [facility] SARS-COV-2 COVID-19 PFIZER ALEXI-SUCROSE VACCINE (GILES TOP) 2023-07-13 10:00:00 Completed [facility] HPV9 2023-07-13 10:00:00 Completed [facility] TD, NOS 2023-07-13 09:47:08 Completed [facility] Influenza Virus Vaccine Quad IM 3+ YRS 2023-07-13 09:47:08 Completed [facility] TDAP (ADACEL) VACCINE 2023-07-13 09:47:08 Completed [facility] SARS-COV-2 COVID-19 PFIZER VACCINE 2023-07-13 09:47:08 Completed [facility] SARS-COV-2 COVID-19 PFIZER ALEXI-SUCROSE VACCINE (GILES TOP) 2023-07-13 09:47:08 Completed [facility] HPV9 2023-07-13 09:47:08 Completed [facility] TD, NOS 2023-07-13 09:46:30 Completed [facility] Influenza Virus Vaccine Quad IM 3+ YRS 2023-07-13 09:46:30 Completed [facility] TDAP (ADACEL) VACCINE 2023-07-13 09:46:30 Completed [facility] SARS-COV-2 COVID-19 PFIZER VACCINE 2023-07-13 09:46:30 Completed [facility] SARS-COV-2 COVID-19 PFIZER ALEXI-SUCROSE VACCINE (GILES TOP) 2023-07-13 09:46:30 Completed [facility] HPV9 2023-07-13 09:46:30 Completed [facility] TD, NOS 2023-07-13 08:34:13 Completed [facility] Influenza Virus Vaccine Quad IM 3+ YRS 2023-07-13 08:34:13 Completed [facility] TDAP (ADACEL) VACCINE 2023-07-13 08:34:13 Completed [facility] SARS-COV-2 COVID-19 PFIZER VACCINE 2023-07-13 08:34:13 Completed [facility] SARS-COV-2 COVID-19 PFIZER ALEXI-SUCROSE VACCINE (GILES TOP) 2023-07-13 08:34:13 Completed [facility] HPV9 2023-07-13 08:34:13 Completed [facility] TD, NOS 2023-07-13 00:00:00 Completed [facility] Influenza Virus Vaccine Quad IM 3+ YRS 2023-07-13 00:00:00 Completed [facility] TDAP (ADACEL) VACCINE 2023-07-13 00:00:00 Completed [facility] SARS-COV-2 COVID-19 PFIZER VACCINE 2023-07-13 00:00:00 Completed [facility] SARS-COV-2 COVID-19 PFIZER ALEXI-SUCROSE VACCINE (GILES TOP) 2023-07-13 00:00:00 Completed [facility] HPV9 2023-07-13 00:00:00 Completed [facility] TD, NOS 2023-07-12 00:00:00 Completed [facility] Influenza Virus Vaccine Quad IM 3+ YRS 2023-07-12 00:00:00 Completed [facility] TDAP (ADACEL) VACCINE 2023-07-12 00:00:00 Completed [facility] SARS-COV-2 COVID-19 PFIZER VACCINE 2023-07-12 00:00:00 Completed [facility] SARS-COV-2 COVID-19 PFIZER ALEXI-SUCROSE VACCINE (GILES TOP) 2023-07-12 00:00:00 Completed [facility] HPV9 2023-07-12 00:00:00 Completed [facility] TD, NOS 2023-07-11 09:40:00 Completed [facility] TDAP (ADACEL) VACCINE 2023-07-11 09:40:00 Completed [facility] Influenza Virus Vaccine Quad IM 3+ YRS 2023-07-11 09:40:00 Completed [facility] SARS-COV-2 COVID-19 PFIZER VACCINE 2023-07-11 09:40:00 Completed [facility] SARS-COV-2 COVID-19 PFIZER ALEXI-SUCROSE VACCINE (GILES TOP) 2023-07-11 09:40:00 Completed [facility] HPV9 2023-07-11 09:40:00 Completed [facility] TD, NOS 2023-07-11 00:00:00 Completed [facility] Influenza Virus Vaccine Quad IM 3+ YRS 2023-07-11 00:00:00 Completed [facility] TDAP (ADACEL) VACCINE 2023-07-11 00:00:00 Completed [facility] SARS-COV-2 COVID-19 PFIZER VACCINE 2023-07-11 00:00:00 Completed [facility] SARS-COV-2 COVID-19 PFIZER ALEXI-SUCROSE VACCINE (GILES TOP) 2023-07-11 00:00:00 Completed [facility] HPV9 2023-07-11 00:00:00 Completed [facility] TD, NOS 2023-07-11 00:00:00 Completed [facility] Influenza Virus Vaccine Quad IM 3+ YRS 2023-07-11 00:00:00 Completed [facility] TDAP (ADACEL) VACCINE 2023-07-11 00:00:00 Completed [facility] SARS-COV-2 COVID-19 PFIZER VACCINE 2023-07-11 00:00:00 Completed [facility] SARS-COV-2 COVID-19 PFIZER ALEXI-SUCROSE VACCINE (GILES TOP) 2023-07-11 00:00:00 Completed [facility] HPV9 2023-07-11 00:00:00 Completed [facility] TD, NOS 2023-07-11 00:00:00 Completed [facility] Influenza Virus Vaccine Quad IM 3+ YRS 2023-07-11 00:00:00 Completed [facility] TDAP (ADACEL) VACCINE 2023-07-11 00:00:00 Completed [facility] SARS-COV-2 COVID-19 PFIZER VACCINE 2023-07-11 00:00:00 Completed [facility] SARS-COV-2 COVID-19 PFIZER ALEXI-SUCROSE VACCINE (GILES TOP) 2023-07-11 00:00:00 Completed [facility] HPV9 2023-07-11 00:00:00 Completed [facility] TD, NOS 2023-07-11 00:00:00 Completed [facility] Influenza Virus Vaccine Quad IM 3+ YRS 2023-07-11 00:00:00 Completed [facility] TDAP (ADACEL) VACCINE 2023-07-11 00:00:00 Completed [facility] SARS-COV-2 COVID-19 PFIZER VACCINE 2023-07-11 00:00:00 Completed [facility] SARS-COV-2 COVID-19 PFIZER ALEXI-SUCROSE VACCINE (GILES TOP) 2023-07-11 00:00:00 Completed [facility] HPV9 2023-07-11 00:00:00 Completed [facility] TD, NOS 2023-04-19 10:00:00 Completed [facility] Influenza Virus Vaccine Quad IM 3+ YRS 2023-04-19 10:00:00 Completed [facility] TDAP (ADACEL) VACCINE 2023-04-19 10:00:00 Completed [facility] SARS-COV-2 COVID-19 PFIZER VACCINE 2023-04-19 10:00:00 Completed [facility] SARS-COV-2 COVID-19 PFIZER ALEXI-SUCROSE VACCINE (GILES TOP) 2023-04-19 10:00:00 Completed [facility] HPV9 2023-04-19 10:00:00 Completed [facility] TD, NOS 2023-03-22 00:00:00 Completed [facility] Influenza Virus Vaccine Quad IM 3+ YRS 2023-03-22 00:00:00 Completed [facility] TDAP (ADACEL) VACCINE 2023-03-22 00:00:00 Completed [facility] SARS-COV-2 COVID-19 PFIZER VACCINE 2023-03-22 00:00:00 Completed [facility] SARS-COV-2 COVID-19 PFIZER ALEXI-SUCROSE VACCINE (GILES TOP) 2023-03-22 00:00:00 Completed [facility] HPV9 2023-03-22 00:00:00 Completed [facility] TD, NOS 2023-03-15 00:00:00 Completed [facility] TDAP (ADACEL) VACCINE 2023-03-15 00:00:00 Completed [facility] SARS-COV-2 COVID-19 PFIZER VACCINE 2023-03-15 00:00:00 Completed [facility] SARS-COV-2 COVID-19 PFIZER ALEXI-SUCROSE VACCINE (GILES TOP) 2023-03-15 00:00:00 Completed [facility] HPV9 2023-03-15 00:00:00 Completed [facility] Influenza Virus Vaccine Quad IM 3+ YRS 2023-03-15 00:00:00 Completed [facility] TD, NOS 2023-03-14 00:00:00 Completed [facility] Influenza Virus Vaccine Quad IM 3+ YRS 2023-03-14 00:00:00 Completed [facility] TDAP (ADACEL) VACCINE 2023-03-14 00:00:00 Completed [facility] SARS-COV-2 COVID-19 PFIZER VACCINE 2023-03-14 00:00:00 Completed [facility] SARS-COV-2 COVID-19 PFIZER ALEXI-SUCROSE VACCINE (GILES TOP) 2023-03-14 00:00:00 Completed [facility] HPV9 2023-03-14 00:00:00 Completed [facility] TD, NOS 2023-03-08 09:00:00 Completed [facility] TDAP (ADACEL) VACCINE 2023-03-08 09:00:00 Completed [facility] SARS-COV-2 COVID-19 PFIZER VACCINE 2023-03-08 09:00:00 Completed [facility] SARS-COV-2 COVID-19 PFIZER ALEXI-SUCROSE VACCINE (GILES TOP) 2023-03-08 09:00:00 Completed [facility] HPV9 2023-03-08 09:00:00 Completed [facility] Influenza Virus Vaccine Quad IM 3+ YRS 2023-03-08 09:00:00 Completed [facility] TD, NOS 2023-03-01 10:00:00 Completed [facility] Influenza Virus Vaccine Quad IM 3+ YRS 2023-03-01 10:00:00 Completed [facility] TDAP (ADACEL) VACCINE 2023-03-01 10:00:00 Completed [facility] SARS-COV-2 COVID-19 PFIZER VACCINE 2023-03-01 10:00:00 Completed [facility] SARS-COV-2 COVID-19 PFIZER ALEXI-SUCROSE VACCINE (GILES TOP) 2023-03-01 10:00:00 Completed [facility] HPV9 2023-03-01 10:00:00 Completed [facility] HPV9 2023-03-01 00:00:00 Completed HPV9 2023-01-24 00:00:00 Completed [facility] HPV9 2023-01-24 00:00:00 Completed [facility] SARS-COV-2 COVID-19 PFIZER VACCINE 2022-03-08 00:00:00 Completed [facility] SARS-COV-2 COVID-19 PFIZER VACCINE 2022-03-08 00:00:00 Completed [facility] SARS-COV-2 COVID-19 PFIZER VACCINE 2022-03-08 00:00:00 Completed [facility] SARS-COV-2 COVID-19 PFIZER VACCINE 2022-03-08 00:00:00 Completed [facility] SARS-COV-2 COVID-19 PFIZER VACCINE 2022-03-08 00:00:00 Completed [facility] SARS-COV-2 COVID-19 PFIZER ALEXI-SUCROSE VACCINE (GILES TOP) 2022-03-08 00:00:00 Completed [facility] SARS-COV-2 COVID-19 PFIZER VACCINE 2022-03-08 00:00:00 Completed [facility] SARS-COV-2 COVID-19 PFIZER ALEXI-SUCROSE VACCINE (GILES TOP) 2022-03-08 00:00:00 Completed [facility] SARS-COV-2 COVID-19 PFIZER VACCINE 2022-03-08 00:00:00 Completed [facility] SARS-COV-2 COVID-19 PFIZER ALEXI-SUCROSE VACCINE (GILES TOP) 2022-03-08 00:00:00 Completed [facility] SARS-COV-2 COVID-19 PFIZER VACCINE 2022-03-08 00:00:00 Completed [facility] SARS-COV-2 COVID-19 PFIZER ALEXI-SUCROSE VACCINE (GILES TOP) 2022-03-08 00:00:00 Completed [facility] SARS-COV-2 COVID-19 PFIZER VACCINE 2022-03-08 00:00:00 Completed [facility] SARS-COV-2 COVID-19 PFIZER ALEXI-SUCROSE VACCINE (GILES TOP) 2022-03-08 00:00:00 Completed [facility] SARS-COV-2 COVID-19 PFIZER VACCINE 2022-03-08 00:00:00 Completed [facility] SARS-COV-2 COVID-19 PFIZER ALEXI-SUCROSE VACCINE (GILES TOP) 2022-03-08 00:00:00 Completed [facility] SARS-COV-2 COVID-19 PFIZER VACCINE 2022-02-11 00:00:00 Completed [facility] SARS-COV-2 COVID-19 PFIZER VACCINE 2022-02-11 00:00:00 Completed [facility] SARS-COV-2 COVID-19 PFIZER VACCINE 2022-02-11 00:00:00 Completed [facility] SARS-COV-2 COVID-19 PFIZER VACCINE 2022-02-11 00:00:00 Completed [facility] SARS-COV-2 COVID-19 PFIZER VACCINE 2022-02-11 00:00:00 Completed [facility] SARS-COV-2 COVID-19 PFIZER ALEXI-SUCROSE VACCINE (GILES TOP) 2022-02-11 00:00:00 Completed [facility] SARS-COV-2 COVID-19 PFIZER VACCINE 2022-02-11 00:00:00 Completed [facility] SARS-COV-2 COVID-19 PFIZER ALEXI-SUCROSE VACCINE (GILES TOP) 2022-02-11 00:00:00 Completed [facility] SARS-COV-2 COVID-19 PFIZER VACCINE 2022-02-11 00:00:00 Completed [facility] SARS-COV-2 COVID-19 PFIZER ALEXI-SUCROSE VACCINE (GILES TOP) 2022-02-11 00:00:00 Completed [facility] SARS-COV-2 COVID-19 PFIZER VACCINE 2022-02-11 00:00:00 Completed [facility] SARS-COV-2 COVID-19 PFIZER ALEXI-SUCROSE VACCINE (GILES TOP) 2022-02-11 00:00:00 Completed [facility] SARS-COV-2 COVID-19 PFIZER VACCINE 2022-02-11 00:00:00 Completed [facility] SARS-COV-2 COVID-19 PFIZER ALEXI-SUCROSE VACCINE (GILES TOP) 2022-02-11 00:00:00 Completed [facility] SARS-COV-2 COVID-19 PFIZER VACCINE 2022-02-11 00:00:00 Completed [facility] SARS-COV-2 COVID-19 PFIZER ALEXI-SUCROSE VACCINE (GILES TOP) 2022-02-11 00:00:00 Completed [facility] TD, NOS 2021-12-14 00:00:00 Completed [facility] Influenza Virus Vaccine Quad IM 3+ YRS 2021-12-14 00:00:00 Completed [facility] TDAP (ADACEL) VACCINE 2021-12-14 00:00:00 Completed [facility] TD, NOS 2021-12-07 00:00:00 Completed [facility] Influenza Virus Vaccine Quad IM 3+ YRS 2021-12-07 00:00:00 Completed [facility] TDAP (ADACEL) VACCINE 2021-12-07 00:00:00 Completed [facility] TDAP (ADACEL) VACCINE 2019-05-10 00:00:00 Completed [facility] TDAP (ADACEL) VACCINE 2019-05-10 00:00:00 Completed [facility] TDAP (ADACEL) VACCINE 2019-05-10 00:00:00 Completed [facility] TDAP (ADACEL) VACCINE 2019-05-10 00:00:00 Completed [facility] TDAP (ADACEL) VACCINE 2019-05-10 00:00:00 Completed [facility] TDAP (ADACEL) VACCINE 2019-05-10 00:00:00 Completed [facility] TDAP (ADACEL) VACCINE 2019-05-10 00:00:00 Completed [facility] TDAP (ADACEL) VACCINE 2019-05-10 00:00:00 Completed [facility] TDAP (ADACEL) VACCINE 2019-05-10 00:00:00 Completed [facility] TDAP (ADACEL) VACCINE 2019-05-10 00:00:00 Completed [facility] TDAP (ADACEL) VACCINE 2019-05-10 00:00:00 Completed [facility] TDAP (ADACEL) VACCINE 2019-05-10 00:00:00 Completed [facility] TDAP (ADACEL) VACCINE 2019-05-10 00:00:00 Completed [facility] TDAP (ADACEL) VACCINE 2019-05-10 00:00:00 Completed [facility] TDAP (ADACEL) VACCINE 2019-05-10 00:00:00 Completed [facility] TDAP (ADACEL) VACCINE 2019-05-10 00:00:00 Completed [facility] TDAP (ADACEL) VACCINE 2019-05-10 00:00:00 Completed [facility] TDAP (ADACEL) VACCINE 2019-05-10 00:00:00 Completed [facility] TDAP (ADACEL) VACCINE 2019-05-10 00:00:00 Completed [facility] TDAP (ADACEL) VACCINE 2019-05-10 00:00:00 Completed [facility] Influenza Virus Vaccine Quad IM 3+ YRS 2018-04-12 00:00:00 Completed [facility] Influenza Virus Vaccine Quad IM 3+ YRS 2018-04-12 00:00:00 Completed [facility] Influenza Virus Vaccine Quad IM 3+ YRS 2018-04-12 00:00:00 Completed [facility] Influenza Virus Vaccine Quad IM 3+ YRS 2018-04-12 00:00:00 Completed [facility] Influenza Virus Vaccine Quad IM 3+ YRS 2018-04-12 00:00:00 Completed [facility] Influenza Virus Vaccine Quad IM 3+ YRS 2018-04-12 00:00:00 Completed [facility] Influenza Virus Vaccine Quad IM 3+ YRS 2018-04-12 00:00:00 Completed [facility] Influenza Virus Vaccine Quad IM 3+ YRS 2018-04-12 00:00:00 Completed [facility] Influenza Virus Vaccine Quad IM 3+ YRS 2018-04-12 00:00:00 Completed [facility] Influenza Virus Vaccine Quad IM 3+ YRS 2018-04-12 00:00:00 Completed [facility] Influenza Virus Vaccine Quad IM 3+ YRS 2018-04-12 00:00:00 Completed [facility] Influenza Virus Vaccine Quad IM 3+ YRS 2018-04-12 00:00:00 Completed [facility] Influenza Virus Vaccine Quad IM 3+ YRS 2018-04-12 00:00:00 Completed [facility] Influenza Virus Vaccine Quad IM 3+ YRS 2018-04-12 00:00:00 Completed [facility] Influenza Virus Vaccine Quad IM 3+ YRS 2018-04-12 00:00:00 Completed [facility] Influenza Virus Vaccine Quad IM 3+ YRS 2018-04-12 00:00:00 Completed [facility] Influenza Virus Vaccine Quad IM 3+ YRS 2018-04-12 00:00:00 Completed [facility] Influenza Virus Vaccine Quad IM 3+ YRS 2018-04-12 00:00:00 Completed [facility] Influenza Virus Vaccine Quad IM 3+ YRS 2018-04-12 00:00:00 Completed [facility] Influenza Virus Vaccine Quad IM 3+ YRS 2018-04-12 00:00:00 Completed [facility] Influenza Virus Vaccine Quad IM 3+ YRS 2016-03-08 00:00:00 Completed [facility] Influenza Virus Vaccine Quad IM 3+ YRS 2016-03-08 00:00:00 Completed [facility] Influenza Virus Vaccine Quad IM 3+ YRS 2016-03-08 00:00:00 Completed [facility] Influenza Virus Vaccine Quad IM 3+ YRS 2016-03-08 00:00:00 Completed [facility] Influenza Virus Vaccine Quad IM 3+ YRS 2016-03-08 00:00:00 Completed [facility] Influenza Virus Vaccine Quad IM 3+ YRS 2016-03-08 00:00:00 Completed [facility] Influenza Virus Vaccine Quad IM 3+ YRS 2016-03-08 00:00:00 Completed [facility] Influenza Virus Vaccine Quad IM 3+ YRS 2016-03-08 00:00:00 Completed [facility] Influenza Virus Vaccine Quad IM 3+ YRS 2016-03-08 00:00:00 Completed [facility] Influenza Virus Vaccine Quad IM 3+ YRS 2016-03-08 00:00:00 Completed [facility] Influenza Virus Vaccine Quad IM 3+ YRS 2016-03-08 00:00:00 Completed [facility] Influenza Virus Vaccine Quad IM 3+ YRS 2016-03-08 00:00:00 Completed [facility] Influenza Virus Vaccine Quad IM 3+ YRS 2016-03-08 00:00:00 Completed [facility] Influenza Virus Vaccine Quad IM 3+ YRS 2016-03-08 00:00:00 Completed [facility] Influenza Virus Vaccine Quad IM 3+ YRS 2016-03-08 00:00:00 Completed [facility] Influenza Virus Vaccine Quad IM 3+ YRS 2016-03-08 00:00:00 Completed [facility] Influenza Virus Vaccine Quad IM 3+ YRS 2016-03-08 00:00:00 Completed [facility] Influenza Virus Vaccine Quad IM 3+ YRS 2016-03-08 00:00:00 Completed [facility] Influenza Virus Vaccine Quad IM 3+ YRS 2016-03-08 00:00:00 Completed [facility] Influenza Virus Vaccine Quad IM 3+ YRS 2016-03-08 00:00:00 Completed [facility] Td 2007-11-08 00:00:00 Completed [facility] Td 2007-11-08 00:00:00 Completed [facility] Td 2007-11-08 00:00:00 Completed [facility] Td 2007-11-08 00:00:00 Completed [facility] Td 2007-11-08 00:00:00 Completed [facility] Td 2007-11-08 00:00:00 Completed [facility] Td 2007-11-08 00:00:00 Completed [facility] Td 2007-11-08 00:00:00 Completed [facility] Td 2007-11-08 00:00:00 Completed [facility] Td 2007-11-08 00:00:00 Completed [facility] Td 2007-11-08 00:00:00 Completed [facility] TD, NOS 2007-11-08 00:00:00 Completed [facility] TD, NOS 2007-11-08 00:00:00 Completed [facility] TD, NOS 2007-11-08 00:00:00 Completed [facility] TD, NOS 2007-11-08 00:00:00 Completed [facility] TD, NOS 2007-11-08 00:00:00 Completed [facility] TD, NOS 2007-11-08 00:00:00 Completed [facility] TD, NOS 2007-11-08 00:00:00 Completed [facility] TD, NOS 2007-11-08 00:00:00 Completed [facility] TD, NOS 2007-11-08 00:00:00 Completed [facility] Vital Signs Vital Name Observation Time Observation Value Comments S ource Systolic blood pressure 2024-08-06 19:49:00 124 mm[Hg] [place] [facility] Diastolic blood pressure 2024-08-06 19:49:00 88 mm[Hg] [place] [facility] Heart rate 2024-08-06 19:49:00 94 /min [facility] 2024-08-06 19:49:00 162.6 cm [facility] Body weight 2024-08-06 19:49:00 97.07 kg [facility] BMI 2024-08-06 19:49:00 36.73 kg/m2 [facility] Oxygen saturation in Arterial blood by Pulse oximetry 2024-08-06 19:49:00 98 /min [facility] Systolic blood pressure 2024-07-20 16:53:00 124 mm[Hg] [facility] Diastolic blood pressure 2024-07-20 16:53:00 81 mm[Hg] [facility] Heart rate 2024-07-20 16:51:00 115 /min [facility] Body temperature 2024-07-20 16:51:00 36.5 Karuna [facility] Body height 2024-07-20 16:51:00 165.1 cm [facility] Body weight 2024-07-20 16:51:00 94.008 kg [facility] BMI 2024-07-20 16:51:00 34.49 kg/m2 [facility] Oxygen saturation in Arterial blood by Pulse oximetry 2024-07-20 16:51:00 99 /min [facility] Oxygen saturation in Arterial blood by Pulse oximetry 2024-06-18 20:50:00 100 /min [facility] Systolic blood pressure 2024-06-18 20:50:00 127 mm[Hg] [facility] Diastolic blood pressure 2024-06-18 20:50:00 79 mm[Hg] [facility] Heart rate 2024-06-18 20:50:00 90 /min [facility] Respiratory rate 2024-06-18 20:45:00 21 /min [facility] Body temperature 2024-06-18 19:45:00 36.17 Karuna [facility] Body height 2024-05-22 21:00:00 165.1 cm [facility] Body weight 2024-05-22 21:00:00 93.441 kg [facility] BMI 2024-05-22 21:00:00 34.28 kg/m2 [facility] Systolic blood pressure 2024-06-18 16:56:00 129 mm[Hg] [facility] Diastolic blood pressure 2024-06-18 16:56:00 89 mm[Hg] [facility] Heart rate 2024-06-18 16:56:00 94 /min [facility] Body temperature 2024-06-18 16:56:00 37.39 Karuna [facility] Respiratory rate 2024-06-18 16:56:00 16 /min [facility] Oxygen saturation in Arterial blood by Pulse oximetry 2024-06-18 16:56:00 100 /min [facility] Body height 2024-05-22 21:00:00 165.1 cm [facility] Body weight 2024-05-22 21:00:00 93.441 kg [facility] BMI 2024-05-22 21:00:00 34.28 kg/m2 [facility] Systolic blood pressure 2024-05-23 13:33:00 116 mm[Hg] [facility] Diastolic blood pressure 2024-05-23 13:33:00 94 mm[Hg] [facility] Heart rate 2024-05-23 13:28:00 97 /min [facility] Body temperature 2024-05-23 13:28:00 36.61 Karuna [facility] Respiratory rate 2024-05-23 13:28:00 18 /min [facility] Body height 2024-05-23 13:28:00 165.1 cm [facility] Body weight 2024-05-23 13:28:00 93.611 kg [facility] BMI 2024-05-23 13:28:00 34.34 kg/m2 [facility] Systolic blood pressure 2024-05-07 21:40:00 118 mm[Hg] [facility] Diastolic blood pressure 2024-05-07 21:40:00 85 mm[Hg] [facility] Heart rate 2024-05-07 21:40:00 109 /min [facility] Body temperature 2024-05-07 21:40:00 36.17 Karuna [facility] Respiratory rate 2024-05-07 21:40:00 20 /min [facility] Body weight 2024-05-07 21:40:00 91.627 kg [facility] BMI 2024-05-07 21:40:00 33.61 kg/m2 [facility] Oxygen saturation in Arterial blood by Pulse oximetry 2024-05-07 21:40:00 99 /min [facility] Systolic blood pressure 2024-03-27 14:43:00 98 mm[Hg] [facility] Diastolic blood pressure 2024-03-27 14:43:00 72 mm[Hg] [facility] Heart rate 2024-03-27 14:43:00 93 /min [facility] Body temperature 2024-03-27 14:43:00 36.28 Karuna [facility] Body height 2024-03-27 14:43:00 165.1 cm [facility] Body weight 2024-03-27 14:43:00 91.899 kg [facility] BMI 2024-03-27 14:43:00 33.71 kg/m2 [facility] Oxygen saturation in Arterial blood by Pulse oximetry 2024-03-27 14:43:00 100 /min [facility] Systolic blood pressure 2024-02-27 19:12:00 119 mm[Hg] [facility] Diastolic blood pressure 2024-02-27 19:12:00 76 mm[Hg] [facility] Heart rate 2024-02-27 19:12:00 115 /min [facility] Body temperature 2024-02-27 19:12:00 35.89 Karuna [facility] Respiratory rate 2024-02-27 19:12:00 18 /min [facility] Body height 2024-02-27 19:12:00 162.6 cm [facility] Body weight 2024-02-27 19:12:00 90.992 kg [facility] BMI 2024-02-27 19:12:00 34.43 kg/m2 [facility] Body temperature 2024-01-13 13:25:00 35.89 Karuna [facility] Body height 2024-01-13 13:25:00 162.6 cm [facility] Body weight 2024-01-13 13:25:00 94.121 kg [facility] BMI 2024-01-13 13:25:00 35.62 kg/m2 [facility] Systolic blood pressure 2023-12-19 20:01:00 113 mm[Hg] [facility] Diastolic blood pressure 2023-12-19 20:01:00 73 mm[Hg] [facility] Heart rate 2023-12-19 20:01:00 109 /min [facility] Body temperature 2023-12-19 20:01:00 36.72 Karuna [facility] Respiratory rate 2023-12-19 20:01:00 18 /min [facility] Body height 2023-12-19 20:01:00 162.6 cm [facility] Body weight 2023-12-19 20:01:00 92.08 kg [facility] BMI 2023-12-19 20:01:00 34.84 kg/m2 [facility] Oxygen saturation in Arterial blood by Pulse oximetry 2023-12-19 20:01:00 97 /min [facility] Systolic blood pressure 2023-12-15 08:00:00 124 mm[Hg] [facility] Diastolic blood pressure 2023-12-15 08:00:00 82 mm[Hg] [facility] Heart rate 2023-12-15 08:00:00 84 /[facility] Body temperature 2023-12-15 08:00:00 36.83 Karuna [facility] Respiratory rate 2023-12-15 08:00:00 18 /min [facility] Oxygen saturation in Arterial blood by Pulse oximetry 2023-12-15 08:00:00 99 /min [facility] Body height 2023-12-15 07:04:00 162.6 cm [facility] Body weight 2023-12-15 07:04:00 93.441 kg [facility] BMI 2023-12-15 07:04:00 35.36 kg/m2 [facility] Systolic blood pressure 2023-11-08 17:49:00 112 mm[Hg] [facility] Diastolic blood pressure 2023-11-08 17:49:00 79 mm[Hg] [facility] Heart rate 2023-11-08 17:49:00 89 /min [facility] Body temperature 2023-11-08 17:49:00 36.22 Karuna [facility] Respiratory rate 2023-11-08 17:49:00 18 /min [facility] Body height 2023-11-08 17:49:00 165.1 cm [facility] Body weight 2023-11-08 17:49:00 95.119 kg [facility] BMI 2023-11-08 17:49:00 34.90 kg/m2 [facility] Oxygen saturation in Arterial blood by Pulse oximetry 2023-11-08 17:49:00 97 /min [facility] Systolic blood pressure 2023-11-02 20:37:00 121 mm[Hg] [facility] Diastolic blood pressure 2023-11-02 20:37:00 84 mm[Hg] [facility] Heart rate 2023-11-02 20:37:00 94 /min [facility] Body temperature 2023-11-02 20:37:00 36.94 Karuna [facility] Respiratory rate 2023-11-02 20:37:00 20 /min [facility] Body height 2023-11-02 20:37:00 165.1 cm [facility] Body weight 2023-11-02 20:37:00 94.303 kg [facility] BMI 2023-11-02 20:37:00 34.60 kg/m2 [facility] Oxygen saturation in Arterial blood by Pulse oximetry 2023-11-02 20:37:00 98 /min [facility] Systolic blood pressure 2023-11-01 14:47:00 137 mm[Hg] [facility] Diastolic blood pressure 2023-11-01 14:47:00 85 mm[Hg] [facility] Heart rate 2023-11-01 14:47:00 84 /min [facility] Body temperature 2023-11-01 14:47:00 35.94 Karuna [facility] Respiratory rate 2023-11-01 14:47:00 18 /min [facility] Body height 2023-11-01 14:47:00 162.6 cm [facility] 2023-11-01 14:47:00 94.394 kg [facility] BMI 2023-11-01 14:47:00 35.72 kg/m2 [facility] Body height 2023-10-19 15:32:00 162.6 cm [facility] Systolic blood pressure 2023-10-12 15:57:00 124 mm[Hg] [facility] Diastolic blood pressure 2023-10-12 15:57:00 87 mm[Hg] [facility] Heart rate 2023-10-12 15:57:00 101 /min [facility] Respiratory rate 2023-10-12 15:57:00 18 /min [facility] Body height 2023-10-12 15:57:00 165.1 cm [facility] Body weight 2023-10-12 15:57:00 93.214 kg [facility] BMI 2023-10-12 15:57:00 34.20 kg/m2 [facility] Oxygen saturation in Arterial blood by Pulse oximetry 2023-10-12 15:57:00 99 /min [facility] Systolic blood pressure 2023-10-10 14:11:00 130 mm[Hg] [facility] Diastolic blood pressure 2023-10-10 14:11:00 87 mm[Hg] [facility] Heart rate 2023-10-10 14:11:00 89 /min [facility] Body temperature 2023-10-10 14:11:00 36.11 Karuna [facility] Respiratory rate 2023-10-10 14:11:00 18 /min [facility] Body height 2023-10-10 14:11:00 165.1 cm [facility] Body weight 2023-10-10 14:11:00 93.169 kg [facility] BMI 2023-10-10 14:11:00 34.18 kg/m2 [facility] Oxygen saturation in Arterial blood by Pulse oximetry 2023-10-10 14:11:00 96 /min [facility] Systolic blood pressure 2023-08-22 19:50:00 107 mm[Hg] [facility] Diastolic blood pressure 2023-08-22 19:50:00 69 mm[Hg] [facility] Heart rate 2023-08-22 19:50:00 89 /min [facility] Body temperature 2023-08-22 19:50:00 35.61 Krauna [facility] Respiratory rate 2023-08-22 19:50:00 12 /min [facility] Body height 2023-08-22 19:50:00 165.1 cm [facility] Body weight 2023-08-22 19:50:00 93.35 kg [facility] BMI 2023-08-22 19:50:00 34.25 kg/m2 [facility] Oxygen saturation in Arterial blood by Pulse oximetry 2023-08-22 19:50:00 99 /min [facility] Systolic blood pressure 2023-08-15 18:19:00 121 mm[Hg] [facility] Diastolic blood pressure 2023-08-15 18:19:00 80 mm[Hg] [facility] Heart rate 2023-08-15 18:19:00 92 /min [facility] Respiratory rate 2023-08-15 18:19:00 18 /min [facility] Body height 2023-08-15 18:19:00 165.1 cm [facility] Body weight 2023-08-15 18:19:00 93.35 kg [facility] BMI 2023-08-15 18:19:00 34.25 [facility]m2 [facility] Oxygen [facility] in Arterial blood by Pulse oximetry 2023-08-15 18:19:00 96 /min [facility] Systolic blood pressure 2023-08-08 18:16:00 120 mm[Hg] [facility] Diastolic blood pressure 2023-08-08 18:16:00 90 mm[Hg] [facility] Heart rate 2023-08-08 18:16:00 91 /min [facility] Respiratory rate 2023-08-08 18:16:00 18 /min [facility] Oxygen saturation in Arterial blood by Pulse oximetry 2023-08-08 18:16:00 100 /min [facility] Body temperature 2023-08-08 15:36:00 37.39 Karuna [facility] Body height 2023-08-08 15:36:00 165.1 cm [facility] Body weight 2023-08-08 15:36:00 92.987 kg [facility] BMI 2023-08-08 15:36:00 34.11 kg/m2 [facility] Systolic blood pressure 2023-07-20 15:16:00 129 mm[Hg] [facility] Diastolic blood pressure 2023-07-20 15:16:00 93 mm[Hg] [facility] Body temperature 2023-07-20 15:16:00 36.5 Karuna [facility] Respiratory rate 2023-07-20 15:16:00 18 /min [facility] Body weight 2023-07-20 15:16:00 92.08 kg [facility] BMI 2023-07-20 15:16:00 33.78 kg/m2 [facility] Systolic blood pressure 2023-07-11 15:29:00 111 mm[Hg] [facility] Diastolic blood pressure 2023-07-11 15:29:00 78 mm[Hg] [facility] Heart rate 2023-07-11 15:29:00 84 /min [facility] Body temperature 2023-07-11 15:29:00 36.5 Karuna [facility] Respiratory rate 2023-07-11 15:29:00 18 /min [facility] Body height 2023-07-11 15:29:00 165.1 cm [facility] Body weight 2023-07-11 15:29:00 91.354 kg [facility] BMI 2023-07-11 15:29:00 33.51 kg/m2 [facility] Oxygen saturation in Arterial blood by Pulse oximetry 2023-07-11 15:29:00 100 /min [facility] Systolic blood pressure 2023-04-19 15:24:00 114 mm[Hg] [facility] Diastolic blood pressure 2023-04-19 15:24:00 78 mm[Hg] [facility] Heart rate 2023-04-19 15:24:00 82 /min [facility] Body temperature 2023-04-19 15:24:00 35.5 Karuna [facility] Respiratory rate 2023-04-19 15:24:00 18 /min [facility] Body height 2023-04-19 15:24:00 165.1 cm [facility] Body weight 2023-04-19 15:24:00 91.808 kg [facility] BMI 2023-04-19 15:24:00 33.68 kg/m2 [facility] Systolic blood pressure 2023-03-08 13:58:00 121 mm[Hg] [facility] Diastolic blood pressure 2023-03-08 13:58:00 85 mm[Hg] [facility] Heart rate 2023-03-08 13:58:00 78 /min [facility] Body temperature 2023-03-08 13:58:00 36.44 Karuna [facility] Respiratory rate 2023-03-08 13:58:00 18 /min [facility] Body height 2023-03-08 13:58:00 165.1 cm [facility] Body weight 2023-03-08 13:58:00 89.858 kg [facility] BMI 2023-03-08 13:58:00 32.97 kg/m2 [facility] Body temperature 2023-03-01 14:25:00 36.11 Karuna [facility] Systolic blood pressure 2023-01-28 14:53:00 114 mm[Hg] [facility] Diastolic blood pressure 2023-01-28 14:53:00 80 mm[Hg] [facility] Heart rate 2023-01-28 14:53:00 83 /min [facility] Body temperature 2023-01-28 14:53:00 36.17 Karuna [facility] Body height 2023-01-28 14:53:00 165.1 cm [facility] Body weight 2023-01-28 14:53:00 89.721 kg [facility] BMI 2023-01-28 14:53:00 32.92 kg/m2 [facility] Oxygen saturation in Arterial blood by Pulse oximetry 2023-01-28 14:53:00 100 /min [facility] Systolic blood pressure 2023-01-24 14:39:00 136 mm[Hg] [facility] Diastolic blood pressure 2023-01-24 14:39:00 89 mm[Hg] [facility] Heart rate 2023-01-24 14:39:00 97 /min [facility] Body temperature 2023-01-24 14:39:00 36.28 Karuna [facility] Respiratory rate 2023-01-24 14:39:00 18 /min [facility] Body height 2023-01-24 14:39:00 165.1 cm [facility] Body weight 2023-01-24 14:39:00 90.946 kg [facility] BMI 2023-01-24 14:39:00 33.36 kg/m2 [facility] Systolic blood pressure 2022-10-21 15:51:00 123 mm[Hg] [facility] Diastolic blood pressure 2022-10-21 15:51:00 83 mm[Hg] [facility] Heart rate 2022-10-21 15:51:00 86 /min [facility] Body temperature 2022-10-21 15:51:00 35.28 Karuna [facility] Respiratory rate 2022-10-21 15:51:00 18 /min [facility] Body height 2022-10-21 15:51:00 165.1 cm [facility] Body weight 2022-10-21 15:51:00 91.763 kg [facility] BMI 2022-10-21 15:51:00 33.66 kg/m2 [facility] Systolic blood pressure 2022-08-30 17:56:00 116 mm[Hg] [facility] Diastolic blood pressure 2022-08-30 17:56:00 88 mm[Hg] [facility] Heart rate 2022-08-30 17:56:00 95 /min [facility] Body temperature 2022-08-30 17:56:00 36.22 Karuna [facility] Respiratory rate 2022-08-30 17:56:00 18 /min [facility] Body height 2022-08-30 17:56:00 162.6 cm [facility] Body weight 2022-08-30 17:56:00 91.491 kg [facility] BMI 2022-08-30 17:56:00 34.62 kg/m2 [facility] Systolic blood pressure 2022-04-09 20:26:00 114 mm[Hg] [facility] Diastolic blood pressure 2022-04-09 20:26:00 80 mm[Hg] [facility] Heart rate 2022-04-09 20:26:00 85 /min [facility] Respiratory rate 2022-04-09 20:26:00 18 /min [facility] Body weight 2022-04-09 20:26:00 93.895 kg [facility] BMI 2022-04-09 20:26:00 35.53 kg/m2 [facility] Oxygen saturation in Arterial blood by Pulse oximetry 2022-04-09 20:26:00 98 /min [facility] Procedures Procedure Date / Time Performed Performing Clinician Source VENOUS REFLUX DUPLEX BILATERAL - BY VASCULAR LAB 2024-07-24 20:00:00 Samanta Schaffer [facility] DUPLEX VENOUS LEGS BILATERAL - BY VASCULAR LAB 2024-06-29 15:07:00 Lola Siddiqi [facility] [id number] - GA ENDOVEN ABLTJ INCMPTNT VEIN XTR RF 2ND+ VEINS 2024-06-18 18:05:00 Samanta Schaffer [facility] [id number] - [place] ENDOVEN ABLTJ INCMPTNT VEIN XTR RF 1ST VEIN 2024-06-18 18:05:00 Samanta Schaffer [facility] POCT TEST 2024-06-18 16:45:00 Shad Fatima [facility] POCT TEST 2024-06-18 16:45:00 Shad Fatima [facility] POCT TEST 2024-02-27 19:32:00 Vinnie [facility] MR KNEE RIGHT WO CONTRAST 2024-01-04 16:45:12 Lorena Chiang [facility] COMP. METABOLIC PANEL (10337) 2023-12-15 07:24:00 [facility]FF 2023-12-15 07:24:00 Delma Raymond [facility] URINALYSIS 2023-12-15 07:24:[address] [facility] XR KNEE 3 VW RIGHT 2023-11-02 21:04:06 Mehdi Ponce [facility] CT ABDOMEN PELVIS W CONTRAST 2023-08-08 17:39:10 Cassandra Ordonez [facility] LIPASE 2023-08-08 16:18:00 Cassandra Ordonez [facility] COMP. METABOLIC PANEL (12343) 2023-08-08 16:18:00 Cassandra Ordonez [facility] CBC WITH DIFF 2023-08-08 16:18:00 Cassandra Ordonez [facility] URINALYSIS 2023-08-08 16:17:00 Cassandra Ordonez [facility] POCT TEST 2023-08-08 16:17:00 Elizabeth Ordonez [facility] CONSENT/REFUSAL FOR DIAGNOSIS AND TREATMENT 2023-08-08 15:31:04 Doctor Unassigned, [place] [facility] GARDASIL 9 (HPV 9V) VACCINE 2023-07-20 15:16:02 Eduardo Melton [facility] XR LUMBAR SPINE 3 VW 2023-07-13 16:16:19 [facility] FEMUR 2 VW BILATERAL 2023-07-13 16:16:07 Obi-Merlene brody [facility] DUPLEX VENOUS LEGS BILATERAL - BY VASCULAR LAB 2023-07-13 15:47:08 Lorena Swain [facility] INSURANCE CORRESPONDENCE 2023-07-11 06:01:00 Doc tor Unassigned, [place] [facility] MEDICATION CORRESPONDENCE 2023-03-14 05:01:00 Do ctor Unassigned, [place] [facility] GARDASIL 9 (HPV 9V) VACCINE 2023-03-01 14:26:13 Eduardo Melton [facility] GARDASIL 9 (HPV 9V) VACCINE 2023-01-24 14:51:12 Eduardo Melton [facility] ASSIGNMENT OF BENEFITS 2023-01-24 14:23:58 Docto r Unassigned, [place] [facility] POCT TEST 2022-10-21 16:37:00 Vinnie Melton [facility] PATIENT FINANCIAL POLICY 2022-08-30 17:32:33 Doctor Unassigned, [place] [facility] SHOULDER, 2 VIEWS 2015-01-02 17:36:00 Samantha Cooper [facility] CONSENT/REFUSAL FOR DIAGNOSIS AND TREATMENT 2015-01-02 05:01:00 Doctor Unassigned, [place] [facility] ANKLE, MIN. 3 VIEWS 2014-10-07 20:07:00 Panchbhavi, Vi nod [facility] Encounters Start Date/Time End Date/Time Encounter Type Admission Type Attending Clinicians Care Facility Care Department Encounter ID Source 2021-04-07 01:12:41 Emergency [facility] [id number] [facility] 2024-08-21 08:30:00 2024-08-21 08:02:06 Outpatient R ALVIN WEBB [facility] [id number] [facility] 2024-08-06 14:45:00 2024-08-06 14:45:00 Office Visit Samanta Schaffer [facility] BUILDING 1.2840.114 350.1.13.10 4.2.7.2.686 [id number] [facility] 2024-08-06 14:45:00 2024-08-06 14:08:13 Outpatient R SAMANTA SCHAFFER [facility] [id number] [facility] 2024-07-03 00:00:00 2024-08-04 18:15:53 Patient Secure Msg Samanta Schaffer [facility] 1.284.114 350.1.13.10 4.2.7.2.686 [id number] [facility] 2024-07-24 12:12:33 2024-07-24 23:59:00 Outpatient R SAMANTA SCHAFFER [facility] [id number] [facility] 2024-07-24 12:12:33 2024-07-24 23:59:00 Hospital Encounter Samanta Schaffer [facility] 1.2.114 350.1.13.10 4.2.7.2.686 [id number] [facility] 2014-10-07 00:00:00 2024-07-21 04:29:14 Orders Only Doctor Unassigned, [place] Doctor Unassigned, [place] [facility] (JAMES) 1.20.114 350.1.13.10 4.2.7.2.686 [id number] [facility] 2015-01-02 00:00:00 2024-07-21 04:26:44 Orders Only Doctor Unassigned, [place] Doctor Unassigned, [place] [facility] [place] [facility] 1.2840.114 350.1.13.10 4.2.7.2.686 [id number] [facility] 2024-07-20 11:15:00 2024-07-20 11:33:58 Outpatient R TERESA SUZANNA SHEIKH [facility] [id number] [facility] 2024-07-20 11:15:00 2024-07-20 11:33:58 Office Visit Teresa Suzanna [facility] 1.2.840.114 350.1.13.10 4.2.7.2.686 [id number] [facility] 2024-07-19 00:00:00 2024-07-19 15:37:58 Telephone Samanta Schaffer [facility] NAL BUILDING 1.2.840.114 350.1.13.10 4.2.7.2.686 [id number] [facility] 2024-07-19 00:00:00 2024-07-19 15:28:11 Case Management Samanta Schaffer [facility] [[email or web address] [place] ([facility] 1.2.840.114 350.1.13.10 4.2.7.2.686 [id number] [facility] 2024-07-02 00:00:00 2024-07-06 09:12:29 Telephone Samanta Schaffer [facility] NAL BUILDING 1.2.840.114 350.1.13.10 4.2.7.2.686 [id number] [facility] 2024-07-05 00:00:00 2024-07-05 14:07:56 Telephone Samanta Schaffer [facility] MEDICAL OFFICE BUILDING 1.2.840.114 350.1.13.10 4.2.7.2.686 [id number] [facility] 2024-07-05 00:00:00 2024-07-05 11:37:27 Patient Outreach Samanta Schaffer [facility] [[email or web address] AT [place] ([facility] 1.2.840.114 350.1.13.10 4.2.7.2.686 [id number] [facility] 2024-07-05 00:00:00 2024-07-05 10:52:46 Telephone Samanta Schaffer [facility] 1.2.840.114 350.1.13.10 4.2.7.2.686 [id number] [facility] 2024-06-29 07:52:00 2024-06-29 23:59:00 Outpatient R SAMANTA SCHAFFER [facility] [id number] [facility] 2024-06-29 07:52:00 2024-06-29 23:59:00 Hospital Encounter Samanta Schaffer [facility] [[email or web address] 1.2.840.114 350.1.13.10 4.2.7.2.686 [id number] [facility] 2024-06-29 09:03:00 2024-06-29 09:03:00 Emergency X AUFDERHEPORTIA , DAYNA AUSANTIERDAYNA BALDWIN [facility] [[email or web address] ERT [id number] [facility] 2024-06-18 10:42:00 2024-06-18 15:02:00 Outpatient R SAMANTA SCHAFFER [facility] [id number] [facility] 2024-06-18 10:42:00 2024-06-18 15:02:00 Hospital Encounter Samanta Schaffer [facility] 1.2.840.114 350.1.13.10 4.2.7.2.686 [id number] [facility] 2024-06-18 11:50:00 2024-06-18 13:23:00 Surgery Samanta Schaffer [facility] [[email or web address] 1.2840.114 350.1.13.10 4.2.7.2.686 [id number] [facility] 2024-05-23 08:00:00 2024-05-23 08:00:00 Nurse Visit [facility], [email or web address] 1.2840.114 350.1.13.10 4.2.7.2.686 [id number] [facility] 2024-05-23 08:00:00 2024-05-23 07:42:49 Outpatient R EDUARDO MELTON [facility] [id number] [facility] 2024-05-16 00:00:00 2024-05-16 14:47:03 Telephone Samanta Schaffer [facility] BUILDING 1.2840.114 350.1.13.10 4.2.7.2.686 [id number] [facility] 2024-05-07 16:30:00 2024-05-07 16:32:55 Outpatient R SAMANTA SCHAFFER [facility] [id number] [facility] 2024-05-07 16:30:00 2024-05-07 16:32:55 Office Visit Samanta Schaffer [facility] NAL BUILDING 1.2840.114 350.1.13.10 4.2.7.2.686 [id number] [facility] 2024-04-25 00:00:00 2024-04-27 12:07:52 Telephone Samanta Schaffer [facility] NAL BUILDING 1.2840.114 350.1.13.10 4.2.7.2.686 [id number] [facility] 2024-03-27 09:30:00 2024-03-27 10:05:31 Outpatient R HARRISON ZAMUDIORAYMUNDOFeliBinh [facility] [id number] [facility] 2024-03-27 09:30:00 2024-03-27 10:05:31 Office Visit RobbHarrison crawley [facility] BUILDING 1.2.840.114 350.1.13.10 4.2.7.2.686 [id number] [facility] 2024-03-19 00:00:00 2024-03-20 08:05:08 Patient Secure Msg Wiliam [facility] 1.2.840.114 350.1.13.10 4.2.7.2.686 [id number] [facility] 2024-03-16 00:00:00 2024-03-19 14:43:09 Patient Secure Msg CasperiLiliana [facility] 1.2.840.114 350.1.13.10 4.2.7.2.686 [id number] [facility] 2024-02-27 15:00:00 2024-02-27 15:00:00 Nurse Visit Visit, [facility] Eduardo Melton C Visit, Oscar Nurse [facility] [[email or web address]] [facility] 1.2.840.114 350.1.13.10 4.2.7.2.686 [id number] [facility] 2024-02-27 15:00:00 2024-02-27 14:24:21 Outpatient R EDUARDO MELTON [facility] [id number] [facility] 2024-02-20 00:00:00 2024-02-20 14:05:37 Telephone Miranda Hammonds [facility] [[email or web address]] [facility] 1.2.840.114 350.1.13.10 4.2.7.2.686 [id number] [facility] 2024-02-09 09:00:00 2024-02-09 09:00:00 Outpatient R OBI-DAVID LORENA OBI-DAVID , LORENA [facility] [id number] [facility] 2024-02-07 14:00:00 2024-02-07 14:00:00 Outpatient R EDUARDO MELTON [facility] [id number] [facility] 2024-02-01 09:30:00 2024-02-01 09:30:00 Outpatient R ALVIN WEBB [facility] [id number] [facility] 2024-01-13 10:00:00 2024-01-13 10:00:00 Office Visit Genia Ramirez [facility] [[email or web address]] [facility] 1.2.840.114 350.1.13.10 4.2.7.2.686 [id number] [facility] 2024-01-13 10:00:00 2024-01-13 08:49:37 Outpatient GENIA HAIR BRIA [facility] [id number] [facility] 2024-01-11 11:00:00 2024-01-11 11:00:00 Outpatient ERIC RIBEIRO PETER [facility] [id number] [facility] 2024-01-09 10:40:00 2024-01-09 10:40:00 Outpatient GENIA HAIR BRIA [facility] [id number] [facility] 2024-01-06 15:40:00 2024-01-06 15:40:00 Outpatient GENIA HAIR BRIA [facility] [id number] [facility] 2024-01-04 10:06:50 2024-01-04 23:59:00 Outpatient R OBI-DAVID , LORENA OBI-DAVID , LORENA [facility] [id number] [facility] 2024-01-04 10:06:50 2024-01-04 10:06:50 Hospital Encounter Obi-David Lorena [facility] 1..114 350.1.13.10 4.2.7.2.686 [id number] [facility] 2023-12-30 07:45:00 2023-12-30 14:03:54 Telephonic Encounter ISRAEL CARR [facility]TY [facility] 1..114 350.1.13.58 9.2.7.2.686 [id number] [facility] 2023-12-30 13:40:00 2023-12-30 13:40:00 Outpatient R GENIA RAMIREZ BRIA [facility] [id number] [facility] 2023-12-27 00:00:00 2023-12-27 00:00:00 Outpatient R OBI-DAVID , LORENA OBI-DAVID , LORENA [facility] [id number] [facility] 2023-12-23 07:45:00 2023-12-23 07:45:00 Outpatient ISRAEL CARR [facility] [id number] [facility] 2023-12-19 14:40:00 2023-12-19 15:25:07 Outpatient R OBI-DAVID , LORENA OBI-DAVID , LORENA [facility] [id number] [facility] 2023-12-19 14:40:00 2023-12-19 15:25:07 Office Visit Obi-David , [facility] 1.84.114 350.1.13.10 4.2.7.2.686 [id number] [facility] 2023-12-15 02:07:00 2023-12-15 03:33:00 Emergency X DELMA RAYMOND [facility]RES [facility] [id number] [facility] 2023-12-15 02:07:00 2023-12-15 03:33:00 Emergency Delma Raymond [facility] 1.840.114 350.1.13.10 4.2.7.2.686 [id number] [facility] 2023-12-07 14:45:00 2023-12-07 15:09:36 Outpatient CAYLA BROUSSARD [facility] [id number] [facility] 2023-12-07 14:45:00 2023-12-07 15:09:36 Office Visit Sarahy Marley Brandon P [facility] 1.840.114 350.1.13.10 4.2.7.2.686 [id number] [facility] 2023-12-05 09:00:00 2023-12-06 07:54:40 Outpatient [facility] [id number] [facility] 2023-12-05 08:30:00 2023-12-06 07:54:27 Outpatient [facility] [id number] [facility] 2023-12-05 08:00:00 2023-12-06 07:54:11 Outpatient [facility] [id number] [facility] 2023-10-25 00:00:00 2023-11-26 18:19:39 Patient Secure Msg Doctor Unassigned, [place] [facility] 1.840.114 350.1.13.10 4.2.7.2.686 [id number] [facility] 2023-11-15 11:53:38 2023-11-15 23:59:00 Outpatient GIBSON SCHWARTZ SHIWAN [facility] [id number] [facility] 2023-11-15 11:53:38 2023-11-15 23:59:00 Hospital Encounter Gibson Sandhu [facility] 1.2840.114 350.1.13.10 4.2.7.2.686 [id number] [facility] 2023-11-08 13:00:00 2023-11-08 13:41:45 Outpatient R ANA LUISA SANDHUVilla EDSON FERNANDAVTVilla [facility] [id number] [facility] 2023-11-08 13:00:00 2023-11-08 13:41:45 Office Visit Ana Luisa Sandhuvilla [facility] PROFESSIO NAL BUILDING 1.20.114 350.1.13.10 4.2.7.2.686 [id number] [facility] 2023-11-07 10:00:00 2023-11-08 07:42:31 Office Visit ISRAEL CARR [facility] 1.2.114 350.1.13.58 9.2.7.2.686 [id number] [facility] 2023-11-02 15:51:12 2023-11-02 23:59:00 Outpatient R ANILA PONCEVillaBinh [facility] [id number] [facility] 2023-11-02 15:51:12 2023-11-02 23:59:00 Hospital Encounter Anila Poncelobito [facility]TAMRAYoung [facility] BUILDING 1.2.114 350.1.13.10 4.2.7.2.686 [id number] [facility] 2023-11-02 15:40:00 2023-11-02 16:11:03 Urgent Care Anila Poncevillabinh Unknown, Attending [facility] BU[facility] 1.2840.114 350.1.13.10 4.2.7.2.686 [id number] [facility] 2023-11-01 10:30:00 2023-11-01 10:31:40 Outpatient R MIRANDA HAMMONDS [facility] [id number] [facility] 2023-11-01 10:30:00 2023-11-01 10:31:40 Office Visit Miranda Hammonds [facility] [[email or web address] 1.2.840.114 350.1.13.10 4.2.7.2.686 [id number] [facility] 2023-10-27 07:00:00 2023-10-27 07:00:00 Outpatient EDUARDO DE LA PAZ [facility] [id number] [facility] 2023-10-24 00:00:00 2023-10-24 14:21:06 Telephone [facility] 1.2.840.114 350.1.13.10 4.2.7.2.686 [id number] [facility] 2023-10-19 00:00:00 2023-10-21 00:18:42 Patient Secure Msg [facility] 1.2.840.114 350.1.13.10 4.2.7.2.686 [id number] [facility] 2023-10-19 11:00:00 2023-10-19 11:00:00 Office Visit Sarahy Marley Lindy Skye [facility] 1.840.114 350.1.13.10 4.2.7.2.686 [id number] [facility] 2023-10-19 11:00:00 2023-10-19 10:54:23 Outpatient ANABELA BENZ [facility] [id number] [facility] 2023-10-12 12:00:00 2023-10-12 12:15:00 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 Vtc-[facility] Eric Fiore [facility] 1.2.114 350.1.13.10 4.2.7.2.686 [id number] [facility] 2023-10-12 11:00:00 2023-10-12 11:59:40 Outpatient R ERIC FIORE PETER [facility] [id number] [facility] 2023-10-12 11:00:00 2023-10-12 11:59:40 Office Visit Eric Fiore [facility] 1.2.114 350.1.13.10 4.2.7.2.686 [id number] [facility] 2023-10-10 09:20:00 2023-10-10 09:42:45 Outpatient R OBI-LORENA HERNANDEZ OBI-DAVID [facility] [id number] [facility] 2023-10-10 09:20:00 2023-10-10 09:42:45 Office Visit Wiliam [facility] BUILDING 1.2.840.114 350.1.13.10 4.2.7.2.686 [id number] [facility] 2023-09-25 00:00:00 2023-09-25 00:00:00 Eric Louis [facility] BUILDING 1.2.840.114 350.1.13.10 4.2.7.2.686 [id number] [facility] 2023-08-22 15:15:00 2023-08-22 15:30:33 Outpatient R SAMANTA SCHAFFER [facility] [id number] [facility] 2023-08-22 15:15:00 2023-08-22 15:30:33 Office Visit Samanta Schaffer Agnieszka [facility] 1.2.840.114 350.1.13.10 4.2.7.2.686 [id number] [facility] 2023-08-15 13:30:00 2023-08-15 14:35:56 Outpatient R JOSE TOBIN LOZANO [facility] [id number] [facility] 2023-08-15 13:30:00 2023-08-15 14:35:56 Office Visit Tobin Garcia [facility] 1.2.840.114 350.1.13.10 4.2.7.2.686 [id number] [facility] 2023-08-08 09:37:00 2023-08-08 12:16:00 Emergency X ORDONEZCHRISTACASSANDRA [facility] [[email or web address] ERT [id number] [facility] 2023-08-08 09:37:00 2023-08-08 12:16:00 Emergency Christa Ordoneznell [facility] 1.2.840.114 350.1.13.10 4.2.7.2.686 [id number] [facility] 2023-08-03 09:15:00 2023-08-03 09:15:00 Outpatient R [facility] [id number] [facility] 2023-07-27 00:00:00 2023-07-27 00:00:00 Telephone [employer]-David [facility] 1.2.840.114 350.1.13.10 4.2.7.2.686 [id number] [facility] 2023-07-21 00:00:00 2023-07-21 00:00:00 Telephone ObIntegrity Digital SolutionsDavid [facility] 1.2840.114 350.1.13.10 4.2.7.2.686 [id number] [facility] 2023-07-20 09:30:00 2023-07-20 09:30:00 Nurse Visit Visit, Ang-Rmchp Nurse Eduardo Melton [facility] [[email or web address]] [facility] 1.2840.114 350.1.13.10 4.2.7.2.686 [id number] [facility] 2023-07-20 09:30:00 2023-07-20 09:22:48 Outpatient R EDUARDO MELTON [facility] [id number] [facility] 2023-07-20 00:00:00 2023-07-20 00:00:00 [facility] 1.20.114 350.1.13.10 4.2.7.2.686 [id number] [facility] 2023-07-20 00:00:00 2023-07-20 00:00:00 Telephone [facility] 1.20.114 350.1.13.10 4.2.7.2.686 [id number] [facility] 2023-07-20 00:00:00 2023-07-20 00:00:00 Patient Secure Msg Doctor Unassigned, [place] [facility] 1.2840.114 350.1.13.10 4.2.7.2.686 [id number] [facility] 2023-07-19 00:00:00 2023-07-19 00:00:00 Telephone [facility] , [facility] 1.2840.114 350.1.13.10 4.2.7.2.686 [id number] [id number] [facility] 2023-07-18 00:00:00 2023-07-18 00:00:00 Tele[facility] 1.2.840.114 350.1.13.10 4.2.7.2.686 [id number] [id number] [facility] 2023-07-13 09:47:08 2023-07-13 23:59:00 Hospital Encounter Wiliam [facility] 1.2.840.114 350.1.13.10 4.2.7.2.686 [id number] [facility] 2023-07-13 10:00:00 2023-07-13 10:15:00 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 Pob, Adc Lab Main Wiliam [facility] BUILDING 1.2.840.114 350.1.13.10 4.2.7.2.686 [id number] [facility] 2023-07-13 09:46:30 2023-07-13 09:46:30 Hospital Encounter Wiliam [facility] 1.2.840.114 350.1.13.10 4.2.7.2.686 [id number] [facility] 2023-07-13 08:34:13 2023-07-13 09:45:00 Outpatient R WILIAM LORENARITCHIE SWAIN [facility] [id number] [facility] 2023-07-13 08:34:13 2023-07-13 09:45:00 Hospital Encounter Wiliam [facility] 1.2.840.114 350.1.13.10 4.2.7.2.686 [id number] [facility] 2023-07-13 00:00:00 2023-07-13 00:00:00 Telephone [facility] 1.2.840.114 350.1.13.10 4.2.7.2.686 [id number] [id number] [facility] 2023-07-12 00:00:00 2023-07-12 00:00:00 Telephone [facility] 1.2.840.114 350.1.13.10 4.2.7.2.686 [id number] [facility] 2023-07-11 09:40:00 2023-07-11 09:51:00 Outpatient R WILIAM [facility] [id number] [facility] 2023-07-11 09:40:00 2023-07-11 09:51:00 Office Visit [facility] 1.2.840.114 350.1.13.10 4.2.7.2.686 [id number] [facility] 2023-07-11 00:00:00 2023-07-11 00:00:00 Telephone [facility] 1.2.840.114 350.1.13.10 4.2.7.2.686 [id number] [id number] [facility] 2023-07-11 00:00:00 2023-07-11 00:00:00 Telephone [facility] 1.2.840.114 350.1.13.10 4.2.7.2.686 [id number] [id number] [facility] 2023-07-11 00:00:00 2023-07-11 00:00:00 Telephone Lorena Swain [facility] BUILDING 1.2.840.114 350.1.13.10 4.2.7.2.686 [id number] [id number] [facility] 2023-07-11 00:00:00 2023-07-11 00:00:00 Orders Only Doctor Unassigned, [place] [facility] 1.2840.114 350.1.13.10 4.2.7.2.686 [id number] [facility] 2023-04-19 10:00:00 2023-04-19 10:00:00 Nurse Visit Visit, Ang-Rmchp Eduardo Edmonds [email or web address] 1.840.114 350.1.13.10 4.2.7.2.686 [id number] [facility] 2023-04-19 10:00:00 2023-04-19 09:40:53 Outpatient R EDUARDO MELTON [facility] [id number] [facility] 2023-03-22 00:00:00 2023-03-22 00:00:00 Telephone Harrison Zamudio [facility] 1.2.840.114 350.1.13.10 4.2.7.2.686 [id number] [id number] [facility] 2023-03-15 00:00:00 2023-03-15 00:00:00 Telephone Harrison Zamudio [facility] [facility] 1.2.840.114 350.1.13.10 4.2.7.2.686 [id number] [facility] 2023-03-14 14:30:00 2023-03-14 14:30:00 Outpatient R ROBBCHRISTIANOMALIA ZAMUDIO CHRISTIANOFeliBinh [facility] [id number] [facility] 2023-03-14 00:00:00 2023-03-14 00:00:00 Orders Only Doctor Unassigned, [place] [facility] 1..840.114 350.1.13.10 4.2.7.2.686 [id number] [facility] 2023-03-08 09:00:00 2023-03-08 09:21:57 Outpatient R ROBB RAYMUNDOGINO RAMIREZADENAGNES [facility] [id number] [facility] 2023-03-08 09:00:00 2023-03-08 09:21:57 Office Visit Obi-Lorena Hernandez Ogechukwu [facility] 1..840.114 350.1.13.10 4.2.7.2.686 [id number] [id number] [facility] 2023-03-01 10:00:00 2023-03-01 10:15:00 Nurse Visit Nurse, [place] Rmchp Rgv Cprit Obgyn Eduardo Melton [email or web address] CRE[facility] BEATER [facility] MATERNAL & CHILD [facility] ..840.114 350.1.13.10 4.2.7.2.686 [id number] [facility] 2023-03-01 10:00:00 2023-03-01 10:00:00 Outpatient R EDUARDO MELTON [facility] [id number] [facility] 2023-01-28 10:00:00 2023-01-28 10:28:39 Outpatient R ROBB RAYMUNDOGINO RAMIREZADENAGNES [facility] [id number] [facility] 2023-01-28 10:00:00 2023-01-28 10:28:39 Office Visit Harrison Zamudio [facility] 1.114 350.1.13.10 4.2.7.2.686 [id number] [id number] [facility] 2023-01-24 10:00:00 2023-01-24 10:15:00 Nurse Visit Visit, [facility] Nurse Eduardo Melton [email or web address]] CREAM BEATER [facility] & CHILD [facility] 1.84.114 350.1.13.10 4.2.7.2.686 [id number] [facility] 2023-01-24 10:00:00 2023-01-24 10:00:00 Outpatient R EDUARDO MELTON [facility] [id number] [facility] 2023-01-24 00:00:00 2023-01-24 00:00:00 Orders Only Doctor Unassigned, [place] [facility] 1..114 350.1.13.10 4.2.7.2.686 [id number] [facility] 2023-01-21 10:00:00 2023-01-21 10:00:00 Outpatient R [facility] [id number] [facility] 2022-10-21 10:30:00 2022-10-21 11:21:05 Outpatient R EDUARDO MELTON [facility] [id number] [facility] 2022-10-21 10:30:00 2022-10-21 11:21:05 Office Visit Eduardo Melton [email or web address]] CREAM BEATER [facility] CHILD [facility] 1..114 350.1.13.10 4.2.7.2.686 [id number] [facility] 2022-09-24 11:30:00 2022-09-24 11:30:00 Outpatient R HARRISON ZAMUDIO OGECHUKWU [facility] [id number] [facility] 2022-09-07 07:36:07 2022-09-07 23:59:00 Outpatient R EDUARDO MELTON [email or web address]] RAD [id number] [facility] 2022-09-07 07:36:07 2022-09-07 23:59:00 Hospital Encounter Eduardo Melton [facility] 1.114 350.1.13.10 4.2.7.2.686 [id number] [facility] 2022-08-30 13:15:00 2022-08-30 13:58:50 Outpatient R EDUARDO MELTON [facility] [id number] [facility] 2022-08-30 13:15:00 2022-08-30 13:58:50 Office Visit Eduardo Melton [email or web address]] CREAM BEATER [facility] MATERNAL & [facility] 1..114 350..13.10 4.2.7.2.686 [id number] [facility] 2022-08-30 13:15:00 2022-08-30 13:15:00 Outpatient R EDUARDO MELTON [facility] [id number] [facility] 2022-08-30 13:15:00 2022-08-30 13:15:00 Outpatient R EDUARDO MELTON [facility] [id number] [facility] 2022-08-30 00:00:00 2022-08-30 00:00:00 Orders Only Doctor Unassigned, [place] [facility] .114 350.1.13.10 4.2.7.2.686 [id number] [facility] 2022-08-10 00:00:00 2022-08-10 00:00:00 Refill [facility]ud[facility] 1.2.840.114 350.1.13.10 4.2.7.2.686 [id number] [facility] 2022-07-29 00:00:00 2022-07-29 00:00:00 Refill RobbGinoadenagnes [facility] N[facility] 1.2.840.114 350.1.13.10 4.2.7.2.686 [id number] [facility] 2022-04-09 15:30:00 2022-04-09 15:46:43 Outpatient R HARRISON ZAMUDIO OGECHUKWU [facility] [id number] [facility] 2022-04-09 15:30:00 2022-04-09 15:46:43 Office Visit Robb, Ogmukeshmalia [facility] 1.2.840.114 350.1.13.10 4.2.7.2.686 [id number] [id number] [facility] 2022-02-21 00:00:00 2022-02-21 00:00:00 Refill Harrison Zamudio [facility] 1.2.840.114 350.1.13.10 4.2.7.2.686 [id number] [id number] [facility] 2022-02-11 00:00:00 2022-02-11 00:00:00 Refill Vianney Farmer [facility] 1.2.840.114 350.1.13.10 4.2.7.2.686 [id number] [facility] 2022-02-05 14:30:00 2022-02-05 15:15:00 Ancillary Visit Destiny Pappas Craig L [facility] NAL BUILDING 1.2.840.114 350.1.13.10 4.2.7.2.686 [id number] [facility] 2022-02-05 14:30:00 2022-02-05 14:30:00 Outpatient R CHANEL LENTZ [facility] [id number] [facility] 2022-02-02 14:30:00 2022-02-02 14:30:00 Outpatient R CHANEL LENTZ [facility] [id number] [facility] 2022-01-29 13:45:00 2022-01-29 14:30:00 Ancillary Visit Dsetiny Pappas Craig L [facility] 1.2.840.114 350.1.13.10 4.2.7.2.686 [id number] [facility] 2022-01-21 11:00:00 2022-01-21 11:45:00 Ancillary Visit Nancy Hernandez Craig L [facility] 1.2.840.114 350.1.13.10 4.2.7.2.686 [id number] [facility] 2022-01-15 08:20:00 2022-01-15 16:50:04 Outpatient ERIC LANCE [facility] [id number] [facility] 2022-01-15 08:20:00 2022-01-15 08:20:00 Outpatient ERIC LANCE [facility] [id number] [facility] 2022-01-13 11:00:00 2022-01-13 11:33:04 Ancillary Visit Radha Luna Craig L [facility] 1.2.840.114 350.1.13.10 4.2.7.2.686 [id number] [facility] 2022-01-08 10:15:00 2022-01-08 11:00:00 Ancillary Visit Mirtha Moura Craig L [facility] N[facility] 1..840.114 350.1.13.10 4.2.7.2.686 [id number] [facility] 2022-01-01 10:15:00 2022-01-01 10:15:00 Outpatient R CHANEL LENTZ [facility] [id number] [facility] 2022-01-01 00:00:00 2022-01-01 00:00:00 Case Management Otilio Mirtha Monroe [facility] N[facility] 1..840.114 350.1.13.10 4.2.7.2.686 [id number] [facility] 2021-12-29 00:00:00 2021-12-29 00:00:00 Refill Harrison Zamudio [facility] 1..840.114 350.1.13.10 4.2.7.2.686 [id number] [facility] 2021-12-23 15:00:00 2021-12-23 15:00:00 Outpatient PERCY ELLISON [facility] [id number] [facility] 2021-12-23 13:30:00 2021-12-23 13:30:00 Outpatient HARRISON JOHNSON OGECHUKWU [facility] [id number] [facility] 2021-12-21 10:15:00 2021-12-21 10:29:07 Outpatient R CHANEL LENTZ [facility] [id number] [facility] 2021-12-21 10:15:00 2021-12-21 10:29:07 Ancillary Visit Skylar Ruiz Craig L [facility] NAL [facility]ILD[facility] 1..840.114 350.1.13.10 4.2.7.2.686 [id number] [facility] 2021-12-21 10:15:00 2021-12-21 10:15:00 Outpatient R CHANEL LENTZ [facility] [id number] [facility] 2021-12-16 13:45:00 2021-12-16 13:45:00 Outpatient R CHANEL LENTZ [facility] [id number] [facility] 2021-12-14 00:00:00 2021-12-14 00:00:00 Patient Secure Msg Doctor Unassigned, [place] [facility] 1.840.114 350.1.13.10 4.2.7.2.686 [id number] [facility] 2021-12-08 11:30:00 2021-12-08 11:32:51 Office Visit Harrison Zamudio [facility] 1.840.114 350.1.13.10 4.2.7.2.686 [id number] [facility] 2021-12-08 11:30:00 2021-12-08 11:32:51 Outpatient R HARRISON ZAMUDIO OGECHUKWU [facility] [id number] [facility] 2021-12-08 11:30:00 2021-12-08 11:30:00 Outpatient R HARRISON ZAMUDIO OGECHUKWU [facility] [id number] [facility] 2021-12-08 11:30:00 2021-12-08 11:30:00 Outpatient R HARRISON ZAMUDIO OGECHUKWU [facility] [id number] [facility] 2021-12-07 00:00:00 2021-12-07 00:00:00 Patient Secure Msg Doctor Unassigned, [place] [facility] 1..840.114 350.1.13.10 4.2.7.2.686 [id number] [facility] 2021-12-03 13:00:00 2021-12-03 14:27:24 Telemedici ne Visit JudiesurendraEric griggs [facility] 1.2.840.114 350.1.13.10 4.2.7.2.686 [id number] [facility] 2021-12-03 13:00:00 2021-12-03 14:27:24 Outpatient R JUDIESURENDRAERIC GRIGGS [facility] [id number] [facility] 2021-12-03 13:00:00 2021-12-03 13:00:00 Outpatient R ERIC MEYER [facility] [id number] [facility] 2021-12-03 00:00:00 2021-12-03 00:00:00 Telephone Eric Meyer [facility] 1.2.840.114 350.1.13.10 4.2.7.2.686 [id number] [facility] 2021-12-03 00:00:00 2021-12-03 00:00:00 Telephone FarmerVianney patrick Young [facility] 1.2.840.114 350.1.13.10 4.2.7.2.686 [id number] 044 [id number] [facility] 2021-12-01 00:00:00 2021-12-01 00:00:00 Telephone FarmerCedric patrickcarmen Vidal [facility] 1.2.840.114 350.1.13.10 4.2.7.2.686 [id number] [facility] 2021-11-27 10:00:00 2021-11-27 10:00:00 Outpatient R [facility] [id number] [facility] 2021-11-26 00:00:00 2021-11-26 00:00:00 Patient Secure Msg [facility] 1.2.840.114 350.1.13.10 4.2.7.2.686 [id number] [facility] 2021-11-25 10:45:54 2021-11-25 23:59:00 Outpatient R ERIC MEYER [facility] [id number] [facility] 2021-11-25 10:45:54 2021-11-25 23:59:00 Hospital Encounter Eric Meyer [facility] 1.2.840.114 350.1.13.10 4.2.7.2.686 [id number] [facility] 2021-11-25 10:45:54 2021-11-25 23:59:00 Outpatient R ERIC MEYER [facility] [id number] [facility] 2021-11-25 00:00:00 2021-11-25 00:00:00 Orders Only Doctor Unassigned, [place] [facility] 1.2.840.114 350.1.13.10 4.2.7.2.686 [id number] [facility] 2021-11-11 14:45:00 2021-11-11 15:00:00 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, [facility] Conchita [facility] BUILDING 1.2.840.114 350.1.13.10 4.2.7.2.686 [id number] [facility] 2021-11-11 13:40:00 2021-11-11 14:18:54 Outpatient R ERIC MEYER [facility] [id number] [facility] 2021-11-11 13:40:00 2021-11-11 14:18:54 Office Visit Eric Meyer [facility] 1.2.840.114 350.1.13.10 4.2.7.2.686 [id number] [facility] 2021-11-11 00:00:00 2021-11-11 00:00:00 Orders Only Doctor Unassigned, [place] [facility] 1..114 350.1.13.10 4.2.7.2.686 [id number] [facility] 2021-08-28 08:15:00 2021-08-28 09:00:47 Outpatient R EDUARDO MELTON [facility] [id number] [facility] 2021-08-28 08:15:00 2021-08-28 09:00:47 Office Visit Eduardo Melton [email or web address]] CREAM BEATER [facility] MATERNAL & CHILD [facility] 1..114 350.1.13.10 4.2.7.2.686 [id number] [facility] 2021-08-07 09:35:49 2021-08-07 23:59:00 Hospital Encounter RobbHarrison [facility] 1..114 350.1.13.10 4.2.7.2.686 [id number] [facility] 2021-08-07 09:35:49 2021-08-07 23:59:00 Outpatient R HARRISON ZAMUDIO OGECHUKWU [facility] [id number] [facility] 2021-08-07 08:30:00 2021-08-07 09:40:42 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, [facility] Harrison Zamudio [facility] 1..114 350.1.13.10 4.2.7.2.686 [id number] [facility] 2021-08-06 10:40:00 2021-08-06 10:40:00 Outpatient R ERIC MEYER [facility] [id number] [facility] 2021-08-05 13:30:00 2021-08-05 13:53:23 Office Visit Harrison Zamudio [facility] 1.2.840.114 350.1.13.10 4.2.7.2.686 [id number] [facility] 2021-08-05 13:30:00 2021-08-05 13:53:23 Outpatient R CHRISTIANO ZAMUDIOFeliHARRISON VALENTINE [facility] [id number] [facility] 2021-08-05 00:00:00 2021-08-05 00:00:00 Orders Only Doctor Unassigned, [place] [facility] 1.2.840.114 350.1.13.10 4.2.7.2.686 [id number] [facility] 2021-03-03 00:00:00 2021-03-03 00:00:00 Telephone Vianney Farmer [facility] 1.2.840.114 350.1.13.10 4.2.7.2.686 [id number] 044 [id number] [facility] 2021-02-27 13:36:00 2021-02-27 15:19:00 Emergency Thom Destiny [facility] 1.2840.114 350.1.13.10 4.2.7.2.686 [id number] [facility] 2021-02-27 13:00:00 2021-02-27 13:00:00 Outpatient R TRE GARCIA [facility] [id number] [facility] 2021-02-26 12:53:18 2021-02-26 23:59:00 Hospital Encounter Vianney Farmer [facility] 1.2.840.114 350.1.13.10 4.2.7.2.686 [id number] [facility] 2021-02-26 00:00:00 2021-02-26 00:00:00 Outpatient VIANNEY BOND [facility] [id number] [facility] 2021-02-19 00:00:00 2021-02-19 00:00:00 Outpatient VIANNEY BOND [facility] [id number] [facility] 2021-02-10 10:25:36 2021-02-10 10:40:36 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, [facility] 1.2.840.114 350.1.13.10 4.2.7.2.686 [id number] [facility] 2021-02-10 10:25:36 2021-02-10 10:40:36 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, [facility] Lab Vianney Farmer [facility] 1.2.840.114 350.1.13.10 4.2.7.2.686 [id number] [facility] 2021-02-10 10:40:00 2021-02-10 10:40:00 Outpatient R VIANNEY FARMER [facility] [id number] [facility] 2021-02-10 09:28:49 2021-02-10 10:24:08 Office Visit [facility]ianney [facility] 1.2.840.114 350.1.13.10 4.2.7.2.686 [id number] [facility] 2020-12-22 14:20:00 2020-12-22 14:40:00 Office Visit Vianney Farmer [facility] nal Building 1.2.840.114 350.1.13.10 4.2.7.2.686 [id number] [facility] 2020-12-22 14:20:00 2020-12-22 14:20:00 Outpatient R FARMER, VIANNEY [facility] [id number] [facility] 2020-09-12 00:00:00 2020-09-12 00:00:00 Refill Eric Meyer [facility] 1.2.840.114 350.1.13.10 4.2.7.2.686 [id number] [facility] 2020-09-10 07:48:49 2020-09-10 08:08:49 Telemedici ne Visit Eric Meyer [facility] 1.2.840.114 350.1.13.10 4.2.7.2.686 [id number] [facility] 2020-09-10 08:00:00 2020-09-10 08:00:00 Outpatient R ERIC MEYER [facility] [id number] [facility] 2020-09-05 00:00:00 2020-09-05 00:00:00 Telephone Eric Meyer [facility] 1.2.840.114 350.1.13.10 4.2.7.2.686 [id number] [facility] 2020-08-25 00:00:00 2020-08-25 00:00:00 Patient Outreach Percy Prado [email or web address] 1.2.840.114 350.1.13.10 4.2.7.2.686 [id number] [facility] 2020-08-04 00:00:00 2020-08-04 00:00:00 Telephone Eric Meyer [facility] 1.2.840.114 350.1.13.10 4.2.7.2.686 [id number] [id number] [facility] 2020-07-30 12:47:25 2020-07-30 13:32:59 Office Visit Murtaza Jones [facility] [place] [facility] Building 1.2.840.114 350.1.13.10 4.2.7.2.686 [id number] [facility] 2020-07-30 13:00:00 2020-07-30 13:00:00 [id number] 2020-07-21 13:00:00 2020-07-21 13:00:00 Outpatient R MO JONESTANY [facility] [id number] [facility] 2020-07-17 00:00:00 2020-07-17 00:00:00 Telephone Conchita Eric [facility] 1.2.840.114 350.1.13.10 4.2.7.2.686 [id number] [facility] 2020-04-11 13:30:00 2020-04-11 13:30:00 Outpatient R [facility] [id number] [facility] 2020-03-12 09:00:00 2020-03-12 09:00:00 Outpatient R ERIC MEYER [facility] [id number] [facility] 2020-03-12 07:53:25 2020-03-12 08:13:25 Telemedici ne Visit Judiesurendraanson Eric [facility] Building 1.2.840.114 350.1.13.10 4.2.7.2.686 [id number] 2020-03-12 07:53:25 2020-03-12 08:13:25 Telemedici ne Visit GalobasilEric raya [facility] Building 1.2.840.114 350.1.13.10 4.2.7.2.686 [id number] [facility] 2020-02-20 00:00:00 2020-02-20 00:00:00 Orders Only Doctor Unassigned, [place] [facility] 1.2.840.114 350.1.13.10 4.2.7.2.686 [id number] 2020-02-20 00:00:00 2020-02-20 00:00:00 Orders Only Doctor Unassigned, [place] [facility] 1.2840.114 350.1.13.10 4.2.7.2.686 [id number] [facility] 2020-01-18 10:00:00 2020-01-18 10:00:00 Outpatient R [facility] [id number] [facility] 2020-01-18 08:30:30 2020-01-18 08:45:30 Nurse Visit Visit, [facility] Eduardo Edmonds [email or web address] CREAM BEATER [facility] MATERNAL & CHILD [facility] 1.2840.114 350.1.13.10 4.2.7.2.686 [id number] [facility] 2020-01-18 08:30:30 2020-01-18 08:45:30 [email or web address] CREAM BEATER [facility] & CHILD [facility] 1.2840.114 350.1.13.10 4.2.7.2.686 [id number] 2020-01-02 00:00:00 2020-01-02 00:00:00 Telephone Vianney Farmer [facility] 1.2840.114 350.1.13.10 4.2.7.2.686 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 Images from the original note were not included. [facility] Lisa Jurado [facility] 2023-07-11 11:19:43 PA Submitted, waiting for determination. [facility] 2023-07-11 11:09:01 Images from the original note were not included. [facility]
[2024-09-01] MEDS ORDERED: Magnesium Sulfate 2gm IVPB 2 G/50 ML BAG IV ONE (16:02)
[2024-09-01] MEDS ORDERED: ALBUTEROL 2.5 MG/3 ML NEB SOL ONE ×2 (16:02→16:50)
[2024-09-01] MEDS ORDERED: METHYLPREDNISOLONE 125 MG INJ ONE (16:02)
[2024-09-01] MEDS ORDERED: IPRATROPIUM BROM 0.5MG/2.5ML ONE ×2 (16:02→16:50)
[2024-09-01] MEDS ORDERED: MORPHINE 4 MG/ML SYR ONE (16:12)
[2024-09-01] MEDS ORDERED: ONDANSETRON 4 MG/2 ML VIAL ONE (16:12)
[2024-09-01 16:16] LABS: Absolute Basophils 0.1 K/uL (0-0.5); Absolute Eosinophils 0.1 K/uL (0-0.5); Absolute Lymphocytes (CBC) 2.7 K/uL (0.7-4.9); Absolute Monocytes 1.1 K/uL (0.1-1.3); Absolute Neutrophil 7.6 K/uL (1.8-8.0); Basophils % 0.9 % (0-1.3); Hemoglobin 14.2 g/dL (12.0-15.0); Lymphocytes % 23.2 % (15.3-44.8); MCH 30.4 pg (27.0-35.0); MCHC 33.8 g/dL (32.0-36.0); MPV 7.3 fL (7.6-11.3); Monocytes % 9.5 % (3.3-12.3); Neutrophils % 65.4 % (41.7-73.7); Nucleated Red Blood Cells % 0.1 % (0-0); Platelets 337 thou/uL (152-406); RBC Red Blood Cell Count 4.67 M/uL (3.86-4.86); Red Cell Distribution Width 14.2 % (12.1-15.2)
[2024-09-01 16:23] LABS: PT Prothrombin Time 11.9 SECONDS (10-13.0); Protime INR 1.05
[2024-09-01 16:35] LABS: ALT/SGPT 19 U/L (13-56); AST/SGOT 12 U/L (15-37); Albumin 2.9 g/dL (3.4-5.0); Albumin/Globulin Ratio 0.7 (1.1-1.8); Alkaline Phosphatase 64 U/L (45-117); Anion Gap 8.7 mEq/L (5.0-15.0); BUN Blood Urea Nitrogen 17 mg/dL (7-18); Bicarbonate 28 mEq/L (21-32); Bilirubin Total 0.4 mg/dL (0.2-1.0); Globulin 3.9 g/dL (2.3-3.5); Glomerular Filtration Rate 82 ml/min (=/>90); Glucose Level 153 mg/dL (74-106); Magnesium 2.4 mg/dL (1.6-2.4); NT PRO-BNP 15 pg/mL (<125); Potassium 3.7 mEq/L (3.5-5.1); Protein, Total 6.8 g/dL (6.4-8.2); Sodium Level 138 mEq/L (136-145)
[2024-09-01 16:37] LABS: Bilirubin Direct < 0.2 mg/dL (0-0.2); Bilirubin Indirect, Calculated 0.2 mg/dL (0.2-0.8); Troponin High Sensitivity < 3.0 pg/mL (<58.9)
[2024-09-01] MEDS ORDERED: HYDROMORPHONE HCL 1 MG/ML INJ ONE (16:51)
--- NOTE | 2024-09-01 17:00 | RAD REPORT ---
EXAMINATION: ONE VIEW CHEST XR CLINICAL INDICATION: Female, 44 years old.,DYSPNEA TECHNIQUE: Frontal chest projection is submitted. Examination is limited by patient positioning and t echnique. COMPARISON: 08/26/2024 FINDINGS: Perihilar interstitial prominence possible left trace effusion, mildly progressive since prior exam. No pneumothorax or sizable effusion. The heart is normal in size. Mediastinal contours are unremarkable. IMPRESSION: Mildly progressive similar findings to the prior exam, may suggest pulmonary edema.
--- NOTE | 2024-09-01 17:35 | RAD REPORT ---
EXAM: CT Chest For Pe Angio TECHNIQUE: CT angiogram of the chest was performed following intravenous contrast administration, inc luding sagittal and coronal as well as maximum intensity projection reformats. One or more of the following dose reduction techniques were used: Automated exposure control, adjustment of the mA and k V according to patient size, and iterative reconstruction. Unless otherwise specified, incidental findings do not require dedicated imaging follow-up. INDICATION: Chest pain;Hemoptysis COMPARISON: Chest radiograph of earlier the same day. FINDINGS: LINES/TUBES: None. PULMONARY ARTERIES: Main pulmonary arteries are normal in caliber. Predominantly occlusive emboli wit hin branches to the right lower lobe starting at the second order branches. Subocclusive more distal right middle lobe and left lower lobe emboli. No evidence of right heart strain. LUNGS AND AIRWAYS: Patchy predominantly peripheral right lower lobe alveolar opacities. Scattered queenie undglass opacities with interlobular septal thickening along the right more than left dependent lower lobes. PLEURA: Small layering right pleural effusion. No pneumothorax. HEART AND MEDIASTINUM: The visualized thyroid gland is normal. No mediastinal, hilar, or axillary lym phadenopathy. Heart is unremarkable. No pericardial effusion. SOFT TISSUES AND BONES: No acute osseous abnormality. No significant soft tissue finding. UPPER ABDOMEN: Unremarkable. IMPRESSION: Bilateral pulmonary emboli most notably with occlusive emboli along the right lower lobe starting at the second order branches. Patchy predominantly peripheral right lower lobe alveolar opacities, could relate to evolving pneumon itis or pulmonary infarcts. Other bibasilar groundglass opacities with interlobular septal thickening may reflect changes of interstitial edema. Small layering right pleural effusion. THIS REPORT CONTAINS FINDINGS THAT MAY BE CRITICAL TO PATIENT CARE. The findings were verbally commun icated via telephone to Angelique Rogers on 09/01/2024 5:30 PM.
--- NOTE | 2024-09-01 17:44 | ER ---
Nurse's Notes [facility] Name: Rama Ruiz Age: 44 yrs Sex: Female : 1980 Arrival Date: 09/01/2024 Time: 15:39 Bed 25 Private MD: Diagnosis: Pulmonary embolism, chest pain, asthma exacerbation Presentation: 09/01 15:49 Chief complaint: Patient states: COUGH AND SHORTNESS OF BREATH ONSET TODAY. PT STATES cm10 THAT SHE WAS SEEN HERE LAST WEEK FOR SAME SYMPTOMS. PT ALSO REPORTS RIGHT-SIDED RIB PAIN AND CHEST PAIN. Coronavirus screen: Client denies travel out of the [place] in the last 14 days. Ebola Screen: Patient denies travel to an Ebola-affected area in the 21 days before illness onset. Initial Sepsis Screen: Does the patient meet any 2 criteria? RR > 20 per min. HR > 90 bpm. Does the patient have a suspected source of infection? No. Patient's initial sepsis screen is negative. Risk Assessment: Do you want to hurt yourself or someone else? Patient reports no desire to harm self or others. Onset of symptoms was September 01, 2024. 15:49 Method Of Arrival: Ambulatory cm10 15:49 Acuity: GIORGIO 2 cm10 Triage Assessment: 15:51 General: Appears uncomfortable, Behavior is cooperative. Neuro: No deficits noted. cm10 Level of Consciousness is awake, alert, obeys commands, Oriented to person, place, time, situation, Appropriate for age. Respiratory: Reports shortness of breath cough that is Airway is patent Respiratory effort is labored, Respiratory pattern is tachypnea. 23:19 Respiratory: the patient has moderate shortness of breath. 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 - Infectious Disease History:: Denies. - Social history:: Smoking status: Patient reports the use of cigarette tobacco products, cigars. Screenin:00 [facility] ED Fall Risk Assessment (Adult) History of falling in the last 3 months, aa5 including since admission No falls in past 3 months (0 pts) Confusion or Disorientation No (0 pts) Intoxicated or Sedated No (0 pts) Impaired Gait No (0 pts) Mobility Assist Device Used No (0 pt) Altered Elimination No (0 pt) Score/Fall Risk Level 0 - 2 = Low Risk Oriented to surroundings, Maintained a safe environment, Educated pt \T\ family on fall prevention, incl call for assistance when getting out of bed, Assessed \T\ reinforced patient's understanding of fall precautions. Abuse screen: Denies threats or abuse. Nutritional screening: No deficits noted. Tuberculosis screening: No symptoms or risk factors identified. Assessment: 16:00 General: Appears distressed, uncomfortable, Behavior is cooperative. Pain: Complains of aa5 pain in back Pain currently is 9 out of 10 on a pain scale. Quality of pain is described as aching, sharp, Pain began 2-3 days ago. Is continuous. Neuro: Level of Consciousness is awake, alert, obeys commands, Oriented to person, place, time, situation. Cardiovascular: Heart tones S1 S2 present Rhythm is regular. Respiratory: Reports shortness of breath Airway is patent Respiratory effort is labored, Respiratory pattern is regular, symmetrical, tachypnea Breath sounds are diminished bilaterally. GI: No signs and/or symptoms were reported involving the gastrointestinal system. : No signs and/or symptoms were reported regarding the genitourinary system. EENT: No signs and/or symptoms were reported regarding the EENT system. Derm: Skin is dry, Skin is normal, Skin temperature is warm. Musculoskeletal: Range of motion: intact in all extremities. 16:49 Reassessment: Patient states symptoms have not improved. MD notified of unchanged pain aa5 level. . 17:19 Reassessment: Patient states feeling better. Neuro: Level of Consciousness is awake, aa5 alert, obeys commands, Oriented to person, place, time, situation. Respiratory: Airway is patent Respiratory effort is even, unlabored, relaxed, Respiratory pattern is regular, symmetrical. Derm: Skin is dry, Skin is normal, Skin temperature is warm. 17:19 Reassessment: Pt back from CT scan . aa5 18:00 Reassessment: Patient states feeling better. Patient states symptoms have improved. aa5 General: Appears comfortable, Behavior is calm, cooperative. Neuro: Level of Consciousness is awake, alert, obeys commands, Oriented to person, place, time, situation. Respiratory: Airway is patent Respiratory effort is even, unlabored, Respiratory pattern is regular, symmetrical. Derm: Skin is dry, Skin is normal, Skin temperature is warm. Vital Signs: 15:49 BP 121 / 98; Pulse 124; Resp 24; Temp 98.2; Pulse Ox 98% on R/A; Weight 95.71 kg; cm10 Height 5 ft. 5 in. ; Pain 9/10; 16:35 BP 111 / 86; Pulse 112; Resp 26 S; Pulse Ox 98% on Nebulizer Mask; aa5 16:54 Pulse 118; Resp 25 S; Pulse Ox 98% on R/A; aa5 17:19 BP 137 / 97; Pulse 105; Resp 16 S; Pulse Ox 97% on R/A; aa5 18:00 BP 122 / 81; Pulse 100; Resp 14 S; Pulse Ox 99% on 2 lpm NC; aa5 15:49 Body Mass Index 35.11 (95.71 kg, 165.1 cm) cm10 15:49 Pain Scale: Adult cm10 ED Course: 15:42 Patient arrived in ED. sj2 15:46 Angelique Rogers MD is Attending Physician. sp3 15:49 Daphney Rubi RN is Primary Nurse. aa5 15:50 Triage completed. cm10 15:51 Arm band placed on right wrist. Patient placed in an exam room, on a stretcher. cm10 16:00 Patient has correct armband on for positive identification. Bed in low position. Call aa5 light in reach. Side rails up X 1. Client placed on continuous cardiac and pulse oximetry monitoring. NIBP monitoring applied. 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 Pulse ox on. NIBP on. 16:08 Initial lab(s) drawn, by me, sent to lab. Inserted saline lock: 20 gauge in right aa5 antecubital area, using aseptic technique. Blood collected. Flushed with 10 mL NS. 16:14 XRAY Chest (1 view) In Process Unspecified. EDMS 17:27 CT Chest For PE Angio In Process Unspecified. EDMS 17:30 Inserted saline lock: 18 gauge in left antecubital area, using aseptic technique. aa5 17:43 Liset oBwen MD is Hospitalizing Provider. sp3 19:05 Report given to KRISTINA Yun. aa5 23:18 Provided Education on: admission. cp4 23:18 No provider procedures requiring assistance completed. Inserted Patient admitted, IV cp4 remains in place. Administered Medications: 16:08 Drug: DuoNeb Nebulize (3:1) (2.5 mg - 0.5 mg) 3 ml Nebulizer once Route: Nebulizer; aa5 16:10 Follow up: Response: No adverse reaction aa5 16:08 Drug: MethylPrednisoLONE IVP 125 mg IVP once Route: IVP; Site: right antecubital; aa5 16:10 Follow up: Response: No adverse reaction aa5 16:08 Drug: Magnesium Sulfate IVPB 2 grams IVPB once over 2 hrs Route: IVPB; Infused Over: 2 aa5 hrs; Site: right antecubital; 18:08 Follow up: IV Status: Completed infusion; IV Intake: 50ml aa5 16:17 Drug: morphine IVP or IV 4 mg IVP once over 4 mins Route: IVP; Infused Over: 4 mins; aa5 Site: right antecubital; 16:28 Follow up: Response: No adverse reaction; Pain is unchanged, physician notified aa5 16:17 Drug: Ondansetron IVP 4 mg IVP once; over 2 minutes Route: IVP; Site: right antecubital;aa5 16:28 Follow up: Response: No adverse reaction aa5 16:54 Drug: HYDROmorphone IVP 1 mg IVP once Route: IVP; Site: right antecubital; aa5 17:19 Follow up: Response: No adverse reaction; Pain is decreased aa5 17:19 Drug: DuoNeb Nebulize (3:1) (2.5 mg - 0.5 mg) 3 ml Nebulizer once Route: Nebulizer; aa5 17:30 Follow up: Response: No adverse reaction aa5 18:05 Drug: Heparin (DVT/PE- Bolus per protocol) - HEParin IVP 80 units/kg IVP once; Max aa5 8,000 units {Co-Signature: bp (Shad Mcdonald RN).} {Note: administered 8000units.} Route: IVP; Site: right antecubital; 18:15 Follow up: Response: No adverse reaction aa5 18:05 Drug: Heparin (DVT/PE Drip) 18 units/kg/hr - ([place] [address] units, D5W IV 500 ml) IV aa5 at calculated rate Per protocol; Max initial rate 1800 units/hr {Co-Signature: bp (Shad Mcdonald RN).} {Note: administered 1700units/hr.} Route: IV; Rate: calculated rate; Site: right antecubital; 09/02 04:54 Follow up: IV Status: Infusion continued upon admission cp4 Medication: 09/01 16:45 VIS not applicable for this client. aa5 Intake: 18:08 IV: 50ml; Total: 50ml. aa5 Outcome: 17:43 Decision to Hospitalize by Provider. sp3 23:18 Admitted to ER Hold. Please see [facility] for further documentation. cp4 23:18 Condition: stable 23:18 Instructed on the need for admit, 09/02 11:05 Admitted to Med/surg room 4TH FLOOR, db 11:06 Patient left the ED. db Signatures: Dispatcher [employer] EDMS Daphney Rubi, RN RN aa5 Angelique Rogers MD MD sp3 Lulú Stephen RN RN db Tiffanie Bhatti RN RN cm10 Court May cp4 Kwesi Edward 2 Shad Mcdonald RN bp Corrections: (The following items were deleted from the chart) 09/01 19:17 17:30 BP 137 / 97; Pulse 105bpm; Resp 16bpm; Spontaneous; Pulse Ox 97% RA; aa5 aa5 19: 17:00 Inserted saline lock: 18 gauge in left antecubital area, using aseptic technique. aa5 aa5
--- NOTE | 2024-09-01 17:44 | EDPHYS ---
Physician Documentation [facility] Name: Rama Ruiz Age: 44 yrs Sex: Female : 1980 Arrival Date: 09/01/2024 Time: 15:39 Bed 25 Private MD: ED Physician Angelique Rogers HPI: 09/01 16:06 This 44 yrs old Black Female presents to ER via Ambulatory with complaints of Breathing sp3 Difficulty, Pain All Over. 16:06 . sp3 16:07 44-year-old female with history of asthma, hypertension, migraines presents with chief sp3 complaint difficulty breathing and asthma attack. Patient was seen here approximately 1 week ago where she was given steroids for home but she states that after her second dose she started having hemoptysis and stopped the medication. She denies any fever, headache, neck pain, chest pain, abdominal pain, vomit, diarrhea, or any other signs or symptoms on ROS at this time. She denies any prolonged immobilization, recent travel, known sick contacts.. 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 - Infectious Disease History:: Denies. - Social history:: Smoking status: Patient reports the use of cigarette tobacco products, cigars. ROS: 16:08 Constitutional: Negative for fever, chills, and weight loss, Eyes: Negative for injury, sp3 pain, redness, and discharge, ENT: Negative for injury, pain, and discharge, Neck: Negative for injury, pain, and swelling, Abdomen/GI: Negative for abdominal pain, nausea, vomiting, diarrhea, and constipation, Back: Negative for injury and pain, MS/Extremity: Negative for injury and deformity, Skin: Negative for injury, rash, and discoloration, Neuro: Negative for headache, weakness, numbness, tingling, and seizure, Psych: Negative for depression, anxiety, suicide ideation, homicidal ideation, and hallucinations, Allergy/Immunology: Negative for hives, rash, and allergies, Endocrine: Negative for neck swelling, polydipsia, polyuria, polyphagia, and marked weight changes, 16:08 All other systems are negative, Exam: 16:09 Constitutional: This is a well developed, well nourished patient who is awake, alert, sp3 and in no acute distress. Head/Face: Normocephalic, atraumatic. Eyes: Pupils equal round and reactive to light, extra-ocular motions intact. Lids and lashes normal. Conjunctiva and sclera are non-icteric and not injected. Cornea within normal limits. Periorbital areas with no swelling, redness, or edema. ENT: Nares patent. No nasal discharge, no septal abnormalities noted. External auditory canals are clear. Oropharynx with no redness, swelling, or masses, exudates, or evidence of obstruction, uvula midline. Mucous membranes moist. Neck: Trachea midline, no thyromegaly or masses palpated, and no cervical lymphadenopathy. Supple, full range of motion without nuchal rigidity, or vertebral point tenderness. No Meningismus. Chest/axilla: Normal chest wall appearance and motion. Nontender with no deformity. No lesions are appreciated. Abdomen/GI: Soft, non-tender, with normal bowel sounds. No distension or tympany. No guarding or rebound. No evidence of tenderness throughout. Back: No spinal tenderness. No costovertebral tenderness. Full range of motion. Skin: Warm, dry with normal turgor. Normal color with no rashes, no lesions, and no evidence of cellulitis. MS/ Extremity: Pulses equal, no cyanosis. Neurovascular intact. Full, normal range of motion. Neuro: Awake and alert, GCS 15, oriented to person, place, time, and situation. Cranial nerves II-XII grossly intact. Motor strength 5/5 in all extremities. Sensory grossly intact. Cerebellar exam normal. Normal gait. Psych: Awake, alert, with orientation to person, place and time. Behavior, mood, and affect are within normal limits. 16:09 Cardiovascular: Rate: tachycardic, 16:09 Respiratory: Expiratory and aspiratory wheezing with tachypnea at 24 breaths/min and tachycardia in the 120s., 17:04 ECG was reviewed by the Attending Physician. EKG demonstrates sinus tachycardia at 116 sp3 bpm with normal intervals QTc 450, normal axis, normal QRS, nonspecific diffuse ST/changes without evidence of acute ischemia. Vital Signs: 15:49 BP 121 / 98; Pulse 124; Resp 24; Temp 98.2; Pulse Ox 98% on R/A; Weight 95.71 kg; cm10 Height 5 ft. 5 in. ; Pain 9/10; 16:35 BP 111 / 86; Pulse 112; Resp 26 S; Pulse Ox 98% on Nebulizer Mask; aa5 16:54 Pulse 118; Resp 25 S; Pulse Ox 98% on R/A; aa5 17:19 BP 137 / 97; Pulse 105; Resp 16 S; Pulse Ox 97% on R/A; aa5 18:00 BP 122 / 81; Pulse 100; Resp 14 S; Pulse Ox 99% on 2 lpm NC; aa5 15:49 Body Mass Index 35.11 (95.71 kg, 165.1 cm) cm10 15:49 Pain Scale: Adult cm10 MDM: 15:50 Medical Screening Exam initiated sp3 16:09 Data reviewed: vital signs, nurses notes, old medical records, lab test result(s), EKG, sp3 radiologic studies. ED course: 44-year-old female with difficulty breathing and asthma exacerbation. Patient given albuterol, magnesium and Solu-Medrol for critical treatment. Differential diagnose includes asthma exacerbation, pneumonia, bronchitis, pulmonary embolism, other viral infection, COVID-19, influenza, other infection. Disposition pending workup and patient course with probable admission versus transfer depending on workup.. 17:31 ED course: Patient with confirmed multiple pulmonary embolisms on CT angiogram. Will go sp3 ahead and start heparin. No signs of right heart strain reported by radiology. Patient still tachycardic but otherwise stable.. 09/01 15:53 Order name: Basic Metabolic Panel; Complete Time: 17:03 sp3 09/01 15:53 Order name: CBC with Diff; Complete Time: 17:03 sp3 09/01 15:53 Order name: LFT's; Complete Time: 17:03 sp3 09/01 15:53 Order name: Magnesium; Complete Time: 17: sp3 09/01 15:53 Order name: NT PRO-BNP; Complete Time: 17:03 sp3 09/01 15:53 Order name: PT-INR; Complete Time: 17: sp3 09/01 15:53 Order name: Troponin HS; Complete Time: 17: 3 09/01 16:10 Order name: COVID-19 Ag + Flu A+B Ag; Complete Time: 18: sp3 09/01 17:36 Order name: Ptt, Activated; Complete Time: 18:29 aa5 09/01 18:36 Order name: Urinalysis w/ reflexes EDMS 09/01 18:36 Order name: CBC with Automated Diff EDMS 09/01 18:36 Order name: CBC with Automated Diff EDMS 09/01 18:36 Order name: Comprehensive Metabolic Panel EDMS 09/01 18:36 Order name: Comprehensive Metabolic Panel EDMS 09/01 18:38 Order name: CBC with Automated Diff EDMS 09/01 18:38 Order name: Platelet Count EDMS 09/01 18:38 Order name: Protime (+INR) EDMS 09/01 18:38 Order name: PTT, Activated Partial Thromb EDMS 09/01 18:38 Order name: CBC with Automated Diff EDMS 09/01 18:38 Order name: CBC with Automated Diff EDMS 09/01 18:38 Order name: CBC with Automated Diff EDMS 09/01 18:38 Order name: CBC with Automated Diff EDMS 09/01 18:38 Order name: Platelet Count EDMS 09/01 18:38 Order name: Platelet Count EDMS 09/01 18:38 Order name: Platelet Count EDMS 09/01 18:38 Order name: Platelet Count EDMS 09/01 18:38 Order name: Platelet Count EDMS 09/01 18:38 Order name: Platelet Count EDMS 09/01 18:38 Order name: Platelet Count EDMS 09/01 18:38 Order name: Platelet Count EDMS 09/01 18:38 Order name: PTT, Activated Partial Thromb EDMS 09/01 18:38 Order name: PTT, Activated Partial Thromb EDMS 09/01 18:38 Order name: PTT, Activated Partial Thromb EDMS 09/01 18:38 Order name: PTT, Activated Partial Thromb EDMS 09/01 20:58 Order name: Manual Differential EDMS 09/02 04:46 Order name: PTT, Activated Partial Thromb EDMS 09/01 15:53 Order name: XRAY Chest (1 view); Complete Time: 17:03 sp3 09/01 16:11 Order name: CT Chest For PE Angio; Complete Time: 17:36 sp3 09/01 15:53 Order name: Cardiac monitoring; Complete Time: 15:55 sp3 09/01 15:53 Order name: EKG - Nurse/Tech; Complete Time: 16:08 sp3 09/01 15:53 Order name: IV Saline Lock; Complete Time: 16:08 sp3 09/01 15:53 Order name: Labs collected and sent; Complete Time: 16:08 sp3 09/01 15:53 Order name: O2 Per Protocol; Complete Time: 15:55 sp3 09/01 15:53 Order name: O2 Sat Monitoring; Complete Time: 15:55 sp3 Administered Medications: 16:08 Drug: DuoNeb Nebulize (3:1) (2.5 mg - 0.5 mg) 3 ml Nebulizer once Route: Nebulizer; aa5 16:10 Follow up: Response: No adverse reaction aa5 16:08 Drug: MethylPrednisoLONE IVP 125 mg IVP once Route: IVP; Site: right antecubital; aa5 16:10 Follow up: Response: No adverse reaction aa5 16:08 Drug: Magnesium Sulfate IVPB 2 grams IVPB once over 2 hrs Route: IVPB; Infused Over: 2 aa5 hrs; Site: right antecubital; 18:08 Follow up: IV Status: Completed infusion; IV Intake: 50ml aa5 16:17 Drug: morphine IVP or IV 4 mg IVP once over 4 mins Route: IVP; Infused Over: 4 mins; aa5 Site: right antecubital; 16:28 Follow up: Response: No adverse reaction; Pain is unchanged, physician notified aa5 16:17 Drug: Ondansetron IVP 4 mg IVP once; over 2 minutes Route: IVP; Site: right antecubital;aa5 16:28 Follow up: Response: No adverse reaction aa5 16:54 Drug: HYDROmorphone IVP 1 mg IVP once Route: IVP; Site: right antecubital; aa5 17:19 Follow up: Response: No adverse reaction; Pain is decreased aa5 17:19 Drug: DuoNeb Nebulize (3:1) (2.5 mg - 0.5 mg) 3 ml Nebulizer once Route: Nebulizer; aa5 17:30 Follow up: Response: No adverse reaction aa5 18:05 Drug: Heparin (DVT/PE- Bolus per protocol) - HEParin IVP 80 units/kg IVP once; Max aa5 8,000 units {Co-Signature: bp (Shad Mcdonald RN).} {Note: administered 8000units.} Route: IVP; Site: right antecubital; 18:15 Follow up: Response: No adverse reaction aa5 18:05 Drug: Heparin (DVT/PE Drip) 18 units/kg/[place] - ([place] [address] units, D5W IV 500 ml) IV aa5 at calculated rate Per protocol; Max initial rate 1800 units/hr {Co-Signature: bp (Shad Mcdonald RN).} {Note: administered 1700units/hr.} Route: IV; Rate: calculated rate; Site: right antecubital; 09/02 04:54 Follow up: IV Status: Infusion continued upon admission cp4 Disposition: 09/01 16:35 Critical Care:. sp3 17:42 Critical Care:. sp3 Disposition Summary: 09/01/24 17:43 Hospitalization Ordered Notes: Hospitalization Status: Inpatient Admission sp3 Provider: Liset Bowen sp3 Condition: Stable sp3 Problem: an acute exacerbation sp3 Symptoms: have worsened sp3 Bed/Room Type: Standard sp3 Location: Telemetry/MedSurg (Inpatient)(09/02/24 09:33) kb3 Room Assignment: [facility](09/02/24 09:33) kb3 Diagnosis - Pulmonary embolism, chest pain, asthma exacerbation sp3 Forms: - Medication Reconciliation Form sp3 - SBAR form sp3 - Leadership Thank You Letter sp3 Critical care time excluding procedures: 16:35 Critical care time: Bedside Care: 10 minutes, Consultation: 10 minutes, Family sp3 Intervention: 10 minutes. Total time: 30 minutes Signatures: Dispatcher [employer] EDMS Daphney Rubi RN KRISTINA aa5 Joseph Ramirez FNP-C PLUMBING SERVICE TECHNICIAN-Cla1 Dayanna Meza, RN RN Angelique Rogers MD MD sp3 Katie Rodríguez RN RN kb3 Tiffanie Bhatti, KRISTINA RN cm10 [address] May cp4 Shad Mcdonald RN bp Corrections: (The following items were deleted from the chart) 15:54 15:54 BASIC METABOLIC PANEL+C.LAB.BRZ ordered. EDMS EDMS 15:54 15:54 CBC+H.LAB.BRZ ordered. EDMS EDMS 15:54 15:54 HEPATIC FUNCTION+C.LAB.BRZ ordered. EDMS EDMS 15:54 15:54 MAGNESIUM+C.LAB.BRZ ordered. EDMS EDMS 15:54 15:54 PROBNP+C.LAB.BRZ ordered. EDMS EDMS 15:54 15:54 PROTIME (+INR)+COAG.LAB.BRZ ordered. EDMS EDMS 15:54 15:54 Troponin High Sensitivity+C.LAB.BRZ ordered. EDMS EDMS 15:54 15:54 Chest Single View+RAD.RAD.BRZ ordered. EDMS EDMS 17:31 16:09 ED course: 44-year-old female with difficulty breathing and asthma exacerbation. sp3 Patient given albuterol, magnesium and Solu-Medrol for critical treatment. Differential diagnose includes asthma exacerbation, pneumonia, bronchitis, other viral infection, COVID-19, influenza, other infection. Disposition pending workup and patient course with probable admission versus transfer depending on workup.. sp3 18:51 18:38 PTT, Activated Partial Thromb ordered. EDMS EDMS 20:32 17:43 Telemetry/MedSurg (Inpatient) sp3 cg 20:32 17:43 sp3 cg 09/02 09:33 09/01 20:32 [facility] ER HOLD cg kb3 09/02 09:33 09/01 20:32 ERHOLD- cg kb3
[2024-09-01] MEDS ORDERED: HEPARIN 5000 UNIT/ML 1 ML VIAL ONE (17:51)
[2024-09-01] MEDS ORDERED: HEPARIN/D5W 25,000 UNIT/500 ML BAG IV ONE (17:52)
[2024-09-01] MEDS: HEPARIN/D5W 25,000 UNITS/500 ML BAG IV PRN (18:05)
[2024-09-01 18:16] LABS: Influenza A Ag Negative; Influenza B Ag Negative; SARS-CoV-2 Antigen Rapid Res Negative (Negative)
[2024-09-01] MEDS ORDERED: ALBUTEROL 2.5 MG/3 ML NEB SOL NEB PRN (18:32)
[2024-09-01] MEDS ORDERED: ONDANSETRON 4 MG/2 ML VIAL IV PRN (18:32)
--- NOTE | 2024-09-01 18:32 | P.HP ---
Certification for Inpatient Patient admitted to: Inpatient With expected LOS: >2 Midnights Practitioner: I am a practitioner with admitting privileges, knowledge of patient current condition, hospital course, and medical plan of care. Services: Services provided to patient in accordance with Admission requirements found in Title 42 Section 412.3 of the Code of Federal Regulations Patient History Date of Service: 09/01/24 Reason for admission: PE History of Present Illness: 44-year-old female with history of DVT, asthma, depression, hypertension, migraines presents to the ER with complaints of hemoptysis and shortness of breath. Reports symptoms started about 6 days ago. She states that she recently stopped Eliquis. She did have a history of a DVT after surgery. She did not says she had asthma as a child. In the ER she was noted to be short of breath. She did not require oxygen. A CTA showed bilateral PE. She is being admitted for observation and further workup. Allergies No Known Allergies Allergy (Unverified 10/20/14 08:12) Review of Systems 10-point ROS is otherwise unremarkable Respiratory: Cough, Shortness of Breath, Hemoptysis Physical Examination - Physical Exam General: Oriented x3 HEENT: Atraumatic, Normocephalic Respiratory: Clear to auscultation bilaterally, Normal air movement Cardiovascular: Normal pulses, Regular rate/rhythm Gastrointestinal: Soft and benign, Non-distended Musculoskeletal: No clubbing, No swelling Integumentary: No rashes, No breakdown - Studies Laboratory Data (last 24 hrs) 09/01/24 09/01/24 09/01/24 17:40 16:08 16:08 WBC 11.70 H Hgb 14.2 Hct 42.0 Plt Count 337 PT 11.9 INR 1.05 APTT 29.2 Sodium Potassium BUN Creatinine Glucose Magnesium Total Bilirubin AST ALT Alkaline Phosphatase 09/01/24 16:08 WBC Hgb Hct Plt Count PT INR APTT Sodium 138 Potassium 3.7 BUN 17 Creatinine 0.90 Glucose 153 H Magnesium 2.4 Total Bilirubin 0.4 AST 12 L ALT 19 Alkaline Phosphatase 64 Assessment and Plan - Problems (Diagnosis) (1) Pulmonary embolism Current Visit: Yes Status: Acute (2) Asthma Current Visit: Yes Status: Acute - Plan 44-year-old female history of asthma, DVT presents with shortness of breath. Bilateral pulmonary embolism Dyspnea Hemoptysis History of asthma History of migraines Plan: 1. Admit to telemetry 2. Continue heparin drip 3. Order echocardiogram 4. Consider restarting Eliquis in a.m. 5. Consider outpatient hematology consult 6. As needed albuterol, steroids, O2 as needed - Advance Directives Does patient have a Living Will: No Does patient have a Durable POA for Healthcare: No
[2024-09-01 20:13] LABS: Absolute Basophils 0.1 K/uL (0-0.5); Absolute Lymphocytes (CBC) 0.7 K/uL (0.7-4.9); Absolute Monocytes 0.2 K/uL (0.1-1.3); Absolute Neutrophil 17.2 K/uL (1.8-8.0); Basophils % 0.4 % (0-1.3); Hematocrit 39.3 % (36.0-45.0); Hemoglobin 13.3 g/dL (12.0-15.0); Lymphocytes % 3.8 % (15.3-44.8); MCH 30.7 pg (27.0-35.0); MCHC 33.7 g/dL (32.0-36.0); MCV 91.2 fL (80-100); MPV 6.9 fL (7.6-11.3); Monocytes % 1.1 % (3.3-12.3); Neutrophils % 94.7 % (41.7-73.7); Platelets 315 thou/uL (152-406); RBC Red Blood Cell Count 4.31 M/uL (3.86-4.86); Red Cell Distribution Width 14.4 % (12.1-15.2)
[2024-09-01 20:52] LABS: PT Prothrombin Time 13.4 SECONDS (10-13.0); Protime INR 1.18
[2024-09-01 20:57] LABS: Band Neutrophils 6 % (0-1); Differential Total Cells Count 100; Lymphocytes 2 % (15-42); Monocytes 1 % (0-10); Reactive Lymphocytes 1 %; Segmented Neutrophils 90 % (40-80)
[2024-09-01 20:58] LABS: Blood Morphology Comment NOT SEEN (NOT SEEN); Platelet Estimate ADEQ
[2024-09-01 21:22] VITALS: BMI 35.1
[2024-09-01 23:03] LABS: Specific Gravity > 1.030 (1.005-1.030); Sqamous Epithelial <5 /HPF (None Seen); Urine Bacteria None Seen /HPF (<20); Urine Bilirubin NEGATIVE (Negative); Urine Blood 1+ (Negative); Urine Clarity Clear (Clear); Urine Color Light-Yellow (Yellow); Urine Culture Reflex Order NOT NEEDED; Urine Glucose 4+ (Over) (Negative); Urine Ketones NEGATIVE (Negative); Urine Microscopic Reflex YN ORDER UMIC; Urine Nitrite NEGATIVE (Negative); Urine Protein TRACE (Negative); Urine Urobilinogen Normal (Normal); Urine WBC None Seen /HPF (<5)
[2024-09-02 04:42] LABS: Absolute Monocytes 0.5 K/uL (0.1-1.3); Absolute Neutrophil 16.4 K/uL (1.8-8.0); Basophils % 0.3 % (0-1.3); Hematocrit 37.1 % (36.0-45.0); Hemoglobin 12.6 g/dL (12.0-15.0); Lymphocytes % 5.5 % (15.3-44.8); MCH 30.6 pg (27.0-35.0); MPV 7.8 fL (7.6-11.3); Monocytes % 2.9 % (3.3-12.3); Platelets 317 thou/uL (152-406); RBC Red Blood Cell Count 4.12 M/uL (3.86-4.86); Red Cell Distribution Width 14.1 % (12.1-15.2)
[2024-09-02 04:45] LABS: Neutrophils % 91.3 % (41.7-73.7)
[2024-09-02 04:51] LABS: Albumin 2.5 g/dL (3.4-5.0); Albumin/Globulin Ratio 0.6 (1.1-1.8); Bilirubin Total 0.3 mg/dL (0.2-1.0); Protein, Total 6.5 g/dL (6.4-8.2)
--- NOTE | 2024-09-02 08:07 | P.PN ---
Date of Service: 09/02/24 Subjective: feels slightly better reports had procedure for varicose veins by vascular surgeon Developed left leg swelling and pain, found to have a DVT within a week of the procedure, and started on Eliquis (mid June 2024) She followed up with her vascular surgeon who repeated lower extremity Doppler which was reportedly negative for DVT, so patient was instructed by her physician to stop Eliquis Patient did not have sinus tachycardia to the 120s just sitting up in bed Physical Exam: GEN: Alert, oriented, NAD CV: Sinus tachycardia, no edema Pulm: Nonlabored respirations on room air, clear bilaterally Integumentary: No rashes Neuro: Normal speech, normal affect Problem List: Bilateral PE Hemoptysis Hx BLE venous insufficiency s/p Radiofrequency Ablation (06/18/24) Hx LLE DVT, provoked (06/20/24) Hypertension Depression Hx Asthma Bilateral PE Hemoptysis on admission, presents with worsening shortness of breath, right sided chest pain associated with hemoptysis. Reports recently stopping eliquis - per EMR 30 day script on 07/23/24. CTA chest (09/01): Bilateral PE -occlusive emboli along RLL starting at the second order branches. No evidence of right heart strain. CTA also noted peripheral RLL alveolar opacities concern for evolving pneumonitis or pulmonary infarcts. Scattered groundglass opacities with interlobular septal thickening. Small layering right pleural effusion. 09/01 - Started on heparin drip in ED and Given IV solu-medrol, duonebs, pain meds Wean oxygen as tolerated. Monitor on telemetry 09/02 - Pulm consult Transition heparin drip to Eliquis this afternoon Patient still with sinus tachycardia with minimal movement, on room air Check echo in a.m., rule out heart strain She reported having hemoptysis only after starting steroid after the recent ER visit Has been taking ibuprofen for lower extremity pain after varicose vein procedure; this examination with a steroid would increase risk of bleeding, gastritis/gastric ulcer Hx BLE venous insufficiency s/p Radiofrequency Ablation (06/18/24) Hx LLE DVT, provoked (06/20/24) Reports history of DVT after surgery Stopped Eliquis ~1 month ago, which she states was as instructed by her vascular surgeon after negative venous Doppler studies done on follow-up Hypertension Depression Hx Asthma confirm home meds, restart as appropriate VTE: heparin drip, transition to Eliquis this evening Code: Full Dispo: Home, 1 to 2 days Pending pulm recs, improvement Time Spent Managing Pts Care (In Minutes): 55
[2024-09-02] MEDS ORDERED: HEPARIN/D5W 25,000 UNIT/500 ML BAG IV ONE (09:23)
[2024-09-02] MEDS: lisinopriL 20 MG TAB PO ONE (15:15)
[2024-09-02] MEDS: APIXABAN 5 MG TABLET PO SCH (17:12)
[2024-09-02] MEDS: ACETAMINOPHEN 500 MG TAB PO PRN (17:20)
[2024-09-03 06:23] LABS: Absolute Basophils 0.1 K/uL (0-0.5); Absolute Eosinophils 0.1 K/uL (0-0.5); Absolute Lymphocytes (CBC) 3.9 K/uL (0.7-4.9); Absolute Monocytes 0.9 K/uL (0.1-1.3); Basophils % 0.9 % (0-1.3); Eosinophils % 0.6 % (0-4.4); Hematocrit 35.4 % (36.0-45.0); Hemoglobin 12.2 g/dL (12.0-15.0); Lymphocytes % 25.8 % (15.3-44.8); MCHC 34.3 g/dL (32.0-36.0); MCV 90.4 fL (80-100); MPV 7.4 fL (7.6-11.3); Neutrophils % 66.7 % (41.7-73.7); Platelets 328 thou/uL (152-406); RBC Red Blood Cell Count 3.92 M/uL (3.86-4.86); Red Cell Distribution Width 14.4 % (12.1-15.2)
[2024-09-03 06:35] LABS: ALT/SGPT 18 U/L (13-56); Albumin 2.3 g/dL (3.4-5.0); Albumin/Globulin Ratio 0.6 (1.1-1.8); Alkaline Phosphatase 57 U/L (45-117); Anion Gap 7.1 mEq/L (5.0-15.0); BUN Blood Urea Nitrogen 15 mg/dL (7-18); Bicarbonate 28 mEq/L (21-32); Bilirubin Total 0.2 mg/dL (0.2-1.0); Glomerular Filtration Rate 102 ml/min (=/>90); Glucose Level 118 mg/dL (74-106); Magnesium 2.2 mg/dL (1.6-2.4); Potassium 4.1 mEq/L (3.5-5.1); Protein, Total 6.3 g/dL (6.4-8.2); Sodium Level 141 mEq/L (136-145)
[2024-09-03 06:42] LABS: AST/SGOT < 10 U/L (15-37)
[2024-09-03] MEDS: lisinopriL 20 MG TAB PO SCH (07:41)
--- NOTE | 2024-09-03 11:23 | EKG ---
Test Date: 2024-09-01 Test Time: 16:04:52 General Merchandise Salesperson: CHIDI MEASUREMENT RESULTS: Intervals: Rate: 116 TN: 148 QRSD: 70 QT: 324 QTc: 450 Griffin: P: 53 TN: 148 QRS: 57 T: 68 INTERPRETIVE STATEMENTS: Sinus tachycardia Otherwise normal ECG Compared to ECG 04/17/2015 10:38:38 Sinus rhythm no longer present Sinus arrhythmia no longer present Electronically Signed On 09-03-24 11:19:08 CDT by Dimas Martinez
[2024-09-03 11:57] VITALS: BP 120/82; TEMP 98.4
--- NOTE | 2024-09-03 12:16 | ECHO ---
HEIGHT: 5 ft 5 in WEIGHT: 211 lb 0.071 oz DATE OF STUDY: 09/03/[address]: Reji Rivers MD 2-DIMENSIONAL: YES M.MODE: YES DOPPLER: YES COLOR FLOW: YES TDS: PORTABLE: YES DEFINITY: BUBBLE STUDY: DIAGNOSIS: RULE OUT HEART STRAIN, BILATERAL PULMONARY EMBOLISM CARDIAC HISTORY: CATHERIZATION: NO SURGERY: NO PROSTHETIC VALVE: NO PACEMAKER: NO MEASUREMENTS (cm) DIASTOLIC (NORMALS) SYSTOLIC (NORMALS) IVSd 1.2 (0.6-1.2) LA Diam 1.9 (1.9-4.0) LVEF 60-65% LVIDd 3.9 (3.5-5.7) LVIDs 2.9 (2.0-3.5) %FS 26% LVPWd 1.2 (0.6-1.2) Ao Diam 3.1 (2.0-3.7) 2 DIMENSIONAL ASSESSMENT: RIGHT ATRIUM: NORMAL LEFT ATRIUM: NORMAL RIGHT VENTRICLE: NORMAL LEFT VENTRICLE: NORMAL TRICUSPID VALVE: NORMAL MITRAL VALVE: NORMAL PULMONIC VALVE: NORMAL AORTIC VALVE: NORMAL PERICARDIAL EFFUSION: NONE AORTIC ROOT: NORMAL LEFT VENTRICULAR WALL MOTION: NORMAL DOPPLER/COLOR FLOW: NORMAL COMMENTS: 1. MODERATE ASYMETRICAL BASAL SEPTAL HYPERTROPHY 2. NORMAL LEFT VENTRICULAR SYSTOLIC FUNCTION, EJECTION FRACTION 60-65%, NORMAL WALL MOTION 3. NORMAL RIGHT VENTRICULAR SIZE AND FUNCTION TECHNOLOGIST: ZARIA CARRANZA
--- NOTE | 2024-09-03 12:25 | P.CNS ---
Date of Consult: 09/03/24 Reason for Consult: Pulmonary embolism right-sided chest pain shortness of breath Chief Complaint: PE History of Present Illness: Patient is 44 years of age with a history of pulmonary embolism apparently stopped her Eliquis June preceding the vein operation in her left leg and did not resume it having problems for the past week not taking her Eliquis told to restart having some right sided discomfort with shortness of breath ended up in the hospital CT showed bilateral pulmonary emboli right lower lobe infiltrate feeling better and little weepy Allergies No Known Allergies Allergy (Unverified 10/20/14 08:12) Home Medications: Lisinopril/Hydrochlorothiazide [Lisinopril-Hctz 20-25 mg Tab] 25 mg PO DAILY 09/02/24 cefuroxime axetiL [Cefuroxime] 500 mg PO BID 10 Days #20 tab 09/03/24 - Past Medical/Surgical History -: Pulmonary emboli -: Hypertension - Social History Smoking Status: Current every day smoker Review of Systems 10-point ROS is otherwise unremarkable General: Weakness Respiratory: Shortness of Breath, Pleuritic Pain Physical Examination Temp Pulse Resp BP Pulse Ox 98.4 F 87 20 120/82 100 09/03/24 11:56 09/03/24 11:56 09/03/24 11:56 09/03/24 11:56 09/03/24 11:56 General: Alert, Oriented x3, Mild distress Respiratory: Clear to auscultation bilaterally Cardiovascular: No edema, Regular rate/rhythm, Normal S1 S2 Gastrointestinal: Normal bowel sounds, Soft and benign - Problems (1) Pulmonary embolism Current Visit: Yes Status: Acute Plan: Patient is 44 years of age admitted with recurrent pulmonary embolism which was stopped in June eating her patient for close veins and was not restarted currently feeling better hemodynamically stable will anxious and depressed her vital signs are all stable off oxygen blood pressure is satisfactory count is elevated may have a pneumonia on the right lung or an infarct discharged on cefuroxime in addition to Eliquis stable for discharge follow-up in 2 to 4 weeks needs to be on lifelong anticoagulation echocardiogram does not show any evidence of cor pulmonale Qualifiers: Acute cor pulmonale presence: unspecified
--- NOTE | 2024-09-03 12:44 | P.DS ---
Admission Date: 09/01/24 Discharge Date: 09/03/24 Disposition: ROUTINE DISCHARGE Discharge Condition: GOOD Reason for Admission: PE Consultations: Pulmonology - Dr. Chavarria Brief History of Present Illness: 44yo F, PMH: DVT, asthma, depression, hypertension, migraines Patient presents to the ER with complaints of hemoptysis and shortness of breath. Reports symptoms started about 6 days ago. She states that she recently stopped Eliquis. She did have a history of a DVT after surgery. She did not says she had asthma as a child. In the ER she was noted to be short of breath. She did not require oxygen. A CTA showed bilateral PE. She is being admitted for observation and further workup. Hospital Course: Problem List: Bilateral PE Hemoptysis, resolved Hx BLE venous insufficiency s/p Radiofrequency Ablation (06/18/24) Hx LLE DVT, provoked (06/20/24) Hypertension Depression Hx Asthma Physician discharge instructions: Patient presented with worsening shortness of breath, right sided chest pain associated with hemoptysis secondary to bilateral pulmonary emboli. CTA chest revealed Bilateral pulmonary emboli: occlusive emboli along RLL starting at the second order branches. No evidence of right heart strain seen on CTA chest. CTA also noted peripheral Right lower lobe alveolar opacities concern for evolving pneumonitis or pulmonary infarcts, Scattered groundglass opacities with interlobular septal thickening, Small layering right pleural effusion. She was started on a heparin drip and given IV steroids, duonebs in ED. Heparin drip was transitioned to eliquis on 09/02. Her breathing and heart rate improved. She was noted to be in sinus rhythm on day of discharge with HR in 80-90s. Patient was feeling better, breathing comfortably on room air, in normal sinus rhythm, and was deemed stable for discharge. Dr. Chavarria, pulm was consulted and recommended patient complete course of cefuroxime on discharge to cover possible underlying pneumonia and did not suspect pulmonary infarct. She will need minimum 3-6 months of eliquis, possibly longer. To follow up with Dr. Chavarria. Echo noted moderate asymmetrical basal septal hypertrophy, normal EF, normal wall motion, normal right ventricular size and function. This would be seen with her history of hypertension. Recommend good control of blood pressure. Blood pressure during hospitalization as been within normal range. Medications: Take Eliquis 10 mg BID for 7 days, then 5 mg BID for life Cefuroxime 500 BID for 10 days Follow up: PCP 3-5 days Pulmonology in a few weeks Consider follow up with Cardiology. Please call to schedule / confirm appointments Physical Exam: GEN: Alert, oriented, NAD CV: Regular rate and rhythm, no edema Pulm: Nonlabored respirations on room air, clear bilaterally ABD: soft, nontender, nondistended Integumentary: No rashes Neuro: Normal speech, normal affect Vital Signs/Physical Exam: Temp Pulse Resp BP Pulse Ox 98.4 F 87 20 120/82 100 09/03/24 11:56 09/03/24 11:56 09/03/24 11:56 09/03/24 11:56 09/03/24 11:56 Laboratory Data at Discharge: WBC 15.00 thou/uL (4.3-10.9) H 09/03/24 06:00 Hgb 12.2 g/dL (12.0-15.0) 09/03/24 06:00 Hct 35.4 % (36.0-45.0) L 09/03/24 06:00 Plt Count 328 thou/uL (152-406) 09/03/24 06:00 PT 13.4 SECONDS (10-13.0) H 09/01/24 20:05 INR 1.18 09/01/24 20:05 APTT Cancelled 09/02/24 17:40 Sodium 141 mEq/L (136-145) D 09/03/24 06:00 Potassium 4.1 mEq/L (3.5-5.1) 09/03/24 06:00 BUN 15 mg/dL (7-18) 09/03/24 06:00 Creatinine 0.75 mg/dL (0.55-1.02) 09/03/24 06:00 Glucose 118 mg/dL (74-106) H 09/03/24 06:00 Magnesium 2.2 mg/dL (1.6-2.4) 09/03/24 06:00 Total Bilirubin 0.2 mg/dL (0.2-1.0) 09/03/24 06:00 AST < 10 U/L (15-37) L 09/03/24 06:00 ALT 18 U/L (13-56) 09/03/24 06:00 Alkaline Phosphatase 57 U/L (45-117) 09/03/24 06:00 Home Medications: Lisinopril/Hydrochlorothiazide [Lisinopril-Hctz 20-25 mg Tab] 25 mg PO DAILY 09/02/24 Apixaban [Eliquis] 5 mg PO BID 30 Days #60 tab 09/03/24 cefuroxime axetiL [Cefuroxime] 500 mg PO BID 10 Days #20 tab 09/03/24 New Medications: cefuroxime axetiL [Cefuroxime] 500 mg PO BID 10 Days #20 tab Apixaban [Eliquis] 5 mg PO BID 30 Days #60 tab Physician Discharge Instructions: Physician discharge instructions: Patient presented with worsening shortness of breath, right sided chest pain associated with hemoptysis secondary to bilateral pulmonary emboli. CTA chest revealed Bilateral pulmonary emboli: occlusive emboli along RLL starting at the second order branches. No evidence of right heart strain seen on CTA chest. CTA also noted peripheral Right lower lobe alveolar opacities concern for evolving pneumonitis or pulmonary infarcts, Scattered groundglass opacities with interlobular septal thickening, Small layering right pleural effusion. She was started on a heparin drip and given IV steroids, duonebs in ED. Heparin drip was transitioned to eliquis on 09/02. Her breathing and heart rate improved. She was noted to be in sinus rhythm on day of discharge with HR in 80-90s. Patient was feeling better, breathing comfortably on room air, in normal sinus rhythm, and was deemed stable for discharge. ronald Potter was consulted and recommended patient complete course of cefuroxime on discharge to cover possible underlying pneumonia and did not suspect pulmonary infarct. She will need minimum 3-6 months of eliquis, possibly longer. To follow up with Dr. Chavarria. Echo noted moderate asymmetrical basal septal hypertrophy, normal EF, normal wall motion, normal right ventricular size and function. This would be seen with her history of hypertension. Recommend good control of blood pressure. Blood pressure during hospitalization as been within normal range. Medications: Take Eliquis 10 mg BID for 7 days, then 5 mg BID for life Cefuroxime 500 BID for 10 days Follow up: PCP 3-5 days Pulmonology in a few weeks Consider follow up with Cardiology. Please call to schedule / confirm appointments Followup: Terrell Chavarria MD [ACTIVE - CAN ADMIT] - 1-2 Weeks Ty Swain MD [Primary Care Provider] - 1-2 Weeks Time spent managing pt's care (in minutes): 45
[2024-09-03 13:29] VITALS: O2SAT 100
== END 2024-09-03 13:48 | disposition home or self-care (01) | DRG 175 ==
LOC: ER 15:39 → ERHOLD 18:32 → 4TH 09-02 10:30
PROVIDERS: ADMIT Hospitalist; ATTEND Hospitalist
DX: I26.99 Other pulmonary embolism without acute cor pulmonale (principal); J18.9 Pneumonia, unspecified organism; R04.2 Hemoptysis; F32.A Depression, unspecified; I10 Essential (primary) hypertension; J45.909 Unspecified asthma, uncomplicated; F17.210 Nicotine dependence, cigarettes, uncomplicated; Z11.52 Encounter for screening for COVID-19; Z79.01 Long term (current) use of anticoagulants; Z79.899 Other long term (current) drug therapy; Z86.718 Personal history of other venous thrombosis and embolism
CPT/HCPCS: 36415; 71045; 71275; 80048; 80053; 80076; 81001; 83735; 83880; 84484; 85025; 85049; 85610; 85730; 87428; 93005; 93306; 94760; 96365; 96366; 96375; 99285; J1171; J1644; J2405; J2919; J3475; J7613; J7644; Q9967